=== PATIENT | male | born 1950 | race Caucasian/White ===

== ENCOUNTER → 2016-07-20 | Outpatient (CLI) | payer MEDICARE, BC ==
[2016-07-20 09:26] LABS: Basophils # (A) 0.1 k/uL (0-0.2); Basophils % (A) 1 %; CH 30.3; CHCM 31.7; Eosinophils # (A) 0.5 k/uL (0-0.7); Eosinophils % (A) 4 %; HCT 44.1 % (39.0-53.0); HDW 2.58; HGB 13.9 gm/dL (13.0-17.5); Luc # (Auto) 0.24; Luc % (Auto) 2; Lymphocytes # (A) 2.7 k/uL (1.0-4.8); Lymphocytes % (A) 24 %; MCH 30.2 pg (25.0-35.0); MCHC 31.5 g/dL (31.0-37.0); MCV 95.9 fL (80.0-100.0); Mean Platelet Volume 6.6; Monocytes # (A) 0.7 k/uL (0-1.0); Monocytes % (A) 6 %; Neutrophils % (A) 63 %; RDW 13.7 % (11.5-15.5); WBC 11.2 k/uL (3.8-10.6); WBC (Perox) 11.83
[2016-07-20 09:31] LABS: ALT 40 U/L (21-72); AST 19 U/L (17-59); Alkaline Phosphatase 96 U/L (38-126); Anion Gap 13 mmol/L; Bilirubin, Delta 0.4 mg/dL (0.0-0.2); Blood Urea Nitrogen 17 mg/dL (9-20); Calcium 9.6 mg/dL (8.4-10.2); Carbon Dioxide 26 mmol/L (22-30); Chloride 103 mmol/L (98-107); Glucose 128 mg/dL (74-99); Non-African American GFR(MDRD) >60 (>60 ml/min/1.73 sqM); Sodium 142 mmol/L (137-145); Total Bilirubin 0.8 mg/dL (0.2-1.3); Total Protein 7.3 g/dL (6.3-8.2)
== END | disposition home or self-care (01) ==
LOC: LABWHC1 08:34
PROVIDERS: ATTEND Internal Medicine Gastroenterology
DX: Z48.23 Encounter for aftercare following liver transplant (principal); Z79.899 Other long term (current) drug therapy
CPT/HCPCS: 36415; 80048; 80076; 85025

== ENCOUNTER → 2017-08-08 | Outpatient (CLI) | payer MEDICARE, BC ==
[2017-08-08 08:23] LABS: Blood Urea Nitrogen 24 mg/dL (9-20)
--- NOTE | 2017-08-08 09:32 | CT ---
EXAMINATION TYPE: CT chest w con DATE OF EXAM: 08/08/2017 COMPARISON: 08/04/2009 HISTORY: SOB CT DLP: 530.9 mGycm Automated exposure control for dose reduction was used. CONTRAST: CT scan of the chest is performed with IV Contrast, patient injected with 100 mL of Omnipaque 300. FINDINGS: LUNGS: Subsegmental changes are seen with lungs. No pneumothorax. No pleural effusion. Chronic appear ing bulla or emphysematous changes along the lateral margin of the left lower lobe is stable from the previous exam basilar and central bronchiectasis noted. Pleural thickening and calcification on the left. MEDIASTINUM: There are no greater than 1 cm hilar or mediastinal lymph nodes. No pericardial effusi on is seen. Sternotomy wires seen. Atherosclerotic change aorta. Coronary artery calcification and c ardiomegaly noted. OTHER: Chronic appearing wedge deformity in the midthoracic spine.. IMPRESSION: 1. Correlate for COPD and bronchiectasis. 2. Subsegmental consolidation noted bilaterally most typical of atelectasis or scar.
== END | disposition home or self-care (01) ==
LOC: RADCTMAIN 07:37
PROVIDERS: ATTEND Internal Medicine Critical Care Medicine
DX: J18.1 Lobar pneumonia, unspecified organism (principal)
CPT/HCPCS: 82565; 84520; 82103; 71260; 36415; Q9967

== ENCOUNTER → 2017-08-14 | Outpatient (CLI) | payer MEDICARE, BC ==
--- NOTE | 2017-08-15 10:28 | ECHOF ---
Referral Reason:LVS I50.1 Left heart failure MEASUREMENTS -------- HEIGHT: 177.8 cm WEIGHT: 95.3 kg BP: 181/90 RVIDd: 3.1 cm (< 3.3) IVSd: 1.2 cm (0.6 - 1.1) LVIDd: 4.6 cm (3.9 - 5.3) LVPWd: 1.3 cm (0.6 - 1.1) IVSs: 1.4 cm LVIDs: 2.7 cm LVPWs: 1.4 cm LAESV Index (A-L): 26.40 ml/m Ao Diam: 3.3 cm (2.0 - 3.7) AV Cusp: 1.6 cm (1.5 - 2.6) LA Diam: 4.2 cm (2.7 - 3.8) EPSS: 0.3 cm MV E Noah: 0.74 m/s MV DecT: 272 ms MV A Noah: 0.61 m/s MV E/A Ratio: 1.20 RAP: 5.00 mmHg RVSP: 14.93 mmHg MV EF SLOPE: 67.01 mm/s (70 - 150) MV EXCURSION: 1.85 cm (> 18.000) FINDINGS -------- Sinus rhythm. This was a technically adequate study. The left ventricular size is normal. There is mild concentric left ventricular hypertrophy. Overa ll left ventricular systolic function is normal with, an EF between 55 - 60 %. The right ventricle is normal in size and function. Normal LA size by volume 22+/-6 ml/m2. The right atrium is normal in size. 3ml of Lumason was utilized for enhancement of images. Aortic valve is trileaflet and is mildly thickened. There is no evidence of aortic regurgitation. The mitral valve leaflets are mildly thickened. Mild mitral regurgitation is present. Mild tricuspid regurgitation present. Right ventricular systolic pressure is normal at < 35 mmHg. There is no evidence of pulmonary hypertension. Trace/mild (physiologic) pulmonic regurgitation. The aortic root size is normal. Normal inferior vena cava with normal inspiratory collapse consistent with estimated right atrial pre ssure of 5 mmHg. There is no pericardial effusion. CONCLUSIONS -------- 1. Sinus rhythm. 2. This was a technically adequate study. 3. The left ventricular size is normal. 4. There is mild concentric left ventricular hypertrophy. 5. Overall left ventricular systolic function is normal with, an EF between 55 - 60 %. 6. Normal LA size by volume 22+/-6 ml/m2. 7. 3ml of Lumason was utilized for enhancement of images. 8. Aortic valve is trileaflet and is mildly thickened. 9. The mitral valve leaflets are mildly thickened. 10. Mild mitral regurgitation is present. 11. Mild tricuspid regurgitation present. 12. Right ventricular systolic pressure is normal at < 35 mmHg. 13. Trace/mild (physiologic) pulmonic regurgitation. 14. The aortic root size is normal. 15. There is no pericardial effusion. OIL PAINTER: Malvin Lee RDCS
== END | disposition home or self-care (01) ==
LOC: RADECHMAIN 12:45
PROVIDERS: ATTEND Internal Medicine Cardiovascular Disease
DX: I08.1 Rheumatic disorders of both mitral and tricuspid valves (principal)
CPT/HCPCS: C8929; Q9950; 93306

== ENCOUNTER 2018-04-05 17:21 | Inpatient (IN) | payer MEDICARE, BC ==
[2018-04-05] MEDS ORDERED: DILTIAZEM DRIP BOLUS FROM BAG 1 MG SOLN IV ONE (18:10)
--- NOTE | 2018-04-05 18:18 | ED ---
Arrhythmia/Palpitations HPI - General Chief Complaint: Arrhythmia/Palpitations Stated Complaint: Sob/ chest pain Time Seen by Provider: 04/05/18 17:32 Source: patient, RN notes reviewed, old records reviewed Mode of arrival: wheelchair Limitations: no limitations - History of Present Illness Initial Comments: This is a 68-year-old male the ER for evaluation patient coming in for evaluation of shortness of breath or palpitations. 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 Patient also again does have significant heart history. No recent change in history no recent change in medications. Patient has been severed from shortness of breath for quite some time, denies recent drugs or alcohol use. Patient has been stable pulmonology cardiology regarding causes of shortness of breath. He thinks palpitations started this week but mainly really noticed some today MD Complaint: rapid heart beat, "heart racing", "skipped beats", irregular heart beat -: days(s), unknown Context: occurred during rest Arrhythmia History: other (none) Associated Symptoms: shortness of breath - Related Data Home Medications Medication Instructions Recorded Confirmed Aspirin 325 mg PO DAILY 08/30/16 04/05/18 Atorvastatin [Lipitor] 10 mg PO HS 08/30/16 04/05/18 Clopidogrel [Plavix] 75 mg PO HS 08/30/16 04/05/18 Isosorbide Mononitrate [Imdur] 120 mg PO BID 08/30/16 04/05/18 Metoprolol Tartrate [Lopressor] 100 mg PO BID 08/30/16 04/05/18 Omeprazole [PriLOSEC] 20 mg PO AC-BID 08/30/16 04/05/18 Cyanocobalamin [Vitamin B-12] 500 mcg PO DAILY 04/05/18 04/05/18 Ferrous Sulfate [Feosol] 325 mg PO DAILY 04/05/18 04/05/18 Nitroglycerin 0.4MG/Hr Patch 1 patch TRANSDERM Q24H 04/05/18 04/05/18 [Nitro-Dur 0.4MG/Hr Patch] Nitroglycerin Sl Tabs [Nitrostat] 0.4 mg SUBLINGUAL Q5M PRN 04/05/18 04/05/18 Tacrolimus [Prograf] 10 mg PO QAM 04/05/18 04/05/18 Tacrolimus [Prograf] 15 mg PO HS 04/05/18 04/05/18 Allergies Allergy/AdvReac Type Severity Reaction Status Date / Time No Known Allergies Allergy Verified 04/05/18 17:56 Review of Systems ROS Statement: Those systems with pertinent positive or pertinent negative responses have been documented in the HPI. ROS Other: All systems not noted in ROS Statement are negative. Past Medical History Past Medical History: Coronary Artery Disease (CAD), GERD/Reflux, Hyperlipidemia , Liver Disease Additional Past Medical History / Comment(s): alpha 1 antitripsen deficiency History of Any Multi-Drug Resistant Organisms: None Reported Past Surgical History: Cholecystectomy, Coronary Bypass/CABG, Heart Catheterization With Stent Additional Past Surgical History / Comment(s): liver transplant, CABG 4 vessels , CABG - 2 vessels, heart stents x4 Past Anesthesia/Blood Transfusion Reactions: No Reported Reaction Date of Last Stent Placement:: 2013 Past Psychological History: No Psychological Hx Reported Smoking Status: Never smoker Past Alcohol Use History: None Reported Past Drug Use History: None Reported - Past Family History Mother Family Medical History: Coronary Artery Disease (CAD) Sister(s) Family Medical History: Cancer Additional Family Medical History / Comment(s): ovarian cancer General Exam Limitations: no limitations General appearance: alert, in no apparent distress Head exam: Present: atraumatic, normocephalic, normal inspection Eye exam: Present: normal appearance, PERRL, EOMI. Absent: scleral icterus, conjunctival injection, periorbital swelling ENT exam: Present: normal exam, mucous membranes moist Neck exam: Present: normal inspection. Absent: tenderness, meningismus, lymphadenopathy Respiratory exam: Present: normal lung sounds bilaterally. Absent: respiratory distress, wheezes, rales, rhonchi, stridor Cardiovascular Exam: Present: tachycardia, irregular rhythm, normal heart sounds. Absent: systolic murmur, diastolic murmur, rubs, gallop, clicks GI/Abdominal exam: Present: soft, normal bowel sounds. Absent: distended, tenderness, guarding, rebound, rigid Extremities exam: Present: normal inspection, full ROM, normal capillary refill. Absent: tenderness, pedal edema, joint swelling, calf tenderness Back exam: Present: normal inspection Neurological exam: Present: alert, oriented X3, CN II-XII intact Psychiatric exam: Present: normal affect, normal mood Skin exam: Present: warm, dry, intact, normal color. Absent: rash Course Vital Signs 04/05/18 04/05/18 04/05/18 17:27 18:42 19:06 Temperature 98.5 F Pulse Rate 63 97 78 Respiratory 18 16 18 Rate Blood Pressure 144/96 141/97 133/81 O2 Sat by Pulse 95 95 96 Oximetry - Reevaluation(s) Reevaluation #1: 04/05/18 18:17 Patient's medical record is reviewed here in the emergency room Reevaluation #2: 04/05/18 18:18 Good success with rate control Cardizem Medical Decision Making - Medical Decision Making 68 male the ER for evaluation presents for evaluation of COPD exacerbation, A. fib with RVR palpitations. Patient be admitted for anticoagulation and rate control. - Lab Data Result diagrams: 04/05/18 18:12 04/05/18 18:12 Lab Results 04/05/18 04/05/18 04/05/18 Range/Units 18:12 18:12 18:12 WBC 11.7 H (3.8-10.6) k/uL RBC 3.78 L (4.30-5.90) m/uL Hgb 11.5 L (13.0-17.5) gm/dL Hct 36.4 L (39.0-53.0) % MCV 96.2 (80.0-100.0) fL MCH 30.4 (25.0-35.0) pg MCHC 31.6 (31.0-37.0) g/dL RDW 14.4 (11.5-15.5) % Plt Count 230 (150-450) k/uL Neutrophils % 71 % Lymphocytes % 17 % Monocytes % 6 % Eosinophils % 3 % Basophils % 1 % Neutrophils # 8.3 H (1.3-7.7) k/uL Lymphocytes # 2.0 (1.0-4.8) k/uL Monocytes # 0.7 (0-1.0) k/uL Eosinophils # 0.3 (0-0.7) k/uL Basophils # 0.1 (0-0.2) k/uL Hypochromasia Slight PT (9.0-12.0) sec INR (<1.2) APTT (22.0-30.0) sec Sodium 143 (137-145) mmol/L Potassium 4.3 (3.5-5.1) mmol/L Chloride 109 H (98-107) mmol/L Carbon Dioxide 23 (22-30) mmol/L Anion Gap 11 mmol/L BUN 26 H (9-20) mg/dL Creatinine 1.01 (0.66-1.25) mg/dL Est GFR (CKD-EPI)AfAm 88 (>60 ml/min/1.73 sqM) Est GFR (CKD-EPI)NonAf 76 (>60 ml/min/1.73 sqM) Glucose 153 H (74-99) mg/dL Calcium 9.5 (8.4-10.2) mg/dL Phosphorus 3.9 (2.5-4.5) mg/dL Magnesium 1.7 (1.6-2.3) mg/dL Total Bilirubin 0.6 (0.2-1.3) mg/dL AST 23 (17-59) U/L ALT 23 (21-72) U/L Alkaline Phosphatase 84 (38-126) U/L Total Creatine Kinase 53 L (55-170) U/L CK-MB (CK-2) 0.2 (0.0-2.4) ng/mL CK-MB (CK-2) Rel Index 0.4 Troponin I 0.035 H* (0.000-0.034) ng/mL Total Protein 6.4 (6.3-8.2) g/dL Albumin 3.8 (3.5-5.0) g/dL TSH 2.380 (0.465-4.680) mIU/L 04/05/18 Range/Units 18:12 WBC (3.8-10.6) k/uL RBC (4.30-5.90) m/uL Hgb (13.0-17.5) gm/dL Hct (39.0-53.0) % MCV (80.0-100.0) fL MCH (25.0-35.0) pg MCHC (31.0-37.0) g/dL RDW (11.5-15.5) % Plt Count (150-450) k/uL Neutrophils % % Lymphocytes % % Monocytes % % Eosinophils % % Basophils % % Neutrophils # (1.3-7.7) k/uL Lymphocytes # (1.0-4.8) k/uL Monocytes # (0-1.0) k/uL Eosinophils # (0-0.7) k/uL Basophils # (0-0.2) k/uL Hypochromasia PT 10.6 (9.0-12.0) sec INR 1.1 (<1.2) APTT 21.6 L (22.0-30.0) sec Sodium (137-145) mmol/L Potassium (3.5-5.1) mmol/L Chloride (98-107) mmol/L Carbon Dioxide (22-30) mmol/L Anion Gap mmol/L BUN (9-20) mg/dL Creatinine (0.66-1.25) mg/dL Est GFR (CKD-EPI)AfAm (>60 ml/min/1.73 sqM) Est GFR (CKD-EPI)NonAf (>60 ml/min/1.73 sqM) Glucose (74-99) mg/dL Calcium (8.4-10.2) mg/dL Phosphorus (2.5-4.5) mg/dL Magnesium (1.6-2.3) mg/dL Total Bilirubin (0.2-1.3) mg/dL AST (17-59) U/L ALT (21-72) U/L Alkaline Phosphatase (38-126) U/L Total Creatine Kinase (55-170) U/L CK-MB (CK-2) (0.0-2.4) ng/mL CK-MB (CK-2) Rel Index Troponin I (0.000-0.034) ng/mL Total Protein (6.3-8.2) g/dL Albumin (3.5-5.0) g/dL TSH (0.465-4.680) mIU/L - Radiology Data Radiology results: report reviewed (Chest x-rays negative for acute disease), image reviewed Critical Care Time Critical Care Time: Yes Total Critical Care Time: 31 Disposition Clinical Impression: Atrial fibrillation, Tachycardia, Atrial fibrillation with RVR, COPD exacerbation Disposition: ADMITTED IP TO THIS [facility] Condition: Fair Is patient prescribed a controlled substance at d/c from ED?: No Referrals: Richi Le DO [Primary Care Provider] - 1-2 days
[2018-04-05 18:28] LABS: Basophils # (A) 0.1 k/uL (0-0.2); Basophils % (A) 1 %; Eosinophils # (A) 0.3 k/uL (0-0.7); Eosinophils % (A) 3 %; HCT 36.4 % (39.0-53.0); HGB 11.5 gm/dL (13.0-17.5); Hypochromasia Slight; Lymphocytes % (A) 17 %; MCH 30.4 pg (25.0-35.0); MCHC 31.6 g/dL (31.0-37.0); MCV 96.2 fL (80.0-100.0); Mean Platelet Volume 6.8; Monocytes # (A) 0.7 k/uL (0-1.0); Monocytes % (A) 6 %; Neutrophils # (A) 8.3 k/uL (1.3-7.7); Neutrophils % (A) 71 %; Platelet Count 230 k/uL (150-450); RBC 3.78 m/uL (4.30-5.90); RDW 14.4 % (11.5-15.5); WBC 11.7 k/uL (3.8-10.6)
[2018-04-05 18:34] LABS: Albumin 3.8 g/dL (3.5-5.0); Calcium 9.5 mg/dL (8.4-10.2); Magnesium 1.7 mg/dL (1.6-2.3); Phosphorus 3.9 mg/dL (2.5-4.5); Potassium 4.3 mmol/L (3.5-5.1); Total Bilirubin 0.6 mg/dL (0.2-1.3); Total Protein 6.4 g/dL (6.3-8.2)
--- NOTE | 2018-04-05 18:39 | XR ---
EXAMINATION TYPE: XR chest 2V DATE OF EXAM: 04/05/2018 COMPARISON: 08/02/2017 HISTORY: Chest pain TECHNIQUE: Frontal and lateral views of the chest are obtained. FINDINGS: There is blunting of left costophrenic angle. There is reticular infiltrate in the left lo wer lobe. There is no gross heart failure. Heart appears enlarged. There are sternal wires. Thoracic aorta is atheromatous. IMPRESSION: Pleural and pulmonary scarring in the left lower lobe unchanged compared to old exam. No acute lung disease. No heart failure.
[2018-04-05] MEDS: DILTIAZEM 50 MG in SODIUM CHLORIDE 0.9% 40 ML IV SCH (18:41)
[2018-04-05 18:46] LABS: INR 1.1 (<1.2); Prothrombin Time 10.6 sec (9.0-12.0)
[2018-04-05 18:47] LABS: Partial Thromboplastin Time 21.6 sec (22.0-30.0)
[2018-04-05 18:49] LABS: Creatine Kinase MB 0.2 ng/mL (0.0-2.4)
[2018-04-05 19:14] LABS: Troponin I 0.035 ng/mL (0.000-0.034)
[2018-04-05] MEDS ORDERED: NITROGLYCERIN SL TABS 0.4 MG TAB SUBLINGUAL PRN ×2 (19:26→20:29)
[2018-04-05] MEDS ORDERED: HEPARIN SODIUM,PORCINE 5,000 UNIT/ML 1 ML VIAL IV PRN (19:26)
[2018-04-05] MEDS ORDERED: HEPARIN SODIUM,PORCINE 5,000 UNIT/ML 1 ML VIAL IV ONE (19:26)
[2018-04-05] MEDS ORDERED: ASPIRIN 81 MG PO STA (19:26)
[2018-04-05] MEDS ORDERED: IPRATROPIUM-ALBUTEROL 3 ML NEB INHALATION STA (19:29)
[2018-04-05] MEDS ORDERED: IPRATROPIUM-ALBUTEROL 3 ML NEB INHALATION PRN (19:29)
[2018-04-05] MEDS ORDERED: HEPARIN SOD,PORK IN 0.45% NACL 25,000 UNIT in 0.45% NACL 1 500ML.BAG IV SCH (19:30)
[2018-04-05 20:04] LABS: Appearance,Urine Clear (Clear); Bilirubin,Urine Negative (Negative); Blood,Urine Moderate (Negative); Color,Urine Yellow; Glucose,Urine (UA) Negative (Negative); Ketones,Urine Negative (Negative); Leukocyte Esterase,Urine Negative (Negative); Mucus,Urine Occasional /hpf; Nitrite,Urine Negative (Negative); PH, Urine 5.5 (5.0-8.0); Protein,Urine 1+ (Negative); RBC,Urine 2 /hpf (0-5); Specific Gravity,Urine 1.022 (1.001-1.035); Urobilinogen,Urine <2.0 mg/dL (<2.0); WBC,Urine 2 /hpf (0-5)
[2018-04-05 20:58] VITALS: BMI 31.4
[2018-04-05] MEDS ORDERED: NITROGLYCERIN 0.4MG/HR PATCH TRANSDERM SCH (21:00)
[2018-04-05] MEDS ORDERED: TACROLIMUS 1 MG CAP PO SCH ×2 (21:00→22:30)
[2018-04-05] MEDS: ATORVASTATIN 10 MG TAB PO SCH (21:56)
[2018-04-05] MEDS: ISOSORBIDE MONONITRATE ER 60 MG TAB.ER.24H PO SCH (21:56)
[2018-04-05] MEDS: METOPROLOL TARTRATE 50 MG TAB PO SCH (21:56)
[2018-04-05] MEDS: CLOPIDOGREL 75 MG TAB PO SCH (21:56)
[2018-04-05] MEDS: SODIUM CHLORIDE 0.9% 1,000 ML IV SCH (21:58)
[2018-04-06 02:08] LABS: Creatine Kinase MB 0.4 ng/mL (0.0-2.4)
[2018-04-06 02:10] LABS: Troponin I 0.049 ng/mL (0.000-0.034)
[2018-04-06] MEDS: DILTIAZEM 50 MG in SODIUM CHLORIDE 0.9% 40 ML IV SCH (05:23)
[2018-04-06] MEDS: PANTOPRAZOLE 40 MG TABLET PO SCH ×2 (06:26→17:35)
[2018-04-06] MEDS: SODIUM CHLORIDE 0.9% 1,000 ML IV SCH (06:26)
[2018-04-06 08:12] LABS: Mean Platelet Volume 6.8; Platelet Count 226 k/uL (150-450)
[2018-04-06 08:13] LABS: Cholesterol 103 mg/dL (<200); HDL Cholesterol 35 mg/dL (40-60); LDL Cholesterol,Calculated 40 mg/dL (0-99); Triglycerides 139 mg/dL (<150)
[2018-04-06 08:38] LABS: Creatine Kinase MB 0.4 ng/mL (0.0-2.4)
[2018-04-06 08:50] LABS: Troponin I 0.049 ng/mL (0.000-0.034)
[2018-04-06] MEDS ORDERED: ASPIRIN 325 MG TAB PO SCH (09:00)
[2018-04-06] MEDS: ISOSORBIDE MONONITRATE ER 60 MG TAB.ER.24H PO SCH ×2 (09:26→21:58)
[2018-04-06] MEDS: CYANOCOBALAMIN 500 MCG TAB PO SCH (09:26)
[2018-04-06] MEDS: TACROLIMUS 1 MG CAP PO SCH ×3 (09:26→21:53)
[2018-04-06] MEDS: METOPROLOL TARTRATE 50 MG TAB PO SCH ×2 (09:27→21:57)
[2018-04-06] MEDS: FERROUS SULFATE 325 MG TAB PO SCH (09:27)
--- NOTE | 2018-04-06 09:53 | CONS ---
CONSULTATION CHIEF COMPLAINT: Chest pain and shortness of breath. Darren is a 68-year-old gentleman with history of coronary artery disease, status post CABG x2, status post prior revascularization who follows with Dr. Saunders for his cardiac needs. He comes into hospital complaining of shortness of breath, palpitations, fatigue and tiredness and chest discomfort. He states that for the last 1-2 months he has been having intermittent palpitations, which he thinks are related to atrial fibrillation, but over the last 2 weeks he is becoming progressively fatigued, tired and has had chest tightness. His forced him to come to the ER where he was found to be in atrial fibrillation with rapid ventricular rate for which she is admitted and Cardiology had been consulted. At the time of my evaluation this morning, he is in atrial fibrillation with controlled ventricular rate. Chest pain has resolved. He has had 3 sets of troponins that were mildly elevated at 0.03, 0.04 and 0.04. His EKG shows atrial fibrillation with right bundle branch block and nonspecific ST-T wave changes. I reviewed his EKGs, labs, clinical presentation, and prior history and advised him to undergo cardiac catheterization for the non ST-segment elevation VT. Patient tells me that he had a cath in June with Dr. Saunders and does not want to have a cardiac cath done at this time. 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 He does not want to be transferred at this time: Patient has new onset atrial fibrillation. I am going to start him on an anticoagulant. If he is covered for Eliquis, he will go on to 5 mg b.i.d. of Eliquis and after adequate anticoagulation, patient will benefit from DEYA and cardioversion. PAST MEDICAL HISTORY: Significant for coronary artery disease, status post CABG, hypertension, dyslipidemia. CURRENT MEDICATIONS: Include Imdur 120 b.i.d., aspirin, Prilosec, Lopressor 100 b.i.d., Prograf, vitamin B12, iron, nitro patch, Lipitor and Plavix. ALLERGIES: No known drug allergies. FAMILY HISTORY: Negative for premature coronary artery disease. SOCIAL HISTORY: Negative for current smoking, EtOH abuse, or drug abuse. REVIEW OF SYSTEMS: HEENT is unremarkable. CARDIAC: As described above. RESPIRATORY: Negative. GI: Negative. GENITOURINARY Negative. RESPIRATORY: As described above. ALLERGY/IMMUNOLOGY: Negative. MUSCULOSKELETAL: Negative. ENDOCRINE: Negative. DERM: Negative. CONSTITUTIONAL: Negative. ONCOLOGICAL: Negative SENIOR DIRECTOR [employer]: Negative. Rest of the system review is not relevant. PHYSICAL EXAM: Patient is afebrile. Heart rate is 90 beats per minute, blood pressure is 140/90, respiratory rate is 18, O2 sat is 97% on 2 L. There is no jugular venous distention. Carotid upstroke is normal. There is no bruit. Chest exam reveals good air entry bilaterally. Heart exam reveals first and second heart sounds. No gallop. No murmur. No rub. Abdomen is soft, nontender. Exam of extremities did not reveal edema. Peripheral pulses are felt. LABS: Show potassium of 4.3, creatinine is 1, hemoglobin is 11.5. Troponins are mildly elevated. LDL cholesterol is 40. EKG shows atrial fibrillation with poorly controlled ventricular rate. ASSESSMENT: 1. Persistent atrial fibrillation with poorly controlled ventricular rate. 2. Non ST-segment elevation myocardial infarction. 3. Known coronary artery disease, status post coronary artery bypass grafting. 4. Hypertension. 5. Dyslipidemia. PLAN: I will continue the patient on optimal medical therapy for his coronary artery evaluation. 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 Will control the heart rate with beta blockers and if necessary add oral Cardizem. Start him on Eliquis if he is covered for it. Outpatient follow up with his own assembl[employer]. MMODL / RADHAN: [id number] /
[2018-04-06 12:21] VITALS: RESP 16
[2018-04-06] MEDS: APIXABAN 5 MG TAB PO SCH ×2 (12:32→21:57)
[2018-04-06] MEDS: DILTIAZEM ORAL 30 MG TAB PO SCH ×3 (12:32→22:52)
--- NOTE | 2018-04-06 13:15 | ECHOF ---
Referral Reason:chest pain/palpitations MEASUREMENTS -------- HEIGHT: 182.9 cm WEIGHT: 99.3 kg BP: RVIDd: 2.6 cm (< 3.3) IVSd: 1.5 cm (0.6 - 1.1) LVIDd: 5.4 cm (3.9 - 5.3) LVPWd: 1.5 cm (0.6 - 1.1) IVSs: 1.6 cm LVIDs: 2.9 cm LVPWs: 2.1 cm LAESV Index (A-L): 25.06 ml/m Ao Diam: 3.1 cm (2.0 - 3.7) AV Cusp: 1.9 cm (1.5 - 2.6) LA Diam: 4.1 cm (2.7 - 3.8) MV EXCURSION: 11.800 mm (> 18.000) MV EF SLOPE: 135 mm/s (70 - 150) EPSS: 0.3 cm RAP: 5.00 mmHg RVSP: 41.94 mmHg FINDINGS -------- Atrial fibrillation. This was a technically difficult study with suboptimal views. The left ventricular size is normal. There is moderate concentric left ventricular hypertrophy. T here is mild global hypokinesis of LV . Overall left ventricular systolic function is mildly impair ed with, an EF between 45 - 50 %. There is paradoxical/dysynergic septal motion consistent with pos t-operative status. The right ventricle is normal in size and function. Normal LA size by volume 22+/-6 ml/m2. The right atrium is normal in size. Lumason used There is mild aortic valve sclerosis. Mild mitral annular calcification present. Mild mitral regurgitation is present. Moderate tricuspid regurgitation present. There is mild pulmonary hypertension. The right ventric ular systolic pressure, as measured by Doppler, is 41.94mmHg. The pulmonic valve was not well visualized. Trace/mild (physiologic) pulmonic regurgitation. The aortic root size is normal. There is a trivial pericardial effusion present. CONCLUSIONS -------- 1. Atrial fibrillation. 2. This was a technically difficult study with suboptimal views. 3. The left ventricular size is normal. 4. There is moderate concentric left ventricular hypertrophy. 5. There is mild global hypokinesis of LV . 6. Overall left ventricular systolic function is mildly impaired with, an EF between 45 - 50 %. 7. There is paradoxical/dysynergic septal motion consistent with post-operative status. 8. Normal LA size by volume 22+/-6 ml/m2. 9. Lumason used 10. There is mild aortic valve sclerosis. 11. Mild mitral annular calcification present. 12. Mild mitral regurgitation is present. 13. Moderate tricuspid regurgitation present. 14. There is mild pulmonary hypertension. 15. Trace/mild (physiologic) pulmonic regurgitation. 16. The aortic root size is normal. 17. There is a trivial pericardial effusion present. CIVIL TRANSPORTATION ENGINEER: Elisha Palmer RDCS
--- NOTE | 2018-04-06 14:23 | P.HPIM ---
History of Present Illness H&P Date: 04/06/18 This is a 68-year-old male patient of Dr. Le with a past medical history of COPD/ emphysema secondary to alpha-1 antitrypsin deficiency coronary artery disease status post CABG 4 vessel and stents follows with Dr. Saunders, obstructive sleep apnea with CPAP, hypertension, hyperlipidemia, gastroesophageal reflux disease, liver transplant in 2005. Patient came in with shortness of breath and palpitations. He states he's had this for a long period of time but for the past month it has been worsening. He states his breathing is okay and at this time he is back to his normal baseline. He denies any dizziness or lightheadedness. No abdominal pain. No nausea, vomiting, diarrhea. No dysuria. Noted weakness or visual changes. Patient was admitted to the selective care unit for new onset of atrial fibrillation and has been seen by Dr. aHnnah. Patient is started on eliquis implantable be monitored overnight with discharge home tomorrow. Troponins have been 0.035, 0.049 and 0.049. Triglycerides 139, cholesterol 103, LDL 40 and HDL 35. TSH was 2.380. Echocardiogram reveals moderate concentric left hypertrophy, mild global hypokinesia of the LV, EF 45-50%, mild mitral regurgitation, moderate tricuspid regurgitation, mild pulmonary hypertension. Review of Systems All systems: negative Constitutional: Denies chills, Denies fatigue, Denies fever, Denies poor appetite, Denies sweats Eyes: denies blurred vision, denies pain Ears, nose, mouth and throat: Denies headache, Denies sore throat Cardiovascular: Reports palpitations, Denies chest pain, Denies leg edema, Denies lightheadedness, Denies shortness of breath, Denies syncope Respiratory: Denies cough, Denies cough with sputum, Denies dyspnea, Denies excessive sputum, Denies hemoptysis, Denies home oxygen, Denies wheezing Gastrointestinal: Denies abdominal pain, Denies diarrhea, Denies nausea, Denies vomiting Musculoskeletal: Denies myalgias Integumentary: Denies pruritus, Denies rash Neurological: Denies numbness, Denies weakness Psychiatric: Denies anxiety, Denies depression Endocrine: Denies fatigue, Denies weight change Past Medical History Past Medical History: Coronary Artery Disease (CAD), GERD/Reflux, Hyperlipidemia , Hypertension, Liver Disease, Myocardial Infarction ([place]), Sleep Apnea/CPAP/ BIPAP Additional Past Medical History / Comment(s): alpha 1 antitripsen deficiency, pt wears cpap at night Last Myocardial Infarction Date:: 2013 History of Any Multi-Drug Resistant Organisms: None Reported Past Surgical History: Cholecystectomy, Coronary Bypass/CABG, Heart Catheterization With Stent Additional Past Surgical History / Comment(s): liver transplant 2005, CABG 4 vessels , CABG - 2 vessels, heart stents x4 Past Anesthesia/Blood Transfusion Reactions: No Reported Reaction Date of Last Stent Placement:: 2013 Past Psychological History: No Psychological Hx Reported Smoking Status: Never smoker Past Alcohol Use History: None Reported Past Drug Use History: None Reported - Past Family History Mother Family Medical History: Coronary Artery Disease (CAD) Sister(s) Family Medical History: Cancer Additional Family Medical History / Comment(s): ovarian cancer Medications and Allergies Home Medications Medication Instructions Recorded Confirmed Type Aspirin 325 mg PO DAILY 08/30/16 04/05/18 History Atorvastatin [Lipitor] 10 mg PO HS 08/30/16 04/05/18 History Clopidogrel [Plavix] 75 mg PO HS 08/30/16 04/05/18 History Isosorbide Mononitrate [Imdur] 120 mg PO BID 08/30/16 04/05/18 History Metoprolol Tartrate [Lopressor] 100 mg PO BID 08/30/16 04/05/18 History Omeprazole [PriLOSEC] 20 mg PO AC-BID 08/30/16 04/05/18 History Cyanocobalamin [Vitamin B-12] 500 mcg PO DAILY 04/05/18 04/05/18 History Ferrous Sulfate [Feosol] 325 mg PO DAILY 04/05/18 04/05/18 History Nitroglycerin 0.4MG/Hr Patch 1 patch TRANSDERM Q24H 04/05/18 04/05/18 History [Nitro-Dur 0.4MG/Hr Patch] Nitroglycerin Sl Tabs [Nitrostat] 0.4 mg SUBLINGUAL Q5M PRN 04/05/18 04/05/18 History Tacrolimus [Prograf] 1 mg PO HS 04/06/18 04/06/18 History Tacrolimus [Prograf] 1.5 mg PO DAILY 04/06/18 04/06/18 History Allergies Allergy/AdvReac Type Severity Reaction Status Date / Time No Known Allergies Allergy Verified 04/05/18 17:56 Physical Exam Vitals: Vital Signs Temp Pulse Pulse Resp BP BP Pulse Ox 04/06/18 07:25 97 04/06/18 04:00 97.6 F 91 18 144/91 97 04/06/18 03:36 18 04/06/18 00:00 97.3 F L 86 18 133/73 98 04/05/18 21:00 18 04/05/18 20:10 76 18 148/86 96 04/05/18 20:00 97.1 F L 86 18 122/75 93 L 04/05/18 19:51 82 18 155/80 96 04/05/18 19:06 78 18 133/81 96 04/05/18 18:42 97 16 141/97 95 04/05/18 17:27 98.5 F 63 18 144/96 95 Intake and Output 04/05/18 04/06/18 04/06/18 22:59 06:59 14:59 Intake Total 418.274 0 Balance 418.274 0 Intake: Intake, IV Titration 418.274 Amount Heparin Sod,Pork in 0.45% 118.274 NaCl 25,000 unit In 0.45 % NaCl 1 500ml.bag @ 10. 25 UNITS/KG/HR 19.99 mls/ hr IV .Q24H [facility] Rx#: [id number] Sodium Chloride 0.9% 1, 300 000 ml @ 100 mls/hr IV . Q10H [facility] Rx#:[id number] Oral 0 Other: Weight 99.2 kg 99.4 kg Gen: This is a 68-year-old male. He is sitting on the edge of the bed and appears to be comfortable and in no acute distress. HEENT: Head is atraumatic, normocephalic. Pupils equal, round. Sclerae is anicteric. NECK: Supple. No JVD. No lymphadenopathy. No thyromegaly. LUNGS: Clear to auscultation. No wheezes or rhonchi. No intercostal retractions. HEART: Regular rate and rhythm. No murmur. ABDOMEN: Soft. Bowel sounds are present. No masses. No tenderness. EXTREMITIES: No pedal edema. No calf tenderness. NEUROLOGICAL: Patient is awake, alert and oriented x3. Cranial nerves 2 through 12 are grossly intact. Results CBC & Chem 7: 04/06/18 07:08 04/05/18 18:12 Labs: Abnormal Lab Results - Last 24 Hours (Table) 04/05/18 04/05/18 04/05/18 Range/Units 18:12 18:12 18:12 WBC 11.7 H (3.8-10.6) k/uL RBC 3.78 L (4.30-5.90) m/uL Hgb 11.5 L (13.0-17.5) gm/dL Hct 36.4 L (39.0-53.0) % Neutrophils # 8.3 H (1.3-7.7) k/uL APTT (22.0-30.0) sec Chloride 109 H (98-107) mmol/L BUN 26 H (9-20) mg/dL Glucose 153 H (74-99) mg/dL Total Creatine Kinase 53 L (55-170) U/L Troponin I 0.035 H* (0.000-0.034) ng/mL HDL Cholesterol (40-60) mg/dL Urine Protein (Negative) Urine Blood (Negative) Urine Mucus (None) /hpf 04/05/18 04/05/18 04/06/18 Range/Units 18:12 19:55 01:20 WBC (3.8-10.6) k/uL RBC (4.30-5.90) m/uL Hgb (13.0-17.5) gm/dL Hct (39.0-53.0) % Neutrophils # (1.3-7.7) k/uL APTT 21.6 L (22.0-30.0) sec Chloride (98-107) mmol/L BUN (9-20) mg/dL Glucose (74-99) mg/dL Total Creatine Kinase 40 L (55-170) U/L Troponin I 0.049 H* (0.000-0.034) ng/mL HDL Cholesterol (40-60) mg/dL Urine Protein 1+ H (Negative) Urine Blood Moderate H (Negative) Urine Mucus Occasional H (None) /hpf 04/06/18 04/06/18 04/06/18 Range/Units 01:20 07:08 07:08 WBC (3.8-10.6) k/uL RBC (4.30-5.90) m/uL Hgb (13.0-17.5) gm/dL Hct (39.0-53.0) % Neutrophils # (1.3-7.7) k/uL APTT 42.7 H (22.0-30.0) sec Chloride (98-107) mmol/L BUN (9-20) mg/dL Glucose (74-99) mg/dL Total Creatine Kinase 41 L (55-170) U/L Troponin I 0.049 H* (0.000-0.034) ng/mL HDL Cholesterol 35 L (40-60) mg/dL Urine Protein (Negative) Urine Blood (Negative) Urine Mucus (None) /hpf 04/06/18 Range/Units 07:08 WBC (3.8-10.6) k/uL RBC (4.30-5.90) m/uL Hgb (13.0-17.5) gm/dL Hct (39.0-53.0) % Neutrophils # (1.3-7.7) k/uL APTT 49.2 H (22.0-30.0) sec Chloride (98-107) mmol/L BUN (9-20) mg/dL Glucose (74-99) mg/dL Total Creatine Kinase (55-170) U/L Troponin I (0.000-0.034) ng/mL HDL Cholesterol (40-60) mg/dL Urine Protein (Negative) Urine Blood (Negative) Urine Mucus (None) /hpf Thrombosis Risk Factor Assmnt - DVT/VTE Prophylaxis DVT/VTE Prophylaxis: Pharmacologic Prophylaxis ordered - Choose All That Apply Any of the Below Risk Factors Present?: Yes Each Factor Represents 1 point: Acute CA, Obesity (BMI >25) Other Risk Factors: Yes Each Risk Factor Represents 2 Points: Age 61-74 years Thrombosis Risk Factor Assessment Total Risk Factor Score: 4 Thrombosis Risk Factor Assessment Level: Moderate Risk Assessment and Plan Plan: 1. New onset persistent atrial fibrillation, rate controlled. Heparin drip to be discontinued and patient started eliquis. Cardizem 30 mg 3 times daily started. Continue Lopressor 100 mg twice daily. Patient will be monitored overnight and plan for discharge tomorrow. Cardiology consult is appreciated. 2. Non-ST elevated myocardial infarction. Aspirin discontinued and patient to continue Plavix 75 mg daily, eliquis 5 mg twice daily, Imdur 120 mg twice daily , Lipitor and Lopressor. Cardiology consult appreciated. 3. History of coronary artery disease status post bypass and stenting. Continue Plavix, aspirin discontinued. Continue Imdur 120 mg twice daily, Lopressor 100 mg twice daily 4. Hypertension. Continue Cardizem, Imdur, Lopressor. 5. Hyperlipidemia. Continue Lipitor. 6. COPD and alpha-1 antitrypsin deficiency, stable. 7. Obstructive sleep apnea on CPAP. 8. Liver transplant in 2005, stable. Continue Prograf 1.5 mg daily and 1 mg at bedtime 9. VT prophylaxis. Eliquis. 10. GI prophylaxis. Protonix. Patient will be admitted to the hospital for a minimum of 2 night stay. Discharge plan: Return home on Monday Impression and plan of care have been directed as dictated by the signing physician. Isa Morgan nurse practitioner acting as scribe for signing physician.
--- NOTE | 2018-04-06 15:19 | P.CNPUL ---
History of Present Illness Consult date: 04/06/18 Reason for consult: dyspnea History of present illness: This is a 68-year-old male patient who is coming into the hospital because of shortness of breath and palpitations. Apparently his condition is been progressively getting worse over this past month. The patient has been complaining of shortness of breath, palpitations, fatigue and exertional dyspnea. No angina. No fever. No chills. No pleurisy. He came into the hospital by the patient was found to be in A. fib RVR and he was admitted to telemetry unit. Currently the patient is on Cardizem drip and the rate is controlled. The patient was also started on long-term and to coagulation with Eliquis. Troponins were 0.03 0.04 at 0.04 respectively. Echocardiogram showed an LV function of 40-45% with mild global hypokinesis and mild MR, moderate TR, mild pulmonary hypertension. There was evidence of moderate degree of concentric left ventricular hypertrophy his chest x-ray shows pleural and pulmonary scarring in the left lower lobe unchanged from an old examination. Otherwise no acute abnormalities noted. This patient is also known to me. I have evaluated this patient for shortness of breath in my office in August 2017. As mentioned earlier, the patient has a long and a complicated history of coronary artery disease for which she has undergone initial bypass surgery in the year 1999 and subsequent redo bypass surgery few months after for occlusion of the bypassed veins. Subsequently, the patient was diagnosed having end-stage liver disease/liver cirrhosis and he was referred to [facility] and further investigation yielded the patient had an alpha-1 antitrypsin deficiency. His serum alpha-1 antitrypsin level checked recently was 159 mg/dL. His genotype was established to be ZZ . The patient received a liver transplantation and the results were quite satisfactory and the patient was released home and he has been doing very well since 2006 maintained on tacrolimus. No septic complications following liver transplantation. No specific pulmonary complications still 5-6 years ago when he started progressively experiencing exertional dyspnea. He did not have any pulmonary evaluation he was seen by Dr. Saunders, a pattern checker, around 4 years ago and he was found to have further coronary occlusions for which she underwent percutaneous revascularization and stenting. He can recall at least 4- 6 coronary inserted inserted in the coronary artery, including the left main coronary artery. He underwent a recent stress test and May 2017. His pulmonary function test done today showed an FEV1 of 60% of predicted with minimal reversibility post-bronchodilation. His total lung capacities at 73% and his diffusion capacity is at 42%. His chest x-ray shows cardiomegaly, post thoracotomy changes and a small left-sided pleural effusion. I started this patient on Spiriva on outpatient basis, and the response to that medication was suboptimal. Review of Systems Comprehensive General Adult ROS Reported by Patient Constitutional Constitutional: no fever, no night sweats, no significant weight gain, no significant weight loss, no exercise intolerance Eyes Eyes: no dry eyes, no vision change, no irritation ENMT Ears: no difficulty hearing, no ear pain Nose: no frequent nosebleeds, no nose problems, no sinus problems Mouth/Throat: no sore throat, no bleeding gums, no snoring, no dry mouth, no mouth ulcers, no oral abnormalities, no teeth problems Cardiovascular Cardiovascular: no chest pain, no arm pain on exertion, palpitations, no known heart murmur, shortness of breath when walking, shortness of breath when lying down, palpitations and irregular heart beats Respiratory Respiratory: no cough, no wheezing, no coughing up blood, no sleep apnea, shortness of breath Gastrointestinal Gastrointestinal: no abdominal pain, no nausea, no vomiting, no constipation, normal appetite, no diarrhea, not vomiting blood, no dyspepsia, no GERD (liver transplant) Genitourinary Genitourinary: no incontinence, no difficulty urinating, no hematuria, no increased frequency Musculoskeletal Musculoskeletal: no muscle aches, no muscle weakness, no arthralgias/joint pain , no back pain, no swelling in the extremities Integumentary Skin: no abnormal mole, no jaundice, no rashes, no laceration Neurologic Neurologic: no loss of consciousness, no weakness, no numbness, no seizures, dizziness, no migraines, no headaches, no tremor Psychiatric Psych: no depression, no sleep disturbances, feeling safe in a relationship, no alcohol abuse, no anxiety, no hallucinations, no suicidal thoughts Endocrine Endocrine: no fatigue Hematologic/Lymphatic Hematologic/Lymphatic no swollen glands, no bruising, no excessive bleeding Allergic/Immunologic Allergy/Immunologic: no runny nose, no sinus pressure, no itching, no hives, no frequent sneezing Past Medical History Past Medical History: Coronary Artery Disease (CAD), GERD/Reflux, Hyperlipidemia , Hypertension, Liver Disease, Myocardial Infarction ([place]), Sleep Apnea/CPAP/ BIPAP Additional Past Medical History / Comment(s): COPD, alpha-1 antitrypsin deficiency, previous history of liver transplantation, coronary artery disease with previous bypass surgery 2, hypertension, hyperlipidemia, chronic edema suppression and the patient is maintained on tacrolimus. Obstructive sleep apnea maintained on CPAP therapy. Last Myocardial Infarction Date:: 2013 History of Any Multi-Drug Resistant Organisms: None Reported Past Surgical History: Cholecystectomy, Coronary Bypass/CABG, Heart Catheterization With Stent Additional Past Surgical History / Comment(s): liver transplant 2005, CABG 4 vessels , CABG - 2 vessels, heart stents x4 Past Anesthesia/Blood Transfusion Reactions: No Reported Reaction Date of Last Stent Placement:: 2013 Past Psychological History: No Psychological Hx Reported Smoking Status: Never smoker Past Alcohol Use History: None Reported Past Drug Use History: None Reported - Past Family History Mother Family Medical History: Coronary Artery Disease (CAD) Sister(s) Family Medical History: Cancer Additional Family Medical History / Comment(s): ovarian cancer Medications and Allergies Home Medications Medication Instructions Recorded Confirmed Type Aspirin 325 mg PO DAILY 08/30/16 04/05/18 History Atorvastatin [Lipitor] 10 mg PO HS 08/30/16 04/05/18 History Clopidogrel [Plavix] 75 mg PO HS 08/30/16 04/05/18 History Isosorbide Mononitrate [Imdur] 120 mg PO BID 08/30/16 04/05/18 History Metoprolol Tartrate [Lopressor] 100 mg PO BID 08/30/16 04/05/18 History Omeprazole [PriLOSEC] 20 mg PO AC-BID 08/30/16 04/05/18 History Cyanocobalamin [Vitamin B-12] 500 mcg PO DAILY 04/05/18 04/05/18 History Ferrous Sulfate [Feosol] 325 mg PO DAILY 04/05/18 04/05/18 History Nitroglycerin 0.4MG/Hr Patch 1 patch TRANSDERM Q24H 04/05/18 04/05/18 History [Nitro-Dur 0.4MG/Hr Patch] Nitroglycerin Sl Tabs [Nitrostat] 0.4 mg SUBLINGUAL Q5M PRN 04/05/18 04/05/18 History Tacrolimus [Prograf] 1 mg PO HS 04/06/18 04/06/18 History Tacrolimus [Prograf] 1.5 mg PO DAILY 04/06/18 04/06/18 History Allergies Allergy/AdvReac Type Severity Reaction Status Date / Time No Known Allergies Allergy Verified 04/05/18 17:56 Physical Exam Vitals: Vital Signs Temp Pulse Pulse Resp BP BP Pulse Ox 04/06/18 12:10 96 04/06/18 12:05 96 16 128/80 95 04/06/18 08:30 96.9 F L 70 18 117/61 92 L 04/06/18 07:25 97 04/06/18 04:00 97.6 F 91 18 144/91 97 04/06/18 03:36 18 04/06/18 00:00 97.3 F L 86 18 133/73 98 04/05/18 21:00 18 04/05/18 20:10 76 18 148/86 96 04/05/18 20:00 97.1 F L 86 18 122/75 93 L 04/05/18 19:51 82 18 155/80 96 04/05/18 19:06 78 18 133/81 96 04/05/18 18:42 97 16 141/97 95 04/05/18 17:27 98.5 F 63 18 144/96 95 Intake and Output 04/06/18 04/06/18 04/06/18 06:59 14:59 22:59 Intake Total 418.274 220 Balance 418.274 220 Intake: Intake, IV Titration 418.274 Amount Heparin Sod,Pork in 0.45% 118.274 NaCl 25,000 unit In 0.45 % NaCl 1 500ml.bag @ 10. 25 UNITS/KG/HR 19.99 mls/ hr IV .Q24H [facility] Rx#: [id number] Sodium Chloride 0.9% 1, 300 000 ml @ 100 mls/hr IV . Q10H [facility] Rx#:[id number] Oral 220 Other: # Voids 2 Weight 99.4 kg General Appearance no diaphoresis, no respiratory distress, speech not interrupted by breaths, no dyspnea, no pallor, not cachectic, well nourished, appears well, obesity HEENT no pursed lip breathing, no jugular venous distention, no mucous membrane cyanosis, no perioral cyanosis, mallampati classification: class 1 Chest no barrel chest, no retractions, no sternocleidomastoid muscle contractions, no supraclavicular retractions, no intercostal retractions, no prolonged expiratory wheezing, no decreased air movement, no rhonchi, no hyperinflation, (normal) adventitious sounds: rales / crackles: bilaterally: midlung jean, decreased air movement (diminished in the right lung base) Heart the patient has an irregular S1-S2 consistent with atrial fibrillation at the rate is controlled, no right ventricular heave, no distant heart sounds, no s3 gallop, (normal) jugular vein: jugular venous distention: by 0cm, (normal) jugular vein (scar of previous thoracotomy and bypass surgery) GI bowel sounds: hyperactive (borborygmi), bowel sounds: diminished or absent ( scar from a previous liver chest palpitation, umbilical hernia) Extremities no cyanosis, no clubbing, no edema Neurologic no decreased mental status, no somnolence, no confusion Assisstive Devices: ambulates with no assitive devices Gait and Mobility: gait WNL, full weight bearing Examination of the skin revealed no evidence of significant rashes, suspicious appearing nevi or other concerning lesions. Results - Laboratory Findings CBC and BMP: 04/06/18 07:08 04/05/18 18:12 PT/INR, D-dimer PT 10.6 sec (9.0-12.0) 04/05/18 18:12 INR 1.1 (<1.2) 04/05/18 18:12 Abnormal lab findings: Abnormal Labs 04/05/18 04/05/18 04/05/18 18:12 18:12 18:12 WBC 11.7 H RBC 3.78 L Hgb 11.5 L Hct 36.4 L Neutrophils # 8.3 H APTT Chloride 109 H BUN 26 H Glucose 153 H Total Creatine Kinase 53 L Troponin I 0.035 H* HDL Cholesterol Urine Protein Urine Blood Urine Mucus 04/05/18 04/05/18 04/06/18 18:12 19:55 01:20 WBC RBC Hgb Hct Neutrophils # APTT 21.6 L Chloride BUN Glucose Total Creatine Kinase 40 L Troponin I 0.049 H* HDL Cholesterol Urine Protein 1+ H Urine Blood Moderate H Urine Mucus Occasional H 04/06/18 04/06/18 04/06/18 01:20 07:08 07:08 WBC RBC Hgb Hct Neutrophils # APTT 42.7 H Chloride BUN Glucose Total Creatine Kinase 41 L Troponin I 0.049 H* HDL Cholesterol 35 L Urine Protein Urine Blood Urine Mucus 04/06/18 07:08 WBC RBC Hgb Hct Neutrophils # APTT 49.2 H Chloride BUN Glucose Total Creatine Kinase Troponin I HDL Cholesterol Urine Protein Urine Blood Urine Mucus - Diagnostic Findings Chest x-ray: image reviewed Assessment and Plan Plan: Assessment 1 atrial fibrillation of a new onset with rapid ventricular response, well controlled currently on oral Cardizem and anticoagulation with Eliquis has been started. 2 coronary artery disease with previous coronary artery bypass surgery 2 3 possible troponin rule out underlying minimal component of non-ST segment elevation myocardial infarction 4 hypertension 5 hyperlipidemia 6 history of liver transplant currently on Prograf 7 alpha-1 antitrypsin deficiency and the patient has a ZZ genotype and the patient has undergone liver transplantation at [facility]. No septic complications from being on immunosuppressive agents. 8 COPD maintained on Spiriva. The patient is a mild to moderate obstructive airway limitation with an FEV1 of 60% of predicted. 9 obstructive sleep apnea Plan Management of atrial fibrillation per cardiology. COPD is currently inactive and stable. The patient has alpha-1 antitrypsin deficiency at the patient has undergone liver transplantation. The levels of alpha-1 antitrypsin are within normal limits based on the most recent office evaluation. The patient carries the ZZ genotype. Echocardiogram was noted. The patient has this patient oral Cardizem. The coagulation with Eliquis. We'll continue to follow.
[2018-04-06] MEDS: NITROGLYCERIN 0.4MG/HR PATCH TRANSDERM SCH (17:35)
[2018-04-06] MEDS ORDERED: TACROLIMUS 1 MG CAP PO SCH (21:00)
[2018-04-06] MEDS: ATORVASTATIN 10 MG TAB PO SCH (21:57)
[2018-04-06] MEDS: CLOPIDOGREL 75 MG TAB PO SCH (21:58)
[2018-04-07] MEDS: PANTOPRAZOLE 40 MG TABLET PO SCH (06:33)
[2018-04-07 07:47] LABS: Platelet Count 217 k/uL (150-450)
[2018-04-07 08:20] VITALS: BP 135/76; PULSE 76; TEMP 98
[2018-04-07] MEDS: TACROLIMUS 1 MG CAP PO SCH (10:25)
[2018-04-07] MEDS: NITROGLYCERIN 0.4MG/HR PATCH TRANSDERM SCH (10:25)
[2018-04-07] MEDS: ISOSORBIDE MONONITRATE ER 60 MG TAB.ER.24H PO SCH (10:25)
[2018-04-07] MEDS: DILTIAZEM ORAL 30 MG TAB PO SCH (10:25)
[2018-04-07] MEDS: METOPROLOL TARTRATE 50 MG TAB PO SCH (10:25)
[2018-04-07] MEDS: APIXABAN 5 MG TAB PO SCH (10:25)
[2018-04-07] MEDS: FERROUS SULFATE 325 MG TAB PO SCH (10:25)
[2018-04-07] MEDS: CYANOCOBALAMIN 500 MCG TAB PO SCH (10:25)
--- NOTE | 2018-04-07 12:05 | P.DS ---
Providers Date of admission: 04/05/18 19:28 Attending physician: Mandy Wilde Consults: 04/05/18 19:26 Consult Physician Routine Consulting Provider: Pepito Mac Consult Reason/Comments: known Do you want consulting provider notified?: Yes Consult Physician Urgent Consulting Provider: Carl Mcdonald Consult Reason/Comments: afib Do you want consulting provider notified?: Yes Primary care physician: [facility] Course: This is a 68-year-old male patient of Dr. Le with a past medical history of COPD/ emphysema secondary to alpha-1 antitrypsin deficiency coronary artery disease status post CABG 4 vessel and stents follows with Dr. Saunders, obstructive sleep apnea with CPAP, hypertension, hyperlipidemia, gastroesophageal reflux disease, liver transplant in 2005. Patient came in with shortness of breath and palpitations. He states he's had this for a long period of time but for the past month it has been worsening. He states his breathing is okay and at this time he is back to his normal baseline. He denies any dizziness or lightheadedness. No abdominal pain. No nausea, vomiting, diarrhea. No dysuria. Noted weakness or visual changes. Patient was admitted to the selective care unit for new onset of atrial fibrillation and has been seen by Dr. Hannah. Patient is started on eliquis implantable be monitored overnight with discharge home tomorrow. Troponins have been 0.035, 0.049 and 0.049. Triglycerides 139, cholesterol 103, LDL 40 and HDL 35. TSH was 2.380. Echocardiogram reveals moderate concentric left hypertrophy, mild global hypokinesia of the LV, EF 45-50%, mild mitral regurgitation, moderate tricuspid regurgitation, mild pulmonary hypertension. 04/07: Patient is resting comfortably in bed today. Patient denies any new complaints at this time. He was started on a eliquis and oral Cardizem. Telemetry is showing A. fib with a rate of 70. Patient will continue his current medication regime with the addition of eliquis and Cardizem. He is instructed to follow up with his director of housing within the week. Plan: 1. New onset persistent atrial fibrillation, rate controlled. Heparin drip to be discontinued and patient started eliquis. Cardizem 30 mg 3 times daily started. Continue Lopressor 100 mg twice daily. Eliquis 5 mg twice a day 2. Non-ST elevated myocardial infarction. Aspirin discontinued and patient to continue Plavix 75 mg daily, eliquis 5 mg twice daily, Imdur 120 mg twice daily , Lipitor and Lopressor. Cardiology consult appreciated. 3. History of coronary artery disease status post bypass and stenting. Continue Plavix, continue aspirin. Continue Imdur 120 mg twice daily, Lopressor 100 mg twice daily 4. Hypertension. Continue Cardizem, Imdur, Lopressor. 5. Hyperlipidemia. Continue Lipitor. 6. COPD and alpha-1 antitrypsin deficiency, stable. 7. Obstructive sleep apnea on CPAP. 8. Liver transplant in 2005, stable. Continue Prograf 1.5 mg daily and 1 mg at bedtime Disposition: Home with self-care Impression and plan of care have been directed as dictated by the signing physician. Xiao Whittaker nurse practitioner acting as scribe for signing physician. Patient Condition at Discharge: Fair Plan - Discharge Summary Discharge Rx Participant: No New Discharge Prescriptions: New Apixaban [Eliquis] 5 mg PO BID #60 tab Diltiazem Oral [Cardizem*] 30 mg PO TID #90 tab Continue Metoprolol Tartrate [Lopressor] 100 mg PO BID Clopidogrel [Plavix] 75 mg PO HS Atorvastatin [Lipitor] 10 mg PO HS Aspirin 325 mg PO DAILY Omeprazole [PriLOSEC] 20 mg PO AC-BID Isosorbide Mononitrate [Imdur] 120 mg PO BID Nitroglycerin Sl Tabs [Nitrostat] 0.4 mg SUBLINGUAL Q5M PRN PRN Reason: Chest Pain Nitroglycerin 0.4MG/Hr Patch [Nitro-Dur 0.4MG/Hr Patch] 1 patch TRANSDERM Q24H Ferrous Sulfate [Iron (65 MG Elemental)] 325 mg PO DAILY Cyanocobalamin [Vitamin B-12] 500 mcg PO DAILY Tacrolimus [Prograf] 1.5 mg PO DAILY Tacrolimus [Prograf] 1 mg PO HS Discharge Medication List Aspirin 325 mg PO DAILY 08/30/16 [History] Atorvastatin [Lipitor] 10 mg PO HS 08/30/16 [History] Clopidogrel [Plavix] 75 mg PO HS 08/30/16 [History] Isosorbide Mononitrate [Imdur] 120 mg PO BID 08/30/16 [History] Metoprolol Tartrate [Lopressor] 100 mg PO BID 08/30/16 [History] Omeprazole [PriLOSEC] 20 mg PO AC-BID 08/30/16 [History] Cyanocobalamin [Vitamin B-12] 500 mcg PO DAILY 04/05/18 [History] Ferrous Sulfate [Iron (65 MG Elemental)] 325 mg PO DAILY 04/05/18 [History] Nitroglycerin 0.4MG/Hr Patch [Nitro-Dur 0.4MG/Hr Patch] 1 patch TRANSDERM Q24H 04/05/18 [History] Nitroglycerin Sl Tabs [Nitrostat] 0.4 mg SUBLINGUAL Q5M PRN 04/05/18 [History] Tacrolimus [Prograf] 1 mg PO HS 04/06/18 [History] Tacrolimus [Prograf] 1.5 mg PO DAILY 04/06/18 [History] Apixaban [Eliquis] 5 mg PO BID #60 tab 04/07/18 [Rx] Diltiazem Oral [Cardizem*] 30 mg PO TID #90 tab 04/07/18 [Rx] Follow up Appointment(s)/Referral(s): Richi Le DO [Primary Care Provider] - 1-2 days (offices are closed, please call monday to make a follow up appointment) Zia Saunders MD [REFERRING] - 04/13/18 3:45 pm Patient Instructions/Handouts: A-fib (Atrial Fibrillation) (DC) Discharge Disposition: HOME SELF-CARE
== END 2018-04-07 13:15 | disposition home or self-care (01) | DRG 281 ==
LOC: EC 17:21 → 6SEL 19:28
PROVIDERS: ADMIT Internal Medicine; ATTEND Internal Medicine
DX: I21.4 Non-ST elevation (NSTEMI) myocardial infarction (principal); I48.1 Persistent atrial fibrillation; J44.1 Chronic obstructive pulmonary disease with (acute) exacerbation; J90 Pleural effusion, not elsewhere classified; Z94.4 Liver transplant status; E88.01 Alpha-1-antitrypsin deficiency; G47.33 Obstructive sleep apnea (adult) (pediatric); I08.1 Rheumatic disorders of both mitral and tricuspid valves; I10 Essential (primary) hypertension; I25.10 Atherosclerotic heart disease of native coronary artery without angina pectoris; I25.2 Old myocardial infarction; I27.20 Pulmonary hypertension, unspecified; I45.10 Unspecified right bundle-branch block; K21.9 Gastro-esophageal reflux disease without esophagitis; K72.90 Hepatic failure, unspecified without coma; K74.60 Unspecified cirrhosis of liver; Z79.01 Long term (current) use of anticoagulants; Z79.02 Long term (current) use of antithrombotics/antiplatelets; Z79.82 Long term (current) use of aspirin; Z82.49 Family history of ischemic heart disease and other diseases of the circulatory system; Z95.1 Presence of aortocoronary bypass graft; Z95.5 Presence of coronary angioplasty implant and graft; Z79.899 Other long term (current) drug therapy; Z90.49 Acquired absence of other specified parts of digestive tract
CPT/HCPCS: 36415; 71046; 80053; 80061; 81001; 82550; 82553; 83735; 84100; 84443; 84484; 85025; 85049; 85610; 85730; 93005; 93306; 94760; 96365; 96366; 96375; 96376; 99291

== ENCOUNTER → 2018-04-30 | Outpatient (CLI) | payer MEDICARE, BC ==
[2018-04-30 11:13] LABS: Basophils # (A) 0.1 k/uL (0-0.2); Basophils % (A) 1 %; Eosinophils # (A) 0.4 k/uL (0-0.7); Eosinophils % (A) 4 %; HCT 29.9 % (39.0-53.0); Hypochromasia Slight; Lymphocytes % (A) 17 %; MCH 31.6 pg (25.0-35.0); MCV 98.8 fL (80.0-100.0); Macrocytosis Slight; Mean Platelet Volume 6.6; Monocytes # (A) 0.8 k/uL (0-1.0); Monocytes % (A) 7 %; Neutrophils # (A) 8.2 k/uL (1.3-7.7); Neutrophils % (A) 70 %; Platelet Count 254 k/uL (150-450); RBC 3.03 m/uL (4.30-5.90); RDW 15.7 % (11.5-15.5); WBC 11.8 k/uL (3.8-10.6)
[2018-04-30 11:21] LABS: HGB 9.6 gm/dL (13.0-17.5)
[2018-04-30 11:23] LABS: Appearance,Urine Clear (Clear); Bilirubin,Urine Negative (Negative); Blood,Urine Small (Negative); Color,Urine Yellow; Glucose,Urine (UA) Negative (Negative); Ketones,Urine Negative (Negative); Leukocyte Esterase,Urine Negative (Negative); Mucus,Urine Rare /hpf; Nitrite,Urine Negative (Negative); Protein,Urine 1+ (Negative); RBC,Urine 23 /hpf (0-5); Specific Gravity,Urine 1.021 (1.001-1.035); Urobilinogen,Urine <2.0 mg/dL (<2.0); WBC,Urine 2 /hpf (0-5)
[2018-04-30 12:11] LABS: INR 1.1 (<1.2); Prothrombin Time 10.7 sec (9.0-12.0)
[2018-04-30 17:33] LABS: Albumin 4.2 g/dL (3.80-4.90); Albumin/Globulin Ratio 2.63 (1.20-2.10); Anion Gap 6.8 mmol/L (4.00-12.00); Bilirubin, Conjugated 0.2 mg/dL (0.20-0.40); Bilirubin,Unconjugated 0.3 mg/dL; Calcium 9.1 mg/dL (8.7-10.3); Carbon Dioxide 23.2 mmol/L (21.6-31.8); Globulin 1.6 g/dL (2.1-3.7); LDL Cholesterol,Calculated 53.8 mg/dL (0.0-131.0); Potassium 4.3 mmol/L (3.5-5.5); Total Bilirubin 0.5 mg/dL (0.3-1.2); Total Protein 5.8 g/dL (6.2-8.2); VLDL Calculation 25.2 mg/dL (5.00-40.00)
== END | disposition home or self-care (01) ==
LOC: LABWHC1 10:28
PROVIDERS: ATTEND Internal Medicine Cardiovascular Disease
DX: I25.10 Atherosclerotic heart disease of native coronary artery without angina pectoris (principal); Z79.899 Other long term (current) drug therapy; Z94.4 Liver transplant status
CPT/HCPCS: 36415; 80053; 80061; 81001; 82248; 85025; 85610

== ENCOUNTER 2018-05-26 02:58 | Inpatient (IN) | payer MEDICARE, BC ==
[2018-05-26] MEDS ORDERED: SODIUM CHLORIDE 0.9% 1,000 ML IV ONE (03:57)
--- NOTE | 2018-05-26 04:10 | ED ---
GI Bleed HPI - General Chief complaint: GI Bleed Stated complaint: Rectal bleeding Time Seen by Provider: 05/26/18 03:38 Source: patient, family Mode of arrival: wheelchair Limitations: no limitations - History of Present Illness Initial comments: This is a 68-year-old male with a history of H of fibrillation and eloquent who presents emergency department for rectal bleeding. The patient reportedly was having a little bit of diarrhea over the last couple of days and had some bleeding from his hemorrhoids however tonight he was in the shower and he had a gross the bloody bowel movement while in the shower. The describe it as "pouring out of him". She states that the bathroom is quite a mess because of all the blood. The patient was feeling a little bit lightheaded and queasy at home so she decided to bring him to the emergency department. He currently denies any lightheadedness. No chest pain or shortness of breath. No abdominal pain however does admit some cramping. He denies any fevers or chills. No vomiting. States that he had a colonoscopy one year ago which was unremarkable. No other acute complaints. - Related Data Home Medications Medication Instructions Recorded Confirmed Aspirin 325 mg PO DAILY 08/30/16 04/05/18 Atorvastatin [Lipitor] 10 mg PO HS 08/30/16 04/05/18 Clopidogrel [Plavix] 75 mg PO HS 08/30/16 04/05/18 Isosorbide Mononitrate [Imdur] 120 mg PO BID 08/30/16 04/05/18 Metoprolol Tartrate [Lopressor] 100 mg PO BID 08/30/16 04/05/18 Omeprazole [PriLOSEC] 20 mg PO AC-BID 08/30/16 04/05/18 Cyanocobalamin [Vitamin B-12] 500 mcg PO DAILY 04/05/18 04/05/18 Ferrous Sulfate [Iron (65 MG 325 mg PO DAILY 04/05/18 04/05/18 Elemental)] Nitroglycerin 0.4MG/Hr Patch 1 patch TRANSDERM Q24H 04/05/18 04/05/18 [Nitro-Dur 0.4MG/Hr Patch] Nitroglycerin Sl Tabs [Nitrostat] 0.4 mg SUBLINGUAL Q5M PRN 04/05/18 04/05/18 Tacrolimus [Prograf] 1 mg PO HS 04/06/18 04/06/18 Tacrolimus [Prograf] 1.5 mg PO DAILY 04/06/18 04/06/18 Previous Rx's Medication Instructions Recorded Apixaban [Eliquis] 5 mg PO BID #60 tab 04/07/18 Diltiazem Oral [Cardizem*] 30 mg PO TID #90 tab 04/07/18 Allergies Allergy/AdvReac Type Severity Reaction Status Date / Time No Known Allergies Allergy Verified 05/26/18 03:35 Review of Systems ROS Statement: Those systems with pertinent positive or pertinent negative responses have been documented in the HPI. ROS Other: All systems not noted in ROS Statement are negative. Past Medical History Past Medical History: Coronary Artery Disease (CAD), GERD/Reflux, Hyperlipidemia , Hypertension, Liver Disease, Myocardial Infarction (AR), Sleep Apnea/CPAP/ BIPAP Additional Past Medical History / Comment(s): COPD, alpha-1 antitrypsin deficiency, previous history of liver transplantation, coronary artery disease with previous bypass surgery 2, hypertension, hyperlipidemia, chronic edema suppression and the patient is maintained on tacrolimus. Obstructive sleep apnea maintained on CPAP therapy. Last Myocardial Infarction Date:: 2013 History of Any Multi-Drug Resistant Organisms: None Reported Past Surgical History: Cholecystectomy, Coronary Bypass/CABG, Heart Catheterization With Stent Additional Past Surgical History / Comment(s): liver transplant 2005, CABG 4 vessels , CABG - 2 vessels, heart stents x4. cardioversion. Past Anesthesia/Blood Transfusion Reactions: No Reported Reaction Date of Last Stent Placement:: 2013 Past Psychological History: No Psychological Hx Reported Smoking Status: Never smoker Past Alcohol Use History: None Reported Past Drug Use History: None Reported - Past Family History Mother Family Medical History: Coronary Artery Disease (CAD) Sister(s) Family Medical History: Cancer Additional Family Medical History / Comment(s): ovarian cancer General Exam - General Exam Comments Initial Comments: Constitutional: Awake alert Appears comfortable Head: Normocephalic atraumatic Eyes: no conjunctival injection No scleral icterus EOMI, there is some conjunctival pallor Neck: No JVD Supple Heart: Regular rate rhythm normal S1-S2 no murmurs Lungs: Clear to auscultation bilaterally No wheezing No rales Abdomen: Soft nondistended nontender Extremities: Non edematous DP pulses intact Radial pulses intact Neuro: A&Ox3 No focal neurologic deficits Psych: Appropriate mood and affect Limitations: no limitations Course Vital Signs 05/26/18 05/26/18 05/26/18 03:31 04:00 04:30 Temperature 98.2 F Pulse Rate 84 69 68 Respiratory 16 16 16 Rate Blood Pressure 111/72 119/68 114/76 O2 Sat by Pulse 96 98 99 Oximetry 05/26/18 05/26/18 05:00 05:30 Temperature Pulse Rate 71 88 Respiratory 18 22 Rate Blood Pressure 117/65 135/71 O2 Sat by Pulse 98 98 Oximetry - Reevaluation(s) Reevaluation #1: 05/26/18 05:41 EKG is showing what appears to be a junctional rhythm at a rate of 66. There is right bundle-branch block. There doesn't appear to be any abnormal ST segment changes or T-wave inversions. QTC was 463. No ectopy. Medical Decision Making - Medical Decision Making This is a 68-year-old who came in for rectal bleeding. The patient was found to be anemic at 8.5 which is lower than his baseline. Patient otherwise was hemodynamically stable. The patient gross blood on rectal examination. At this time feel that he requires a blood transfusion however he needs close monitoring of the hospital because of his request. The last dose that he took was yesterday morning. Dr. Lindquist accepts the admission and would like GI consulted. - Lab Data Result diagrams: 05/26/18 04:05 05/26/18 04:05 Lab Results 05/26/18 05/26/18 05/26/18 Range/Units 04:05 04:05 04:05 WBC 13.5 H (3.8-10.6) k/uL RBC 2.76 L (4.30-5.90) m/uL Hgb 8.5 L (13.0-17.5) gm/dL Hct 27.1 L (39.0-53.0) % MCV 98.2 (80.0-100.0) fL MCH 30.9 (25.0-35.0) pg MCHC 31.5 (31.0-37.0) g/dL RDW 15.1 (11.5-15.5) % Plt Count 291 (150-450) k/uL Neutrophils % 81 % Lymphocytes % 10 % Monocytes % 4 % Eosinophils % 4 % Basophils % 1 % Neutrophils # 10.9 H (1.3-7.7) k/uL Lymphocytes # 1.3 (1.0-4.8) k/uL Monocytes # 0.5 (0-1.0) k/uL Eosinophils # 0.5 (0-0.7) k/uL Basophils # 0.1 (0-0.2) k/uL Hypochromasia Slight PT (9.0-12.0) sec INR (<1.2) APTT (22.0-30.0) sec Sodium 143 (137-145) mmol/L Potassium 4.3 (3.5-5.1) mmol/L Chloride 110 H (98-107) mmol/L Carbon Dioxide 22 (22-30) mmol/L Anion Gap 11 mmol/L BUN 30 H (9-20) mg/dL Creatinine 1.26 H (0.66-1.25) mg/dL Est GFR (CKD-EPI)AfAm 67 (>60 ml/min/1.73 sqM) Est GFR (CKD-EPI)NonAf 58 (>60 ml/min/1.73 sqM) Glucose 117 H (74-99) mg/dL Calcium 9.6 (8.4-10.2) mg/dL Total Bilirubin 0.4 (0.2-1.3) mg/dL AST 22 (17-59) U/L ALT 24 (21-72) U/L Alkaline Phosphatase 75 (38-126) U/L Total Protein 6.5 (6.3-8.2) g/dL Albumin 3.7 (3.5-5.0) g/dL Stool Occult Blood (Negative) Blood Type O Positive Blood Type Recheck No Antibody Screen NEGATIVE Spec Expiration Date 05/29/2018 - 230405/26/18 05/26/18 Range/Units 04:05 05:14 WBC (3.8-10.6) k/uL RBC (4.30-5.90) m/uL Hgb (13.0-17.5) gm/dL Hct (39.0-53.0) % MCV (80.0-100.0) fL MCH (25.0-35.0) pg MCHC (31.0-37.0) g/dL RDW (11.5-15.5) % Plt Count (150-450) k/uL Neutrophils % % Lymphocytes % % Monocytes % % Eosinophils % % Basophils % % Neutrophils # (1.3-7.7) k/uL Lymphocytes # (1.0-4.8) k/uL Monocytes # (0-1.0) k/uL Eosinophils # (0-0.7) k/uL Basophils # (0-0.2) k/uL Hypochromasia PT 10.4 (9.0-12.0) sec INR 1.1 (<1.2) APTT 20.2 L (22.0-30.0) sec Sodium (137-145) mmol/L Potassium (3.5-5.1) mmol/L Chloride (98-107) mmol/L Carbon Dioxide (22-30) mmol/L Anion Gap mmol/L BUN (9-20) mg/dL Creatinine (0.66-1.25) mg/dL Est GFR (CKD-EPI)AfAm (>60 ml/min/1.73 sqM) Est GFR (CKD-EPI)NonAf (>60 ml/min/1.73 sqM) Glucose (74-99) mg/dL Calcium (8.4-10.2) mg/dL Total Bilirubin (0.2-1.3) mg/dL AST (17-59) U/L ALT (21-72) U/L Alkaline Phosphatase (38-126) U/L Total Protein (6.3-8.2) g/dL Albumin (3.5-5.0) g/dL Stool Occult Blood Positive (Negative) Blood Type Blood Type Recheck Antibody Screen Spec Expiration Date Disposition Clinical Impression: GI bleed Disposition: ADMITTED IP TO THIS [facility] Condition: Stable Referrals: Richi Le DO [Primary Care Provider] - 1-2 days
[2018-05-26 04:28] LABS: Basophils # (A) 0.1 k/uL (0-0.2); Basophils % (A) 1 %; Eosinophils # (A) 0.5 k/uL (0-0.7); Eosinophils % (A) 4 %; HCT 27.1 % (39.0-53.0); HGB 8.5 gm/dL (13.0-17.5); Hypochromasia Slight; Lymphocytes # (A) 1.3 k/uL (1.0-4.8); Lymphocytes % (A) 10 %; MCH 30.9 pg (25.0-35.0); MCHC 31.5 g/dL (31.0-37.0); MCV 98.2 fL (80.0-100.0); Mean Platelet Volume 6.5; Monocytes # (A) 0.5 k/uL (0-1.0); Monocytes % (A) 4 %; Neutrophils # (A) 10.9 k/uL (1.3-7.7); Neutrophils % (A) 81 %; Platelet Count 291 k/uL (150-450); RBC 2.76 m/uL (4.30-5.90); RDW 15.1 % (11.5-15.5); WBC 13.5 k/uL (3.8-10.6)
[2018-05-26 04:39] LABS: Albumin 3.7 g/dL (3.5-5.0); Calcium 9.6 mg/dL (8.4-10.2); Potassium 4.3 mmol/L (3.5-5.1); Total Bilirubin 0.4 mg/dL (0.2-1.3); Total Protein 6.5 g/dL (6.3-8.2)
[2018-05-26 04:46] LABS: INR 1.1 (<1.2); Prothrombin Time 10.4 sec (9.0-12.0)
[2018-05-26 04:49] LABS: Partial Thromboplastin Time 20.2 sec (22.0-30.0)
[2018-05-26] MEDS ORDERED: NALOXONE 0.4 MG/ML 1 ML VIAL IV PRN (05:32)
[2018-05-26] MEDS ORDERED: NITROGLYCERIN SL TABS 0.4 MG TAB SUBLINGUAL PRN (06:07)
[2018-05-26] MEDS: SODIUM CHLORIDE 0.9% 1,000 ML IV SCH ×2 (06:56→21:04)
[2018-05-26] MEDS: PANTOPRAZOLE 40 MG/10 ML VIAL IVP SCH ×2 (06:56→21:08)
[2018-05-26] MEDS ORDERED: FERROUS SULFATE 325 MG TAB PO SCH (09:00)
[2018-05-26] MEDS ORDERED: DILTIAZEM ORAL 30 MG TAB PO SCH (09:00)
[2018-05-26] MEDS ORDERED: CYANOCOBALAMIN 500 MCG TAB PO SCH (09:00)
[2018-05-26] MEDS ORDERED: METOPROLOL TARTRATE 50 MG TAB PO SCH (09:00)
[2018-05-26] MEDS ORDERED: ISOSORBIDE MONONITRATE ER 60 MG TAB.ER.24H PO SCH (09:00)
[2018-05-26] MEDS ORDERED: TACROLIMUS 0.5 MG CAP PO SCH ×2 (09:00→21:00)
[2018-05-26] MEDS: BISOPROLOL 5 MG TAB PO SCH (11:35)
[2018-05-26] MEDS: NITROGLYCERIN 0.4MG/HR PATCH TRANSDERM SCH (11:35)
--- NOTE | 2018-05-26 16:56 | P.HPIM ---
History of Present Illness H&P Date: 05/26/18 Chief Complaint: GI bleed 68 years old male patient of Dr. 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 Saunders at [facility] had recent cardioversion for atrial fibrillation 3 weeks ago and was placed on elliquis , history of hypertension, hyperlipidemia, history of liver transplantation in 2005, obstructive sleep apnea on CPAP comes in with hematuria for the past 2 weeks and GI bleed for the past 1 week. 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 He has just started to follow a urologist at [place] who ordered ultrasound pelvic which is still pending. He started to notice fresh blood with clots for the past week associated with bloating off his stomach. His put him on bland diet with improvement in symptoms but he did have a bake Thanksgiving dinner and had uncontrolled bleeding while he was having a bath. notices that patient's hemoglobin has down trended from 13-11 to 8.5. She brought her at 3 AM in the morning since he was bleeding profusely through his rectum. Fecal occult was positive in the ER patient had an episode of vomiting this morning but denies any hematemesis or coffee-ground emesis. He had colonoscopy one year ago which was clear from diverticulitis. As obtained in the ER suggestive temp of 99.1, pulse 84, respiratory rate 16, blood pressure 106/64 saturating well on room air. Labs suggested a hemoglobin of 8.5, leukocytosis 13.5, chloride 110, creatinine 1.26. Gastroenterology consult placed. Protonix was started 40 mg IV twice a day. Patient is started on clear liquid diet today and will be nothing by mouth after midnight for possible endoscopy tomorrow. cardiology was consulted for management of anticoagulation while patient is having GI bleed Review of Systems Constitutional: Denies chills, Denies fever, Denies lethargy, Denies malaise, Denies poor appetite, Denies weakness, Denies weight loss Eyes: denies decreased vision, denies diplopia, denies discharge, denies pain Ears: deny: decreased hearing Ears, nose, mouth and throat: Denies dental pain, Denies headache, Denies nasal discharge, Denies nose pain Cardiovascular: Denies chest pain, Denies decreased exercise tolerance, Denies edema, Denies high blood pressure, Denies irregular heart beat, Denies palpitations, Denies paroxysmal nocturnal dyspnea, Denies rapid heart beat, Denies shortness of breath Respiratory: Denies congestion, Denies cough, Denies cough with sputum, Denies dyspnea, Denies home oxygen, Denies wheezing Gastrointestinal: Denies abdominal pain, Denies change in bowel habits, Denies coffee ground emesis, Denies early satiety, Denies excessive gas, Denies heartburn, Denies hematemesis, Denies hematochezia, Denies loss of appetite, Denies nausea, Denies vomiting. endorses bloating, melena, BRBPR Genitourinary: Denies dysuria, Denies flank pain, Denies kidney stones, Denies menorrhagia, Denies urgency, Denies urinary frequency Musculoskeletal: Denies gait dysfunction, Denies limitation of motion, Denies morning stiffness, Denies muscle cramps Integumentary: Denies rash, Denies wounds, Denies brittle nails, Denies change in hair/nails, Denies darkening of skin Neurological: Denies balance difficulties, Denies change in speech, Denies double vision, Denies gait dysfunction, Denies loss of vision, Denies motor disturbance, Denies numbness, Denies paralysis, Denies paresthesias, Denies seizures Psychiatric: Denies anxiety, Denies depression Endocrine: Denies excessive sweating, Denies excessive thirst, Denies high blood sugars, Denies palpitations Hematologic/Lymphatic: Denies easy bruising, Denies lymphadenopathy Past Medical History Past Medical History: Coronary Artery Disease (CAD), GERD/Reflux, Hyperlipidemia , Hypertension, Liver Disease, Sleep Apnea/CPAP/BIPAP Additional Past Medical History / Comment(s): COPD, alpha-1 antitrypsin deficiency, previous history of liver transplantation, coronary artery disease with previous bypass surgery 2, hypertension, hyperlipidemia, chronic edema suppression and the patient is maintained on tacrolimus. Obstructive sleep apnea maintained on CPAP therapy. Last Myocardial Infarction Date:: 2013 History of Any Multi-Drug Resistant Organisms: None Reported Past Surgical History: Cholecystectomy, Coronary Bypass/CABG, Heart Catheterization With Stent Additional Past Surgical History / Comment(s): liver transplant 2005, CABG 4 vessels , CABG - 2 vessels, heart stents x4. cardioversion. Past Anesthesia/Blood Transfusion Reactions: No Reported Reaction Date of Last Stent Placement:: 2013 Past Psychological History: No Psychological Hx Reported Smoking Status: Never smoker Past Alcohol Use History: None Reported Past Drug Use History: None Reported - Past Family History Mother Family Medical History: Coronary Artery Disease (CAD) Sister(s) Family Medical History: Cancer Additional Family Medical History / Comment(s): ovarian cancer Medications and Allergies Home Medications Medication Instructions Recorded Confirmed Type Aspirin 325 mg PO HS 08/30/16 05/26/18 History Atorvastatin [Lipitor] 10 mg PO HS 08/30/16 05/26/18 History Clopidogrel [Plavix] 75 mg PO HS 08/30/16 05/26/18 History Isosorbide Mononitrate [Imdur] 120 mg PO BID 08/30/16 05/26/18 History Omeprazole [PriLOSEC] 20 mg PO AC-BID 08/30/16 05/26/18 History Cyanocobalamin [Vitamin B-12] 500 mcg PO DAILY 04/05/18 05/26/18 History Ferrous Sulfate [Iron (65 MG 325 mg PO DAILY 04/05/18 05/26/18 History Elemental)] Nitroglycerin 0.4MG/Hr Patch 1 patch TRANSDERM Q24H 04/05/18 05/26/18 History [Nitro-Dur 0.4MG/Hr Patch] Nitroglycerin Sl Tabs [Nitrostat] 0.4 mg SUBLINGUAL Q5M PRN 04/05/18 05/26/18 History Tacrolimus [Prograf] 1 mg PO BID 04/06/18 05/26/18 History Apixaban [Eliquis] 5 mg PO BID #60 tab 04/07/18 05/26/18 Rx Amiodarone [Cordarone] 200 mg PO HS 05/26/18 05/26/18 History Nebivolol [Bystolic] 5 mg PO DAILY 05/26/18 05/26/18 History Allergies Allergy/AdvReac Type Severity Reaction Status Date / Time No Known Allergies Allergy Verified 05/26/18 11:08 Physical Exam Vitals: Vital Signs Temp Pulse Pulse Resp BP BP Pulse Ox 05/26/18 16:00 16 11/24/18 12:00 16 05/26/18 11:41 84 16 116/65 96 05/26/18 08:00 99.1 F 84 16 106/64 05/26/18 07:01 86 20 107/70 99 05/26/18 05:30 88 22 135/71 98 05/26/18 05:00 71 18 117/65 98 05/26/18 04:30 68 16 114/76 99 05/26/18 04:00 69 16 119/68 98 05/26/18 03:31 98.2 F 84 16 111/72 96 Intake and Output 05/26/18 05/26/18 05/26/18 06:59 14:59 22:59 Other: Weight 94.347 kg - Constitutional General appearance: cooperative, no acute distress, obese - EENT Eyes: anicteric sclerae, PERRLA, normal appearance ENT: hearing grossly normal - Neck Neck: no lymphadenopathy, normal ROM, no other, no rigidity, no stridor, no thyromegaly - Respiratory Respiratory: bilateral: CTA, negative: diminished, dullness, rales, rhonchi - Cardiovascular Rhythm: regular Heart sounds: normal: S1, S2 Abnormal Heart Sounds: no systolic murmur, no diastolic murmur, no rub, no S3 Gallop, no S4 Gallop, no click, no other - Gastrointestinal General gastrointestinal: normal bowel sounds, soft, non tender - Integumentary Integumentary: no rash - Neurologic Neurologic: CNII-XII intact - Musculoskeletal Musculoskeletal: gait normal, strength equal bilaterally - Psychiatric Psychiatric: A&O x's 3, appropriate affect Results CBC & Chem 7: 05/26/18 04:05 05/26/18 04:05 Labs: Abnormal Lab Results - Last 24 Hours (Table) 05/26/18 05/26/18 05/26/18 Range/Units 04:05 04:05 04:05 WBC 13.5 H (3.8-10.6) k/uL RBC 2.76 L (4.30-5.90) m/uL Hgb 8.5 L (13.0-17.5) gm/dL Hct 27.1 L (39.0-53.0) % Neutrophils # 10.9 H (1.3-7.7) k/uL APTT 20.2 L (22.0-30.0) sec Chloride 110 H (98-107) mmol/L BUN 30 H (9-20) mg/dL Creatinine 1.26 H (0.66-1.25) mg/dL Glucose 117 H (74-99) mg/dL Thrombosis Risk Factor Assmnt - DVT/VTE Prophylaxis DVT/VTE Prophylaxis: Mechanical Prophylaxis ordered - Choose All That Apply Each Risk Factor Represents 2 Points: Age 61-74 years Thrombosis Risk Factor Assessment Total Risk Factor Score: 2 Thrombosis Risk Factor Assessment Level: Low Risk Assessment and Plan Plan: 1. GI bleed on anticoagulation. No history of GI bleed in the past of peptic ulcer disease in the past. Continue patient on clear liquid diet with nothing by mouth after midnight. Hold aspirin, Plavix and a liquids. Cardiology on consult for management of anticoagulation while patient is having active GI bleeding. Gastroenterology will consult placed for possible endoscopy and colonoscopy. History of colonoscopy 1 year ago was negative for any diverticulitis 2. Hematuria has seen urologist at [place] Dr Ken valentin.Abdominal ultrasound and pelvic ultrasound. UA ordered 3. History of coronary artery disease status post bypassX2 and stenting x4. Hold Plavix, aspirin and elliquis Continue Imdur 120 mg twice daily and bisoprolol 5 mg by mouth daily 4. Hypertension. continue Imdur, Nebivolol 5 mg by mouth daily continue bisoprolol 5 mg by mouth daily 6. COPD and alpha-1 antitrypsin deficiency, stable. 7. Obstructive sleep apnea on CPAP. 8. Liver transplant in 2005, stable. Continue Prograf 1.5 mg daily and 1 mg at bedtime 9. VT prophylaxis. On the mechanical prophylaxis since patient having GI bleeding 10. GI prophylaxis. Protonix. 11 A. fib with RVR status post cardioversion 3 weeks ago on eliquis since cardioversion. Continue amiodarone for 200 mg daily at bedtime 12. Chronic kidney disease stage III. Concern for Prograf related nephrotoxicity. Creatinine stable compared to previous creatinine would hold on nephrology consult for now Patient will be admitted to the hospital for a minimum of 2 night stay. Discharge plan: once evaluated by consulting practice manager
[2018-05-26 17:22] LABS: Glucose,Whole Blood 170 mg/dL (75-99)
[2018-05-26 18:33] LABS: Basophils # (A) 0.1 k/uL (0-0.2); Basophils % (A) 0 %; Eosinophils # (A) 0.3 k/uL (0-0.7); Eosinophils % (A) 2 %; HCT 23.5 % (39.0-53.0); HGB 7.4 gm/dL (13.0-17.5); Hypochromasia Moderate; Lymphocytes # (A) 1.5 k/uL (1.0-4.8); Lymphocytes % (A) 9 %; MCH 31.4 pg (25.0-35.0); MCHC 31.6 g/dL (31.0-37.0); MCV 99.4 fL (80.0-100.0); Macrocytosis Slight; Mean Platelet Volume 6.5; Monocytes # (A) 0.6 k/uL (0-1.0); Monocytes % (A) 4 %; Neutrophils # (A) 13.2 k/uL (1.3-7.7); Neutrophils % (A) 84 %; Platelet Count 259 k/uL (150-450); RBC 2.37 m/uL (4.30-5.90); RDW 14.9 % (11.5-15.5); WBC 15.7 k/uL (3.8-10.6)
[2018-05-26 18:41] LABS: Appearance,Urine Turbid (Clear); Bilirubin,Urine Negative (Negative); Blood,Urine Negative (Negative); Color,Urine Yellow; Glucose,Urine (UA) Trace (Negative); Ketones,Urine Negative (Negative); Leukocyte Esterase,Urine Negative (Negative); Mucus,Urine Rare /hpf; Nitrite,Urine Negative (Negative); Protein,Urine Negative (Negative); RBC,Urine >182 /hpf (0-5); Specific Gravity,Urine 1.018 (1.001-1.035); Uric Acid Crystals,Urine Occasional /hpf; Urobilinogen,Urine <2.0 mg/dL (<2.0)
[2018-05-26] MEDS ORDERED: ATORVASTATIN 10 MG TAB PO SCH (21:00)
[2018-05-26] MEDS: ISOSORBIDE MONONITRATE ER 60 MG TAB.ER.24H PO SCH (21:05)
[2018-05-26] MEDS: AMIODARONE 200 MG TAB PO SCH (21:08)
[2018-05-26] MEDS: TACROLIMUS 1 MG CAP PO SCH (21:08)
[2018-05-27 00:45] LABS: Basophils # (A) 0.1 k/uL (0-0.2); Basophils % (A) 1 %; Eosinophils # (A) 0.4 k/uL (0-0.7); Eosinophils % (A) 3 %; HCT 23.3 % (39.0-53.0); HGB 7.2 gm/dL (13.0-17.5); Hypochromasia Moderate; Lymphocytes # (A) 1.7 k/uL (1.0-4.8); Lymphocytes % (A) 12 %; MCH 31.1 pg (25.0-35.0); MCV 100.3 fL (80.0-100.0); Macrocytosis Slight; Mean Platelet Volume 6.4; Monocytes # (A) 0.7 k/uL (0-1.0); Monocytes % (A) 5 %; Neutrophils # (A) 10.5 k/uL (1.3-7.7); Neutrophils % (A) 77 %; Platelet Count 237 k/uL (150-450); RBC 2.32 m/uL (4.30-5.90); RDW 14.9 % (11.5-15.5); WBC 13.7 k/uL (3.8-10.6)
[2018-05-27] MEDS: SODIUM CHLORIDE 0.9% 1,000 ML IV SCH ×3 (01:15→20:42)
[2018-05-27 06:56] LABS: Basophils % (A) 0 %; Eosinophils # (A) 0.5 k/uL (0-0.7); Eosinophils % (A) 4 %; HCT 21.9 % (39.0-53.0); Hypochromasia Slight; Lymphocytes # (A) 1.8 k/uL (1.0-4.8); Lymphocytes % (A) 15 %; MCH 32.1 pg (25.0-35.0); MCHC 32.1 g/dL (31.0-37.0); MCV 99.8 fL (80.0-100.0); Macrocytosis Slight; Mean Platelet Volume 6.2; Monocytes # (A) 0.7 k/uL (0-1.0); Monocytes % (A) 6 %; Neutrophils # (A) 8.8 k/uL (1.3-7.7); Neutrophils % (A) 72 %; Platelet Count 237 k/uL (150-450); RBC 2.19 m/uL (4.30-5.90); RDW 15.1 % (11.5-15.5); WBC 12.2 k/uL (3.8-10.6)
[2018-05-27 07:16] LABS: Anion Gap 6 mmol/L; Blood Urea Nitrogen 21 mg/dL (9-20); Calcium 8.5 mg/dL (8.4-10.2); Carbon Dioxide 24 mmol/L (22-30); Chloride 109 mmol/L (98-107); Glucose 105 mg/dL (74-99); Potassium 4.5 mmol/L (3.5-5.1); Sodium 139 mmol/L (137-145)
[2018-05-27] MEDS: TACROLIMUS 1 MG CAP PO SCH ×2 (08:54→20:41)
[2018-05-27] MEDS: NEBIVOLOL 5 MG TAB PO SCH (08:54)
[2018-05-27] MEDS: BISOPROLOL 5 MG TAB PO SCH (08:54)
[2018-05-27] MEDS: NITROGLYCERIN 0.4MG/HR PATCH TRANSDERM SCH (08:54)
[2018-05-27] MEDS: PANTOPRAZOLE 40 MG/10 ML VIAL IVP SCH ×2 (08:54→20:40)
[2018-05-27] MEDS: ISOSORBIDE MONONITRATE ER 60 MG TAB.ER.24H PO SCH ×2 (08:55→20:41)
--- NOTE | 2018-05-27 10:11 | US ---
EXAMINATION TYPE: US abdomen comp/pelvis limited DATE OF EXAM: 05/27/2018 COMPARISON: NONE CLINICAL HISTORY: hematuria. Hx liver transplant. EXAM MEASUREMENTS: Liver Length: 18.3 cm Gallbladder Wall: Surgically absent CBD: 0.6 cm Spleen: 9.3 cm Right Kidney: 11.5 x 4.9 x 5.3 cm Left Kidney: 11.6 x 4.9 x 5.3 cm Limited due to bowel gas and patient's ability to hold breath. Pancreas: Obscured by bowel gas Liver: wnl Gallbladder: Surgically absent CBD: wnl Spleen: parts not obscured by overlying bowel gas appear wnl Right Kidney: wnl Left Kidney: Hypoechoic area seen small cyst measuring 1 cm. Upper IVC: parts not obscured by overlying bowel gas appear wnl Abd Aorta: parts not obscured by overlying bowel gas appear wnl Bladder: Echogenic area along right bladder wall that appears avascular Bilateral Jets Seen Yes IMPRESSION: 1. No significant abnormality appreciated.
--- NOTE | 2018-05-27 10:57 | P.CRDCN ---
History of Present Illness Consult date: 05/27/18 Requesting physician: Tomi Perdomo Reason for Consult (text): GI bleed, on Eliquis post cardioversion Chief complaint: GI Bleed History of present illness: This is a pleasant 68-year-old gentleman with history of CAD, prior CABG twice in the past, stenting, GERD, hyperlipidemia, hypertension, liver disease, status post liver transplantation, sleep apnea. He follows with Dr. Saunders on a regular basis. Was admitted to the hospital April 05 of this year with new onset atrial fibrillation and was started on Eliquis 5mg BID. He subsequently followed up with Dr. Saunders and underwent cardioversion in about 3 weeks ago. He has been on Plavix 75 mg daily, aspirin 325 mg daily and Eliquis 5mg BID. Presented to the hospital on this occasion with complaints of bright red blood per rectum with clots, ongoing for about a week. According to the patient this occurred in December as well but only lasted a couple of days and he did not seek medical attention at that time. He is also been having intermittent episodes of hematuria. Hemoglobin on admission was 8.5, his baseline appears to be between 11 and 13 with a most recent prior to this admission on April 30 of 9.6. According to the patient, he's had no further rectal bleeding since admission. His vital signs are stable. He is maintaining sinus rhythm. Hemoglobin this morning is 7.0. Patient denies any complaints of chest discomfort, dizziness, lightheadedness, palpitations or difficulty breathing. He does complain of a burning sensation in his throat with activity that has been ongoing for the last 6 or 7 years. Plavix, aspirin and Eliquis are currently on hold. Patient did undergo a screening colonoscopy in August 2016 that showed normal appearing colon from rectum to cecum with no evidence of colorectal neoplasia and small internal hemorrhoids. Echocardiogram in August 2017 while in sinus rhythm showed an ejection fraction between 55-60%. Repeat echocardiogram April this year while in atrial fibrillation showed mild global hypokinesis with LV with mildly impaired LV systolic function, ejection fraction 45-50%. Past Medical History Past Medical History: Coronary Artery Disease (CAD), GERD/Reflux, Hyperlipidemia , Hypertension, Liver Disease, Sleep Apnea/CPAP/BIPAP Additional Past Medical History / Comment(s): COPD, alpha-1 antitrypsin deficiency, previous history of liver transplantation, coronary artery disease with previous bypass surgery 2, hypertension, hyperlipidemia, chronic edema suppression and the patient is maintained on tacrolimus. Obstructive sleep apnea maintained on CPAP therapy. Last Myocardial Infarction Date:: 2013 History of Any Multi-Drug Resistant Organisms: None Reported Past Surgical History: Cholecystectomy, Coronary Bypass/CABG, Heart Catheterization With Stent Additional Past Surgical History / Comment(s): liver transplant 2005, CABG 4 vessels , CABG - 2 vessels, heart stents x4. cardioversion. Past Anesthesia/Blood Transfusion Reactions: No Reported Reaction Date of Last Stent Placement:: 2013 Past Psychological History: No Psychological Hx Reported Smoking Status: Never smoker Past Alcohol Use History: None Reported Past Drug Use History: None Reported - Past Family History Mother Family Medical History: Coronary Artery Disease (CAD) Sister(s) Family Medical History: Cancer Additional Family Medical History / Comment(s): ovarian cancer Medications and Allergies Home Medications Medication Instructions Recorded Confirmed Type Aspirin 325 mg PO HS 08/30/16 05/26/18 History Atorvastatin [Lipitor] 10 mg PO HS 08/30/16 05/26/18 History Clopidogrel [Plavix] 75 mg PO HS 08/30/16 05/26/18 History Isosorbide Mononitrate [Imdur] 120 mg PO BID 08/30/16 05/26/18 History Omeprazole [PriLOSEC] 20 mg PO AC-BID 08/30/16 05/26/18 History Cyanocobalamin [Vitamin B-12] 500 mcg PO DAILY 04/05/18 05/26/18 History Ferrous Sulfate [Iron (65 MG 325 mg PO DAILY 04/05/18 05/26/18 History Elemental)] Nitroglycerin 0.4MG/Hr Patch 1 patch TRANSDERM Q24H 04/05/18 05/26/18 History [Nitro-Dur 0.4MG/Hr Patch] Nitroglycerin Sl Tabs [Nitrostat] 0.4 mg SUBLINGUAL Q5M PRN 04/05/18 05/26/18 History Tacrolimus [Prograf] 1 mg PO BID 04/06/18 05/26/18 History Apixaban [Eliquis] 5 mg PO BID #60 tab 04/07/18 05/26/18 Rx Amiodarone [Cordarone] 200 mg PO HS 11/24/18 11/24/18 History Nebivolol [Bystolic] 5 mg PO DAILY 05/26/18 05/26/18 History Allergies Allergy/AdvReac Type Severity Reaction Status Date / Time No Known Allergies Allergy Verified 05/26/18 11:08 Physical Exam Vitals: Vital Signs Temp Pulse Pulse Resp BP BP Pulse Ox 05/27/18 09:02 97.8 F 70 16 126/58 96 05/27/18 04:00 98.1 F 76 18 113/60 98 05/27/18 00:00 98.7 F 78 18 118/54 100 05/26/18 20:00 98.6 F 75 18 116/64 100 05/26/18 17:16 99.1 F 86 18 107/70 95 05/26/18 16:57 81 18 123/69 95 05/26/18 16:00 16 05/26/18 12:00 16 05/26/18 11:41 84 16 116/65 96 Intake and Output 05/26/18 05/27/18 05/27/18 22:59 06:59 14:59 Intake Total 180 250 Output Total 850 Balance 180 -850 250 Intake: Oral 180 250 Output: Urine 850 Other: Voiding Method Urinal Weight 96.5 kg PHYSICAL EXAMINATION: HEENT: Head is atraumatic, normocephalic. Pupils equal, round. Neck is supple. There is no elevated jugular venous pressure. HEART EXAMINATION: Heart sounds regular, S1 and S2 normal. No murmur or gallop heard. CHEST EXAMINATION: Lungs are clear to auscultation and precussion. No chest wall tenderness is noted on palpation or with deep breathing. ABDOMEN: Soft, nontender. Bowel sounds are heard. No organomegaly noted. EXTREMITIES: 2+ peripheral pulses with no evidence of peripheral edema and no calf tenderness noted. NEUROLOGIC patient is awake, alert and oriented x3. . Results 05/27/18 06:20 05/27/18 06:20 CBC 05/26/18 05/27/18 05/27/18 Range/Units 17:34 00:03 06:20 WBC 15.7 H 13.7 H 12.2 H (3.8-10.6) k/uL RBC 2.37 L 2.32 L 2.19 L (4.30-5.90) m/uL Hgb 7.4 L 7.2 L 7.0 L (13.0-17.5) gm/dL Hct 23.5 L 23.3 L 21.9 L (39.0-53.0) % Plt Count 259 237 237 (150-450) k/uL Comprehensive Metabolic Panel 05/27/18 Range/Units 06:20 Sodium 139 (137-145) mmol/L Potassium 4.5 (3.5-5.1) mmol/L Chloride 109 H (98-107) mmol/L Carbon Dioxide 24 (22-30) mmol/L BUN 21 H (9-20) mg/dL Creatinine 0.91 (0.66-1.25) mg/dL Glucose 105 H (74-99) mg/dL Calcium 8.5 (8.4-10.2) mg/dL Current Medications Generic Name Dose Route Start Last Admin Trade Name Freq PRN Reason Stop Dose Admin Amiodarone HCl 200 mg 05/26/18 21:00 05/26/18 21:08 Cordarone PO 200 mg HS PACHECO Administration Bisoprolol Fumarate 5 mg 05/26/18 09:00 05/27/18 08:54 Zebeta PO 5 mg DAILY PACHECO Administration Sodium Chloride 1,000 mls @ 100 mls/hr 05/26/18 05:45 05/27/18 01:15 Saline 0.9% IV Not Given .Q10H PACHECO Isosorbide Mononitrate 120 mg 05/26/18 21:00 05/27/18 08:55 Imdur PO Not Given BID PACHECO Naloxone HCl 0.2 mg 05/26/18 05:32 Narcan IV Q2M PRN Opioid Reversal Nebivolol 5 mg 05/27/18 09:00 05/27/18 08:54 Bystolic PO 5 mg DAILY PACHECO Administration Nitroglycerin 1 patch 05/26/18 09:00 05/27/18 08:54 Nitro-Dur 0.4mg/Hr Patch TRANSDERM 1 patch Q24HR PACHECO Administration Nitroglycerin 0.4 mg 05/26/18 06:07 Nitrostat SUBLINGUAL Q5M PRN Chest Pain Pantoprazole Sodium 40 mg 05/26/18 09:00 05/27/18 08:54 Protonix IVP 40 mg BID PACHECO Administration Tacrolimus 1 mg 05/26/18 21:00 05/27/18 08:54 Prograf PO 1 mg BID PACHECO Administration Intake and Output 05/26/18 05/27/18 05/27/18 22:59 06:59 14:59 Intake Total 180 250 Output Total 850 Balance 180 -850 250 Intake: Oral 180 250 Output: Urine 850 Other: Voiding Method Urinal Weight 96.5 kg 05/27/18 06:20 05/27/18 06:20 Assessment and Plan Assessment: #1 GI bleed #2 persistent atrial fibrillation, currently maintaining sinus rhythm, status post cardioversion in about 3 weeks ago #3 CAD with prior CABG and stenting #4 hypertension #5 history of liver disease, status post transplantation #6 hyperlipidemia Plan: From cardiology's perspective, continue to hold Plavix, aspirin and Eliquis. Await input from GI. Further recommendations to follow depending on clinical course and GI recommendations. FLEX O WRITER OPERATOR note has been reviewed, I agree with a documented findings and plan of care. Patient was seen and examined.
[2018-05-27 11:53] LABS: Basophils % (A) 0 %; Eosinophils # (A) 0.4 k/uL (0-0.7); Eosinophils % (A) 4 %; HCT 22.6 % (39.0-53.0); HGB 7.1 gm/dL (13.0-17.5); Hypochromasia Moderate; Lymphocytes # (A) 1.4 k/uL (1.0-4.8); Lymphocytes % (A) 13 %; MCH 30.9 pg (25.0-35.0); MCHC 31.2 g/dL (31.0-37.0); MCV 99.1 fL (80.0-100.0); Macrocytosis Slight; Mean Platelet Volume 7.1; Monocytes # (A) 0.7 k/uL (0-1.0); Monocytes % (A) 6 %; Neutrophils # (A) 8.1 k/uL (1.3-7.7); Neutrophils % (A) 75 %; Platelet Count 231 k/uL (150-450); RBC 2.28 m/uL (4.30-5.90); WBC 10.8 k/uL (3.8-10.6)
[2018-05-27 14:25] LABS: HCT 23.1 % (39.0-53.0); HGB 7.6 gm/dL (13.0-17.5); Hypochromasia Slight; MCH 31.9 pg (25.0-35.0); MCHC 32.7 g/dL (31.0-37.0); MCV 97.3 fL (80.0-100.0); Mean Platelet Volume 6.3; Platelet Count 229 k/uL (150-450); RBC 2.38 m/uL (4.30-5.90); WBC 12.6 k/uL (3.8-10.6)
--- NOTE | 2018-05-27 16:28 | P.PN ---
Subjective Progress Note Date: 05/27/18 68 years old male patient of Dr. 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 He has just started to follow a urologist at [place] who ordered ultrasound pelvic which is still pending. He started to notice fresh blood with clots for the past week associated with bloating off his stomach. His put him on bland diet with improvement in symptoms but he did have a bake Thanksgiving dinner and had uncontrolled bleeding while he was having a bath. notices that patient's hemoglobin has down trended from 13-11 to 8.5. She brought her at 3 AM in the morning since he was bleeding profusely through his rectum. Fecal occult was positive in the ER patient had an episode of vomiting this morning but denies any hematemesis or coffee-ground emesis. He had colonoscopy one year ago which was clear from diverticulitis. As obtained in the ER suggestive temp of 99.1, pulse 84, respiratory rate 16, blood pressure 106/64 saturating well on room air. Labs suggested a hemoglobin of 8.5, leukocytosis 13.5, chloride 110, creatinine 1.26. Gastroenterology consult placed. Protonix was started 40 mg IV twice a day. Patient is started on clear liquid diet today and will be nothing by mouth after midnight for possible endoscopy tomorrow. cardiology was consulted for management of anticoagulation while patient is having GI bleed 05/27: Patient has not had any dark tarry stools today. He has had 2 formed brown stools. Patient states that he is feeling better today denies any dizziness or lightheadedness. Plavix and I'll request continue to be held. Awaiting consult from GI for a upper and lower to be performed. Hemoglobin was 7.1 due to his history we will transfuse 1 unit of packed red blood cells today. and are still concerned about hematuria. Discussed with and that urology is already involved and that there is not a need to have an additional urology consult since a plane is in place for treatment. and were in agreement for this. Review Of Systems: Constitutional: No fever, no chills, no night sweats. No weight change. No weakness, fatigue or lethargy. No daytime sleepiness. EENT: No headache. No blurred vision or double vision, no loss of vision. No loss of Hearing, no ringing in the ears, no dizziness. No nasal drainage or congestion. No epistaxis. No sore throat. Lungs: No shortness of breath, cough, no sputum production. No wheezing. Cardiovascular: No chest pain, no lower extremity edema. No palpitations. No paroxysmal nocturnal dyspnea. No orthopnea. No lightheadedness or dizziness. No syncopal episodes. Abdominal: no abdominal discomfort. No nausea, vomiting. no diarrhea. No constipation. No bloody or tarry stools. improved loss of appetite. Genitourinary: No dysuria, no frequency, no urgency. No urinary retention. Positive hematuria Musculoskeletal: No myalgias. No muscle weakness, no gait dysfunction, no frequent falls. No back pain. No neck pain. Integumentary: No wounds, no lesions. No rash or pruritus. No unusual bruising. No change in hair or nails. Neurologic: No aphasia. No facial droop. No change in mentation. No head injury. No headache. No paralysis. No paresthesia. Psychiatric: No depression. No anxiety. No mood swings. Endocrine: No abnormal blood sugars. No weight change. No excessive sweating or thirst. Objective - Vital Signs Vital signs: Vital Signs Temp 98.2 F 05/27/18 15:16 Pulse 73 05/27/18 15:16 Resp 16 05/27/18 15:16 BP 118/70 05/27/18 15:16 Pulse Ox 100 05/27/18 15:16 Intake & Output 05/26/18 05/27/18 05/27/18 18:59 06:59 18:59 Intake Total 180 550 Output Total 850 Balance 180 -850 550 Weight 96.5 kg Intake: Oral 180 550 Blood Product 0 Rc As-1 Unit 0 [id number] Output: Urine 850 Other: Voiding Method Urinal - Constitutional General appearance: Present: average body habitus, cooperative, no acute distress - EENT Eyes: Present: anicteric sclerae, EOMI, PERRLA, normal appearance ENT: Present: hearing grossly normal, NA/AT, normal oropharynx - Neck Neck: Present: normal ROM. Absent: lymphadenopathy, rigidity, thyromegaly - Respiratory Respiratory: bilateral: CTA, negative: diminished, dullness, rales, rhonchi, wheezing - Cardiovascular Rhythm: regular Heart sounds: normal: S1, S2 Abnormal Heart Sounds: Absent: systolic murmur, diastolic murmur, rub, S3 Gallop , S4 Gallop, click, other - Gastrointestinal General gastrointestinal: Present: normal bowel sounds, soft. Absent: organomegaly, tenderness - Integumentary Integumentary: Present: decreased turgor. Absent: rash - Neurologic Neurologic: Present: CNII-XII intact - Musculoskeletal Musculoskeletal: Present: gait normal, generalized weakness, strength equal bilaterally - Psychiatric Psychiatric: Present: A&O x's 3, appropriate affect, intact judgment & insight - Labs CBC & Chem 7: 05/27/18 14:08 05/27/18 06:20 Labs: Abnormal Lab Results - Last 24 Hours (Table) 05/26/18 05/26/18 05/26/18 Range/Units 04:05 17:01 17:34 WBC 15.7 H (3.8-10.6) k/uL RBC 2.37 L (4.30-5.90) m/uL Hgb 7.4 L (13.0-17.5) gm/dL Hct 23.5 L (39.0-53.0) % MCV (80.0-100.0) fL Neutrophils # 13.2 H (1.3-7.7) k/uL Chloride (98-107) mmol/L BUN (9-20) mg/dL Glucose (74-99) mg/dL POC Glucose (mg/dL) 170 H (75-99) mg/dL Urine Glucose (UA) (Negative) Urine RBC (0-5) /hpf Uric Acid Crystals (None) /hpf Urine Mucus (None) /hpf Crossmatch See Detail 05/26/18 05/27/18 05/27/18 Range/Units 18:15 00:03 06:20 WBC 13.7 H 12.2 H (3.8-10.6) k/uL RBC 2.32 L 2.19 L (4.30-5.90) m/uL Hgb 7.2 L 7.0 L (13.0-17.5) gm/dL Hct 23.3 L 21.9 L (39.0-53.0) % MCV 100.3 H (80.0-100.0) fL Neutrophils # 10.5 H 8.8 H (1.3-7.7) k/uL Chloride (98-107) mmol/L BUN (9-20) mg/dL Glucose (74-99) mg/dL POC Glucose (mg/dL) (75-99) mg/dL Urine Glucose (UA) Trace H (Negative) Urine RBC >182 H (0-5) /hpf Uric Acid Crystals Occasional H (None) /hpf Urine Mucus Rare H (None) /hpf Crossmatch 05/27/18 05/27/18 05/27/18 Range/Units 06:20 11:38 14:08 WBC 10.8 H 12.6 H (3.8-10.6) k/uL RBC 2.28 L 2.38 L (4.30-5.90) m/uL Hgb 7.1 L 7.6 L (13.0-17.5) gm/dL Hct 22.6 L 23.1 L (39.0-53.0) % MCV (80.0-100.0) fL Neutrophils # 8.1 H (1.3-7.7) k/uL Chloride 109 H (98-107) mmol/L BUN 21 H (9-20) mg/dL Glucose 105 H (74-99) mg/dL POC Glucose (mg/dL) (75-99) mg/dL Urine Glucose (UA) (Negative) Urine RBC (0-5) /hpf Uric Acid Crystals (None) /hpf Urine Mucus (None) /hpf Crossmatch Assessment and Plan Plan: 1. GI bleed on anticoagulation. No history of GI bleed in the past of peptic ulcer disease in the past. Continue patient on clear liquid diet with nothing by mouth after midnight. Hold aspirin, Plavix and a liquids. Cardiology on consult for management of anticoagulation while patient is having active GI bleeding. Gastroenterology will consult placed for possible endoscopy and colonoscopy. History of colonoscopy 1 year ago was negative for any diverticulitis. Start clear liquid diet today and until seen by GI. Transfuse 1 unit of packed red blood cells. Monitor hemoglobin every 8 hours 2. 2. Hematuria has seen urologist at [place] Dr Ken valentin.Abdominal ultrasound and pelvic ultrasound. UA ordered 3. History of coronary artery disease status post bypassX2 and stenting x4. Hold Plavix, aspirin and elliquis Continue Imdur 120 mg twice daily and bisoprolol 5 mg by mouth daily 4. Hypertension. continue Imdur, Nebivolol 5 mg by mouth daily continue bisoprolol 5 mg by mouth daily 6. COPD and alpha-1 antitrypsin deficiency, stable. 7. Obstructive sleep apnea on CPAP. 8. Liver transplant in 2005, stable. Continue Prograf 1.5 mg daily and 1 mg at bedtime 9. VT prophylaxis. On the mechanical prophylaxis since patient having GI bleeding 10. GI prophylaxis. Protonix. 11 A. fib with RVR status post cardioversion 3 weeks ago on eliquis since cardioversion. Continue amiodarone for 200 mg daily at bedtime 12. Chronic kidney disease stage III. Concern for Prograf related nephrotoxicity. Creatinine stable compared to previous creatinine would hold on nephrology consult for now Patient will be admitted to the hospital for a minimum of 2 night stay. Discharge plan: once evaluated by telegraphic typewriter installer Impression and plan of care have been directed as dictated by the signing physician. Xiao Whittaker nurse practitioner acting as scribe for signing physician.
[2018-05-27] MEDS ORDERED: PEG 3350-NA SULF,BICARB,CL/KCL 4,000 ML BOTTLE PO ONE (18:00)
[2018-05-27] MEDS: AMIODARONE 200 MG TAB PO SCH (20:41)
[2018-05-27 21:34] LABS: Anisocytosis Slight; HCT 25.8 % (39.0-53.0); HGB 8.3 gm/dL (13.0-17.5); Hypochromasia Slight; MCH 30.6 pg (25.0-35.0); MCHC 32.3 g/dL (31.0-37.0); Platelet Count 267 k/uL (150-450); RBC 2.72 m/uL (4.30-5.90); WBC 12.5 k/uL (3.8-10.6)
[2018-05-28] MEDS: SODIUM CHLORIDE 0.9% 1,000 ML IV SCH ×3 (01:41→20:27)
[2018-05-28 08:47] LABS: Anisocytosis Slight; Basophils % (A) 1 %; Eosinophils # (A) 0.5 k/uL (0-0.7); Eosinophils % (A) 6 %; HCT 22.9 % (39.0-53.0); HGB 7.7 gm/dL (13.0-17.5); Hypochromasia Slight; Lymphocytes # (A) 2.4 k/uL (1.0-4.8); Lymphocytes % (A) 25 %; MCH 31.9 pg (25.0-35.0); MCHC 33.6 g/dL (31.0-37.0); Mean Platelet Volume 6.6; Monocytes # (A) 0.7 k/uL (0-1.0); Monocytes % (A) 7 %; Neutrophils # (A) 5.7 k/uL (1.3-7.7); Neutrophils % (A) 59 %; Platelet Count 252 k/uL (150-450); RBC 2.41 m/uL (4.30-5.90); RDW 16.1 % (11.5-15.5); WBC 9.7 k/uL (3.8-10.6)
[2018-05-28 09:14] LABS: Anion Gap 10 mmol/L; Blood Urea Nitrogen 16 mg/dL (9-20); Calcium 8.4 mg/dL (8.4-10.2); Carbon Dioxide 23 mmol/L (22-30); Chloride 106 mmol/L (98-107); Glucose 113 mg/dL (74-99); Sodium 139 mmol/L (137-145)
[2018-05-28] MEDS: PANTOPRAZOLE 40 MG/10 ML VIAL IVP SCH ×2 (09:49→20:22)
[2018-05-28] MEDS: NITROGLYCERIN 0.4MG/HR PATCH TRANSDERM SCH (09:49)
--- NOTE | 2018-05-28 09:55 | P.PN ---
Subjective Progress Note Date: 05/28/18 This is a pleasant 68-year-old gentleman with history of CAD, prior CABG twice in the past, stenting, GERD, hyperlipidemia, hypertension, liver disease, status post liver transplantation, sleep apnea. He follows with Dr. Saunders on a regular basis. Was admitted to the hospital April 05 of this year with new onset atrial fibrillation and was started on Eliquis 5mg BID. He subsequently followed up with Dr. Saunders and underwent cardioversion in about 3 weeks ago. He has been on Plavix 75 mg daily, aspirin 325 mg daily and Eliquis 5mg BID. Presented to the hospital on this occasion with complaints of bright red blood per rectum with clots, ongoing for about a week. According to the patient this occurred in December as well but only lasted a couple of days and he did not seek medical attention at that time. He is also been having intermittent episodes of hematuria. Hemoglobin on admission was 8.5, his baseline appears to be between 11 and 13 with a most recent prior to this admission on April 30 of 9.6. According to the patient, he's had no further rectal bleeding since admission. His vital signs are stable. He is maintaining sinus rhythm. Hemoglobin this morning is 7.3. Patient denies any complaints of chest discomfort, dizziness, lightheadedness, palpitations or difficulty breathing. He does complain of a burning sensation in his throat with activity that has been ongoing for the last 6 or 7 years. Plavix, aspirin and Eliquis are currently on hold. Patient did undergo a screening colonoscopy in August 2016 that showed normal appearing colon from rectum to cecum with no evidence of colorectal neoplasia and small internal hemorrhoids. Echocardiogram in August 2017 while in sinus rhythm showed an ejection fraction between 55-60%. Repeat echocardiogram April this year while in atrial fibrillation showed mild global hypokinesis with LV with mildly impaired LV systolic function, ejection fraction 45-50%. The patient is scheduled today to undergo EGD and colonoscopy. Objective - Vital Signs Vital signs: Vital Signs Temp 97.8 F 05/28/18 07:53 Pulse 66 05/28/18 07:53 Resp 18 05/28/18 07:53 BP 127/67 05/28/18 07:53 Pulse Ox 96 05/28/18 07:53 Intake & Output 11/25/18 11/26/18 11/26/18 18:59 06:59 18:59 Intake Total 860 Balance 860 Intake: Oral 550 Blood Product 310 Rc As-1 Unit 310 [id number] Other: Voiding Method Urinal Toilet Toilet # Voids 1 # Bowel Movements 2 - Exam PHYSICAL EXAMINATION: HEENT: Head is atraumatic, normocephalic. Pupils equal, round. Neck is supple. There is no elevated jugular venous pressure. HEART EXAMINATION: Heart sounds regular, S1 and S2 normal. No murmur or gallop heard. CHEST EXAMINATION: Lungs are clear to auscultation and precussion. No chest wall tenderness is noted on palpation or with deep breathing. ABDOMEN: Soft, nontender. Bowel sounds are heard. No organomegaly noted. EXTREMITIES: 2+ peripheral pulses with no evidence of peripheral edema and no calf tenderness noted. NEUROLOGIC patient is awake, alert and oriented x3. - Labs CBC & Chem 7: 05/28/18 07:26 05/28/18 07:26 Labs: Abnormal Lab Results - Last 24 Hours (Table) 05/26/18 05/27/18 05/27/18 Range/Units 04:05 11:38 14:08 WBC 10.8 H 12.6 H (3.8-10.6) k/uL RBC 2.28 L 2.38 L (4.30-5.90) m/uL Hgb 7.1 L 7.6 L (13.0-17.5) gm/dL Hct 22.6 L 23.1 L (39.0-53.0) % RDW (11.5-15.5) % Neutrophils # 8.1 H (1.3-7.7) k/uL Glucose (74-99) mg/dL Crossmatch See Detail 05/27/18 05/28/18 05/28/18 Range/Units 20:56 07:26 07:26 WBC 12.5 H (3.8-10.6) k/uL RBC 2.72 L 2.41 L (4.30-5.90) m/uL Hgb 8.3 L 7.7 L (13.0-17.5) gm/dL Hct 25.8 L 22.9 L (39.0-53.0) % RDW 16.0 H 16.1 H (11.5-15.5) % Neutrophils # (1.3-7.7) k/uL Glucose 113 H (74-99) mg/dL Crossmatch Assessment and Plan Plan: Assessment and plan: #1 GI bleed #2 persistent atrial fibrillation, currently maintaining sinus rhythm, status post cardioversion in about 3 weeks ago #3 CAD with prior CABG and stenting #4 hypertension #5 history of liver disease, status post transplantation #6 hyperlipidemia Plan Patient is scheduled today to undergo EGD and colonoscopy, Eliquis antiplatelet and aspirin continued to be on hold. We will continue to follow. DNP note has been reviewed, I agree with a documented findings and plan of care. Patient was seen and examined.
--- NOTE | 2018-05-28 11:56 | P.CONS ---
History of Present Illness - Reason for Consult Consult date: 05/28/18 GI Bleed Requesting physician: Tomi Perdomo - Chief Complaint Blood per rectum - History of Present Illness Pleasant 68-year-old male with multiple medical comorbidities including alpha-1 antitrypsin disease with liver transplant in 2005 at the [facility] , coronary artery disease status post coronary artery bypass graft, atrial fibrillation, hypertension and dyslipidemia who presented to the hospital with complaints of blood per rectum. Per the patient's he is had intermittent blood per rectum for the past 4-5 years occurring one to 2 times per month with painless bright red blood in the toilet. He underwent colonoscopic evaluation in August 2016 with a normal-appearing colon and mild internal hemorrhoids noted. He denies any prior EGD but does have a history of reflux disease for which he takes Prilosec 2 times daily. The patient reports that he had worsening of rectal bleeding approximately 6 weeks ago after being started on Eliquis for atrial fibrillation for which he subsequently underwent cardioversion. He reports 7 days of daily blood per rectum, described as bright red in appearance with clots and occurring 4-5 times per day. He came to the hospital after noticing an increase in the amount of blood. He denies any associated abdominal pain but does report discomfort with gas. He denies any previous episodes which were similar to this one. He denies any history of peptic ulcer disease. In addition to his anticoagulation the patient reports he is on full dose aspirin at home. He reports that yesterday he did not notice any bleeding, but today after doing the colon prep yesterday noticed more blood per rectum. Review of Systems REVIEW OF SYSTEMS: CONSTITUTIONAL: Denies any fevers, chills, weight change or fatigue. CARDIOVASCULAR: Denies any chest pain, palpitations high or low blood pressures RESPIRATORY: Denies any hemoptysis or cough, he does note some shortness of breath at baseline for which she has been seen by the pulmonology service in the past. GENITOURINARY: No dysuria or hematuria. MUSCULOSKELETAL: No weakness reported. SKIN: Denies any new rashes or lesions, jaundice or pallor. PSYCHIATRIC: Denies any depression or anxiety. NEUROLOGY: Denies headache, denies any new focal deficits. EARS/NOSE/THROAT: No recent hearing change, congestion, nasal discharge or sore throat. EYES: No pain in eyes, discharge or change in vision. GASTROINTESTINAL: As per HPI. Past Medical History Past Medical History: Coronary Artery Disease (CAD), GERD/Reflux, Hyperlipidemia , Hypertension, Liver Disease, Sleep Apnea/CPAP/BIPAP Additional Past Medical History / Comment(s): COPD, alpha-1 antitrypsin deficiency, previous history of liver transplantation, coronary artery disease with previous bypass surgery 2, hypertension, hyperlipidemia, chronic edema suppression and the patient is maintained on tacrolimus. Obstructive sleep apnea maintained on CPAP therapy. Last Myocardial Infarction Date:: 2013 History of Any Multi-Drug Resistant Organisms: None Reported Past Surgical History: Cholecystectomy, Coronary Bypass/CABG, Heart Catheterization With Stent Additional Past Surgical History / Comment(s): liver transplant 2005, CABG 4 vessels , CABG - 2 vessels, heart stents x4. cardioversion. Past Anesthesia/Blood Transfusion Reactions: No Reported Reaction Date of Last Stent Placement:: 2013 Past Psychological History: No Psychological Hx Reported Smoking Status: Never smoker Past Alcohol Use History: None Reported Past Drug Use History: None Reported - Past Family History Mother Family Medical History: Coronary Artery Disease (CAD) Sister(s) Family Medical History: Cancer Additional Family Medical History / Comment(s): ovarian cancer Medications and Allergies Home Medications Medication Instructions Recorded Confirmed Type Aspirin 325 mg PO HS 08/30/16 05/26/18 History Atorvastatin [Lipitor] 10 mg PO HS 08/30/16 05/26/18 History Clopidogrel [Plavix] 75 mg PO HS 08/30/16 05/26/18 History Isosorbide Mononitrate [Imdur] 120 mg PO BID 08/30/16 05/26/18 History Omeprazole [PriLOSEC] 20 mg PO AC-BID 08/30/16 05/26/18 History Cyanocobalamin [Vitamin B-12] 500 mcg PO DAILY 04/05/18 05/26/18 History Ferrous Sulfate [Iron (65 MG 325 mg PO DAILY 04/05/18 05/26/18 History Elemental)] Nitroglycerin 0.4MG/Hr Patch 1 patch TRANSDERM Q24H 04/05/18 05/26/18 History [Nitro-Dur 0.4MG/Hr Patch] Nitroglycerin Sl Tabs [Nitrostat] 0.4 mg SUBLINGUAL Q5M PRN 04/05/18 05/26/18 History Tacrolimus [Prograf] 1 mg PO BID 04/06/18 05/26/18 History Apixaban [Eliquis] 5 mg PO BID #60 tab 04/07/18 05/26/18 Rx Amiodarone [Cordarone] 200 mg PO HS 05/26/18 05/26/18 History Nebivolol [Bystolic] 5 mg PO DAILY 05/26/18 05/26/18 History Allergies Allergy/AdvReac Type Severity Reaction Status Date / Time No Known Allergies Allergy Verified 05/26/18 11:08 Physical Exam Vitals: Vital Signs Temp Pulse Pulse Resp BP BP Pulse Ox 05/28/18 11:15 67 17 117/66 97 05/28/18 07:53 97.8 F 66 18 127/67 96 05/28/18 07:33 18 05/28/18 04:00 98.2 F 61 18 111/67 100 05/28/18 00:00 97.5 F L 68 18 135/72 95 05/27/18 20:00 97.6 F 77 20 131/74 98 05/27/18 16:40 98.0 F 75 16 127/78 100 05/27/18 16:00 97.6 F 75 16 127/78 100 05/27/18 15:16 98.2 F 73 16 118/70 100 05/27/18 14:50 98.0 F 74 16 122/67 100 05/27/18 14:40 98.5 F 63 16 107/58 100 05/27/18 12:00 97.7 F 59 L 16 102/57 97 Intake and Output 05/27/18 05/28/18 05/28/18 22:59 06:59 14:59 Intake Total 310 Balance 310 Intake: Blood Product 310 Rc As-1 Unit 310 [id number] Other: Voiding Method Toilet Toilet Toilet # Voids 1 # Bowel Movements 2 On physical examination, patient appears comfortable in no apparent distress. HEAD: Normocephalic, atraumatic. EYES: No scleral icterus. No conjunctival injection. MOUTH: No lesions, tongue midline. NECK: Trachea midline, no gross abnormalities. CHEST: Clear to auscultation with no wheezing or rhonchi appreciated. HEART: Irregularly irregular. ABDOMEN: Soft, obese. Bowel sounds are positive. No organomegaly. No guarding or rigidity. EXTREMITIES: No pedal edema. SKIN: No rashes, no jaundice. NEUROLOGIC: Alert and oriented x3. No focal deficits. Results CBC & Chem 7: 05/28/18 07:26 05/28/18 07:26 Labs: Abnormal Lab Results - Last 24 Hours (Table) 05/26/18 05/27/18 05/27/18 Range/Units 04:05 11:38 14:08 WBC 10.8 H 12.6 H (3.8-10.6) k/uL RBC 2.28 L 2.38 L (4.30-5.90) m/uL Hgb 7.1 L 7.6 L (13.0-17.5) gm/dL Hct 22.6 L 23.1 L (39.0-53.0) % RDW (11.5-15.5) % Neutrophils # 8.1 H (1.3-7.7) k/uL Glucose (74-99) mg/dL Crossmatch See Detail 05/27/18 05/28/18 05/28/18 Range/Units 20:56 07:26 07:26 WBC 12.5 H (3.8-10.6) k/uL RBC 2.72 L 2.41 L (4.30-5.90) m/uL Hgb 8.3 L 7.7 L (13.0-17.5) gm/dL Hct 25.8 L 22.9 L (39.0-53.0) % RDW 16.0 H 16.1 H (11.5-15.5) % Neutrophils # (1.3-7.7) k/uL Glucose 113 H (74-99) mg/dL Crossmatch US - abdomen: report reviewed (Ultrasound of the abdomen with no significant abnormalities noted) Assessment and Plan (1) GI bleed Narrative/Plan: Pleasant 68-year-old male presenting with painless bright red blood per rectum in the setting of anticoagulation therapy and aspirin therapy. He reports 7 days of painless blood per rectum. Last colonoscopy was in 2017 and significant only for mild internal hemorrhoids. The patient was found to have a fall in his hemoglobin, currently at 7.7. Differential is broad and includes diverticular bleed, hemorrhoidal bleed, AVM, or other etiology. Current Visit: Yes Status: Acute Code(s): K92.2 - GASTROINTESTINAL HEMORRHAGE, UNSPECIFIED SNOMED Code(s): 98679466 (2) Anemia associated with acute blood loss Current Visit: Yes Status: Acute Code(s): D62 - ACUTE POSTHEMORRHAGIC ANEMIA SNOMED Code(s): 037687513 (3) Lnvvq-1-gosjioarcki deficiency Current Visit: Yes Status: Acute Code(s): E88.01 - KIFGZ-[id number] DEFICIENCY SNOMED Code(s): 66141771 (4) Hx of liver transplant Narrative/Plan: Liver transplant in 2005 at [facility], for which he currently follows up yearly and is on antirejection medication. Current Visit: Yes Status: Acute Code(s): Z94.4 - LIVER TRANSPLANT STATUS SNOMED Code(s): 541290270 (5) Atrial fibrillation Current Visit: No Status: Acute Code(s): I48.91 - UNSPECIFIED ATRIAL FIBRILLATION SNOMED Code(s): 71167472 Plan: Supportive care Nothing by mouth Fluid hydration Monitor hemoglobin and transfuse as needed Bowel prep yesterday Plan for EGD and colonoscopy today Given findings of endoscopy, a require video capsule endoscopy if no source of bleeding is found Thank you for allowing us to participate in the care of this patient we will continue to follow
[2018-05-28] MEDS ORDERED: LIDOCAINE 1% INJ 10MG/ML (20 ML MDV) ONE (12:43)
[2018-05-28] MEDS ORDERED: PROPOFOL 10 MG/ML 20 ML VIAL IV ONE (12:43)
[2018-05-28] MEDS ORDERED: IV FLUID CONTINUATION 1,000 ML IV ONE (13:03)
--- NOTE | 2018-05-28 13:03 | P.PN ---
Subjective Progress Note Date: 05/28/18 68 years old male patient of Dr. 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 Saunders at [facility] had recent cardioversion for atrial fibrillation 3 weeks ago and was placed on elliquis , history of hypertension, hyperlipidemia, history of liver transplantation in 2006, obstructive sleep apnea on CPAP comes in with hematuria for the past 2 weeks and GI bleed for the past 1 week. 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 He has just started to follow a urologist at [place] who ordered ultrasound pelvic which is still pending. He started to notice fresh blood with clots for the past week associated with bloating off his stomach. His put him on bland diet with improvement in symptoms but he did have a bake Thanksgiving dinner and had uncontrolled bleeding while he was having a bath. notices that patient's hemoglobin has down trended from 13-11 to 8.5. She brought her at 3 AM in the morning since he was bleeding profusely through his rectum. Fecal occult was positive in the ER patient had an episode of vomiting this morning but denies any hematemesis or coffee-ground emesis. He had colonoscopy one year ago which was clear from diverticulitis. As obtained in the ER suggestive temp of 99.1, pulse 84, respiratory rate 16, blood pressure 106/64 saturating well on room air. Labs suggested a hemoglobin of 8.5, leukocytosis 13.5, chloride 110, creatinine 1.26. Gastroenterology consult placed. Protonix was started 40 mg IV twice a day. Patient is started on clear liquid diet today and will be nothing by mouth after midnight for possible endoscopy tomorrow. cardiology was consulted for management of anticoagulation while patient is having GI bleed 05/27: Patient has not had any dark tarry stools today. He has had 2 formed brown stools. Patient states that he is feeling better today denies any dizziness or lightheadedness. Plavix and I'll request continue to be held. Awaiting consult from GI for a upper and lower to be performed. Hemoglobin was 7.1 due to his history we will transfuse 1 unit of packed red blood cells today. and are still concerned about hematuria. Discussed with and that urology is already involved and that there is not a need to have an additional urology consult since a plane is in place for treatment. and were in agreement for this. 05/28: Patient is scheduled for EGD and colonoscopy with GI today. He is having liquid stools from his prep but there have noted small clots. Cardiology is on consult. We will discuss case with cardiology regarding antiplatelets agent. Urology is on consult. Hemoglobin 7.7. Review Of Systems: Constitutional: No fever, no chills, no night sweats. No weight change. No weakness, fatigue or lethargy. No daytime sleepiness. EENT: No headache. No blurred vision or double vision, no loss of vision. No loss of Hearing, no ringing in the ears, no dizziness. No nasal drainage or congestion. No epistaxis. No sore throat. Lungs: No shortness of breath, cough, no sputum production. No wheezing. Cardiovascular: No chest pain, no lower extremity edema. No palpitations. No paroxysmal nocturnal dyspnea. No orthopnea. No lightheadedness or dizziness. No syncopal episodes. Abdominal: no abdominal discomfort. No nausea, vomiting. no diarrhea. No constipation. No bloody or tarry stools. improved loss of appetite. Genitourinary: No dysuria, no frequency, no urgency. No urinary retention. Positive hematuria Musculoskeletal: No myalgias. No muscle weakness, no gait dysfunction, no frequent falls. No back pain. No neck pain. Integumentary: No wounds, no lesions. No rash or pruritus. No unusual bruising. No change in hair or nails. Neurologic: No aphasia. No facial droop. No change in mentation. No head injury. No headache. No paralysis. No paresthesia. Psychiatric: No depression. No anxiety. Endocrine: No abnormal blood sugars. No weight change. No excessive sweating or thirst. Objective - Vital Signs Vital signs: Vital Signs Temp 97.8 F 05/28/18 07:53 Pulse 66 05/28/18 07:53 Resp 18 05/28/18 07:53 BP 127/67 05/28/18 07:53 Pulse Ox 96 05/28/18 07:53 Intake & Output 05/27/18 05/28/1805/28/18 18:59 06:59 18:59 Intake Total 860 Balance 860 Intake: Oral 550 Blood Product 310 Rc As-1 Unit 310 [id number] Other: Voiding Method Urinal Toilet Toilet # Voids 1 # Bowel Movements 2 - Exam General appearance: Present: average body habitus, cooperative, no acute distress. Patient is sitting up in bed - EENT Eyes: Present: anicteric sclerae, EOMI, PERRLA, normal appearance ENT: Present: hearing grossly normal, NA/AT, normal oropharynx - Neck Neck: Present: normal ROM. Absent: lymphadenopathy, rigidity, thyromegaly - Respiratory Respiratory: bilateral: CTA, negative: diminished, dullness, rales, rhonchi, wheezing - Cardiovascular Rhythm: regular Heart sounds: normal: S1, S2 Abnormal Heart Sounds: Absent: systolic murmur, diastolic murmur, rub, S3 Gallop , S4 Gallop, click, other - Gastrointestinal General gastrointestinal: Present: normal bowel sounds, soft. Absent: organomegaly, tenderness - Integumentary Integumentary: Present: decreased turgor. Absent: rash - Neurologic Neurologic: Present: CNII-XII intact - Musculoskeletal Musculoskeletal: Present: gait normal, generalized weakness, strength equal bilaterally - Psychiatric Psychiatric: Present: A&O x's 3, appropriate affect, intact judgment & insight - Labs CBC & Chem 7: 05/28/18 07:26 05/28/18 07:26 Labs: Abnormal Lab Results - Last 24 Hours (Table) 05/26/18 05/27/18 05/27/18 Range/Units 04:05 11:38 14:08 WBC 10.8 H 12.6 H (3.8-10.6) k/uL RBC 2.28 L 2.38 L (4.30-5.90) m/uL Hgb 7.1 L 7.6 L (13.0-17.5) gm/dL Hct 22.6 L 23.1 L (39.0-53.0) % RDW (11.5-15.5) % Neutrophils # 8.1 H (1.3-7.7) k/uL Glucose (74-99) mg/dL Crossmatch See Detail 05/27/18 05/28/18 05/28/18 Range/Units 20:56 07:26 07:26 WBC 12.5 H (3.8-10.6) k/uL RBC 2.72 L 2.41 L (4.30-5.90) m/uL Hgb 8.3 L 7.7 L (13.0-17.5) gm/dL Hct 25.8 L 22.9 L (39.0-53.0) % RDW 16.0 H 16.1 H (11.5-15.5) % Neutrophils # (1.3-7.7) k/uL Glucose 113 H (74-99) mg/dL Crossmatch Assessment and Plan Plan: 1. Acute blood loss anemia secondary to GI bleed on anticoagulation. No history of GI bleed in the past of peptic ulcer disease in the past. Continue patient on clear liquid diet with nothing by mouth after midnight. Hold aspirin , Plavix and Eliquis. Cardiology on consult for management of anticoagulation while patient is having active GI bleeding. Gastroenterology consult appreciated. Patient is scheduled for endoscopy and colonoscopy. History of colonoscopy 1 year ago was negative for any diverticulitis. Start clear liquid diet today and until seen by GI. That is post transfusion of one unit of packed RBCs. Monitor hemoglobin. 2. Hematuria has seen urologist at [place]. Abdominal ultrasound and pelvic ultrasound. UA ordered 3. History of coronary artery disease status post bypassX2 and stenting x4. Hold Plavix, aspirin and elliquis Continue Imdur 120 mg twice daily and bisoprolol 5 mg by mouth daily 4. Hypertension. continue Imdur, Nebivolol 5 mg by mouth daily continue bisoprolol 5 mg by mouth daily 6. COPD and alpha-1 antitrypsin deficiency, stable. 7. Obstructive sleep apnea on CPAP. 8. Liver transplant in 2005, stable. Continue Prograf 1.5 mg daily and 1 mg at bedtime 9. VT prophylaxis. On the mechanical prophylaxis since patient having GI bleeding 10. GI prophylaxis. Protonix. 11 A. fib with RVR status post cardioversion 3 weeks ago on eliquis since cardioversion. Continue amiodarone for 200 mg daily at bedtime 12. Chronic kidney disease stage III. Concern for Prograf related nephrotoxicity. Creatinine stable compared to previous creatinine would hold on nephrology consult for now Discharge plan: In the next 24 hours to home Impression and plan of care have been directed as dictated by the signing physician. Isa Morgan nurse practitioner acting as scribe for signing physician.
--- NOTE | 2018-05-28 13:45 | P.PCN ---
Date of Procedure: 05/28/18 Description of Procedure: Brief history: Patient is a pleasant 68-year-old male with a complex medical history including coronary artery disease status post CABG, atrial fibrillation Eliquis, alpha-1 antitrypsin disease status post liver transplant in 2005, hypertension and dyslipidemia who presented with 1 week of bright red blood per rectum. Patient denies any pain in relation to the bright red blood per rectum and reports that he associates these symptoms with beginning anticoagulation therapy for atrial fibrillation approximately 6 weeks ago. His last colonoscopy was in August 2016 at which time internal hemorrhoids were seen. He does have a history of GERD and is on twice daily Prilosec therapy at home. Procedure performed: Esophagogastroduodenoscopy Colonoscopy Preoperative diagnosis: Anemia of acute blood loss, bright red blood per rectum Anesthesia: MAC Procedure: After informed consent was obtained from the patient was brought into the endoscopy unit and IV sedation was administered by anesthesia under continuous monitoring. Initially upper endoscopy was done. The Olympus GF 190 video endoscope was inserted inserted into the mouth and esophagus intubated without any difficulty and was gradually advanced into the stomach and duodenum and carefully examined. The bulb and second part of the duodenum appeared normal. The scope was then withdrawn into the stomach adequately insufflated with air and upon careful examination the antrum and body, cardia and fundus appeared grossly normal. Pyloric deformity noted but easily traversed. 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 The scope was then withdrawn into the esophagus. The GE junction was located at 39 cm to the incisors. It appeared regular with no erythema erosions or ulcerations, and was somewhat tortuous. Rest of the esophagus appeared normal. Patient tolerated the procedure well. No evidence of old blood or active bleeding noted. At this time the patient continued to remain sedation. Initial digital rectal examination was normal. Olympus CF 190 video colonoscope was then inserted into the rectum and gradually advanced to the cecum without any difficulty. Careful examination was performed as the scope was gradually being withdrawn. The prep was excellent. The cecum, ascending colon, transverse colon, descending colon, sigmoid colon and rectum appeared grossly normal. Mild scattered smallmouth diverticula noted in the sigmoid colon. Retroflexion was performed in the rectum and no lesions were noted, mildly inflamed internal hemorrhoids noted. No active bleeding or evidence of old blood throughout the majority of the colon with only 1 small clot noted in the rectum. Patient tolerated the procedure well. Impression: 1. No pathology to explain GI bleed, or evidence of old or active bleeding on upper EGD. Incidental findings of tortuous esophagus and mild pyloric deformity which was easily traversed. 2. Mild inflamed internal hemorrhoids and few scattered smallmouth diverticula on colonoscopy. No evidence of active GI bleeding, with 1 diminutive clot noted in the rectum. Otherwise exam was grossly normal. Recommendations: Findings of this examination were discussed with the patient as well as as well as see nursing team. The patient will be sent to his room where he will undergo video capsule endoscopy. Continue to monitor hemoglobin and transfuse as needed. Patient is okay for liquids as per protocol and can be advanced to a heart healthy diet.
[2018-05-28] MEDS ORDERED: SIMETHICONE 40 MG/0.6 ML DROPS 2,000 MG/30 ML BOTTLE PO ONE (15:00)
[2018-05-28] MEDS: ISOSORBIDE MONONITRATE ER 60 MG TAB.ER.24H PO SCH ×2 (17:05→20:22)
[2018-05-28] MEDS: NEBIVOLOL 5 MG TAB PO SCH (17:06)
[2018-05-28] MEDS: TACROLIMUS 1 MG CAP PO SCH ×2 (17:06→20:22)
[2018-05-28] MEDS: BISOPROLOL 5 MG TAB PO SCH (17:06)
--- NOTE | 2018-05-28 17:26 | P.GSCN ---
History of Present Illness Consult date: 05/28/18 Reason for Consult: Gross Hematuria Requesting physician: Tomi Perdomo History of present illness: The patient is a 68-year-old white male with a two-month history of intermittent gross painless hematuria. He has an unremarkable urologic history. He has been seen by Dr. Domingo Leung, who ordered an ultrasound. He was admitted yesterday for evaluation of rectal bleeding. 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 He also reports hematochezia and is scheduled to undergo upper and lower endoscopy today. Review of Systems - Constitutional Denies chills, Denies fever - Gastrointestinal Reports hematochezia - Genitourinary Reports hematuria, Denies dysuria, Denies flank pain Past Medical History Past Medical History: Coronary Artery Disease (CAD), GERD/Reflux, Hyperlipidemia , Hypertension, Liver Disease, Sleep Apnea/CPAP/BIPAP Additional Past Medical History / Comment(s): COPD, alpha-1 antitrypsin deficiency, previous history of liver transplantation, coronary artery disease with previous bypass surgery 2, hypertension, hyperlipidemia, chronic edema suppression and the patient is maintained on tacrolimus. Obstructive sleep apnea maintained on CPAP therapy. Last Myocardial Infarction Date:: 2013 History of Any Multi-Drug Resistant Organisms: None Reported Past Surgical History: Cholecystectomy, Coronary Bypass/CABG, Heart Catheterization With Stent Additional Past Surgical History / Comment(s): liver transplant 2005, CABG 4 vessels , CABG - 2 vessels, heart stents x4. cardioversion. Past Anesthesia/Blood Transfusion Reactions: No Reported Reaction Date of Last Stent Placement:: 2013 Past Psychological History: No Psychological Hx Reported Smoking Status: Never smoker Past Alcohol Use History: None Reported Past Drug Use History: None Reported - Past Family History Mother Family Medical History: Coronary Artery Disease (CAD) Sister(s) Family Medical History: Cancer Additional Family Medical History / Comment(s): ovarian cancer Medications and Allergies Home Medications Medication Instructions Recorded Confirmed Type Aspirin 325 mg PO HS 08/30/16 05/26/18 History Atorvastatin [Lipitor] 10 mg PO HS 08/30/16 05/26/18 History Clopidogrel [Plavix] 75 mg PO HS 08/30/16 05/26/18 History Isosorbide Mononitrate [Imdur] 120 mg PO BID 08/30/16 05/26/18 History Omeprazole [PriLOSEC] 20 mg PO AC-BID 08/30/16 05/26/18 History Cyanocobalamin [Vitamin B-12] 500 mcg PO DAILY 04/05/18 05/26/18 History Ferrous Sulfate [Iron (65 MG 325 mg PO DAILY 04/05/18 05/26/18 History Elemental)] Nitroglycerin 0.4MG/Hr Patch 1 patch TRANSDERM Q24H 04/05/18 05/26/18 History [Nitro-Dur 0.4MG/Hr Patch] Nitroglycerin Sl Tabs [Nitrostat] 0.4 mg SUBLINGUAL Q5M PRN 04/05/18 05/26/18 History Tacrolimus [Prograf] 1 mg PO BID 04/06/18 05/26/18 History Apixaban [Eliquis] 5 mg PO BID #60 tab 04/07/18 05/26/18 Rx Amiodarone [Cordarone] 200 mg PO HS 05/26/18 05/26/18 History Nebivolol [Bystolic] 5 mg PO DAILY 05/26/18 05/26/18 History Allergies Allergy/AdvReac Type Severity Reaction Status Date / Time No Known Allergies Allergy Verified 05/26/18 11:08 Surgical - Exam Vital Signs Temp Pulse Resp BP Pulse Ox 98.2 F 84 16 111/72 96 05/26/18 03:31 05/26/18 03:31 05/26/18 03:31 05/26/18 03:31 05/26/18 03:31 - General well developed, well nourished, no distress - Respiratory normal respiratory effort - Abdomen Abdomen: soft, non tender, no guarding, no rigid, no rebound Hernia: umbilical - Genitourinary normal penis with no external lesions, testicles non-tender - Psychiatric oriented to time, oriented to person, oriented to place, speech is normal, memory intact Results - Labs 05/28/18 07:26 05/28/18 07:26 Abnormal Lab Results - Last 24 Hours (Table) 05/26/18 05/27/18 05/27/18 Range/Units 04:05 06:20 06:20 WBC 12.2 H (3.8-10.6) k/uL RBC 2.19 L (4.30-5.90) m/uL Hgb 7.0 L (13.0-17.5) gm/dL Hct 21.9 L (39.0-53.0) % RDW (11.5-15.5) % Neutrophils # 8.8 H (1.3-7.7) k/uL Chloride 109 H (98-107) mmol/L BUN 21 H (9-20) mg/dL Glucose 105 H (74-99) mg/dL Crossmatch See Detail 05/27/18 05/27/18 05/27/18 Range/Units 11:38 14:08 20:56 WBC 10.8 H 12.6 H 12.5 H (3.8-10.6) k/uL RBC 2.28 L 2.38 L 2.72 L (4.30-5.90) m/uL Hgb 7.1 L 7.6 L 8.3 L (13.0-17.5) gm/dL Hct 22.6 L 23.1 L 25.8 L (39.0-53.0) % RDW 16.0 H (11.5-15.5) % Neutrophils # 8.1 H (1.3-7.7) k/uL Chloride (98-107) mmol/L BUN (9-20) mg/dL Glucose (74-99) mg/dL Crossmatch Diabetes panel 05/27/18 Range/Units 06:20 Sodium 139 (137-145) mmol/L Potassium 4.5 (3.5-5.1) mmol/L Chloride 109 H (98-107) mmol/L Carbon Dioxide 24 (22-30) mmol/L BUN 21 H (9-20) mg/dL Creatinine 0.91 (0.66-1.25) mg/dL Glucose 105 H (74-99) mg/dL Calcium 8.5 (8.4-10.2) mg/dL Calcium panel 05/27/18 Range/Units 06:20 Calcium 8.5 (8.4-10.2) mg/dL Pituitary panel 05/27/18 Range/Units 06:20 Sodium 139 (137-145) mmol/L Potassium 4.5 (3.5-5.1) mmol/L Chloride 109 H (98-107) mmol/L Carbon Dioxide 24 (22-30) mmol/L BUN 21 H (9-20) mg/dL Creatinine 0.91 (0.66-1.25) mg/dL Glucose 105 H (74-99) mg/dL Calcium 8.5 (8.4-10.2) mg/dL Adrenal panel 05/27/18 Range/Units 06:20 Sodium 139 (137-145) mmol/L Potassium 4.5 (3.5-5.1) mmol/L Chloride 109 H (98-107) mmol/L Carbon Dioxide 24 (22-30) mmol/L BUN 21 H (9-20) mg/dL Creatinine 0.91 (0.66-1.25) mg/dL Glucose 105 H (74-99) mg/dL Calcium 8.5 (8.4-10.2) mg/dL - Imaging US - abdomen: report reviewed Assessment and Plan (1) Gross hematuria Current Visit: Yes Status: Acute Code(s): R31.0 - GROSS HEMATURIA SNOMED Code(s): 315824417 Plan: In summary, the patient is a 68-year-old male with an unremarkable urologic history who now presents with a two-month history of intermittent gross painless hematuria. A renal ultrasound showed a left renal cyst but was otherwise unremarkable. Bladder ultrasound showed an avascular echogenic mass. Cystoscopy will be required after the GI evaluation has been completed. Time with Patient: Greater than 30
[2018-05-28] MEDS: AMIODARONE 200 MG TAB PO SCH (20:22)
[2018-05-29 06:10] LABS: Basophils % (A) 0 %; Eosinophils # (A) 0.6 k/uL (0-0.7); Eosinophils % (A) 7 %; HCT 22.9 % (39.0-53.0); HGB 7.1 gm/dL (13.0-17.5); Hypochromasia Slight; Lymphocytes # (A) 1.8 k/uL (1.0-4.8); Lymphocytes % (A) 20 %; MCH 30.6 pg (25.0-35.0); MCHC 31.2 g/dL (31.0-37.0); MCV 98.2 fL (80.0-100.0); Macrocytosis Slight; Mean Platelet Volume 7.7; Monocytes # (A) 0.7 k/uL (0-1.0); Monocytes % (A) 7 %; Neutrophils # (A) 5.8 k/uL (1.3-7.7); Neutrophils % (A) 64 %; Platelet Count 249 k/uL (150-450); RBC 2.33 m/uL (4.30-5.90); RDW 15.8 % (11.5-15.5); WBC 9.1 k/uL (3.8-10.6)
[2018-05-29 06:17] LABS: Calcium 8.8 mg/dL (8.4-10.2)
[2018-05-29 06:34] LABS: Potassium 4.4 mmol/L (3.5-5.1)
[2018-05-29] MEDS: NEBIVOLOL 5 MG TAB PO SCH (08:42)
[2018-05-29] MEDS: TACROLIMUS 1 MG CAP PO SCH ×2 (08:42→20:52)
[2018-05-29] MEDS: NITROGLYCERIN 0.4MG/HR PATCH TRANSDERM SCH (08:42)
[2018-05-29] MEDS: ISOSORBIDE MONONITRATE ER 60 MG TAB.ER.24H PO SCH ×2 (08:42→20:51)
[2018-05-29] MEDS: BISOPROLOL 5 MG TAB PO SCH (08:43)
[2018-05-29] MEDS: PANTOPRAZOLE 40 MG/10 ML VIAL IVP SCH (08:43)
--- NOTE | 2018-05-29 12:32 | P.PN ---
Progress Note - Text Progress Note Date: 05/29/18 The patient underwent upper and lower endoscopy yesterday. He states that his hematuria has resolved. I have suggested he undergo office cystoscopy upon discharge. Please notify me if I can be of any further assistance during this hospitalization.
--- NOTE | 2018-05-29 13:42 | P.PN ---
Subjective Progress Note Date: 05/29/18 Principal diagnosis: GI bleed anemia 68-year-old gentleman with a history of alpha-1 antitrypsin disease status post liver transplant 2005, CAD CABG, atrial fibrillation maintained on aspirin and Eliquis Plavix admitted with acute symptomatic acute blood loss anemia. Status post EGD colonoscopy yesterday with no evidence of active bleeding or sources. Capsule endoscopy was performed last night; preliminary read this morning shows no active bleeding or bleeding sources. Presently resting comfortably. Denies hematemesis hematochezia or melena. Hemoglobin 7.1. Anticoagulation on hold. Objective - Vital Signs Vital signs: Vital Signs Temp 98.6 F 05/29/18 08:00 Pulse 65 05/29/18 10:59 Resp 17 05/29/18 10:59 BP 113/61 05/29/18 10:59 Pulse Ox 97 05/29/18 10:59 Intake & Output 05/28/18 05/29/18 05/29/18 18:59 06:59 18:59 Intake Total 500 236 Output Total 400 Balance 100 236 Weight 96.5 kg Intake: IV 500 Oral 236 Output: Urine 400 Other: Voiding Method Toilet Toilet Toilet Urinal Urinal # Voids 1 - Exam General appearance: The patient is alert, oriented, in no acute distress. HET: Head is normocephalic and atraumatic. Pupils are equal and reactive. Oropharynx is clear without lesions. Neck: Supple without lymphadenopathy. Trachea midline. Heart: S1 S2. Lungs: No crackles or wheezes are heard. Abdomen: Soft, nontender, nondistended with bowel sounds. No peritoneal signs. No palpable organomegaly or masses. Extremities: Normal skin color and turgor. No cyanosis, rash, ulceration, clubbing, or edema. Radial and pedal pulses are 2/4 bilaterally. Neurological: No focal deficits. Strength and sensation are grossly intact. - Labs CBC & Chem 7: 05/29/18 05:47 05/29/18 05:47 Labs: Abnormal Lab Results - Last 24 Hours (Table) 05/29/18 05/29/18 Range/Units 05:47 05:47 RBC 2.33 L (4.30-5.90) m/uL Hgb 7.1 L (13.0-17.5) gm/dL Hct 22.9 L (39.0-53.0) % RDW 15.8 H (11.5-15.5) % Chloride 108 H (98-107) mmol/L Glucose 118 H (74-99) mg/dL Assessment and Plan (1) GI bleed Current Visit: Yes Status: Acute Code(s): K92.2 - GASTROINTESTINAL HEMORRHAGE, UNSPECIFIED SNOMED Code(s): 62062362 (2) Acute blood loss anemia Current Visit: Yes Status: Acute Code(s): D62 - ACUTE POSTHEMORRHAGIC ANEMIA SNOMED Code(s): 578217377 (3) Dhijs-[id number] deficiency Current Visit: Yes Status: Acute Code(s): E88.01 - [id number]-[id number] DEFICIENCY SNOMED Code(s): 94385525 (4) Hx of liver transplant Current Visit: Yes Status: Acute Code(s): Z94.4 - LIVER TRANSPLANT STATUS SNOMED Code(s): 732872136 (5) Atrial fibrillation Current Visit: No Status: Acute Code(s): I48.91 - UNSPECIFIED ATRIAL FIBRILLATION SNOMED Code(s): 61188666 Plan: 1. Presently no active bleeding. EGD colonoscopy small bowel capsule endoscopy completed for workup of GIB/anemia with no findings to support obvious cause of acute blood loss anemia. Agreeable for restarting anticoagulation will lead to the discretion of cardiology and medicine. Continue to monitor CBC closely. Assessment and plan a care discussed with Dr. Veronica
--- NOTE | 2018-05-29 13:51 | P.PN ---
Subjective Progress Note Date: 05/29/18 68 years old male patient of Dr. Carpenter with past medical history of coronary artery disease status post coronary bypass grafting 4 vessels in 2019 followed by another bypass procedure in 1999 and stenting patient follows brim curler Dr. Saunders at [facility] had recent cardioversion for atrial fibrillation 3 weeks ago and was placed on elliquis , history of hypertension, hyperlipidemia, history of liver transplantation in 2006, obstructive sleep apnea on CPAP comes in with hematuria for the past 2 weeks and GI bleed for the past 1 week. 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 He has just started to follow a urologist at [place] who ordered ultrasound pelvic which is still pending. He started to notice fresh blood with clots for the past week associated with bloating off his stomach. His put him on bland diet with improvement in symptoms but he did have a bake Thanksgiving dinner and had uncontrolled bleeding while he was having a bath. notices that patient's hemoglobin has down trended from 13-11 to 8.5. She brought her at 3 AM in the morning since he was bleeding profusely through his rectum. Fecal occult was positive in the ER patient had an episode of vomiting this morning but denies any hematemesis or coffee-ground emesis. He had colonoscopy one year ago which was clear from diverticulitis. As obtained in the ER suggestive temp of 99.1, pulse 84, respiratory rate 16, blood pressure 106/64 saturating well on room air. Labs suggested a hemoglobin of 8.5, leukocytosis 13.5, chloride 110, creatinine 1.26. Gastroenterology consult placed. Protonix was started 40 mg IV twice a day. Patient is started on clear liquid diet today and will be nothing by mouth after midnight for possible endoscopy tomorrow. cardiology was consulted for management of anticoagulation while patient is having GI bleed 05/27: Patient has not had any dark tarry stools today. He has had 2 formed brown stools. Patient states that he is feeling better today denies any dizziness or lightheadedness. Plavix and I'll request continue to be held. Awaiting consult from GI for a upper and lower to be performed. Hemoglobin was 7.1 due to his history we will transfuse 1 unit of packed red blood cells today. and are still concerned about hematuria. Discussed with and that urology is already involved and that there is not a need to have an additional urology consult since a plane is in place for treatment. and were in agreement for this. 05/28: Patient is scheduled for EGD and colonoscopy with GI today. He is having liquid stools from his prep but there have noted small clots. Cardiology is on consult. We will discuss case with cardiology regarding antiplatelets agent. Urology is on consult. Hemoglobin 7.7. 05/29: Patient underwent EGD and colonoscopy yesterday with Dr. Veronica but no sign of bleeding source was identified. Patient is to have capsule endoscopy. Patient is also been seen by Dr. Stewart with plan for cystoscopy once GI workup is completed. Patient denies having a bowel movement today. He is on a heart healthy diet. Hemoglobin is 7.1 and patient will be transfused 1 unit of packed RBCs. Review Of Systems: Constitutional: No fever, no chills, no night sweats. No weight change. No weakness, fatigue or lethargy. Denies daytime sleepiness. EENT: No headache. No blurred vision or double vision, no loss of vision. No loss of Hearing, no ringing in the ears, no dizziness. No nasal drainage or congestion. No epistaxis. No sore throat. Lungs: No shortness of breath, cough, no sputum production. No wheezing. Cardiovascular: No chest pain, no lower extremity edema. No palpitations. No paroxysmal nocturnal dyspnea. No orthopnea. No lightheadedness or dizziness. No syncopal episodes. Abdominal: no abdominal discomfort. No nausea, vomiting. no diarrhea. No constipation. No bloody or tarry stools. improved loss of appetite. Genitourinary: No dysuria, no frequency, no urgency. No urinary retention. Positive hematuria Musculoskeletal: No myalgias. No muscle weakness, no gait dysfunction, no frequent falls. No back pain. No neck pain. Integumentary: No wounds, no lesions. No rash or pruritus. No unusual bruising. No change in hair or nails. Neurologic: No aphasia. No facial droop. No change in mentation. No head injury. No headache. No paralysis. No paresthesia. Psychiatric: No depression. No anxiety. Endocrine: No abnormal blood sugars. No weight change. No excessive sweating or thirst. Objective - Vital Signs Vital signs: Vital Signs Temp 98.6 F 05/29/18 08:00 Pulse 63 05/29/18 08:00 Resp 17 05/29/18 08:00 BP 108/57 05/29/18 08:00 Pulse Ox 97 05/29/18 08:00 Intake & Output 05/28/18 05/29/18 05/29/18 18:59 06:59 18:59 Intake Total 500 118 Output Total 400 Balance 100 118 Weight 96.5 kg Intake: IV 500 Oral 118 Output: Urine 400 Other: Voiding Method Toilet Toilet Toilet Urinal Urinal # Voids 1 - Exam General appearance: Present: average body habitus, cooperative, no acute distress. - EENT Eyes: Present: anicteric sclerae, EOMI, PERRLA, normal appearance ENT: Present: hearing grossly normal, NA/AT, normal oropharynx - Neck Neck: Present: normal ROM. Absent: lymphadenopathy, rigidity, thyromegaly - Respiratory Respiratory: bilateral: CTA, negative: diminished, dullness, rales, rhonchi, wheezing - Cardiovascular Rhythm: regular Heart sounds: normal: S1, S2 Abnormal Heart Sounds: Absent: systolic murmur, diastolic murmur, rub, S3 Gallop , S4 Gallop, click, other - Gastrointestinal General gastrointestinal: Present: normal bowel sounds, soft. Absent: organomegaly, tenderness - Integumentary Integumentary: Present: decreased turgor. Absent: rash - Neurologic Neurologic: Present: CNII-XII intact - Musculoskeletal Musculoskeletal: Present: gait normal, generalized weakness, strength equal bilaterally - Psychiatric Psychiatric: Present: A&O x's 3, appropriate affect, intact judgment & insight - Labs CBC & Chem 7: 05/29/18 05:47 05/29/18 05:47 Labs: Abnormal Lab Results - Last 24 Hours (Table) 05/29/18 05/29/18 Range/Units 05:47 05:47 RBC 2.33 L (4.30-5.90) m/uL Hgb 7.1 L (13.0-17.5) gm/dL Hct 22.9 L (39.0-53.0) % RDW 15.8 H (11.5-15.5) % Chloride 108 H (98-107) mmol/L Glucose 118 H (74-99) mg/dL Assessment and Plan Plan: 1. Acute blood loss anemia secondary to GI bleed on anticoagulation. No history of GI bleed in the past of peptic ulcer disease in the past. Hold aspirin, Plavix and Eliquis. Cardiology on consult for management of anticoagulation while patient is having active GI bleeding. Gastroenterology consult appreciated. Patient is status post upper endoscopy and colonoscopy. That is post transfusion of one unit of packed RBCs and repeat transfusion of one unit. Ferrous sulfate added. Monitor hemoglobin. 2. Hematuria has seen urologist at [place]. Abdominal ultrasound and pelvic ultrasound. UA ordered. Consult with Dr. Stewart appreciated. Cystoscopy planned for after GI workup is completed 3. History of coronary artery disease status post bypassX2 and stenting x4. Hold Plavix, aspirin and elliquis Continue Imdur 120 mg twice daily and bisoprolol 5 mg by mouth daily 4. Hypertension. continue Imdur, Nebivolol 5 mg by mouth daily continue bisoprolol 5 mg by mouth daily 6. COPD and alpha-1 antitrypsin deficiency, stable. 7. Obstructive sleep apnea on CPAP. 8. Liver transplant in 2005, stable. Continue Prograf 1.5 mg daily and 1 mg at bedtime 9. VT prophylaxis. On the mechanical prophylaxis since patient having GI bleeding 10. GI prophylaxis. Protonix. 11 A. fib with RVR status post cardioversion 3 weeks ago on eliquis since cardioversion. Continue amiodarone for 200 mg daily at bedtime 12. Chronic kidney disease stage III. Concern for Prograf related nephrotoxicity. Creatinine stable compared to previous creatinine would hold on nephrology consult for now Discharge plan: In the next 24 hours to home Impression and plan of care have been directed as dictated by the signing physician. Isa Morgan nurse practitioner acting as scribe for signing physician.
[2018-05-29] MEDS: FERROUS SULFATE 325 MG TAB PO SCH ×2 (14:13→17:02)
--- NOTE | 2018-05-29 14:18 | P.PN ---
Subjective Progress Note Date: 05/29/18 This is a pleasant 68-year-old gentleman with history of CAD, prior CABG twice in the past, stenting, GERD, hyperlipidemia, hypertension, liver disease, status post liver transplantation, sleep apnea. He follows with Dr. Saunders on a regular basis. Was admitted to the hospital April 05 of this year with new onset atrial fibrillation and was started on Eliquis 5mg BID. He subsequently followed up with Dr. Saunders and underwent cardioversion in about 3 weeks ago. He has been on Plavix 75 mg daily, aspirin 325 mg daily and Eliquis 5mg BID. Presented to the hospital on this occasion with complaints of bright red blood per rectum with clots, ongoing for about a week. According to the patient this occurred in December as well but only lasted a couple of days and he did not seek medical attention at that time. He is also been having intermittent episodes of hematuria. Hemoglobin on admission was 8.5, his baseline appears to be between 11 and 13 with a most recent prior to this admission on April 30 of 9.6. According to the patient, he's had no further rectal bleeding since admission. His vital signs are stable. He is maintaining sinus rhythm. Hemoglobin this morning is 7.3. Patient denies any complaints of chest discomfort, dizziness, lightheadedness, palpitations or difficulty breathing. He does complain of a burning sensation in his throat with activity that has been ongoing for the last 6 or 7 years. Plavix, aspirin and Eliquis are currently on hold. Patient did undergo a screening colonoscopy in August 2016 that showed normal appearing colon from rectum to cecum with no evidence of colorectal neoplasia and small internal hemorrhoids. Echocardiogram in August 2017 while in sinus rhythm showed an ejection fraction between 55-60%. Repeat echocardiogram April this year while in atrial fibrillation showed mild global hypokinesis with LV with mildly impaired LV systolic function, ejection fraction 45-50%. The patient is scheduled today to undergo EGD and colonoscopy. 05/29/2018 Patient was seen and examined this morning, overall he is feeling well. Hemodynamically stable. He did undergo an EGD and colonoscopy yesterday. The tests did not reveal any pathology to explain bleeder evidence of old or active bleeding on upper EGD. Incidental findings of tortuous esophagus and mild pyloric deformity which was easily traversed. Mild inflamed internal hemorrhoids and few scattered small mouth diverticula on colonoscopy. No evidence of active GI bleeding with one diminutive clot noted in the rectum. Otherwise the exam was grossly normal. Currently the patient is undergoing capsule endoscopy, he states that he has not yet had a bowel movement today. Blood pressure 114/60 with a heart rate in the 60s, 97% on room air. White blood cell count 9.1, hemoglobin 7.1, platelet count 249. Sodium 139, potassium 4.4, BUN 15, creatinine 1.07. Objective - Vital Signs Vital signs: Vital Signs Temp 98.6 F 05/29/18 08:00 Pulse 65 05/29/18 10:59 Resp 17 05/29/18 10:59 BP 113/61 05/29/18 10:59 Pulse Ox 97 05/29/18 10:59 Intake & Output 05/28/18 05/29/18 05/29/18 18:59 06:59 18:59 Intake Total 500 236 Output Total 400 Balance 100 236 Weight 96.5 kg Intake: IV 500 Oral 236 Output: Urine 400 Other: Voiding Method Toilet Toilet Toilet Urinal Urinal # Voids 1 - Exam PHYSICAL EXAMINATION: HEENT: Head is atraumatic, normocephalic. Pupils equal, round. Neck is supple. There is no elevated jugular venous pressure. HEART EXAMINATION: Heart sounds regular, S1 and S2 normal. No murmur or gallop heard. CHEST EXAMINATION: Lungs are clear to auscultation and precussion. No chest wall tenderness is noted on palpation or with deep breathing. ABDOMEN: Soft, nontender. Bowel sounds are heard. No organomegaly noted. EXTREMITIES: 2+ peripheral pulses with no evidence of peripheral edema and no calf tenderness noted. NEUROLOGIC patient is awake, alert and oriented x3. - Labs CBC & Chem 7: 05/29/18 05:47 05/29/18 05:47 Labs: Abnormal Lab Results - Last 24 Hours (Table) 05/29/18 05/29/18 Range/Units 05:47 05:47 RBC 2.33 L (4.30-5.90) m/uL Hgb 7.1 L (13.0-17.5) gm/dL Hct 22.9 L (39.0-53.0) % RDW 15.8 H (11.5-15.5) % Chloride 108 H (98-107) mmol/L Glucose 118 H (74-99) mg/dL Assessment and Plan Plan: Assessment and plan: #1 GI bleed #2 persistent atrial fibrillation, currently maintaining sinus rhythm, status post cardioversion in about 3 weeks ago #3 CAD with prior CABG and stenting #4 hypertension #5 history of liver disease, status post transplantation #6 hyperlipidemia Plan Patient is currently undergoing capsule endoscopy. Once the patient is cleared from a GI perspective, we will have to resume blood thinners, adjusting the schedule from previously. DNP note has been reviewed, I agree with a documented findings and plan of care. Patient was seen and examined.
[2018-05-29] MEDS: SODIUM CHLORIDE 0.9% 1,000 ML IV SCH ×2 (16:01→23:17)
[2018-05-29 18:05] LABS: T4, Free (Free Thyroxine) 1.55 ng/dL (0.78-2.19)
[2018-05-29 20:38] VITALS: RESP 18
[2018-05-29] MEDS: PANTOPRAZOLE 40 MG TABLET PO SCH (20:51)
[2018-05-29] MEDS: AMIODARONE 200 MG TAB PO SCH (20:51)
[2018-05-30 06:07] LABS: Basophils # (A) 0.1 k/uL (0-0.2); Basophils % (A) 1 %; Eosinophils # (A) 0.6 k/uL (0-0.7); Eosinophils % (A) 7 %; HCT 23.6 % (39.0-53.0); HGB 7.9 gm/dL (13.0-17.5); Hypochromasia Slight; Lymphocytes % (A) 24 %; MCH 31.4 pg (25.0-35.0); MCHC 33.3 g/dL (31.0-37.0); MCV 94.1 fL (80.0-100.0); Mean Platelet Volume 6.7; Monocytes # (A) 0.6 k/uL (0-1.0); Monocytes % (A) 7 %; Neutrophils # (A) 4.9 k/uL (1.3-7.7); Neutrophils % (A) 59 %; Platelet Count 236 k/uL (150-450); RBC 2.51 m/uL (4.30-5.90); RDW 15.2 % (11.5-15.5); WBC 8.4 k/uL (3.8-10.6)
[2018-05-30 06:17] LABS: Calcium 8.7 mg/dL (8.4-10.2); Potassium 3.9 mmol/L (3.5-5.1)
[2018-05-30] MEDS: FERROUS SULFATE 325 MG TAB PO SCH (06:50)
[2018-05-30] MEDS: SODIUM CHLORIDE 0.9% 1,000 ML IV SCH (07:38)
[2018-05-30] MEDS: NEBIVOLOL 5 MG TAB PO SCH (07:57)
[2018-05-30] MEDS: ISOSORBIDE MONONITRATE ER 60 MG TAB.ER.24H PO SCH (07:57)
[2018-05-30] MEDS: BISOPROLOL 5 MG TAB PO SCH (07:57)
[2018-05-30] MEDS: NITROGLYCERIN 0.4MG/HR PATCH TRANSDERM SCH (07:58)
[2018-05-30] MEDS: TACROLIMUS 1 MG CAP PO SCH (07:58)
[2018-05-30] MEDS: PANTOPRAZOLE 40 MG TABLET PO SCH (07:58)
[2018-05-30 08:06] VITALS: BP 124/70; PULSE 66; TEMP 98.3
--- NOTE | 2018-05-30 08:48 | P.DS ---
Providers Date of admission: 05/26/18 05:43 Expected date of discharge: 05/30/18 Attending physician: Tomi Perdomo MD Consults: 05/26/18 05:40 Consult Physician Routine Consulting Provider: Zion Mckeon Consult Reason/Comments: GI bleed Do you want consulting provider notified?: Yes, Notify in am 05/26/18 16:29 Consult Physician Routine Consulting Provider: Carl Mcdonald Consult Reason/Comments: GI bleed, on eliquis post cardioversaion and plavix , management of anticoag Do you want consulting provider notified?: Yes 05/27/18 20:10 Consult Physician Routine Consulting Provider: Filemon Stewart Consult Reason/Comments: hematuria Do you want consulting provider notified?: Yes Primary care physician: [facility] Course: 68 years old male patient of Dr. 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 Saunders at [facility] had recent cardioversion for atrial fibrillation 3 weeks ago and was placed on elliquis , history of hypertension, hyperlipidemia, history of liver transplantation in 2005, obstructive sleep apnea on CPAP comes in with hematuria for the past 2 weeks and GI bleed for the past 1 week. 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 He has just started to follow a urologist at [facility] who ordered ultrasound pelvic which is still pending. He started to notice fresh blood with clots for the past week associated with bloating off his stomach. His put him on bland diet with improvement in symptoms but he did have a bake Thanksgiving dinner and had uncontrolled bleeding while he was having a bath. notices that patient's hemoglobin has down trended from 13-11 to 8.5. She brought her at 3 AM in the morning since he was bleeding profusely through his rectum. Fecal occult was positive in the ER patient had an episode of vomiting this morning but denies any hematemesis or coffee-ground emesis. He had colonoscopy one year ago which was clear from diverticulitis. As obtained in the ER suggestive temp of 99.1, pulse 84, respiratory rate 16, blood pressure 106/64 saturating well on room air. Labs suggested a hemoglobin of 8.5, leukocytosis 13.5, chloride 110, creatinine 1.26. Gastroenterology consult placed. Protonix was started 40 mg IV twice a day. Patient is started on clear liquid diet today and will be nothing by mouth after midnight for possible endoscopy tomorrow. cardiology was consulted for management of anticoagulation while patient is having GI bleed 05/27: Patient has not had any dark tarry stools today. He has had 2 formed brown stools. Patient states that he is feeling better today denies any dizziness or lightheadedness. Plavix and I'll request continue to be held. Awaiting consult from GI for a upper and lower to be performed. Hemoglobin was 7.1 due to his history we will transfuse 1 unit of packed red blood cells today. and are still concerned about hematuria. Discussed with and that urology is already involved and that there is not a need to have an additional urology consult since a plane is in place for treatment. and were in agreement for this. 05/28: Patient is scheduled for EGD and colonoscopy with GI today. He is having liquid stools from his prep but there have noted small clots. Cardiology is on consult. We will discuss case with cardiology regarding antiplatelets agent. Urology is on consult. Hemoglobin 7.7. 05/29: Patient underwent EGD and colonoscopy yesterday with Dr. Veronica but no sign of bleeding source was identified. Patient is to have capsule endoscopy. Patient is also been seen by Dr. Stewart with plan for cystoscopy once GI workup is completed. Patient denies having a bowel movement today. He is on a heart healthy diet. Hemoglobin is 7.1 and patient will be transfused 1 unit of packed RBCs. 05/30: Discharge diagnoses: 1. Acute blood loss anemia secondary to GI bleed on anticoagulation 2. Hematuria has seen urologist at [place]. 3. History of coronary artery disease status post bypassX2 and stenting x4. Hold Plavix, aspirin and elliquis Continue Imdur 120 mg twice daily and bisoprolol 5 mg by mouth daily 4. Hypertension. continue Imdur, Nebivolol 5 mg by mouth daily continue bisoprolol 5 mg by mouth daily 6. COPD and alpha-1 antitrypsin deficiency, stable. 7. Obstructive sleep apnea on CPAP. 8. Liver transplant in 2005, stable. Continue Prograf 1.5 mg daily and 1 mg at bedtime 9. VT prophylaxis. On the mechanical prophylaxis since patient having GI bleeding 10. GI prophylaxis. Protonix. 11 A. fib with RVR status post cardioversion 3 weeks ago on eliquis since cardioversion. Continue amiodarone for 200 mg daily at bedtime 12. Chronic kidney disease stage III. Concern for Prograf related nephrotoxicity. Creatinine stable compared to previous creatinine would hold on nephrology consult for now Discharge plan: In the next 24 hours to home Impression and plan of care have been directed as dictated by the signing physician. Isa Morgan nurse practitioner acting as scribe for signing physician. Patient Condition at Discharge: Good Plan - Discharge Summary Discharge Rx Participant: No New Discharge Prescriptions: New Levothyroxine Sodium [Synthroid] 12.5 mcg PO DAILY@0630 #30 tab Rivaroxaban [Xarelto] 15 mg PO DAILY #30 tab Continue Clopidogrel [Plavix] 75 mg PO HS Atorvastatin [Lipitor] 10 mg PO HS Omeprazole [PriLOSEC] 20 mg PO AC-BID Isosorbide Mononitrate [Imdur] 120 mg PO BID Nitroglycerin Sl Tabs [Nitrostat] 0.4 mg SUBLINGUAL Q5M PRN PRN Reason: Chest Pain Nitroglycerin 0.4MG/Hr Patch [Nitro-Dur 0.4MG/Hr Patch] 1 patch TRANSDERM Q24H Ferrous Sulfate [Iron (65 MG Elemental)] 325 mg PO DAILY Cyanocobalamin [Vitamin B-12] 500 mcg PO DAILY Tacrolimus [Prograf] 1 mg PO BID Amiodarone [Cordarone] 200 mg PO HS Nebivolol [Bystolic] 5 mg PO DAILY Discontinued Aspirin 325 mg PO HS Apixaban [Eliquis] 5 mg PO BID #60 tab Discharge Medication List Atorvastatin [Lipitor] 10 mg PO HS 08/30/16 [History] Clopidogrel [Plavix] 75 mg PO HS 08/30/16 [History] Isosorbide Mononitrate [Imdur] 120 mg PO BID 08/30/16 [History] Omeprazole [PriLOSEC] 20 mg PO AC-BID 08/30/16 [History] Cyanocobalamin [Vitamin B-12] 500 mcg PO DAILY 04/05/18 [History] Ferrous Sulfate [Iron (65 MG Elemental)] 325 mg PO DAILY 04/05/18 [History] Nitroglycerin 0.4MG/Hr Patch [Nitro-Dur 0.4MG/Hr Patch] 1 patch TRANSDERM Q24H 04/05/18 [History] Nitroglycerin Sl Tabs [Nitrostat] 0.4 mg SUBLINGUAL Q5M PRN 04/05/18 [History] Tacrolimus [Prograf] 1 mg PO BID 04/06/18 [History] Amiodarone [Cordarone] 200 mg PO HS 05/26/18 [History] Nebivolol [Bystolic] 5 mg PO DAILY 05/26/18 [History] Levothyroxine Sodium [Synthroid] 12.5 mcg PO DAILY@0630 #30 tab 05/30/18 [Rx] Rivaroxaban [Xarelto] 15 mg PO DAILY #30 tab 05/30/18 [Rx] Follow up Appointment(s)/Referral(s): Filemon Stewart MD [STAFF PHYSICIAN] - 1 Week Richi Le DO [Primary Care Provider] - 1 Week (Office will call with follow up appointment.) Zia Saunders MD [REFERRING] - 1 Week Stone Veronica MD [STAFF PHYSICIAN] - 06/19/18 12:45 pm (Monday) Ambulatory/Diagnostic Orders: Complete Blood Count w/diff [LAB.AMB] Location: None Selected Patient Instructions/Handouts: Gastrointestinal Bleeding (DC), Iron Rich Diet ( DC) Activity/Diet/Wound Care/Special Instructions: Patient needs appointment to follow-up with Dr. Stewart for office cystoscopy within one week. Discharge Disposition: HOME SELF-CARE
--- NOTE | 2018-05-30 15:49 | P.PN ---
Subjective Progress Note Date: 05/30/18 This is a pleasant 68-year-old gentleman with history of CAD, prior CABG twice in the past, stenting, GERD, hyperlipidemia, hypertension, liver disease, status post liver transplantation, sleep apnea. He follows with Dr. Saunders on a regular basis. Was admitted to the hospital April 05 of this year with new onset atrial fibrillation and was started on Eliquis 5mg BID. He subsequently followed up with Dr. Saunders and underwent cardioversion in about 3 weeks ago. He has been on Plavix 75 mg daily, aspirin 325 mg daily and Eliquis 5mg BID. Presented to the hospital on this occasion with complaints of bright red blood per rectum with clots, ongoing for about a week. According to the patient this occurred in December as well but only lasted a couple of days and he did not seek medical attention at that time. He is also been having intermittent episodes of hematuria. Hemoglobin on admission was 8.5, his baseline appears to be between 11 and 13 with a most recent prior to this admission on April 30 of 9.6. According to the patient, he's had no further rectal bleeding since admission. His vital signs are stable. He is maintaining sinus rhythm. Hemoglobin this morning is 7.3. Patient denies any complaints of chest discomfort, dizziness, lightheadedness, palpitations or difficulty breathing. He does complain of a burning sensation in his throat with activity that has been ongoing for the last 6 or 7 years. Plavix, aspirin and Eliquis are currently on hold. Patient did undergo a screening colonoscopy in August 2016 that showed normal appearing colon from rectum to cecum with no evidence of colorectal neoplasia and small internal hemorrhoids. Echocardiogram in August 2017 while in sinus rhythm showed an ejection fraction between 55-60%. Repeat echocardiogram April of this year while in atrial fibrillation showed mild global hypokinesis with LV with mildly impaired LV systolic function, ejection fraction 45-50%. The patient is scheduled today to undergo EGD and colonoscopy. 05/29/2018 Patient was seen and examined this morning, overall he is feeling well. Hemodynamically stable. He did undergo an EGD and colonoscopy yesterday. The tests did not reveal any pathology to explain bleeder evidence of old or active bleeding on upper EGD. Incidental findings of tortuous esophagus and mild pyloric deformity which was easily traversed. Mild inflamed internal hemorrhoids and few scattered small mouth diverticula on colonoscopy. No evidence of active GI bleeding with one diminutive clot noted in the rectum. Otherwise the exam was grossly normal. Currently the patient is undergoing capsule endoscopy, he states that he has not yet had a bowel movement today. Blood pressure 114/60 with a heart rate in the 60s, 97% on room air. White blood cell count 9.1, hemoglobin 7.1, platelet count 249. Sodium 139, potassium 4.4, BUN 15, creatinine 1.07. 05/30/2018 Patient was seen and examined this morning, overall doing well. Capsule endoscopy did not reveal any source of active bleeding. Patient was cleared by GI service to be reinitiated on anticoagulation. We will put the patient on xarelto 15 mg daily along with Plavix 75 mg daily. Discontinue the aspirin. Objective - Vital Signs Vital signs: Vital Signs Temp 98.3 F 05/30/18 08:02 Pulse 66 05/30/18 08:02 Resp 18 05/30/18 08:02 BP 124/70 05/30/18 08:02 Pulse Ox 98 05/30/18 08:02 Intake & Output 05/29/18 05/30/18 05/30/18 18:59 06:59 18:59 Intake Total 536 310 230 Balance 536 310 230 Weight 98.2 kg Intake: Oral 536 230 Blood Product 0 310 Rc Pheresis 2 As3 Unit 0 310 [id number] Other: Voiding Method Toilet Toilet Toilet Urinal Urinal Urinal # Voids 1 - Exam PHYSICAL EXAMINATION: HEENT: Head is atraumatic, normocephalic. Pupils equal, round. Neck is supple. There is no elevated jugular venous pressure. HEART EXAMINATION: Heart sounds regular, S1 and S2 normal. No murmur or gallop heard. CHEST EXAMINATION: Lungs are clear to auscultation and precussion. No chest wall tenderness is noted on palpation or with deep breathing. ABDOMEN: Soft, nontender. Bowel sounds are heard. No organomegaly noted. EXTREMITIES: 2+ peripheral pulses with no evidence of peripheral edema and no calf tenderness noted. NEUROLOGIC patient is awake, alert and oriented x3. - Labs CBC & Chem 7: 05/30/18 05:45 05/30/18 05:45 Labs: Abnormal Lab Results - Last 24 Hours (Table) 05/29/18 05/29/1818 Range/Units 05:47 14:17 05:45 RBC 2.51 L (4.30-5.90) m/uL Hgb 7.9 L (13.0-17.5) gm/dL Hct 23.6 L (39.0-53.0) % Chloride (98-107) mmol/L Glucose (74-99) mg/dL TSH 5.880 H (0.465-4.680) mIU/L Crossmatch See Detail 05/30/18 Range/Units 05:45 RBC (4.30-5.90) m/uL Hgb (13.0-17.5) gm/dL Hct (39.0-53.0) % Chloride 108 H (98-107) mmol/L Glucose 101 H (74-99) mg/dL TSH (0.465-4.680) mIU/L Crossmatch Assessment and Plan Plan: Assessment and plan: #1 GI bleed #2 persistent atrial fibrillation, currently maintaining sinus rhythm, status post cardioversion in about 3 weeks ago #3 CAD with prior CABG and stenting #4 hypertension #5 history of liver disease, status post transplantation #6 hyperlipidemia Plan Capsule Endoscopy Performed Today Did Not Reveal Any Source of Active Bleeding. Patient Will Be Started on Xarelto 15 Mg Daily along with 75 Mg Daily. He Will Be Discharged Home Today, He'll Follow-Up with Dr. 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 DNP note has been reviewed, I agree with a documented findings and plan of care. Patient was seen and examined.
[2018-05-31] MEDS ORDERED: LEVOTHYROXINE 25 MCG TAB PO SCH (06:30)
== END 2018-05-30 10:52 | disposition home or self-care (01) | DRG 813 ==
LOC: EC 02:58 → 3SCARD 05:43
PROVIDERS: ADMIT Internal Medicine; ATTEND Internal Medicine
PROC: 30233N1 Transfusion of Nonautologous Red Blood Cells into Peripheral Vein, Percutaneous Approach (ICD-10-PCS; principal; 2018-05-27)
PROC: 0DJD8ZZ Inspection of Lower Intestinal Tract, Via Natural or Artificial Opening Endoscopic (ICD-10-PCS; 2018-05-28 08:20)
PROC: 0DJ08ZZ Inspection of Upper Intestinal Tract, Via Natural or Artificial Opening Endoscopic (ICD-10-PCS; 2018-05-28 08:20)
DX: D68.32 Hemorrhagic disorder due to extrinsic circulating anticoagulants (principal); K57.31 Diverticulosis of large intestine without perforation or abscess with bleeding; D62 Acute posthemorrhagic anemia; I48.1 Persistent atrial fibrillation; Z94.4 Liver transplant status; T45.525A Adverse effect of antithrombotic drugs, initial encounter; E78.5 Hyperlipidemia, unspecified; E88.01 Alpha-1-antitrypsin deficiency; G47.33 Obstructive sleep apnea (adult) (pediatric); I12.9 Hypertensive chronic kidney disease with stage 1 through stage 4 chronic kidney disease, or unspecified chronic kidney disease; I25.10 Atherosclerotic heart disease of native coronary artery without angina pectoris; I25.2 Old myocardial infarction; J44.9 Chronic obstructive pulmonary disease, unspecified; K21.9 Gastro-esophageal reflux disease without esophagitis; K64.8 Other hemorrhoids; N18.3 Chronic kidney disease, stage 3 (moderate); N28.1 Cyst of kidney, acquired; Z79.01 Long term (current) use of anticoagulants; Z79.02 Long term (current) use of antithrombotics/antiplatelets; Z79.82 Long term (current) use of aspirin; Z79.899 Other long term (current) drug therapy; Z82.49 Family history of ischemic heart disease and other diseases of the circulatory system; Z95.1 Presence of aortocoronary bypass graft; Z95.5 Presence of coronary angioplasty implant and graft; Z99.89 Dependence on other enabling machines and devices; Z90.49 Acquired absence of other specified parts of digestive tract; R31.0 Gross hematuria
CPT/HCPCS: 36415; 43235; 45378; 76700; 76857; 80048; 80053; 81001; 82272; 84439; 84443; 84484; 85025; 85027; 85610; 85730; 86850; 86900; 86901; 86920; 91110; 93005; 96361; 96374; 99284

== ENCOUNTER → 2018-06-04 | Outpatient (CLI) | payer MEDICARE, BC ==
[2018-06-04 16:42] LABS: HCT 31.2 % (39.0-53.0); Hypochromasia Moderate; MCH 29.9 pg (25.0-35.0); MCHC 31.7 g/dL (31.0-37.0); MCV 94.3 fL (80.0-100.0); Mean Platelet Volume 6.2; Platelet Count 344 k/uL (150-450); RBC 3.31 m/uL (4.30-5.90); RDW 14.7 % (11.5-15.5)
[2018-06-04 16:51] LABS: HGB 9.9 gm/dL (13.0-17.5)
== END | disposition home or self-care (01) ==
LOC: LABWHC1 16:01
PROVIDERS: ATTEND Nurse Practitioner Family
DX: D62 Acute posthemorrhagic anemia (principal); K57.31 Diverticulosis of large intestine without perforation or abscess with bleeding
CPT/HCPCS: 36415; 85027

== ENCOUNTER → 2018-06-11 | Outpatient (CLI) | payer MEDICARE, BC ==
[2018-06-11 15:46] LABS: Basophils % (A) 0 %; Eosinophils # (A) 0.5 k/uL (0-0.7); Eosinophils % (A) 4 %; HCT 32.5 % (39.0-53.0); HGB 10.1 gm/dL (13.0-17.5); Hypochromasia Marked; Lymphocytes # (A) 1.9 k/uL (1.0-4.8); Lymphocytes % (A) 15 %; MCH 30.1 pg (25.0-35.0); MCV 97.2 fL (80.0-100.0); Mean Platelet Volume 6.2; Monocytes # (A) 0.7 k/uL (0-1.0); Monocytes % (A) 6 %; Neutrophils # (A) 9.6 k/uL (1.3-7.7); Neutrophils % (A) 74 %; Platelet Count 312 k/uL (150-450); RBC 3.34 m/uL (4.30-5.90); RDW 15.1 % (11.5-15.5)
[2018-06-11 15:58] LABS: Calcium 9.4 mg/dL (8.4-10.2); Potassium 4.5 mmol/L (3.5-5.1)
== END | disposition home or self-care (01) ==
LOC: LABPAT 14:59
PROVIDERS: ATTEND Urology
DX: Z01.812 Encounter for preprocedural laboratory examination (principal); E11.9 Type 2 diabetes mellitus without complications; D49.4 Neoplasm of unspecified behavior of bladder
CPT/HCPCS: 36415; 80048; 85025

== ENCOUNTER 2018-06-14 13:12 | Day surgery (SDC) | payer MEDICARE, BC ==
[2018-06-07 16:11] VITALS: BMI 30.1
--- NOTE | 2018-06-10 21:59 | P.GSHP ---
History of Present Illness H&P Date: 06/10/18 Chief Complaint: Gross hematuria The patient is a 68-year-old white male who presents with a two-month history of intermittent gross painless hematuria. A renal ultrasound showed a left renal cyst but was otherwise unremarkable. 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 He has been cleared by cardiology and comes for transurethral resection of the bladder tumor. Past Medical History Past Medical History: Coronary Artery Disease (CAD), COPD, Diabetes Mellitus, GERD/Reflux, GI Bleed, Hyperlipidemia, Hypertension, Liver Disease, Sleep Apnea/ CPAP/BIPAP, Thyroid Disorder Additional Past Medical History / Comment(s): COPD, alpha-1 antitrypsin deficiency, HX Liver Transplant, Chronic edema suppression, maintained on Tacrolimus. USES CPAP. O2 2L NC OTC. RECENT ADMIT FOR GI BLEED, SCOPES NL, TRANSFUSED X2; FOUND TUMOR IN BLADDER. BLEEDING EASILY, DECREASING DOSE OF XARELTO, INCREASING IRON. SEEN BY CV DR AND APPROVED FOR SURGERY, PER . WILL REPEAT LABS ON 06/11/18 IN PM. Last Myocardial Infarction Date:: 2013 History of Any Multi-Drug Resistant Organisms: None Reported Past Surgical History: Cholecystectomy, Coronary Bypass/CABG, Heart Catheterization, Heart Catheterization With Stent Additional Past Surgical History / Comment(s): liver transplant 2005, CABG 4 vessels , CABG - 2 vessels, heart stents x4. Cardioversion. LAST HEART CATH FEW WKS AGO. EGD, COLONOSCOPY 05/28/18. Past Anesthesia/Blood Transfusion Reactions: No Reported Reaction Date of Last Stent Placement:: 2013 Smoking Status: Never smoker - Past Family History Mother Family Medical History: Coronary Artery Disease (CAD) Sister(s) Family Medical History: Cancer Additional Family Medical History / Comment(s): ovarian cancer Father Family Medical History: Cancer Additional Family Medical History / Comment(s): BLADDER CA Medications and Allergies Home Medications Medication Instructions Recorded Confirmed Type Atorvastatin [Lipitor] 10 mg PO HS 08/30/16 06/07/18 History Clopidogrel [Plavix] 75 mg PO HS 08/30/16 06/07/18 History Isosorbide Mononitrate [Imdur] 120 mg PO BID 08/30/16 06/07/18 History Omeprazole [PriLOSEC] 20 mg PO AC-BID 08/30/16 06/07/18 History Cyanocobalamin [Vitamin B-12] 500 mcg PO DAILY 04/05/18 06/07/18 History Ferrous Sulfate [Iron (65 MG 325 mg PO BID 04/05/18 06/07/18 History Elemental)] Nitroglycerin 0.4MG/Hr Patch 1 patch TRANSDERM Q24H 04/05/18 06/07/18 History [Nitro-Dur 0.4MG/Hr Patch] Nitroglycerin Sl Tabs [Nitrostat] 0.4 mg SUBLINGUAL Q5M PRN 04/05/18 06/07/18 History Tacrolimus [Prograf] 1 mg PO BID 04/06/18 06/07/18 History Amiodarone [Cordarone] 200 mg PO HS 05/26/18 06/07/18 History Nebivolol [Bystolic] 10 mg PO DAILY 05/26/18 06/07/18 History Levothyroxine Sodium [Synthroid] 12.5 mcg PO DAILY@0630 #30 tab 05/30/18 Rx Rivaroxaban [Xarelto] 7.5 mg PO DAILY 06/07/18 06/07/18 History metFORMIN HCL 500 mg PO AC-SUPPER 06/07/18 06/07/18 History Allergies Allergy/AdvReac Type Severity Reaction Status Date / Time No Known Allergies Allergy Verified 06/07/18 15:34 Surgical - Exam - General well developed, well nourished, no distress - Respiratory normal respiratory effort, clear to auscultation - Cardiovascular Rhythm: regular Abnormal Heart Sounds: no systolic murmur, no diastolic murmur, no rub, no S3 Gallop, no S4 Gallop, no click, no other - Abdomen Abdomen: soft, non tender, no guarding, no rigid, no rebound - Genitourinary normal penis with no external lesions, testicles non-tender - Neurologic no disoriented, no combative - Psychiatric oriented to time, oriented to person, oriented to place, speech is normal, memory intact Assessment and Plan (1) Neoplasm of unspecified behavior of bladder Status: Acute Code(s): D49.4 - NEOPLASM OF UNSPECIFIED BEHAVIOR OF BLADDER SNOMED Code(s): 946221274 Plan: Cystoscopy, transurethral resection of bladder tumor (TUR-BT). The procedure has been reviewed in detail with the patient. Potential risks were reviewed, which include anesthesia, bleeding, infection, and bladder perforation. He is aware of the possible need for a Matthew catheter postoperatively.
[~2018-06-14 13:12] MED LIST: DEXAMETHASONE SOD PHOSPHATE 10 MG/ML 1 ML VIAL IV ONE; HYDROmorphone 1 MG/ML 1 ML SYRINGE IVP PRN; LACTATED RINGERS 1,000 ML IV SCH; LIDOCAINE 1% 20 ML VIAL (10MG/ML) FOR IV START INTRADERMA PRN; MIDAZOLAM 2 MG/2 ML VIAL IV PRN; ONDANSETRON 4 MG/2 ML VIAL IVP ONE; SCOPOLAMINE 1.5MG/72HR PATCH TRANSDERM ONE; ceFAZolin 1,000 MG in DEXTROSE/WATER 1 50ML.BAG IV ONE
[2018-06-14 13:58] LABS: Glucose,Whole Blood 110 mg/dL (75-99)
[2018-06-14] MEDS ORDERED: fentaNYL (PF) 50 MCG/ML 2 ML AMP ONE (14:51)
[2018-06-14] MEDS ORDERED: MIDAZOLAM 2 MG/2 ML VIAL ONE (14:51)
[2018-06-14] MEDS ORDERED: SODIUM CHLORIDE 0.9% 50 ML with ceFAZolin 2 GM IV ONE ×2 (15:10)
--- NOTE | 2018-06-14 16:16 | P.OP ---
Date of Procedure: 06/14/18 Preoperative Diagnosis: Bladder tumor Postoperative Diagnosis: Same Procedure(s) Performed: Cystoscopy, transurethral resection of bladder tumor (Medium) Anesthesia: spinal Surgeon: Filemon Stewart Estimated Blood Loss (ml): 10 IV fluids (ml): 600 Condition: stable Disposition: PACU Indications for Procedure: The patient is a 68-year-old white male who presents with a two-month history of intermittent gross painless hematuria. A renal ultrasound showed a left renal cyst but was otherwise unremarkable. 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 He has been cleared by cardiology and comes for transurethral resection of the bladder tumor. Operative Findings: Multiple, confluent papillary bladder tumors on right lateral bladder wall. Description of Procedure: The patient was taken in the operating room and placed in the dorsal lithotomy position, with his legs supported in Mike stirrups. The external genitalia was prepped and draped sterilely. The 24-Turkmen Storz resectoscope sheath was introduced into the bladder. The bladder was inspected. Both ureteral orifices were of normal anatomic location and configuration, and clear urine effluxed from both. The entire bladder was examined, revealing multiple confluent tumors on the right lateral bladder wall. These had a low-grade, noninvasive appearance. The prostate was partially obstructed, with a bilobar configuration. No urothelial changes were seen within the prostatic urethra. Using the cutting loop, the tumors were resected down to the muscle. The resection bed was fulgurated, as well as the adjacent urothelium. Excellent hemostasis was attained. The resected tissue was saved and sent for pathologic examination. A biopsy of the right posterior prostatic urethra was obtained using the resectoscope. This was also fulgurated, and an 18-Turkmen Matthew catheter was inserted. The return was clear. The patient tolerated the procedure well. He was taken to the recovery room in stable condition.
[2018-06-14 16:30] VITALS: TEMP 97.5
[2018-06-14] MEDS ORDERED: ISOSORBIDE MONONITRATE ER 60 MG TAB.ER.24H PO STA (18:58)
[2018-06-14 19:47] VITALS: BP 158/88; PULSE 62; RESP 18
== END 2018-06-14 20:07 | disposition home or self-care (01) ==
LOC: OR 13:12
PROVIDERS: ATTEND Urology
DX: C67.2 Malignant neoplasm of lateral wall of bladder (principal); N36.8 Other specified disorders of urethra; N28.1 Cyst of kidney, acquired; N40.0 Benign prostatic hyperplasia without lower urinary tract symptoms; E11.9 Type 2 diabetes mellitus without complications; J44.9 Chronic obstructive pulmonary disease, unspecified; I25.10 Atherosclerotic heart disease of native coronary artery without angina pectoris; G47.30 Sleep apnea, unspecified; E07.9 Disorder of thyroid, unspecified; K21.9 Gastro-esophageal reflux disease without esophagitis; I10 Essential (primary) hypertension; E78.5 Hyperlipidemia, unspecified; E88.01 Alpha-1-antitrypsin deficiency; K76.9 Liver disease, unspecified; Z99.81 Dependence on supplemental oxygen; Z94.4 Liver transplant status; I25.2 Old myocardial infarction; I48.91 Unspecified atrial fibrillation; Z95.1 Presence of aortocoronary bypass graft; Z95.5 Presence of coronary angioplasty implant and graft; Z80.41 Family history of malignant neoplasm of ovary; Z80.52 Family history of malignant neoplasm of bladder; Z79.84 Long term (current) use of oral hypoglycemic drugs; Z79.01 Long term (current) use of anticoagulants; Z79.02 Long term (current) use of antithrombotics/antiplatelets; Z79.890 Hormone replacement therapy; Z79.899 Other long term (current) drug therapy
CPT/HCPCS: 52235; 52214; 88305; 88307; J2250; J1100; J2405; J3010; J0690

== ENCOUNTER → 2019-01-17 | Outpatient (CLI) | payer MEDICARE, BC | END | disposition home or self-care (01) | LOC: LABWHC1 10:01 | PROVIDERS: ATTEND Family Medicine | DX: Z53.9 Procedure and treatment not carried out, unspecified reason (principal) ==

== ENCOUNTER → 2019-03-29 | Outpatient (CLI) | payer MEDICARE, BC ==
--- NOTE | 2019-03-29 12:54 | XR ---
EXAMINATION TYPE: XR chest 2V DATE OF EXAM: 03/29/2019 COMPARISON: 04/05/2018 INDICATION: CHF, J 44.0 TECHNIQUE: Frontal and lateral views of the chest are obtained. FINDINGS: The heart size is normal. The pulmonary vasculature is normal. Minimal infiltrate is at the left base. Small left pleural effusion or scarring may be present.. IMPRESSION: 1. Mild left lower lobe infiltrate. 2. Small left pleural effusion versus scarring
== END | disposition home or self-care (01) ==
LOC: RADXRMAIN 12:19
PROVIDERS: ATTEND Internal Medicine Cardiovascular Disease
DX: R91.8 Other nonspecific abnormal finding of lung field (principal); J44.0 Chronic obstructive pulmonary disease with (acute) lower respiratory infection; I50.9 Heart failure, unspecified
CPT/HCPCS: 71046

== ENCOUNTER 2020-03-31 20:38 | Observation (INO) | payer MEDICARE, BC ==
--- NOTE | 2020-03-31 21:13 | ED ---
Back Pain HPI - General Chief Complaint: Back Pain/Injury Stated Complaint: Fall Time Seen by Provider: 03/31/20 20:46 Source: patient Limitations: no limitations - History of Present Illness Initial Comments: Patient is a 70-year-old male, with history of A. fib, diabetes, COPD, presenting to the emergency Department with complaints of pain in the left side of his ribs after falling. Patient states about 4 hours [place] he tripped on a dog bone and landed on some wood furniture mostly on his left side. He states he is painful to take in a deep breath. He states he did take 2 [place] prior to arrival. Patient's pain is on his lateral left ribs extending towards the back. He denies hitting his head, he denies neck pain, shoulder pain, leg pain. He states his only pain is in his ribs. Patient has no further complaints. Upon arrival to the ER, his vitals are stable. - Related Data Home Medications Medication Instructions Recorded Confirmed Atorvastatin [Lipitor] 10 mg PO HS@219908/30/16 03/31/20 Clopidogrel [Plavix] 75 mg PO HS@219908/30/16 03/31/20 Isosorbide Mononitrate [Imdur] 120 mg PO BID@1000,219908/30/16 03/31/20 Omeprazole [PriLOSEC] 20 mg PO BID@1000,219908/30/16 03/31/20 Nitroglycerin 0.4MG/Hr Patch 1 patch TRANSDERM DAILY@1700 04/05/18 03/31/20 [Nitro-Dur 0.4MG/Hr Patch] Amiodarone [Cordarone] 100 mg PO HS@2200 05/26/18 03/31/20 Rivaroxaban [Xarelto] 7.5 mg PO DAILY@1000 06/07/18 03/31/20 metFORMIN HCL 500 mg PO AC-SUPPER 06/07/18 03/31/20 Carvedilol [Coreg] 25 mg PO BID@1000,0 01/02/19 03/31/20 Levothyroxine Sodium [Synthroid] 25 mcg PO DAILY@0903/31/20 03/31/20 Tacrolimus [Envarsus Xr] 1.5 mg PO DAILY@1000 03/31/20 03/31/20 Allergies Allergy/AdvReac Type Severity Reaction Status Date / Time ferumoxytol [From Feraheme] Allergy Anaphylaxis Verified 03/31/20 22:11 Review of Systems ROS Statement: Those systems with pertinent positive or pertinent negative responses have been documented in the HPI. ROS Other: All systems not noted in ROS Statement are negative. Past Medical History Past Medical History: Atrial Fibrillation, Coronary Artery Disease (CAD), COPD, Diabetes Mellitus, GERD/Reflux, GI Bleed, Hyperlipidemia, Hypertension, Liver Disease, Sleep Apnea/CPAP/BIPAP, Thyroid Disorder Additional Past Medical History / Comment(s): COPD, alpha-1 antitrypsin deficiency, HX Liver Transplant, Chronic edema suppression, maintained on Tacrolimus. USES CPAP. O2 2L NC OTC. RECENT ADMIT FOR GI BLEED, SCOPES NL, TRANSFUSED X2; FOUND TUMOR IN BLADDER. Bleeds easily. Last Myocardial Infarction Date:: 2013 History of Any Multi-Drug Resistant Organisms: None Reported Past Surgical History: Cholecystectomy, Coronary Bypass/CABG, Heart Catheterization, Heart Catheterization With Stent Additional Past Surgical History / Comment(s): liver transplant 2005, CABG 4 v essels , CABG - 2 vessels, heart stents x4. Cardioversion. EGD, COLONOSCOPY 05/28/18. Bladder Cancer surgery 06-11-18 Past Anesthesia/Blood Transfusion Reactions: No Reported Reaction Date of Last Stent Placement:: 2013 Past Psychological History: No Psychological Hx Reported Past Alcohol Use History: None Reported Past Drug Use History: None Reported - Past Family History Mother Family Medical History: Coronary Artery Disease (CAD) Sister(s) Family Medical History: Cancer Additional Family Medical History / Comment(s): ovarian cancer Father Family Medical History: Cancer Additional Family Medical History / Comment(s): BLADDER CA General Exam - General Exam Comments Initial Comments: GENERAL: Patient is well-developed and well-nourished. Patient is nontoxic and in no acute distress. HEAD: Atraumatic, normocephalic. EYES: Pupils equal round and reactive to light, extraocular movements intact, sclera anicteric, conjunctiva are normal. Eyelids were unremarkable. ENT: TMs normal, nares patent, oropharynx clear without exudates. Moist mucous membranes. NECK: Normal range of motion, supple without lymphadenopathy or JVD. LUNGS: Unlabored respirations. Breath sounds clear to auscultation bilaterally and equal. No wheezes rales or rhonchi. HEART: Regular rate and rhythm without murmurs, rubs or gallops. ABDOMEN: Soft, nontender, normoactive bowel sounds. No guarding, no rebound. No masses appreciated. : Deferred MUSCULOSKELETAL: Normal extremities with adequate strength and normal range of motion, no pitting or edema. No clubbing or cyanosis. NEUROLOGICAL: Patient is alert and oriented x 3. Motor and sensory are also intact. Cranial nerves II through XII grossly intact. Symmetrical smile. Normal speech, normal gait. PSYCH: Normal mood, normal affect. SKIN: Warm, Dry, normal turgor, no rashes or lesions noted. Limitations: no limitations Course Vital Signs 03/31/20 20:40 Temperature 97.4 F L Pulse Rate 65 Respiratory 20 Rate Blood Pressure 173/71 O2 Sat by Pulse 94 L Oximetry Medical Decision Making - Medical Decision Making Patient is a 70-year-old male here for left rib pain after falling into a wood furniture about 4 hours prior to arrival. He denies hitting his head, no neck pain, no other pain other than the left lateral rib pain. Left rib and chest x- rays reveal left lower lateral rib fractures of 8th, 9th, 10th rib fractures. There is no pneumothorax. I did do a CT of the chest as well which shows no other acute processes. CT of the brain is normal as well. Given patient's tra umatic fall and multiple rib fractures, I did recommend admission. Patient is in agreement with this plan of care. Patient was accepted by Dr. Turner. Case discussed with Dr. Frias. - Lab Data Result diagrams: 03/31/20 22:29 03/31/20 22:29 Lab Results 03/31/20 03/31/20 Range/Units 22:29 22:29 WBC 10.9 H (3.8-10.6) k/uL RBC 3.13 L (4.30-5.90) m/uL Hgb 9.3 L (13.0-17.5) gm/dL Hct 30.3 L (39.0-53.0) % MCV 96.7 (80.0-100.0) fL MCH 29.7 (25.0-35.0) pg MCHC 30.7 L (31.0-37.0) g/dL RDW 16.5 H (11.5-15.5) % Plt Count 313 (150-450) k/uL Neutrophils % 75 % Lymphocytes % 14 % Monocytes % 6 % Eosinophils % 3 % Basophils % 0 % Neutrophils # 8.2 H (1.3-7.7) k/uL Lymphocytes # 1.6 (1.0-4.8) k/uL Monocytes # 0.7 (0-1.0) k/uL Eosinophils # 0.3 (0-0.7) k/uL Basophils # 0.1 (0-0.2) k/uL Hypochromasia Moderate Anisocytosis Slight Macrocytosis Slight Sodium 141 (137-145) mmol/L Potassium 4.8 (3.5-5.1) mmol/L Chloride 108 H (98-107) mmol/L Carbon Dioxide 23 (22-30) mmol/L Anion Gap 10 mmol/L BUN 29 H (9-20) mg/dL Creatinine 1.30 H (0.66-1.25) mg/dL Est GFR (CKD-EPI)AfAm 64 (>60 ml/min/1.73 sqM) Est GFR (CKD-EPI)NonAf 55 (>60 ml/min/1.73 sqM) Glucose 130 H (74-99) mg/dL Calcium 9.4 (8.4-10.2) mg/dL Disposition Clinical Impression: Fall, Multiple fractures of ribs of left side Disposition: ADMITTED IP TO THIS [facility] Condition: Stable Decision Date: 03/31/20 Decision Time: 22:43
--- NOTE | 2020-03-31 21:43 | XR ---
EXAMINATION TYPE: XR ribs LT w pa chest xray DATE OF EXAM: 03/31/2020 COMPARISON: 03/29/2019 HISTORY: Fall. Chest pain TECHNIQUE: 5 views FINDINGS: Heart is enlarged. There is some pulmonary vascular congestion. There is slight blunting of the costophrenic angles. There are sternal wires. There is fracture of the anterior left ninth and 10th ribs with minimal displacement. There is probab ly a nondisplaced fracture anterior tip of the left eighth rib. There is no pneumothorax. IMPRESSION: Left lower lateral rib fractures. There is probably mild congestive heart failure slightl y worse than recent exam. No pneumothorax.
--- NOTE | 2020-03-31 22:22 | CT ---
EXAMINATION TYPE: CT brain wo con DATE OF EXAM: 03/31/2020 COMPARISON: None HISTORY: fall CT DLP: 1182 mGycm Automated exposure control for dose reduction was used. There is cerebral atrophy. There is no mass effect nor midline shift. There is no sign of intracrania l hemorrhage. The calvarium is intact. There is no evidence of cerebral edema. IMPRESSION: Mild cerebral atrophy. No acute intracranial abnormality.
--- NOTE | 2020-03-31 22:32 | CT ---
EXAMINATION TYPE: CT chest wo con DATE OF EXAM: 03/31/2020 COMPARISON: 08/08/2017 HISTORY: chest pain following fall CT DLP: 573.2 mGycm Automated exposure control for dose reduction was used. Exam performed with no contrast. There is some patchy atelectasis and reticular infiltrate at the lung bases. Heart appears enlarged. There is no pericardial effusion. There is no pleural effusion. There is some pleural lipomatosis. Th ere is coronary artery calcification. There are no hilar masses. There is no mediastinal adenopathy. Thoracic aorta shows some atheromatous change. There is no evidence of aneurysm. There is 20% wedging of T8 vertebral body. IMPRESSION: Mild interstitial infiltrate and atelectasis at the lung bases not significantly different than old e xam. T8 compression fracture unchanged.
[2020-03-31] MEDS ORDERED: NALOXONE 0.4 MG/ML 1 ML VIAL IV PRN ×2 (22:36→22:44)
[2020-03-31 22:39] LABS: Anisocytosis Slight; Basophils # (A) 0.1 k/uL (0-0.2); Basophils % (A) 0 %; Eosinophils # (A) 0.3 k/uL (0-0.7); Eosinophils % (A) 3 %; HCT 30.3 % (39.0-53.0); HGB 9.3 gm/dL (13.0-17.5); Hypochromasia Moderate; Lymphocytes # (A) 1.6 k/uL (1.0-4.8); Lymphocytes % (A) 14 %; MCH 29.7 pg (25.0-35.0); MCHC 30.7 g/dL (31.0-37.0); MCV 96.7 fL (80.0-100.0); Macrocytosis Slight; Mean Platelet Volume 7.9; Monocytes # (A) 0.7 k/uL (0-1.0); Monocytes % (A) 6 %; Neutrophils # (A) 8.2 k/uL (1.3-7.7); Neutrophils % (A) 75 %; Platelet Count 313 k/uL (150-450); RBC 3.13 m/uL (4.30-5.90); RDW 16.5 % (11.5-15.5); WBC 10.9 k/uL (3.8-10.6)
[2020-03-31 22:47] LABS: Calcium 9.4 mg/dL (8.4-10.2); Potassium 4.8 mmol/L (3.5-5.1)
[2020-04-01] MEDS: HYDROcodone/APAP 5-325MG 1 EACH TAB PO PRN ×4 (00:36→20:38)
[2020-04-01 08:04] LABS: Glucose,Whole Blood 100 mg/dL (75-99)
[2020-04-01] MEDS: INSULIN ASPART (NovoLOG) 100 UNIT/ML VIAL SQ SCH ×4 (08:15→20:22)
[2020-04-01 08:39] LABS: INR 1.1 (<1.2); Partial Thromboplastin Time 23.2 sec (22.0-30.0); Prothrombin Time 11.1 sec (9.0-12.0)
--- NOTE | 2020-04-01 10:06 | P.PAINCN ---
History of Present Illness - Reason for Consult Consult date: 04/01/20 - History of Present Illness This is 70 years old male who was admitted to [facility] through the emergency department with a chief complaint left-sided chest wall pain after he fell , diagnostic study showed the patient had multiple rib fractures and patient complaining of severe, localized pain in the left side of the chest (lateral aspect of the lower part of the chest wall ) pain increases with any movement, or with deep breaths, patient had a history of A. fib and his currently on Plavix and Xarelto Past Medical History Past Medical History: Atrial Fibrillation, Coronary Artery Disease (CAD), COPD, Diabetes Mellitus, GERD/Reflux, GI Bleed, Hyperlipidemia, Hypertension, Liver Disease, Sleep Apnea/CPAP/BIPAP, Thyroid Disorder Additional Past Medical History / Comment(s): COPD, alpha-1 antitrypsin deficiency, HX Liver Transplant, Chronic edema suppression, maintained on Tacrolimus. USES CPAP. O2 2L NC OTC. RECENT ADMIT FOR GI BLEED, SCOPES NL, TRANSFUSED X2; FOUND TUMOR IN BLADDER. Bleeds easily.tremors related to amiodorone per patient Last Myocardial Infarction Date:: 2013 History of Any Multi-Drug Resistant Organisms: None Reported Past Surgical History: Cholecystectomy, Coronary Bypass/CABG, Heart Catheterization, Heart Catheterization With Stent Additional Past Surgical History / Comment(s): liver transplant 2005, CABG 4 vessels , CABG - 2 vessels, heart stents x4. Cardioversion. EGD, COLONOSCOPY 05/28/18. Bladder Cancer surgery 06-11-18 Past Anesthesia/Blood Transfusion Reactions: No Reported Reaction Date of Last Stent Placement:: 2013 Past Psychological History: No Psychological Hx Reported Smoking Status: Never smoker Past Alcohol Use History: None Reported Past Drug Use History: None Reported - Past Family History Mother Family Medical History: Coronary Artery Disease (CAD) Sister(s) Family Medical History: Cancer Additional Family Medical History / Comment(s): ovarian cancer Father Family Medical History: Cancer Additional Family Medical History / Comment(s): BLADDER CA Medications and Allergies Home Medications Medication Instructions Recorded Confirmed Type Atorvastatin [Lipitor] 10 mg PO HS@0 08/30/16 03/31/20 History Clopidogrel [Plavix] 75 mg PO HS@219908/30/16 03/31/20 History Isosorbide Mononitrate [Imdur] 120 mg PO BID@1000,2200 08/30/16 03/31/20 History Omeprazole [PriLOSEC] 20 mg PO BID@1000,0 08/30/16 03/31/20 History Nitroglycerin 0.4MG/Hr Patch 1 patch TRANSDERM DAILY@1700 PRN 04/05/18 03/31/20 History [Nitro-Dur 0.4MG/Hr Patch] Amiodarone [Cordarone] 100 mg PO HS@2200 05/26/18 03/31/20 History Rivaroxaban [Xarelto] 7.5 mg PO DAILY@1000 06/07/18 03/31/20 History metFORMIN HCL 500 mg PO AC-SUPPER 06/07/18 03/31/20 History Carvedilol [Coreg] 25 mg PO BID@1000,219901/02/19 03/31/20 History Levothyroxine Sodium [Synthroid] 25 mcg PO DAILY@0903/31/20 03/31/20 History Tacrolimus [Envarsus Xr] 1.5 mg PO DAILY@1000 03/31/20 03/31/20 History Allergies Allergy/AdvReac Type Severity Reaction Status Date / Time ferumoxytol [From Feraheme] Allergy Anaphylaxis Verified 03/31/20 22:11 Physical Exam Vitals: Vital Signs Temp Pulse Pulse Resp BP BP Pulse Ox 04/01/20 05:05 97.4 F L 53 L 18 156/72 100 04/01/20 00:32 93 L 04/01/20 00:01 97.5 F L 68 20 155/75 91 L 03/31/20 20:40 97.4 F L 65 20 173/71 94 L Intake and Output 03/31/20 04/01/20 04/01/20 22:59 06:59 14:59 Other: Voiding Method Toilet # Voids 1 Weight 95.254 kg 95.254 kg Physical Examinations : -Constitutiona : Cooperative , not in acute distress . -HEENT : nech : supple , no Lymphadenopathy , normal thyroid size . : eyes : no ptosis , no icterus, no photophobia . : ENT : normal of hearing , normal oropharynx , no Thrush . - Respiratory : Chest clear to auscultations Bilaterally , no wheezing , no Rhonchi , tenderness over the lateral aspect of the left side of the chest. - Cardiovascula : irregular rate and rhythem , S1 , S2 , no S3 , no S4. - Gastrointestina : abdomen soft no tenderness , bowel sounds , no organomegally . - Genitourinary : Defferred . - neurologic : Cranial nerve II to XII intact , no focal neurological deffecit . -psychatric : alert , oriented X 3 , appropriate affect , intact judgment and insight . -Lymphatic : no Lymphadenopathy . - musculoskeltal : . Lumber spine moter stegnth lower extremities ,thigh and legs 5/5 Right side , 5/5 Left side Results CBC & Chem 7: 03/31/20 22:29 03/31/20 22:29 Labs: Abnormal Lab Results - Last 24 Hours (Table) 03/31/20 03/31/20 04/01/20 Range/Units 22:29 22:29 08:03 WBC 10.9 H (3.8-10.6) k/uL RBC 3.13 L (4.30-5.90) m/uL Hgb 9.3 L (13.0-17.5) gm/dL Hct 30.3 L (39.0-53.0) % MCHC 30.7 L (31.0-37.0) g/dL RDW 16.5 H (11.5-15.5) % Neutrophils # 8.2 H (1.3-7.7) k/uL Chloride 108 H (98-107) mmol/L BUN 29 H (9-20) mg/dL Creatinine 1.30 H (0.66-1.25) mg/dL Glucose 130 H (74-99) mg/dL POC Glucose (mg/dL) 100 H (75-99) mg/dL Assessment and Plan Plan: Assessment and plan=1-acute chest wall pain secondary to multiple rib fracture. he is currently on [place] 5/25 when necessary every 6 hours. Recommend start patient on Lidoderm patch 5% to be applied to the left side of the lateral chest wall 12 h on ,12 h off. Patient is not a candidate for pain management interventions ( thoracic epidural ) equals he is receiving Plavix and Xarelto PQRS Measure Charge Sheet PQRS Narrative: Smoking Status Never smoker Blood Pressure [Left Arm] 156/72 Blood Pressure 173/71 Pain Intensity [Left Chest] 4 Pain Intensity 0 Pain Scale Used Non Verbal Pain Indicator Scale Used Numeric (1 - 10) Home Medications: Ambulatory Orders Atorvastatin [Lipitor] 10 mg PO HS@219908/30/16 Clopidogrel [Plavix] 75 mg PO HS@219908/30/16 Isosorbide Mononitrate [Imdur] 120 mg PO BID@1000,219908/30/16 Omeprazole [PriLOSEC] 20 mg PO BID@999,219908/30/16 Nitroglycerin 0.4MG/Hr Patch [Nitro-Dur 0.4MG/Hr Patch] 1 patch TRANSDERM DAILY@1700 PRN 04/05/18 Amiodarone [Cordarone] 100 mg PO HS@219905/26/18 Rivaroxaban [Xarelto] 7.5 mg PO DAILY@99906/07/18 metFORMIN HCL 500 mg PO AC-SUPPER 06/07/18 Carvedilol [Coreg] 25 mg PO BID@999,219901/02/19 Levothyroxine Sodium [Synthroid] 25 mcg PO DAILY@0903/31/20 Tacrolimus [Envarsus Xr] 1.5 mg PO DAILY@99903/31/20
--- NOTE | 2020-04-01 11:20 | P.CONS ---
History of Present Illness - Reason for Consult Consult date: 04/01/20 - History of Present Illness This is a 70-year-old male patient of Dr. Carpenter with medical history significant for atrial fibrillation, COPD, diabetes mellitus, GERD, GI bleed, hyperlipidemia, hypertension, liver disease with liver transplant in 2005, sleep apnea, thyroid disorder, and alpha 1 antitrypsin deficiency. Significant coronary artery disease history of CABG 2 with multiple stenting and remains on Plavix. Yesterday patient was out planning on going hunting reports tripped and fell on a dog toy and landed on his left side. Had significant pain and called his to bring him to the emergency department. Chest x-ray refilled lower left lateral rib fractures mild CHF, no pneumothorax and was admitted to trauma service of Dr. Turner. CT of the head showed no acute intracranial abnormality. CT of the chest showed mild interstitial infiltrate and atelectasis at the lung bases not significantly different than old exam and T8 compression fracture unchanged. White blood cells were 10.9, hemoglobin 9.3, BUN 29 creatinine 1.3. Patient is doing fairly well today, Vital signs are stable, afebrile, pulse rate 53, blood pressure 156/72, pulse ox 100% on 2 L nasal cannula. We'll continue to follow with medical management. Review of Systems Constitutional: Denies chills, Denies chronic headaches, Denies malaise, Denies weakness, Denies weight gain, Denies weight loss Eyes: denies blurred vision, denies bulging eye, denies decreased vision, denies diplopia Ears, nose, mouth and throat: Denies dysphagia, Denies neck lump, Denies sore throat Cardiovascular: Denies chest pain, dyspnea on exertion, mild shortness of breath, Denies decreased exercise tolerance, Denies leg edema, Denies lightheadedness, Denies rapid heart beat, Denies syncope Respiratory: Mild dyspnea, Denies congestion, Denies cough, Denies cough with sputum, Denies home oxygen, Denies pain, Denies sleep apnea, Denies snoring, Denies wheezing. Pain with inspiration Gastrointestinal: Denies abdominal pain, Denies bloating, Denies excessive gas, Denies melena, Denies nausea, Denies vomiting Genitourinary: Denies dysuria, Denies nocturia Musculoskeletal: absent: ankle pain, ankle stiffness, ankle swelling, elbow pain, elbow stiffness, elbow swelling, foot pain, foot stiffness, foot swelling, hand pain, hand stiffness, hand swelling, hip pain, hip stiffness, hip swelling, knee pain, knee stiffness, knee swelling, shoulder pain, shoulder stiffness, shoulder swelling, wrist pain, wrist stiffness, wrist swelling. Left-sided rib pain Integumentary: Denies pruritus, Denies rash Neurological: Denies numbness, Denies weakness Psychiatric: Denies anxiety, Denies depression Endocrine: Denies fatigue, Denies weight change Constitutional: Denies chills, Denies fever Past Medical History Past Medical History: Atrial Fibrillation, Coronary Artery Disease (CAD), COPD, Diabetes Mellitus, GERD/Reflux, GI Bleed, Hyperlipidemia, Hypertension, Liver Disease, Sleep Apnea/CPAP/BIPAP, Thyroid Disorder Additional Past Medical History / Comment(s): COPD, alpha-1 antitrypsin deficiency, HX Liver Transplant, Chronic edema suppression, maintained on Tacrolimus. USES CPAP. O2 2L [place] OTC. RECENT ADMIT FOR GI BLEED, SCOPES NL, TRANSFUSED X2; FOUND TUMOR IN BLADDER. Bleeds easily.tremors related to amiodorone per patient Last Myocardial Infarction Date:: 2013 History of Any Multi-Drug Resistant Organisms: None Reported Past Surgical History: Cholecystectomy, Coronary Bypass/CABG, Heart Catheterization, Heart Catheterization With Stent Additional Past Surgical History / Comment(s): liver transplant 2005, CABG 4 vessels , CABG - 2 vessels, heart stents x4. Cardioversion. EGD, COLON OSCOPY 05/28/18. Bladder Cancer surgery 06-11-18 Past Anesthesia/Blood Transfusion Reactions: No Reported Reaction Date of Last Stent Placement:: 2013 Past Psychological History: No Psychological Hx Reported Smoking Status: Never smoker Past Alcohol Use History: None Reported Past Drug Use History: None Reported - Past Family History Mother Family Medical History: Coronary Artery Disease (CAD) (passed at age 51) Sister(s) Family Medical History: Cancer Additional Family Medical History / Comment(s): ovarian cancer Father Family Medical History: Cancer Additional Family Medical History / Comment(s): BLADDER CA Medications and Allergies Home Medications Medication Instructions Recorded Confirmed Type Atorvastatin [Lipitor] 10 mg PO HS@2200 08/30/16 03/31/20 History Clopidogrel [Plavix] 75 mg PO HS@0 08/30/16 03/31/20 History Isosorbide Mononitrate [Imdur] 120 mg PO BID@1000,2200 08/30/16 03/31/20 History Omeprazole [PriLOSEC] 20 mg PO BID@1000,219908/30/16 03/31/20 History Nitroglycerin 0.4MG/Hr Patch 1 patch TRANSDERM DAILY@1700 PRN 04/05/18 03/31/20 History [Nitro-Dur 0.4MG/Hr Patch] Amiodarone [Cordarone] 100 mg PO HS@2200 05/26/18 03/31/20 History Rivaroxaban [Xarelto] 7.5 mg PO DAILY@1000 06/07/18 03/31/20 History metFORMIN HCL 500 mg PO AC-SUPPER 06/07/18 03/31/20 History Carvedilol [Coreg] 25 mg PO BID@1000,0 01/02/19 03/31/20 History Levothyroxine Sodium [Synthroid] 25 mcg PO DAILY@89903/31/20 03/31/20 History Tacrolimus [Envarsus Xr] 1.5 mg PO DAILY@1000 03/31/20 03/31/20 History Allergies Allergy/AdvReac Type Severity Reaction Status Date / Time ferumoxytol [From FerCryoTherapeuticseme] Allergy Anaphylaxis Verified 03/31/20 22:11 Physical Exam Vitals: Vital Signs Temp Pulse Pulse Resp BP BP Pulse Ox 04/01/20 05:05 97.4 F L 53 L 18 156/72 100 04/01/20 00:32 93 L 04/01/20 00:01 97.5 F L 68 20 155/75 91 L 03/31/20 20:40 97.4 F L 65 20 173/71 94 L Intake and Output 03/31/20 04/01/20 04/01/20 22:59 06:59 14:59 Other: Voiding Method Toilet # Voids 1 Weight 95.254 kg 95.254 kg General Appearance: Alert, cooperative, no distress, appears stated age. Neck HEENT: Supple, no lymphadenopathy, no thyroid enlargement, no carotid bruits. Lungs: Diminished to auscultation without crackles or wheezes no rhonchi, no deformity. Chest Wall: Chest wall decreased expansion with deep inspiration no tenderness and no deformity was found on exam, left sided rib pain. Heart: Regular rate and rhythm, S1, S2 normal, no murmur, click or rub Abdomen: Soft, nontender, nondistended, positive bowel sounds. Extremities: Extremities normal, atraumatic, no cyanosis or edema. Pulses: 2+ and symmetric. Skin: Skin color, texture, tugor normal, no rashes or lesions. Neurologic: Alert oriented x3 cranial nerves II through XII intact, no motor deficit, no abnormal balance or gait. Results CBC & Chem 7: 03/31/20 22:03/31/20: Labs: Abnormal Lab Results - Last 24 Hours (Table) 03/31/20 03/31/20 04/01/20 Range/Units :: 08:03 WBC 10.9 H (3.8-10.6) k/uL RBC 3.13 L (4.30-5.90) m/uL Hgb 9.3 L (13.0-17.5) gm/dL Hct 30.3 L (39.0-53.0) % MCHC 30.7 L (31.0-37.0) g/dL RDW 16.5 H (11.5-15.5) % Neutrophils # 8.2 H (1.3-7.7) k/uL Chloride 108 H (98-107) mmol/L BUN 29 H (9-20) mg/dL Creatinine 1.30 H (0.66-1.25) mg/dL Glucose 130 H (74-99) mg/dL POC Glucose (mg/dL) 100 H (75-99) mg/dL Assessment and Plan Assessment: 1. Traumatic fall, With left-sided rib fractures. No pneumothorax. Encourage incentive spirometry, PT and surgery on the case and will repeat chest x-ray in the morning. Consult to pulmonary in place. 2. Left-sided chest wall pain. Continue [place] as needed 3. Atrial fibrillation. Stable, on amiodarone 100 mg at at bedtime. We'll likely resume Xarelto tomorrow pending chest x-ray. 4. Coronary artery disease. stable, Continue on Plavix 75 mg daily, atorv astatin 10 mg daily, Coreg 25 mg twice a day, Imdur 120 mg twice a day 5. History of COPD. Pulmonary following 6. Hypertension. On Coreg. 7. Diabetes mellitus. On metformin 500 mg before supper and Accu-Cheks before meals and at bedtime with sliding scale. 8. On Protonix GERD 9. Hyperlipidemia. Continue atorvastatin 10. History of liver transplant. On TACROLIMUS, to bring patient's medications from home 11. Sleep apnea: On CPAP 12. Thyroid disorder. On levothyroxine 13. GI prophylaxis. On PPI. 14. DVT prophylaxis. Encourage early ambulation, on Cymbaltaon Xarelto. Thank you for the consult will continue to monitor patient along with you closely. Patient will be admitted to the hospital for minimum of 2 night stay. Impression and plan of care have been directed as dictated by the signing physician. Kay Ortega nurse practitioner acting as scribe for signing physician.
[2020-04-01 12:19] LABS: Glucose,Whole Blood 188 mg/dL (75-99)
[2020-04-01] MEDS: carvediloL 12.5 MG TAB PO SCH ×2 (12:24→22:13)
[2020-04-01] MEDS: LIDOCAINE 5% PATCH TOPICAL SCH (12:24)
[2020-04-01] MEDS: PANTOPRAZOLE 40 MG TABLET PO SCH ×2 (12:24→22:13)
[2020-04-01] MEDS: ISOSORBIDE MONONITRATE ER 60 MG TAB.ER.24H PO SCH ×2 (12:24→22:12)
[2020-04-01] MEDS: LEVOTHYROXINE 25 MCG TAB PO SCH (12:24)
[2020-04-01 13:12] LABS: Appearance,Urine Clear (Clear); Bilirubin,Urine Negative (Negative); Blood,Urine Negative (Negative); Color,Urine Yellow; Glucose,Urine (UA) 3+ (Negative); Ketones,Urine Negative (Negative); Leukocyte Esterase,Urine Negative (Negative); Nitrite,Urine Negative (Negative); PH, Urine 5.5 (5.0-8.0); Protein,Urine Trace (Negative); Specific Gravity,Urine 1.027 (1.001-1.035); Urobilinogen,Urine <2.0 mg/dL (<2.0)
--- NOTE | 2020-04-01 13:26 | P.CNPUL ---
History of Present Illness Consult date: 04/01/20 Requesting physician: Serge Turner Reason for consult: other Chief complaint: Left rib pain, fall, trauma History of present illness: 70-year-old white female patient of Dr. Le with past medical history of atrial fibrillation on Xareto, diabetes mellitus, COPD with Alpha I antitrypsin deficiency, hypertension, hyperlipidemia, sleep apnea on CPAP therapy, coronary artery disease with previous history of bypass grafting and stenting, history of liver transplantation 2005, who presented to the hospital on 03/31/2020 [place] tripped on a dog bone and landed on some wood furniture mostly on the left side. Patient was having significant discomfort in his left chest, and his breathing was painful related to the pain. Denied any other complaints, no syncope, denied hitting his head. Chest x-ray revealed a left lower lobe lateral rib fractures, some pulmonary vascular congestion, slight blunting of the costophrenic angles suggesting mild congestive heart failure, no evidence of pneumothorax. Brain CT showed mild cerebral atrophy no acute intracranial abnormality. CT of the chest showed mild interstitial infiltrate and atelectasis at the lung bases not significantly different from the old exam, T compression fracture unchanged. Admission lab work showed white blood cell count of 10.9, hemoglobin of 9.3, sodium is 141, p otassium is 4.8, chloride is 108, CO2 is 20, BUN is 29, creatinine is 1.3, INR was 1.1. Urinalysis showed 3+ glucose but negative for any sign of infection. Patient was given oral [place]'s, anesthesia services were consulted. He is awake and alert, oriented 3, his activities of oxygen a pulse ox of 99-100%, hemodynamically stable, no fever or chills, he still has pain with the deep inspiration and coughing, but no acute distress. Review of Systems All systems: negative Constitutional: Denies chills, Denies fever Eyes: denies blurred vision, denies pain Ears, nose, mouth and throat: Denies headache, Denies sore throat Cardiovascular: Denies chest pain, Denies shortness of breath Respiratory: Reports dyspnea, Denies cough Gastrointestinal: Denies abdominal pain, Denies diarrhea, Denies nausea, Denies vomiting Musculoskeletal: Denies myalgias Integumentary: Denies pruritus, Denies rash Neurological: Denies numbness, Denies weakness Psychiatric: Denies anxiety, Denies depression Endocrine: Denies fatigue, Denies weight change Past Medical History Past Medical History: Atrial Fibrillation, Coronary Artery Disease (CAD), COPD, Diabetes Mellitus, GERD/Reflux, GI Bleed, Hyperlipidemia, Hypertension, Liver Disease, Sleep Apnea/CPAP/BIPAP, Thyroid Disorder Additional Past Medical History / Comment(s): COPD, alpha-1 antitrypsin deficiency, HX Liver Transplant, Chronic edema suppression, maintained on Ta crolimus. USES CPAP. O2 2L NC OTC. RECENT ADMIT FOR GI BLEED, SCOPES NL, TRANSFUSED X2; FOUND TUMOR IN BLADDER. Bleeds easily.tremors related to amiodorone per patient Last Myocardial Infarction Date:: 2013 History of Any Multi-Drug Resistant Organisms: None Reported Past Surgical History: Cholecystectomy, Coronary Bypass/CABG, Heart Catheterization, Heart Catheterization With Stent Additional Past Surgical History / Comment(s): liver transplant 2005, CABG 4 vessels , CABG - 2 vessels, heart stents x4. Cardioversion. EGD, COLONOSCOPY 05/28/18. Bladder Cancer surgery 06-11-18 Past Anesthesia/Blood Transfusion Reactions: No Reported Reaction Date of Last Stent Placement:: 2013 Past Psychological History: No Psychological Hx Reported Smoking Status: Never smoker Past Alcohol Use History: None Reported Past Drug Use History: None Reported - Past Family History Mother Family Medical History: Coronary Artery Disease (CAD) (passed at age 51) Sister(s) Family Medical History: Cancer Additional Family Medical History / Comment(s): ovarian cancer Father Family Medical History: Cancer Additional Family Medical History / Comment(s): BLADDER CA Medications and Allergies Home Medications Medication Instructions Recorded Confirmed Type Atorvastatin [Lipitor] 10 mg PO HS@219908/30/16 03/31/20 History Clopidogrel [Plavix] 75 mg PO HS@219908/30/16 03/31/20 History Isosorbide Mononitrate [Imdur] 120 mg PO BID@1000,219908/30/16 03/31/20 History Omeprazole [PriLOSEC] 20 mg PO BID@1000,219908/30/16 03/31/20 History Nitroglycerin 0.4MG/Hr Patch 1 patch TRANSDERM DAILY@1700 PRN 04/05/18 03/31/20 History [Nitro-Dur 0.4MG/Hr Patch] Amiodarone [Cordarone] 100 mg PO HS@0 05/26/18 03/31/20 History Rivaroxaban [Xarelto] 7.5 mg PO DAILY@1000 06/07/18 03/31/20 History metFORMIN HCL 500 mg PO AC-SUPPER 06/07/18 03/31/20 History Carvedilol [Coreg] 25 mg PO BID@1000,2200 01/02/19 03/31/20 History Levothyroxine Sodium [Synthroid] 25 mcg PO DAILY@89903/31/20 03/31/20 History Tacrolimus [Envarsus Xr] 1.5 mg PO DAILY@99903/31/20 03/31/20 History Allergies Allergy/AdvReac Type Severity Reaction Status Date / Time ferumoxytol [From Feraheme] Allergy Anaphylaxis Verified 03/31/20 22:11 Physical Exam Vitals: Vital Signs Temp Pulse Pulse Resp BP BP BP 04/01/20 12:41 97.6 F 51 L 16 174/74 169/77 04/01/20 05:05 97.4 F L 53 L 18 156/72 04/01/20 00:32 04/01/20 00:01 97.5 F L 68 20 155/75 03/31/20 20:40 97.4 F L 65 20 173/71 Pulse Ox 04/01/20 12:41 99 04/01/20 05:05 100 04/01/20 00:32 93 L 04/01/20 00:01 91 L 03/31/20 20:40 94 L Intake and Output 03/31/20 04/01/20 04/01/20 22:59 06:59 14:59 Other: Voiding Method Toilet # Voids 1 3 Weight 95.254 kg 95.254 kg GENERAL EXAM: Alert, very pleasant, 70-year-old white male, sitting up in the recliner, creatinine 2 L of oxygen with a pulse ox of 99-100% comfortable in no apparent distress. HEAD: Normocephalic/atraumatic. EYES: Normal reaction of pupils, equal size. Conjunctiva pink, sclera white. NOSE: Clear with pink turbinates. THROAT: No erythema or exudates. NECK: No masses, no JVD, no thyroid enlargement, no adenopathy. CHEST: No chest wall deformity. Symmetrical expansion. Left chest tenderness to deep inspiration and coughing, related to recent left chest injury related to a fall LUNGS: Equal air entry with no crackles, wheeze, rhonchi or dullness. CVS: Regular rate and rhythm, normal S1 and S2, no gallops, no murmurs, no rubs ABDOMEN: Soft, nontender. No hepatosplenomegaly, normal bowel sounds, no guarding or rigidity. EXTREMITIES: No clubbing, no edema, no cyanosis, 2+ pulses and upper and lower extremities. MUSCULOSKELETAL: Muscle strength and tone normal. SPINE: No scoliosis or deformity SKIN: No rashes CENTRAL NERVOUS SYSTEM: Alert and oriented -3. No focal deficits, tone is normal in all 4 extremities. PSYCHIATRIC: Alert and oriented -3. Appropriate affect. Intact judgment and insight. Results - Laboratory Findings CBC and BMP: 03/31/20 22:29 03/31/20 22:29 PT/INR, D-dimer PT 11.1 sec (9.0-12.0) 04/01/20 07:57 INR 1.1 (<1.2) 04/01/20 07:57 Abnormal lab findings: Abnormal Labs 03/31/20 03/31/20 04/01/20 22:29 22:29 08:03 WBC 10.9 H RBC 3.13 L Hgb 9.3 L Hct 30.3 L MCHC 30.7 L RDW 16.5 H Neutrophils # 8.2 H Chloride 108 H BUN 29 H Creatinine 1.30 H Glucose 130 H POC Glucose (mg/dL) 100 H 04/01/20 12:17 WBC RBC Hgb Hct MCHC RDW Neutrophils # Chloride BUN Creatinine Glucose POC Glucose (mg/dL) 188 H - Diagnostic Findings Chest x-ray: report reviewed, image reviewed CT scan - chest: report reviewed, image reviewed Additional studies: Brain CT is negative Assessment and Plan Plan: Assessment: #1. Left chest discomfort related to left-sided rib fractures secondary to tra umatic fall. The fall was mechanical in nature, patient tripped and fell on a dog bone. No evidence of pneumothorax on the chest x-ray or CT chest. CXR shows some patchy atelectasis and reticular infiltrate at the lung bases, CT chest shows a mild interstitial infiltrate and atelectasis at the lung bases #2. Chronic A. fib, on Xarelto #3. Acute kidney injury #4. History of COPD, with history of alpha-1 antitrypsin deficiency, not oxygen dependent at baseline #5. Diabetes mellitus type 2 #6. Hypertension #7. Hyperlipidemia #8. History of liver transplant in 2005, maintained on Prograf #9. Obstructive sleep apnea on CPAP therapy #10. Hypothyroidism #11. Coronary artery disease with history of previous bypass grafting and stenting #12. Lifetime nonsmoker Plan: Maintain pain control, anesthesia services have been consulted, patient seems to be fairly comfortable on the current pain medications, encourage deep breathing and coughing, vital signs are stable, chest x-ray and CT chest have been reviewed, no evidence of pneumothorax, atelectatic changes at the bases. We'll continue to follow. I performed a history & physical examination of the patient and discussed their management with my nurse practitioner, Cynthia Fung. I reviewed the nurse practitioner's note and agree with the documented findings and plan of care. Lung sounds are positive for diminished breath sounds at the bases. The findings and the impression was discussed with the patient. I attest to the documentation by the nurse practitioner. Time with Patient: Greater than 30
--- NOTE | 2020-04-01 14:27 | P.GSHP ---
History of Present Illness H&P Date: 04/01/20 CHIEF COMPLAINT: Left-sided rib pain HISTORY OF PRESENT ILLNESS: This is a 70-year-old male with a known history of atrial fibrillation anticoagulated with Xarelto, coronary artery disease with previous cardiac stents, CABG, diabetes mellitus, COPD, liver transplant in 2005 and letter cancer with surgery to bladder. Patient presented to the emergency room with left-sided rib pain. Appears yesterday he tripped on a dog bone and landed on a wooden table on his left side. Patient had instant pain. And had pain when he took a deep breath. Patient denies any any injury to any other area of his body. Denies hitting his head. Denies any abdominal pain. Denies any nausea or vomiting change in bowel habits. Denies any urinary symptoms. Denies any fever, chills or sweats. PAST MEDICAL HISTORY: See list. PAST SURGICAL HISTORY: See list. MEDICATIONS: See list. ALLERGIES: See list. SOCIAL HISTORY: No illicit drug use. REVIEW OF SYSTEMS: CONSTITUTIONAL: Denies fever or chills. HEENT: Denies blurred vision, vision changes, or eye pain. Denies hemoptysis CARDIOVASCULAR: Denies chest pain or pressure. RESPIRATORY: No shortness of breath. GASTROINTESTINAL: See HPI for pertinent findings HEMATOLOGIC: Denies bleeding disorders. GENITOURINARY: Denies any blood in urine or increased urinary frequency. SKIN: Denies pruitis. Denies rash. PHYSICAL EXAM: VITAL SIGNS: Reviewed GENERAL: Well-developed in no acute distress. HEENT: No sclera icterus. Extraocular movements grossly intact. Moist buccal mucosa. Head is atraumatic, normocephalic. No nasal drainage. ABDOMEN: Soft. Nondistended. Nondistended NEUROLOGIC: Alert and oriented. Cranial nerves II through XII grossly intact. LABORATORY DATA: WBC 10.9 hemoglobin 9.3 creatinine 1.30 IMAGING: X-ray of the ribs shows left lower lateral rib fractures Computed tomography scan of the brain is negative Computed tomography scan of the chest mild interstitial infiltrate and atelectasis at the lung bases not significantly different from old exam. T8 compression fracture unchanged. ASSESSMENT: 1. Left-sided rib fracture secondary to traumatic fall 2. Chronic atrial fibrillation anticoagulated with Xarelto 3. History of coronary artery disease with prior cardiac stents on Plavix and CABG 4. Acute kidney injury 6. COPD 7. Diabetes mellitus type 2 PLAN: -Consults placed for pulmonary service, medicine and pain service -Continue with pain control -We will resume Plavix and hold off on resuming Xarelto for now -Appreciate integration consultant's recommendations Physician Field Operations Coordinator note has been reviewed by physician. Signing provider agrees with the documented findings, assessment, and plan of care. Past Medical History Past Medical History: Atrial Fibrillation, Coronary Artery Disease (CAD), COPD, Diabetes Mellitus, GERD/Reflux, GI Bleed, Hyperlipidemia, Hypertension, Liver Disease, Sleep Apnea/CPAP/BIPAP, Thyroid Disorder Additional Past Medical History / Comment(s): COPD, alpha-1 antitrypsin deficiency, HX Liver Transplant, Chronic edema suppression, maintained on Tacrolimus. USES CPAP. O2 2L NC OTC. RECENT ADMIT FOR GI BLEED, SCOPES NL, TRANSFUSED X2; FOUND TUMOR IN BLADDER. Bleeds easily.tremors related to amiod orone per patient Last Myocardial Infarction Date:: 2013 History of Any Multi-Drug Resistant Organisms: None Reported Past Surgical History: Cholecystectomy, Coronary Bypass/CABG, Heart Catheterization, Heart Catheterization With Stent Additional Past Surgical History / Comment(s): liver transplant 2005, CABG 4 vessels , CABG - 2 vessels, heart stents x4. Cardioversion. EGD, COLONOSCOPY 05/28/18. Bladder Cancer surgery 06-11-18 Past Anesthesia/Blood Transfusion Reactions: No Reported Reaction Date of Last Stent Placement:: 2013 Past Psychological History: No Psychological Hx Reported Smoking Status: Never smoker Past Alcohol Use History: None Reported Past Drug Use History: None Reported - Past Family History Mother Family Medical History: Coronary Artery Disease (CAD) (passed at age 51) Sister(s) Family Medical History: Cancer Additional Family Medical History / Comment(s): ovarian cancer Father Family Medical History: Cancer Additional Family Medical History / Comment(s): BLADDER CA Medications and Allergies Home Medications Medication Instructions Recorded Confirmed Type Atorvastatin [Lipitor] 10 mg PO HS@219908/30/16 03/31/20 History Clopidogrel [Plavix] 75 mg PO HS@219908/30/16 03/31/20 History Isosorbide Mononitrate [Imdur] 120 mg PO BID@1000,0 08/30/16 03/31/20 History Omeprazole [PriLOSEC] 20 mg PO BID@1000,2199 08/30/16 03/31/20 History Nitroglycerin 0.4MG/Hr Patch 1 patch TRANSDERM DAILY@1700 PRN 04/05/18 03/31/20 History [Nitro-Dur 0.4MG/Hr Patch] Amiodarone [Cordarone] 100 mg PO HS@2200 05/26/18 03/31/20 History Rivaroxaban [Xarelto] 7.5 mg PO DAILY@1000 06/07/18 03/31/20 History metFORMIN HCL 500 mg PO AC-SUPPER 06/07/18 03/31/20 History Carvedilol [Coreg] 25 mg PO BID@1000,2200 01/02/19 03/31/20 History Levothyroxine Sodium [Synthroid] 25 mcg PO DAILY@89903/31/20 03/31/20 History Tacrolimus [Envarsus Xr] 1.5 mg PO DAILY@1000 03/31/20 03/31/20 History Allergies Allergy/AdvReac Type Severity Reaction Status Date / Time ferumoxytol [From Feraheme] Allergy Anaphylaxis Verified 03/31/20 22:11 Surgical - Exam Vital Signs Temp Pulse Resp BP Pulse Ox 97.4 F L 65 20 173/71 94 L 03/31/20 20:40 03/31/20 20:40 03/31/20 20:40 03/31/20 20:40 03/31/20 20:40 Results - Labs 03/31/20 22:29 03/31/20 22:29 Abnormal Lab Results - Last 24 Hours (Table) 03/31/20 03/31/20 04/01/20 Range/Units 22:29 22:29 08:03 WBC 10.9 H (3.8-10.6) k/uL RBC 3.13 L (4.30-5.90) m/uL Hgb 9.3 L (13.0-17.5) gm/dL Hct 30.3 L (39.0-53.0) % MCHC 30.7 L (31.0-37.0) g/dL RDW 16.5 H (11.5-15.5) % Neutrophils # 8.2 H (1.3-7.7) k/uL Chloride 108 H (98-107) mmol/L BUN 29 H (9-20) mg/dL Creatinine 1.30 H (0.66-1.25) mg/dL Glucose 130 H (74-99) mg/dL POC Glucose (mg/dL) 100 H (75-99) mg/dL Urine Protein (Negative) Urine Glucose (UA) (Negative) 04/01/20 04/01/20 Range/Units 12:17 12:50 WBC (3.8-10.6) k/uL RBC (4.30-5.90) m/uL Hgb (13.0-17.5) gm/dL Hct (39.0-53.0) % MCHC (31.0-37.0) g/dL RDW (11.5-15.5) % Neutrophils # (1.3-7.7) k/uL Chloride (98-107) mmol/L BUN (9-20) mg/dL Creatinine (0.66-1.25) mg/dL Glucose (74-99) mg/dL POC Glucose (mg/dL) 188 H (75-99) mg/dL Urine Protein Trace H (Negative) Urine Glucose (UA) 3+ H (Negative) Diabetes panel 03/31/20 Range/Units 22:29 Sodium 141 (137-145) mmol/L Potassium 4.8 (3.5-5.1) mmol/L Chloride 108 H (98-107) mmol/L Carbon Dioxide 23 (22-30) mmol/L BUN 29 H (9-20) mg/dL Creatinine 1.30 H (0.66-1.25) mg/dL Glucose 130 H (74-99) mg/dL Calcium 9.4 (8.4-10.2) mg/dL Calcium panel 03/31/20 Range/Units 22:29 Calcium 9.4 (8.4-10.2) mg/dL Pituitary panel 03/31/20 Range/Units 22:29 Sodium 141 (137-145) mmol/L Potassium 4.8 (3.5-5.1) mmol/L Chloride 108 H (98-107) mmol/L Carbon Dioxide 23 (22-30) mmol/L BUN 29 H (9-20) mg/dL Creatinine 1.30 H (0.66-1.25) mg/dL Glucose 130 H (74-99) mg/dL Calcium 9.4 (8.4-10.2) mg/dL Adrenal panel 03/31/20 Range/Units 22:29 Sodium 141 (137-145) mmol/L Potassium 4.8 (3.5-5.1) mmol/L Chloride 108 H (98-107) mmol/L Carbon Dioxide 23 (22-30) mmol/L BUN 29 H (9-20) mg/dL Creatinine 1.30 H (0.66-1.25) mg/dL Glucose 130 H (74-99) mg/dL Calcium 9.4 (8.4-10.2) mg/dL
[2020-04-01] MEDS: TACROLIMUS 0.75 MG PO SCH (14:46)
[2020-04-01] MEDS ORDERED: NITROGLYCERIN 0.4MG/HR PATCH TRANSDERM PRN (17:00)
[2020-04-01 17:11] LABS: Glucose,Whole Blood 128 mg/dL (75-99)
[2020-04-01] MEDS ORDERED: metFORMIN 500 MG TAB PO SCH (17:30)
[2020-04-01 18:59] VITALS: RESP 18
[2020-04-01 20:22] LABS: Glucose,Whole Blood 114 mg/dL (75-99)
[2020-04-01] MEDS ORDERED: CLOPIDOGREL 75 MG TAB PO SCH (22:00)
[2020-04-01] MEDS ORDERED: ATORVASTATIN 10 MG TAB PO SCH (22:00)
[2020-04-01] MEDS ORDERED: AMIODARONE 200 MG TAB PO SCH (22:00)
[2020-04-02 05:07] VITALS: BP 125/69; PULSE 86; TEMP 98
[2020-04-02 06:15] LABS: Anisocytosis Slight; Basophils % (A) 0 %; Eosinophils # (A) 0.5 k/uL (0-0.7); Eosinophils % (A) 5 %; HGB 8.7 gm/dL (13.0-17.5); Hypochromasia Marked; Lymphocytes # (A) 1.1 k/uL (1.0-4.8); Lymphocytes % (A) 12 %; MCH 29.3 pg (25.0-35.0); MCHC 30.2 g/dL (31.0-37.0); MCV 97.2 fL (80.0-100.0); Macrocytosis Slight; Mean Platelet Volume 7.1; Monocytes # (A) 0.7 k/uL (0-1.0); Monocytes % (A) 7 %; Neutrophils % (A) 74 %; Platelet Count 279 k/uL (150-450); RBC 2.98 m/uL (4.30-5.90); RDW 16.4 % (11.5-15.5); WBC 9.4 k/uL (3.8-10.6)
[2020-04-02 07:09] LABS: Glucose,Whole Blood 110 mg/dL (75-99)
--- NOTE | 2020-04-02 07:24 | XR ---
EXAMINATION TYPE: XR chest 2V DATE OF EXAM: 04/02/2020 COMPARISON: 03/31/2020 HISTORY: Shortness of breath TECHNIQUE: Frontal and lateral views of the chest are obtained. FINDINGS: Scattered senescent parenchymal changes noted. Hyperinflation compatible with COPD. No evidence for infiltrate. No evidence for atelectasis. Persistent small left-sided pleural effusion . Heart size is stable. Mediastinal structures are stable and grossly unremarkable. No evidence for hilar prominence. Degenerative changes dorsal spine. IMPRESSION: 1. Stable chest.
[2020-04-02] MEDS: ISOSORBIDE MONONITRATE ER 60 MG TAB.ER.24H PO SCH (08:17)
[2020-04-02] MEDS: INSULIN ASPART (NovoLOG) 100 UNIT/ML VIAL SQ SCH (08:17)
[2020-04-02] MEDS: LIDOCAINE 5% PATCH TOPICAL SCH (08:17)
[2020-04-02] MEDS: PANTOPRAZOLE 40 MG TABLET PO SCH (08:18)
[2020-04-02] MEDS: LEVOTHYROXINE 25 MCG TAB PO SCH (08:18)
[2020-04-02] MEDS: carvediloL 12.5 MG TAB PO SCH (08:18)
--- NOTE | 2020-04-02 09:22 | P.PN ---
Subjective Progress Note Date: 04/02/20 This is a 70-year-old male patient of Dr. Carpenter with medical history significant for atrial fibrillation, COPD, diabetes mellitus, GERD, GI bleed, hyperlipidemia, hypertension, liver disease with liver transplant in 2005, sleep apnea, thyroid disorder, and alpha 1 antitrypsin deficiency. Significant coronary artery disease history of CABG 2 with multiple stenting and remains on Plavix. Yesterday patient was out planning on going hunting reports tripped and fell on a dog toy and landed on his left side. Had significant pain and called his to bring him to the emergency department. Chest x-ray refilled lower left lateral rib fractures mild CHF, no pneumothorax and was admitted to trauma service of Dr. Turner. CT of the head showed no acute intracranial abnormality. CT of the chest showed mild interstitial infiltrate and atelectasis at the lung bases not significantly different than old exam and T8 compression fracture unchanged. White blood cells were 10.9, hemoglobin 9.3, BUN 29 creatinine 1.3. Patient is doing fairly well today, Vital signs are stable, afebrile, pulse rate 53, blood pressure 156/72, pulse ox 100% on 2 L nasal cannula. We'll continue to follow with medical management. 04/02: Patient seen sitting in bed side chair this morning, reports doing well. Vital signs remained stable, patient is afebrile, pulse rate 86, respirations 18, blood pressure 125/69, pulse ox 95% on room air. Chest x-ray today showed stable chest. Plavix has been restarted and Xarelto remains on hold. We'll continue with pain control. Plan for discharge possibly home today if okay with surgery. Discharge diagnosis 1. Traumatic fall, With left-sided rib fractures. 2. Left-sided chest wall pain. 3. Atrial fibrillation. 4. Coronary artery disease. 5. History of COPD. 6. Hypertension. 7. Diabetes mellitus. 8. On Protonix 9. Hyperlipidemia. 10. History of liver transplant. 11. Sleep apnea: 12. Thyroid disorder. Objective - Vital Signs Vital signs: Vital Signs Temp 98 F 04/02/20 05:06 Pulse 86 04/02/20 08:00 Resp 18 04/02/20 08:00 BP 125/69 04/02/20 05:06 Pulse Ox 95 04/02/20 05:06 Intake & Output 04/01/20 04/02/20 04/02/20 18:59 06:59 18:59 Intake Total 900 Balance 900 Intake: Oral 900 Other: Voiding Method Toilet Toilet # Voids 2 1 - Exam General Appearance: Alert, cooperative, no distress, appears stated age. Neck HEENT: Supple, no lymphadenopathy, no thyroid enlargement, no carotid bruits. Lungs: Diminished to auscultation without crackles or wheezes no rhonchi, no deformity. Aeration has improved Chest Wall: Chest wall decreased expansion with deep inspiration no tenderness and no deformity was found on exam, left sided rib pain. Heart: Irregular rate and rhythm, S1, S2 normal, no murmur, click or rub Abdomen: Soft, nontender, nondistended, positive bowel sounds. Extremities: Extremities normal, atraumatic, no cyanosis or edema. Pulses: 2+ and symmetric. Skin: Skin color, texture, tugor normal, no rashes or lesions. Neurologic: Alert oriented x3 cranial nerves II through XII intact, no motor deficit, no abnormal balance or gait. - Labs CBC & Chem 7: 04/02/20 05:39 03/31/20 22:29 Labs: Abnormal Lab Results - Last 24 Hours (Table) 04/01/20 04/01/20 04/01/20 Range/Units 12:17 12:50 17:10 RBC (4.30-5.90) m/uL Hgb (13.0-17.5) gm/dL Hct (39.0-53.0) % MCHC (31.0-37.0) g/dL RDW (11.5-15.5) % POC Glucose (mg/dL) 188 H 128 H (75-99) mg/dL Urine Protein Trace H (Negative) Urine Glucose (UA) 3+ H (Negative) 04/01/20 04/02/20 04/02/20 Range/Units 20:21 05:39 07:08 RBC 2.98 L (4.30-5.90) m/uL Hgb 8.7 L (13.0-17.5) gm/dL Hct 29.0 L (39.0-53.0) % MCHC 30.2 L (31.0-37.0) g/dL RDW 16.4 H (11.5-15.5) % POC Glucose (mg/dL) 114 H 110 H (75-99) mg/dL Urine Protein (Negative) Urine Glucose (UA) (Negative) Assessment and Plan Assessment: Discharge plan: Home today if okay with surgery Impression and plan of care have been directed as dictated by the signing physician. Kay Ortega nurse practitioner acting as scribe for signing physician.
[2020-04-02] MEDS: TACROLIMUS 0.75 MG PO SCH (09:33)
--- NOTE | 2020-04-02 10:06 | P.DS ---
Providers Date of admission: 03/31/20 22:43 Expected date of discharge: 04/02/20 Attending physician: Serge Turner Consults: 03/31/20 22:44 Consult to Anesthesia Routine Consulting Provider: Anesthesia,Services Consult Reason/Comments: rib fractures 04/01/20 06:05 Consult Physician Routine Consulting Provider: Erlin Jacobo Consult Reason/Comments: medical managment Do you want consulting provider notified?: Already Contacted 04/01/20 09:40 Consult Physician Routine Consulting Provider: Isaías Zavala Consult Reason/Comments: Rib fractures Do you want consulting provider notified?: Yes Primary care physician: Richi Heywood Hospital Course: Discharge diagnosis 1. Left-sided rib fracture secondary to traumatic fall 2. Chronic atrial fibrillation anticoagulated with Xarelto 3. History of coronary artery disease with prior cardiac stents on Plavix and CABG 4. Acute kidney injury 6. COPD 7. 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 Patient presented to the emergency room with left-sided rib pain. Appears yesterday he tripped on a dog bone and landed on a wooden table on his left side. He was found to have evidence of left-sided rib fractures on x-ray. He was seen by pulmonary service, medicine and pain service. Patient reports that his pain is controlled with the Roosevelt. Patient is afebrile. He has been up and ambulating. He is tolerating diet. He is stable for discharge home. Physician Construction Safety Consultant note has been reviewed by physician. Signing provider agrees with the documented findings, assessment, and plan of care. Patient Condition at Discharge: Stable Plan - Discharge Summary Discharge Rx Participant: Yes New Discharge Prescriptions: New Lidocaine 5% Patch [Lidoderm 5% Patch] 1 patch TOPICAL DAILY #3 patch HYDROcodone/APAP 7.5-325MG [[place] 7.5-325] 1 tab PO Q4H PRN 3 Days #18 tab PRN Reason: Pain Continue Clopidogrel [Plavix] 75 mg PO HS@2200 Atorvastatin [Lipitor] 10 mg PO HS@2200 Omeprazole [PriLOSEC] 20 mg PO BID@1000,2200 Isosorbide Mononitrate [Imdur] 120 mg PO BID@1000,2200 Nitroglycerin 0.4MG/Hr Patch [Nitro-Dur 0.4MG/Hr Patch] 1 patch TRANSDERM DAILY@1700 PRN PRN Reason: Chest Pain Amiodarone [Cordarone] 100 mg PO HS@2200 Rivaroxaban [Xarelto] 7.5 mg PO DAILY@1000 metFORMIN HCL 500 mg PO AC-SUPPER Carvedilol [Coreg] 25 mg PO BID@1000,220 Levothyroxine Sodium [Synthroid] 25 mcg PO DAILY@0900 Tacrolimus [Envarsus Xr] 1.5 mg PO DAILY@1000 Discharge Medication List Atorvastatin [Lipitor] 10 mg PO HS@219908/30/16 [History] Clopidogrel [Plavix] 75 mg PO HS@219908/30/16 [History] Isosorbide Mononitrate [Imdur] 120 mg PO BID@1000,219908/30/16 [History] Omeprazole [PriLOSEC] 20 mg PO BID@1000,219908/30/16 [History] Nitroglycerin 0.4MG/Hr Patch [Nitro-Dur 0.4MG/Hr Patch] 1 patch TRANSDERM DAILY@1700 PRN 04/05/18 [History] Amiodarone [Cordarone] 100 mg PO HS@219905/26/18 [History] Rivaroxaban [Xarelto] 7.5 mg PO DAILY@1000 06/07/18 [History] metFORMIN HCL 500 mg PO AC-SUPPER 06/07/18 [History] Carvedilol [Coreg] 25 mg PO BID@1000,219901/02/19 [History] Levothyroxine Sodium [Synthroid] 25 mcg PO DAILY@0900 03/31/20 [History] Tacrolimus [Envarsus Xr] 1.5 mg PO DAILY@1000 03/31/20 [History] HYDROcodone/APAP 7.5-325MG [[place] 7.5-325] 1 tab PO Q4H PRN 3 Days #18 tab 04/02/20 [Rx] Lidocaine 5% Patch [Lidoderm 5% Patch] 1 patch TOPICAL DAILY #3 patch 04/02/20 [Rx] Follow up Appointment(s)/Referral(s): Richi Le DO [Primary Care Provider] - 1-2 days Basha,Isaías, DO [Doctor of Osteopathic Medicine] - 1 Week Serge Turner MD [STAFF PHYSICIAN] - 1 Week Activity/Diet/Wound Care/Special Instructions: No driving while taking Roosevelt Very light activity until you are reevaluated at your follow up appointment with your surgeon Discharge diet regular Discharge Disposition: HOME SELF-CARE
[2020-04-02 10:19] LABS: African American GFR (CKD) 70.1 (60.0-200.0); Albumin 4.3 g/dL (3.80-4.90); Albumin/Globulin Ratio 2.05 (1.60-3.17); Anion Gap 12.3 mmol/L (4.00-12.00); BUN/Creat Ratio 25.83 Ratio (12.00-20.00); Calcium 9.2 mg/dL (8.7-10.3); Carbon Dioxide 22.7 mmol/L (21.6-31.8); Globulin 2.1 g/dL (1.6-3.3); Non-African American GFR(CKD) 60.5 (60.0-200.0); Potassium 4.4 mmol/L (3.5-5.5); Total Bilirubin 0.6 mg/dL (0.2-1.2); Total Protein 6.4 g/dL (6.2-8.2)
[2020-04-02 16:00] LABS: Hemoglobin A1C 5.9 % (4.0-6.0)
== END 2020-04-02 12:16 | disposition home or self-care (01) ==
LOC: EC 20:38 → 6NMEDSUR 22:43
PROVIDERS: ADMIT Surgery; ATTEND Surgery
DX: S22.42XA Multiple fractures of ribs, left side, initial encounter for closed fracture (principal); E03.9 Hypothyroidism, unspecified; E11.9 Type 2 diabetes mellitus without complications; E78.5 Hyperlipidemia, unspecified; G47.33 Obstructive sleep apnea (adult) (pediatric); I11.0 Hypertensive heart disease with heart failure; I25.10 Atherosclerotic heart disease of native coronary artery without angina pectoris; I25.2 Old myocardial infarction; I48.20 Chronic atrial fibrillation, unspecified; I50.9 Heart failure, unspecified; J44.9 Chronic obstructive pulmonary disease, unspecified; J98.11 Atelectasis; K21.9 Gastro-esophageal reflux disease without esophagitis; N17.9 Acute kidney failure, unspecified; W01.0XXA Fall on same level from slipping, tripping and stumbling without subsequent striking against object, initial encounter; Z79.01 Long term (current) use of anticoagulants; Z79.02 Long term (current) use of antithrombotics/antiplatelets; Z79.84 Long term (current) use of oral hypoglycemic drugs; Z79.890 Hormone replacement therapy; Z79.899 Other long term (current) drug therapy; Z80.52 Family history of malignant neoplasm of bladder; Z82.49 Family history of ischemic heart disease and other diseases of the circulatory system; Z85.51 Personal history of malignant neoplasm of bladder; Z94.4 Liver transplant status; Z95.1 Presence of aortocoronary bypass graft; Z95.5 Presence of coronary angioplasty implant and graft
CPT/HCPCS: 99284; 36415; 97161; 86900; 86901; 80053; 80048; 85025 ×2; 85610; 85730; 86850; 81003; 83036; 71101; 71046; 70450; 71250; G0378 ×3

== ENCOUNTER → 2020-05-04 | Outpatient (CLI) | payer MEDICARE, BC ==
[2020-05-04 15:09] LABS: Anisocytosis Slight; Basophils # (A) 0.1 k/uL (0-0.2); Basophils % (A) 0 %; Eosinophils # (A) 0.5 k/uL (0-0.7); Eosinophils % (A) 4 %; HCT 25.4 % (39.0-53.0); HGB 7.5 gm/dL (13.0-17.5); Hypochromasia Marked; Lymphocytes # (A) 1.4 k/uL (1.0-4.8); Lymphocytes % (A) 12 %; MCH 28.9 pg (25.0-35.0); MCHC 29.5 g/dL (31.0-37.0); MCV 97.9 fL (80.0-100.0); Macrocytosis Slight; Mean Platelet Volume 7.1; Monocytes # (A) 0.8 k/uL (0-1.0); Monocytes % (A) 7 %; Neutrophils # (A) 8.4 k/uL (1.3-7.7); Neutrophils % (A) 74 %; Platelet Count 301 k/uL (150-450); RBC 2.59 m/uL (4.30-5.90); RDW 16.5 % (11.5-15.5); WBC 11.3 k/uL (3.8-10.6)
[2020-05-04 17:09] LABS: Reticulocyte % 4.1 % (0.5-2.0)
== END | disposition home or self-care (01) ==
LOC: LABWHC1 13:26
PROVIDERS: ATTEND Family Medicine
DX: D64.9 Anemia, unspecified (principal)
CPT/HCPCS: 36415; 85025; 85045

== ENCOUNTER 2020-05-10 13:16 | Inpatient (IN) | payer MEDICARE, BC ==
[2020-05-10 14:09] LABS: Anisocytosis Slight; Basophils % (A) 0 %; Eosinophils # (A) 0.4 k/uL (0-0.7); Eosinophils % (A) 3 %; HCT 23.4 % (39.0-53.0); HGB 7.3 gm/dL (13.0-17.5); Hypochromasia Marked; Lymphocytes # (A) 1.3 k/uL (1.0-4.8); Lymphocytes % (A) 11 %; MCH 30.2 pg (25.0-35.0); MCHC 31.4 g/dL (31.0-37.0); Macrocytosis Slight; Mean Platelet Volume 7.6; Monocytes # (A) 0.8 k/uL (0-1.0); Monocytes % (A) 7 %; Neutrophils # (A) 9.2 k/uL (1.3-7.7); Neutrophils % (A) 77 %; Platelet Count 266 k/uL (150-450); RBC 2.44 m/uL (4.30-5.90); RDW 16.8 % (11.5-15.5); WBC 11.9 k/uL (3.8-10.6)
[2020-05-10 14:12] LABS: Albumin 3.9 g/dL (3.5-5.0); Calcium 9.2 mg/dL (8.4-10.2); Potassium 4.4 mmol/L (3.5-5.1); Total Bilirubin 0.5 mg/dL (0.2-1.3); Total Protein 6.4 g/dL (6.3-8.2)
--- NOTE | 2020-05-10 14:14 | ED ---
Syncope HPI - General Chief Complaint: Syncope Stated Complaint: Syncope Time Seen by Provider: 05/10/20 13:39 Source: patient, EMS Mode of arrival: EMS Limitations: no limitations - History of Present Illness Initial Comments: his is a 70-year-old male with a history of atrial fibrillation, liver transplant, alpha 1 anti-trypsin deficiencywho presents emergency department for syncopal episode. The patient states that he was in his normal state of health this morning when he suddenly felt lightheaded and then had a syncopal episode. He states that he woke up on the ground and his was there. He states that he had no preceding chest pain or palpitations. He denies any headache or any head injury at this time. The patient does state that he is scheduled to have a blood transfusion done tomorrow due to iron deficiency anemia. According to his chart he does have a history of GI bleed. He admits to chronic dark stool due to iron supplementation but denies any changes or blood in stool. The patient also states that he is chronically on nitroglycerin patchhowever will occasionally take nitro glycerin tabs in order to improve his breathing. He did take 2 doses of nitroglycerin today. He states he typically does not have any issues with lightheadedness after taking the nitroglycerin. Patient states that currently he feels back to normal. He denies any chest pain or increased shortness of breath at this time. The patient is chronically on oxygen at home. Denies any other acute complaints. - Related Data Home Medications Medication Instructions Recorded Confirmed Atorvastatin [Lipitor] 10 mg PO HS@219908/30/16 05/10/20 Clopidogrel [Plavix] 75 mg PO HS@219908/30/16 05/10/20 Isosorbide Mononitrate [Imdur] 120 mg PO BID@1000,0 08/30/16 05/10/20 Omeprazole [PriLOSEC] 20 mg PO BID@1000,219908/30/16 05/10/20 Nitroglycerin 0.4MG/Hr Patch 1 patch TRANSDERM DAILY PRN 04/05/18 05/10/20 [Nitro-Dur 0.4MG/Hr Patch] Amiodarone [Cordarone] 100 mg PO HS@219905/26/18 05/10/20 Rivaroxaban [Xarelto] 7.5 mg PO DAILY@1000 06/07/18 05/10/20 metFORMIN HCL 500 mg PO AC-SUPPER 06/07/18 05/10/20 Carvedilol [Coreg] 25 mg PO BID@1000,2200 01/02/19 05/10/20 Levothyroxine Sodium [Synthroid] 25 mcg PO DAILY@0900 03/31/20 05/10/20 Tacrolimus [Envarsus Xr] 1.5 mg PO DAILY@1000 03/31/20 05/10/20 HYDROcodone/APAP 10-325MG [[place] 0.5 - 1 tab PO DAILY PRN 05/10/20 05/10/20 10-325] Previous Rx's Medication Instructions Recorded Lidocaine 5% Patch [Lidoderm 5% 1 patch TOPICAL DAILY #3 patch 04/02/20 Patch] Allergies Allergy/AdvReac Type Severity Reaction Status Date / Time ferumoxytol [From Feraheme] Allergy Anaphylaxis Verified 05/10/20 15:31 Review of Systems ROS Statement: Those systems with pertinent positive or pertinent negative responses have been documented in the HPI. ROS Other: All systems not noted in ROS Statement are negative. Past Medical History Past Medical History: Atrial Fibrillation, Coronary Artery Disease (CAD), COPD, Diabetes Mellitus, GERD/Reflux, GI Bleed, Hyperlipidemia, Hypertension, Liver Disease, Sleep Apnea/CPAP/BIPAP, Thyroid Disorder Additional Past Medical History / Comment(s): COPD, alpha-1 antitrypsin deficiency, HX Liver Transplant, Chronic edema suppression, maintained on Tacrolimus. USES CPAP. O2 2L NC OTC. RECENT ADMIT FOR GI BLEED, SCOPES NL, TRANSFUSED X2; FOUND TUMOR IN BLADDER. Bleeds easily.tremors related to amiodorone per patient Last Myocardial Infarction Date:: 2013 History of Any Multi-Drug Resistant Organisms: None Reported Past Surgical History: Cholecystectomy, Coronary Bypass/CABG, Heart Catheterization, Heart Catheterization With Stent Additional Past Surgical History / Comment(s): liver transplant 2005, CABG 4 vessels , CABG - 2 vessels, heart stents x4. Cardioversion. EGD, COLONOSCOPY 05/28/18. Bladder Cancer surgery 06-11-18 Past Anesthesia/Blood Transfusion Reactions: No Reported Reaction Date of Last Stent Placement:: 2013 Past Psychological History: No Psychological Hx Reported Smoking Status: Never smoker Past Alcohol Use History: None Reported Past Drug Use History: None Reported - Past Family History Mother Family Medical History: Coronary Artery Disease (CAD) (passed at age 51) Sister(s) Family Medical History: Cancer Additional Family Medical History / Comment(s): ovarian cancer Father Family Medical History: Cancer Additional Family Medical History / Comment(s): BLADDER CA General Exam - General Exam Comments Initial Comments: Constitutional: [Awake alert] [Appears comfortable] Head: [Normocephalic atraumatic] Eyes: [no conjunctival injection] [No scleral icterus] [EOMI] there is some conjunctival pallor Neck: [No JVD] [Supple] Heart: [Regular rate rhythm] [normal S1-S2] [no murmurs], radial and DP pulses are present bilaterally Lungs: [Clear to auscultation bilaterally] [No wheezing] [No rales] Abdomen: [Soft] [nondistended] [nontender] Extremities: [Non edematous] [DP pulses intact] [Radial pulses intact] Neuro: [A&Ox3] [No focal neurologic deficits] Psych: [Appropriate mood and affect] Limitations: no limitations Course Vital Signs 05/10/20 05/10/20 05/10/20 13:28 13:30 14:00 Temperature 97.4 F L Pulse Rate 64 70 Respiratory 18 17 Rate Blood Pressure 156/81 144/68 156/81 O2 Sat by Pulse 100 99 99 Oximetry 05/10/20 05/10/20 14:30 15:00 Temperature Pulse Rate 65 Respiratory 18 Rate Blood Pressure 143/78 133/68 O2 Sat by Pulse 98 99 Oximetry EKG Findings - EKG Comments: EKG Findings:: EKG interpreted at 1359 shows normal sinus rhythm with a rate of 62.there are no abnormal ST 7 changes or T-wave inversions. There is a right bundle-branch block present. QTC is 479appeared other intervals normal. No ectopy. Medical Decision Making - Medical Decision Making this 70-year-old male who presents emergency department for syncope. The patient felt back to normal once in the emergency department. EKG was unremarkable. Troponin negative. The patient did have mild elevation in his creatinine. He also was found to be significantly anemic however this was not significant change from recent labs. Otherwise the patient remained hemodynamic was stable in the emergency department. Due to the patient's significant anemia and worsening symptoms with syncope and history of heart problems I do feel that he would benefit from being monitoring in the hospital. Patient was agreeable to this. Place iron and B12 and folate studies.patient will receive [address] Jacobo accepts the admission. - Lab Data Result diagrams: 05/10/20 13:46 05/10/20 13:46 Lab Results 05/10/20 05/10/20 05/10/20 Range/Units 13:46 13:46 13:46 WBC 11.9 H (3.8-10.6) k/uL RBC 2.44 L (4.30-5.90) m/uL Hgb 7.3 L (13.0-17.5) gm/dL Hct 23.4 L (39.0-53.0) % MCV 96.0 (80.0-100.0) fL MCH 30.2 (25.0-35.0) pg MCHC 31.4 (31.0-37.0) g/dL RDW 16.8 H (11.5-15.5) % Plt Count 266 (150-450) k/uL Neutrophils % 77 % Lymphocytes % 11 % Monocytes % 7 % Eosinophils % 3 % Basophils % 0 % Neutrophils # 9.2 H (1.3-7.7) k/uL Lymphocytes # 1.3 (1.0-4.8) k/uL Monocytes # 0.8 (0-1.0) k/uL Eosinophils # 0.4 (0-0.7) k/uL Basophils # 0.0 (0-0.2) k/uL Hypochromasia Marked Anisocytosis Slight Macrocytosis Slight PT (9.0-12.0) sec INR (<1.2) APTT (22.0-30.0) sec Sodium 140 (137-145) mmol/L Potassium 4.4 (3.5-5.1) mmol/L Chloride 108 H (98-107) mmol/L Carbon Dioxide 22 (22-30) mmol/L Anion Gap 10 mmol/L BUN 36 H (9-20) mg/dL Creatinine 1.48 H (0.66-1.25) mg/dL Est GFR (CKD-EPI)AfAm 54 (>60 ml/min/1.73 sqM) Est GFR (CKD-EPI)NonAf 47 (>60 ml/min/1.73 sqM) Glucose 116 H (74-99) mg/dL Calcium 9.2 (8.4-10.2) mg/dL Total Bilirubin 0.5 (0.2-1.3) mg/dL AST 17 (17-59) U/L ALT 10 (4-49) U/L Alkaline Phosphatase 89 (38-126) U/L Troponin I <0.012 (0.000-0.034) ng/mL NT-Pro-B Natriuret Pep pg/mL Total Protein 6.4 (6.3-8.2) g/dL Albumin 3.9 (3.5-5.0) g/dL Blood Type Blood Type Recheck Bld Type Recheck Status Antibody Screen Crossmatch Spec Expiration Date 05/10/20 05/10/20 05/10/20 Range/Units 13:46 13:46 13:46 WBC (3.8-10.6) k/uL RBC (4.30-5.90) m/uL Hgb (13.0-17.5) gm/dL Hct (39.0-53.0) % MCV (80.0-100.0) fL MCH (25.0-35.0) pg MCHC (31.0-37.0) g/dL RDW (11.5-15.5) % Plt Count (150-450) k/uL Neutrophils % % Lymphocytes % % Monocytes % % Eosinophils % % Basophils % % Neutrophils # (1.3-7.7) k/uL Lymphocytes # (1.0-4.8) k/uL Monocytes # (0-1.0) k/uL Eosinophils # (0-0.7) k/uL Basophils # (0-0.2) k/uL Hypochromasia Anisocytosis Macrocytosis PT 11.4 (9.0-12.0) sec INR 1.1 (<1.2) APTT 21.7 L (22.0-30.0) sec Sodium (137-145) mmol/L Potassium (3.5-5.1) mmol/L Chloride (98-107) mmol/L Carbon Dioxide (22-30) mmol/L Anion Gap mmol/L BUN (9-20) mg/dL Creatinine (0.66-1.25) mg/dL Est GFR (CKD-EPI)AfAm (>60 ml/min/1.73 sqM) Est GFR (CKD-EPI)NonAf (>60 ml/min/1.73 sqM) Glucose (74-99) mg/dL Calcium (8.4-10.2) mg/dL Total Bilirubin (0.2-1.3) mg/dL AST (17-59) U/L ALT (4-49) U/L Alkaline Phosphatase (38-126) U/L Troponin I (0.000-0.034) ng/mL NT-Pro-B Natriuret Pep 1670 pg/mL Total Protein (6.3-8.2) g/dL Albumin (3.5-5.0) g/dL Blood Type O Positive Blood Type Recheck O Pos Bld Type Recheck Status No Antibody Screen NEGATIVE Crossmatch See Detail Spec Expiration Date 05/13/2020 - 2346 Disposition Clinical Impression: Syncope, Anemia Disposition: ADMITTED IP TO THIS [facility] Condition: Stable Referrals: Richi Le DO [Primary Care Provider] - 1-2 days
[2020-05-10 14:19] LABS: INR 1.1 (<1.2); Prothrombin Time 11.4 sec (9.0-12.0)
[2020-05-10 14:20] LABS: Partial Thromboplastin Time 21.7 sec (22.0-30.0)
--- NOTE | 2020-05-10 14:22 | XR ---
EXAMINATION TYPE: XR chest 1V portable DATE OF EXAM: 05/10/2020 COMPARISON: 04/16/2020 HISTORY: Short of breath Heart is enlarged. There is blunting of the left costophrenic angle. There are sternal wires. There i s mild pulmonary vascular congestion. Bony thorax is intact. There is coarse infiltrate left lower lo be. IMPRESSION: There is chronic infiltrate and pleural thickening at the left lung base unchanged. Mild congestive heart failure is possible. Cardiomegaly probably not changed.
[2020-05-10] MEDS ORDERED: NALOXONE 0.4 MG/ML 1 ML VIAL IV PRN (15:47)
[2020-05-10] MEDS ORDERED: HYDROcodone/APAP 10-325MG 1 EACH TAB PO PRN (20:40)
[2020-05-10] MEDS: carvediloL 12.5 MG TAB PO SCH (23:05)
[2020-05-10] MEDS: ATORVASTATIN 10 MG TAB PO SCH (23:05)
[2020-05-10] MEDS: AMIODARONE 100 MG TAB PO SCH (23:05)
[2020-05-10] MEDS: CLOPIDOGREL 75 MG TAB PO SCH (23:05)
[2020-05-10] MEDS: ISOSORBIDE MONONITRATE ER 60 MG TAB.ER.24H PO SCH (23:05)
[2020-05-11 07:44] LABS: Anisocytosis Slight; Basophils # (A) 0.1 k/uL (0-0.2); Basophils % (A) 1 %; Eosinophils # (A) 0.5 k/uL (0-0.7); Eosinophils % (A) 5 %; HCT 27.7 % (39.0-53.0); HGB 8.7 gm/dL (13.0-17.5); Hypochromasia Moderate; Lymphocytes # (A) 1.3 k/uL (1.0-4.8); Lymphocytes % (A) 12 %; MCH 30.1 pg (25.0-35.0); MCHC 31.4 g/dL (31.0-37.0); MCV 95.8 fL (80.0-100.0); Mean Platelet Volume 7.9; Monocytes # (A) 0.6 k/uL (0-1.0); Monocytes % (A) 6 %; Neutrophils # (A) 7.9 k/uL (1.3-7.7); Neutrophils % (A) 75 %; Platelet Count 237 k/uL (150-450); RBC 2.89 m/uL (4.30-5.90); RDW 16.3 % (11.5-15.5); WBC 10.6 k/uL (3.8-10.6)
[2020-05-11 07:57] LABS: Albumin 3.6 g/dL (3.5-5.0); Calcium 8.9 mg/dL (8.4-10.2); Potassium 4.5 mmol/L (3.5-5.1); Total Bilirubin 0.6 mg/dL (0.2-1.3); Total Protein 6.1 g/dL (6.3-8.2)
[2020-05-11] MEDS ORDERED: FUROSEMIDE 10 MG/ML 4 ML VIAL IV STA (08:05)
[2020-05-11] MEDS ORDERED: NITROGLYCERIN 0.4MG/HR PATCH TRANSDERM PRN (08:05)
[2020-05-11] MEDS: PANTOPRAZOLE 40 MG TABLET PO SCH ×2 (08:12→17:59)
[2020-05-11] MEDS: LEVOTHYROXINE 25 MCG TAB PO SCH (08:12)
[2020-05-11] MEDS: LIDOCAINE 5% PATCH TOPICAL SCH (08:40)
[2020-05-11] MEDS: carvediloL 12.5 MG TAB PO SCH ×2 (10:08→21:48)
[2020-05-11] MEDS: ISOSORBIDE MONONITRATE ER 60 MG TAB.ER.24H PO SCH ×2 (10:09→21:48)
[2020-05-11] MEDS: TACROLIMUS 0.75 MG PO SCH (10:10)
--- NOTE | 2020-05-11 10:33 | P.CRDCN ---
History of Present Illness History of present illness: HISTORY OF PRESENTING ILLNESS This is a pleasant 70-year-old male past medical history significant for coronary artery disease status post bypass grafting, paroxysmal atrial fibrillation on long-term anticoagulation, hypertension, dyslipidemia and liver disease status post transplantation. He follows in the office with Dr. Saunders. We have been asked to see in consultation for syncope. He states yesterday he was standing for a couple of minutes when he noticed himself sta rting to feel lightheaded. The next thing he remembers he woke up on the floor. He denies feeling chest pain or shortness of breath or palpitations prior to passing out. He is currently being worked up for anemia and was scheduled to undergo an outpatient blood transfusion this morning. He was given 2 units of packed red blood cells last night. Hemoglobin on admission was 7.3 with a repeat this morning at 8.7. Other pertinent laboratory data reviewed, sodium 139, potassium 4.5, creatinine 1.23, cardiac enzymes negative 1, TSH 2.05 and NT proBNP 1670. EKG reveals sinus mechanism, right bundle branch block and left posterior fascicular block, T-wave inversions in the precordial leads. Chest x- ray reveals a chronic infiltrate and pleural thickening at the left lung base. Current daily cardiac medications include amiodarone 100 mg at bedtime, atorvastatin 10 mg at bedtime, carvedilol 25 mg twice a day, Plavix 75 mg at bedtime, Imdur 120 mg twice a day and Xarelto 7.5 mg daily. Most recent echocardiogram obtained April 2018 revealed mildly impaired LV systolic function with ejection fraction 45-50%, moderate concentric LVH, moderate TR and mild pulmonary hypertension with an RVSP of 41 mmHg. REVIEW OF SYSTEMS At the time of my exam: CONSTITUTIONAL: Denies fever or chills. CARDIOVASCULAR: Denies chest pain, shortness of breath, orthopnea, PND or palpitations. RESPIRATORY: Denies cough. GASTROINTESTINAL: Denies abdominal pain, diarrhea, constipation, nausea or vomiting. MUSCULOSKELETAL: Denies myalgias. NEUROLOGIC: Denies numbness, tingling or weakness. ENDOCRINE: Denies fatigue, weight change, polydipsia or polyurina. GENITOURINARY: Denies burning, hematuria or urgency with micturation. HEMATOLOGIC: Denies history of anemia or bleeding. PHYSICAL EXAMINATION Blood pressure 153/91 heart rate 56 afebrile and maintaining oxygen saturation on room air. CONSTITUTIONAL: No apparent distress. HEENT: Head is normocephalic. Pupils are equal, round. Sclerae anicteric. Mucous membranes of the mouth are moist. No JVD. No carotid bruit. CHEST EXAMINATION: Lungs are clear to auscultation. No chest wall tenderness is noted on palpation or with deep breathing. HEART EXAMINATION: Regular rate and rhythm. S1, S2 heard. No murmurs, gallops or rub. ABDOMEN: Soft, nontender. Positive bowel sounds. EXTREMITIES: 2+ peripheral pulses, no lower extremity edema and no calf tenderness. NEUROLOGIC EXAMINATION: Patient is awake, alert and oriented x3. ASSESSMENT Syncope Dehydration, improved Anemia Coronary artery disease status post bypass grafting Paroxysmal atrial fibrillation on long-term anticoagulation Hypertension Dyslipidemia History of liver disease status post transplantation PLAN Check second troponin to rule out an acute event. Obtain 2D echocardiogram and doppler study to assess cardiac structure and function. Ongoing telemetry monitoring. Likely syncope is secondary to volume depletion and anemia, however we will continue to monitor for an acute arrhythmia. Xarelto dose is sub-therapeutic, currently on hold for GI evaluation. Check for orthostatic changes. Thank you kindly for this consultation. Nurse Practitioner note has been reviewed, I agree with a documented findings and plan of care. Patient was seen and examined. Past Medical History Past Medical History: Atrial Fibrillation, Coronary Artery Disease (CAD), COPD, Diabetes Mellitus, GERD/Reflux, GI Bleed, Hyperlipidemia, Hypertension, Liver Disease, Sleep Apnea/CPAP/BIPAP, Thyroid Disorder Additional Past Medical History / Comment(s): COPD, alpha-1 antitrypsin deficiency, HX Liver Transplant, Chronic edema suppression, maintained on Tacrolimus. USES CPAP. O2 2L NC OTC. RECENT ADMIT FOR GI BLEED, SCOPES NL, TRANSFUSED X2; FOUND TUMOR IN BLADDER. Bleeds easily.tremors related to amiodorone per patient Last Myocardial Infarction Date:: 2013 History of Any Multi-Drug Resistant Organisms: None Reported Past Surgical History: Cholecystectomy, Coronary Bypass/CABG, Heart Catheterization, Heart Catheterization With Stent Additional Past Surgical History / Comment(s): liver transplant 2005, CABG 4 ve ssels , CABG - 2 vessels, heart stents x4. Cardioversion. EGD, COLONOSCOPY 05/28/18. Bladder Cancer surgery 12-10-18 Past Anesthesia/Blood Transfusion Reactions: No Reported Reaction Date of Last Stent Placement:: 2013 Past Psychological History: No Psychological Hx Reported Smoking Status: Never smoker Past Alcohol Use History: None Reported Past Drug Use History: None Reported - Past Family History Mother Family Medical History: Coronary Artery Disease (CAD) Sister(s) Family Medical History: Cancer Additional Family Medical History / Comment(s): ovarian cancer Father Family Medical History: Cancer Additional Family Medical History / Comment(s): BLADDER CA Medications and Allergies Home Medications Medication Instructions Recorded Confirmed Type Atorvastatin [Lipitor] 10 mg PO HS@0 08/30/16 05/10/20 History Clopidogrel [Plavix] 75 mg PO HS@219908/30/16 05/10/20 History Isosorbide Mononitrate [Imdur] 120 mg PO BID@1000,219908/30/16 05/10/20 History Omeprazole [PriLOSEC] 20 mg PO BID@1000,0 08/30/16 05/10/20 History Nitroglycerin 0.4MG/Hr Patch 1 patch TRANSDERM DAILY PRN 04/05/18 05/10/20 History [Nitro-Dur 0.4MG/Hr Patch] Amiodarone [Cordarone] 100 mg PO HS@0 05/26/18 05/10/20 History Rivaroxaban [Xarelto] 7.5 mg PO DAILY@1000 06/07/18 05/10/20 History metFORMIN HCL 500 mg PO AC-SUPPER 06/07/18 05/10/20 History Carvedilol [Coreg] 25 mg PO BID@1000,0 01/02/19 05/10/20 History Levothyroxine Sodium [Synthroid] 25 mcg PO DAILY@0900 03/31/20 05/10/20 History Tacrolimus [Envarsus Xr] 1.5 mg PO DAILY@1000 03/31/20 05/10/20 History Lidocaine 5% Patch [Lidoderm 5% 1 patch TOPICAL DAILY #3 patch 04/02/20 05/10/20 Rx Patch] HYDROcodone/APAP 10-325MG [[place] 0.5 - 1 tab PO DAILY PRN 05/10/20 05/10/20 History 10-325] Allergies Allergy/AdvReac Type Severity Reaction Status Date / Time ferumoxytol [From Feraheme] Allergy Anaphylaxis Verified 05/10/20 15:31 Physical Exam Vitals: Vital Signs Temp Pulse Pulse Pulse Pulse Pulse Resp 05/11/20 08:34 61 62 60 05/11/20 07:57 97.7 F 56 L 18 05/11/20 01:37 98.1 F 62 18 05/10/20 23:01 97.9 F 64 18 05/10/20 22:31 98.3 F 64 05/10/20 22:21 97.9 F 64 05/10/20 21:38 98.0 F 60 16 05/10/20 20:20 98.0 F 05/10/20 19:45 97.9 F 63 18 05/10/20 18:53 97.7 F 61 18 05/10/20 18:23 98 F 62 18 05/10/20 18:13 97.3 F L 61 18 05/10/20 17:00 97.3 F L 60 18 05/10/20 15:00 65 18 05/10/20 14:30 05/10/20 14:00 70 05/10/20 13:30 17 05/10/20 13:28 97.4 F L 64 18 BP BP BP BP BP Pulse Ox 05/11/20 08:34 149/76 161/78 123/64 05/11/20 07:57 153/91 95 05/11/20 01:37 156/54 98 05/10/20 23:01 177/81 96 05/10/20 22:31 156/76 94 L 05/10/20 22:21 117/63 93 L 05/10/20 21:38 149/83 94 L 05/10/20 20:20 05/10/20 19:45 160/79 95 05/10/20 18:53 146/76 94 L 05/10/20 18:23 143/71 05/10/20 18:13 134/71 05/10/20 17:00 159/81 94 L 05/10/20 15:00 133/68 99 05/10/20 14:30 143/78 98 05/10/20 14:00 156/81 99 05/10/20 13:30 144/68 99 05/10/20 13:28 156/81 100 Intake and Output 05/10/20 05/11/20 05/11/20 22:59 06:59 14:59 Intake Total 550 310 Output Total 175 125 Balance 375 185 Intake: Oral 240 Blood Product 310 310 Rc As-1 Unit 0 310 [id number] Rc As-1 Unit 310 [id number] Output: Urine 175 125 Other: Voiding Method Toilet Urinal Urinal Urinal Weight 108.046 kg Results 05/11/20 07:19 05/11/20 07:19 Cardiac Enzymes 05/10/20 05/10/20 05/11/20 Range/Units 13:46 13:46 07:19 AST 17 14 L (17-59) U/L Troponin I <0.012 (0.000-0.034) ng/mL Coagulation 05/10/20 Range/Units 13:46 PT 11.4 (9.0-12.0) sec APTT 21.7 L (22.0-30.0) sec CBC 05/10/20 05/11/20 Range/Units 13:46 07:19 WBC 11.9 H 10.6 (3.8-10.6) k/uL RBC 2.44 L 2.89 L (4.30-5.90) m/uL Hgb 7.3 L 8.7 L (13.0-17.5) gm/dL Hct 23.4 L 27.7 L (39.0-53.0) % Plt Count 266 237 (150-450) k/uL Comprehensive Metabolic Panel 05/10/20 05/11/20 Range/Units 13:46 07:19 Sodium 140 139 (137-145) mmol/L Potassium 4.4 4.5 (3.5-5.1) mmol/L Chloride 108 H 109 H (98-107) mmol/L Carbon Dioxide 22 22 (22-30) mmol/L BUN 36 H 28 H (9-20) mg/dL Creatinine 1.48 H 1.23 (0.66-1.25) mg/dL Glucose 116 H 109 H (74-99) mg/dL Calcium 9.2 8.9 (8.4-10.2) mg/dL AST 17 14 L (17-59) U/L ALT 10 9 (4-49) U/L Alkaline Phosphatase 89 83 (38-126) U/L Total Protein 6.4 6.1 L (6.3-8.2) g/dL Albumin 3.9 3.6 (3.5-5.0) g/dL Current Medications Generic Name Dose Route Start Last Admin Trade Name Freq PRN Reason Stop Dose Admin Hydrocodone Bitart/Acetaminophen 0.5 each 05/10/20 20:40 Hydrocodone/Apap 10-325mg 1 Each Tab PO DAILY PRN Pain Amiodarone HCl 100 mg 05/10/20 22:00 05/10/20 23:05 Amiodarone 100 Mg Tab PO 100 mg HS@2200 APCHECO Administration Atorvastatin Calcium 10 mg 05/10/20 22:00 05/10/20 23:05 Atorvastatin 10 Mg Tab PO 10 mg HS@2200 PACHECO Administration Carvedilol 25 mg 05/10/20 22:00 05/11/20 10:08 Carvedilol 12.5 Mg Tab PO 25 mg BID@1000,0 PACHECO Administration Clopidogrel Bisulfate 75 mg 05/10/20 22:00 05/10/20 23:05 Clopidogrel 75 Mg Tab PO 75 mg HS@2200 PACHECO Administration Insulin Aspart 0 unit 05/11/20 12:30 Insulin Aspart (Novolog) 100 Unit/Ml Vial SQ ACHS [facility] Protocol Isosorbide Mononitrate 120 mg 05/10/20 22:00 05/11/20 10:09 Isosorbide Mononitrate Er 60 Mg Tab.Er.24h PO 120 mg BID@1000,2200 [facility] Administration Levothyroxine Sodium 25 mcg 05/11/20 09:00 05/11/20 08:12 Levothyroxine 25 Mcg Tab PO 25 mcg DAILY@0900 [facility] Administration Lidocaine 1 patch 05/11/20 09:00 05/11/20 08:40 Lidocaine 5% Patch TOPICAL Not Given DAILY [facility] Naloxone HCl 0.2 mg 05/10/20 15:47 Naloxone 0.4 Mg/Ml 1 Ml Vial IV Q2M PRN Opioid Reversal Nitroglycerin 1 patch 05/11/20 08:05 Nitroglycerin 0.4mg/Hr Patch TRANSDERM DAILY PRN Chest Pain (Tacrolimus [ 1.5 mg 05/11/20 10:00 05/11/20 10:10 Envarsus Xr] 0.75 Mg PO 1.5 mg Tab.Er.24h) DAILY@1000 [facility] Administration Pantoprazole Sodium 40 mg 05/11/20 07:30 05/11/20 08:12 Pantoprazole 40 Mg Tablet PO 40 mg AC-BID PACHECO Administration Intake and Output 05/10/20 05/11/20 05/11/20 22:59 06:59 14:59 Intake Total 550 310 Output Total 175 125 Balance 375 185 Intake: Oral 240 Blood Product 310 310 Rc As-1 Unit 0 310 [id number] Rc As-1 Unit 310 [id number] Output: Urine 175 125 Other: Voiding Method Toilet Urinal Urinal Urinal Weight 108.046 kg 05/11/20 07:19 05/11/20 07:19
[2020-05-11 10:58] LABS: Glucose,Whole Blood 136 mg/dL (75-99)
--- NOTE | 2020-05-11 11:56 | P.HPIM ---
History of Present Illness H&P Date: 05/11/20 HISTORY OF PRESENT ILLNESS This is a 70-year-old male patient of Dr. Carpenter with medical history significant for persistent atrial fibrillation status post cardioversion, COPD, diabetes mellitus, GERD, GI bleed, hyperlipidemia, hypertension, liver disease with liver transplant in 2005, obstructive sleep apnea, hypothyroidism, and alpha 1 antitrypsin deficiency. Significant coronary artery disease history of CABG 2 with multiple stenting and remains on Plavix. The patient states that Dr. Carpenter had scheduled him for 2 units packed RBCs to be done on Monday as an outpatient. At home, patient states he was walking from the kitchen to the back door and that the last thing he remembered. He fainted it happened abruptly did not have any sensation prior to. He states he has had fainting-type sensation for a long period of time and this is the worst episode. His found him on the floor and called 911. Patient denies having any nausea vomiting or recent diarrhea. He states he has dark stools which she exits from iron. He denies any COVID-19 exposure. Patient was brought into [facility] emergency center for evaluation. WBC 11.9, hemoglobin 7.3 and patient was transfused 2 units packed RBCs with repeat hemoglobin of 8.7. Platelet count 266. Sodium 140, potassium 4.4, chloride 108, CO2 22, BUN 36 and creatinine 1.48. Baseline creatinine is 1.2. Repeat this morning is BUN 28 creatinine 1.23. Blood sugar 116. Liver function tests were normal. ProBNP 1670. Troponin negative. TSH 2.050. Chest x-ray reveals chronic infiltrate and pleural thickening of the left lung base unchanged. Mild congestive heart failure possible. Cardiomegaly probably not changed. EKG was a sinus rhythm with right bundle branch block and left po sterior fascicular block, T-wave inversions in the precordial leads. Patient was placed in the observation unit and cardiology consult requested, GI consult also requested. REVIEW OF SYSTEMS Constitutional: No fever, no chills, no night sweats. No weight change. No weakness, fatigue or lethargy. No daytime sleepiness. EENT: No headache. No blurred vision or double vision, no loss of vision. No loss of Hearing, no ringing in the ears, no dizziness. No nasal drainage or congestion. No epistaxis. No sore throat. Lungs: No shortness of breath, cough, no sputum production. No wheezing. Cardiovascular: No chest pain, no lower extremity edema. No palpitations. No paroxysmal nocturnal dyspnea. No orthopnea. No lightheadedness or dizziness. No syncopal episodes. Abdominal: No abdominal pain. No nausea, vomiting. No diarrhea. No constipation. No bloody or tarry stools.. No loss of appetite. Genitourinary: No dysuria, increased frequency, urgency. No urinary retention. Musculoskeletal: No myalgias. No muscle weakness, no gait dysfunction, no frequent falls. No back pain. No neck pain. Integumentary: No wounds, no lesions. No rash or pruritus. No unusual bruising. No change in hair or nails. Neurologic: No aphasia. No facial droop. No change in mentation. No head injury. No headache. No paralysis. No paresthesia. Psychiatric: No depression. No anxiety. No mood swings. Endocrine: No abnormal blood sugars. No weight change. No excessive sweating or thirst. No cold intolerance. SOCIAL HISTORY Patient is a lifelong nonsmoker, no alcohol use or illicit drug use. Patient lives at home with his . FAMILY HISTORY Father at age 86 from bladder cancer. Mother at age 51 thought to be related to alpha-1 antitrypsin disorder, occasions. Patient has 4 half-brothers and one has from [place]. Patient has 2 full sisters and one has from female cancer. Patient does not have any biological children. PHYSICAL EXAMINATION Gen: This is a 70-year-old male. His resting in bed and appears to be comfortable and in no acute distress. HEENT: Head is atraumatic, normocephalic. Pupils equal, round. Sclerae is anicteric. NECK: Supple. No JVD. No lymphadenopathy. No thyromegaly. LUNGS: Clear to auscultation. No wheezes or rhonchi. No intercostal retractions. HEART: Regular rate and rhythm. No murmur. ABDOMEN: Soft. Bowel sounds are present. No masses. No tenderness. EXTREMITIES: No pedal edema. No calf tenderness. NEUROLOGICAL: Patient is awake, alert and oriented x3. Cranial nerves 2 through 12 are grossly intact. ASSESSMENT AND PLAN 1. Syncopal episode. Cardiology consult appreciated. Repeat troponin, echocardiogram, cardiac monitoring, orthostatic vital signs. 2. Chronic anemia of unclear etiology, possible GI bleed. Consult with GI. Hold Xarelto. Patient will be resumed on Plavix only at this time.. 3. Persistent atrial fibrillation status post cardioversion. Xarelto on hold. Continue Coreg 25 mg twice daily and amiodarone 100 mg at bedtime. 4. COPD, stable without exacerbation. 5. Diabetes mellitus type 2. NovoLog scale before meals and at bedtime. Hold metformin 6. Hypertension. 7. Liver disease status post transplant. Continue Tacrolimus XL, home medication. 8. Alpha 1 antitrypsin deficiency. 9. Coronary artery disease with previous CABG and multiple stenting. Continue Plavix, Lipitor, Coreg, Imdur 120 mg twice daily. 10. Hypothyroidism. Continue levothyroxine 25 g daily. 11. Obstructive sleep apnea, CPAP. Patient will be admitted to the hospital for a minimum of 2 night stay. DISCHARGE PLAN Pulmonary 24 hours. Impression and plan of care have been directed as dictated by the signing physician. Isa Morgan nurse practitioner acting as scribe for signing physician. Past Medical History Past Medical History: Atrial Fibrillation, Coronary Artery Disease (CAD), COPD, Diabetes Mellitus, GERD/Reflux, GI Bleed, Hyperlipidemia, Hypertension, Liver Disease, Sleep Apnea/CPAP/BIPAP, Thyroid Disorder Additional Past Medical History / Comment(s): COPD, alpha-1 antitrypsin deficien cy, HX Liver Transplant, Chronic edema suppression, maintained on Tacrolimus. USES CPAP. O2 2L NC OTC. RECENT ADMIT FOR GI BLEED, SCOPES NL, TRANSFUSED X2; FOUND TUMOR IN BLADDER. Bleeds easily.tremors related to amiodorone per patient Last Myocardial Infarction Date:: 2013 History of Any Multi-Drug Resistant Organisms: None Reported Past Surgical History: Cholecystectomy, Coronary Bypass/CABG, Heart Catheterization, Heart Catheterization With Stent Additional Past Surgical History / Comment(s): liver transplant 2005, CABG 4 vessels , CABG - 2 vessels, heart stents x4. Cardioversion. EGD, COLONOSCOPY 05/28/18. Bladder Cancer surgery 06-11-18 Past Anesthesia/Blood Transfusion Reactions: No Reported Reaction Date of Last Stent Placement:: 2013 Past Psychological History: No Psychological Hx Reported Smoking Status: Never smoker Past Alcohol Use History: None Reported Past Drug Use History: None Reported - Past Family History Mother Family Medical History: Coronary Artery Disease (CAD) Sister(s) Family Medical History: Cancer Additional Family Medical History / Comment(s): ovarian cancer Father Family Medical History: Cancer Additional Family Medical History / Comment(s): BLADDER CA Medications and Allergies Home Medications Medication Instructions Recorded Confirmed Type Atorvastatin [Lipitor] 10 mg PO HS@0 08/30/16 05/10/20 History Clopidogrel [Plavix] 75 mg PO HS@219908/30/16 05/10/20 History Isosorbide Mononitrate [Imdur] 120 mg PO BID@1000,0 08/30/16 05/10/20 History Omeprazole [PriLOSEC] 20 mg PO BID@1000,0 08/30/16 05/10/20 History Nitroglycerin 0.4MG/Hr Patch 1 patch TRANSDERM DAILY PRN 04/05/18 05/10/20 History [Nitro-Dur 0.4MG/Hr Patch] Amiodarone [Cordarone] 100 mg PO HS@0 05/26/18 05/10/20 History Rivaroxaban [Xarelto] 7.5 mg PO DAILY@1000 06/07/18 05/10/20 History metFORMIN HCL 500 mg PO AC-SUPPER 06/07/18 05/10/20 History Carvedilol [Coreg] 25 mg PO BID@1000,0 01/02/19 05/10/20 History Levothyroxine Sodium [Synthroid] 25 mcg PO DAILY@0900 03/31/20 05/10/20 History Tacrolimus [Envarsus Xr] 1.5 mg PO DAILY@1000 03/31/20 05/10/20 History Lidocaine 5% Patch [Lidoderm 5% 1 patch TOPICAL DAILY #3 patch 04/02/20 05/10/20 Rx Patch] HYDROcodone/APAP 10-325MG [[place] 0.5 - 1 tab PO DAILY PRN 05/10/20 05/10/20 History 10-325] Allergies Allergy/AdvReac Type Severity Reaction Status Date / Time ferumoxytol [From Feraheme] Allergy Anaphylaxis Verified 05/10/20 15:31 Physical Exam Vitals: Vital Signs Temp Pulse Pulse Resp BP BP Pulse Ox 05/11/20 07:57 97.7 F 56 L 18 153/91 95 05/11/20 01:37 98.1 F 62 18 156/54 98 05/10/20 23:01 97.9 F 64 18 177/81 96 05/10/20 22:31 98.3 F 64 156/76 94 L 05/10/20 22:21 97.9 F 64 117/63 93 L 05/10/20 21:38 98.0 F 60 16 149/83 94 L 05/10/20 20:20 98.0 F 05/10/20 19:45 97.9 F 63 18 160/79 95 05/10/20 18:53 97.7 F 61 18 146/76 94 L 05/10/20 18:23 98 F 62 18 143/71 05/10/20 18:13 97.3 F L 61 18 134/71 05/10/20 17:00 97.3 F L 60 18 159/81 94 L 05/10/20 15:00 65 18 133/68 99 05/10/20 14:30 143/78 98 05/10/20 14:00 70 156/81 99 05/10/20 13:30 17 144/68 99 05/10/20 13:28 97.4 F L 64 18 156/81 100 Intake and Output 05/10/20 05/11/20 05/11/20 22:59 06:59 14:59 Intake Total 550 310 Output Total 175 125 Balance 375 185 Intake: Oral 240 Blood Product 310 310 Rc As-1 Unit 0 310 [id number] Rc As-1 Unit 310 [id number] Output: Urine 175 125 Other: Voiding Method Toilet Urinal Urinal Urinal Weight 108.046 kg Results CBC & Chem 7: 05/11/20 07:19 05/11/20 07:19 Labs: Abnormal Lab Results - Last 24 Hours (Table) 05/10/20 05/10/20 05/10/20 Range/Units 13:46 13:46 13:46 WBC 11.9 H (3.8-10.6) k/uL RBC 2.44 L (4.30-5.90) m/uL Hgb 7.3 L (13.0-17.5) gm/dL Hct 23.4 L (39.0-53.0) % RDW 16.8 H (11.5-15.5) % Neutrophils # 9.2 H (1.3-7.7) k/uL APTT (22.0-30.0) sec Chloride 108 H (98-107) mmol/L BUN 36 H (9-20) mg/dL Creatinine 1.48 H (0.66-1.25) mg/dL Glucose 116 H (74-99) mg/dL AST (17-59) U/L Total Protein (6.3-8.2) g/dL Crossmatch See Detail 05/10/20 05/11/20 05/11/20 Range/Units 13:46 07:19 07:19 WBC (3.8-10.6) k/uL RBC 2.89 L (4.30-5.90) m/uL Hgb 8.7 L (13.0-17.5) gm/dL Hct 27.7 L (39.0-53.0) % RDW 16.3 H (11.5-15.5) % Neutrophils # 7.9 H (1.3-7.7) k/uL APTT 21.7 L (22.0-30.0) sec Chloride 109 H (98-107) mmol/L BUN 28 H (9-20) mg/dL Creatinine (0.66-1.25) mg/dL Glucose 109 H (74-99) mg/dL AST 14 L (17-59) U/L Total Protein 6.1 L (6.3-8.2) g/dL Crossmatch Thrombosis Risk Factor Assmnt - Choose All That Apply Other Risk Factors: Yes Each Risk Factor Represents 2 Points: Age 61-74 years Thrombosis Risk Factor Assessment Total Risk Factor Score: 2 Thrombosis Risk Factor Assessment Level: Low Risk
[2020-05-11] MEDS: INSULIN ASPART (NovoLOG) 100 UNIT/ML VIAL SQ SCH ×3 (12:18→21:17)
--- NOTE | 2020-05-11 12:36 | ECHOF ---
Referral Reason:syncope MEASUREMENTS -------- HEIGHT: 152.4 cm WEIGHT: 108.0 kg BP: IVSd: 1.2 cm (0.6 - 1.1) LVIDd: 5.4 cm (3.9 - 5.3) LVPWd: 1.4 cm (0.6 - 1.1) IVSs: 1.7 cm LVIDs: 4.6 cm LVPWs: 1.9 cm LA Diam: 4.9 cm (2.7 - 3.8) RVIDd: 3.5 cm (< 3.3) Ao Diam: 3.0 cm (2.0 - 3.7) LA Diam: 4.7 cm (2.7 - 3.8) AV Cusp: 1.7 cm (1.5 - 2.6) EPSS: 0.5 cm MV E Noah: 1.07 m/s MV DecT: 166 ms MV A Noah: 0.53 m/s MV E/A Ratio: 2.03 RAP: 5.00 mmHg RVSP: 50.57 mmHg MV EF SLOPE: 108.66 mm/s (70 - 150) MV EXCURSION: 17.70 mm (> 18.000) FINDINGS -------- Undetermined rhythm. This was a techncally difficult study with suboptimal views, , Lumason utilized for enhancement of im ages. The left ventricular size is normal. There is mild concentric left ventricular hypertrophy. Overa ll left ventricular systolic function is low-normal with, an EF between 50 - 55 %. The right ventricle is normal in size. The left atrium is markedly dilated. The right atrial size is normal. There is mild aortic valve sclerosis. There is no evidence of aortic regurgitation. Mild mitral annular calcification present. Mild mitral regurgitation is present. Moderate tricuspid regurgitation present. There is moderate pulmonary hypertension. Trace/mild (physiologic) pulmonic regurgitation. The aortic root size is normal. There is a small, generalized pericardial effusion present. CONCLUSIONS -------- 1. This was a techncally difficult study with suboptimal views, , Lumason utilized for enhancement of images. 2. The left ventricular size is normal. 3. There is mild concentric left ventricular hypertrophy. 4. Overall left ventricular systolic function is low-normal with, an EF between 50 - 55 %. 5. The right ventricle is normal in size. 6. The left atrium is markedly dilated. 7. The right atrial size is normal. 8. There is mild aortic valve sclerosis. 9. Mild mitral annular calcification present. 10. Mild mitral regurgitation is present. 11. Moderate tricuspid regurgitation present. 12. There is moderate pulmonary hypertension. 13. Trace/mild (physiologic) pulmonic regurgitation. 14. The aortic root size is normal. 15. There is a small, generalized pericardial effusion present. ACCESS ANALYST: Kathy Liu RDCS
[2020-05-11 15:57] LABS: % Iron Saturation 9.25 (15.00-50.00); Ferritin 13.4 ng/mL (22.0-322.0); Folate, Serum 17.1 ng/mL
[2020-05-11 17:26] LABS: Glucose,Whole Blood 160 mg/dL (75-99)
[2020-05-11 21:16] LABS: Glucose,Whole Blood 120 mg/dL (75-99)
[2020-05-11] MEDS: CLOPIDOGREL 75 MG TAB PO SCH (21:48)
[2020-05-11] MEDS: ATORVASTATIN 10 MG TAB PO SCH (21:48)
--- NOTE | 2020-05-11 21:51 | P.CONS ---
History of Present Illness - Reason for Consult Consult date: 05/11/20 anemia Requesting physician: Erlin Jacobo - Chief Complaint Syncopy - History of Present Illness 70-year-old male with multiple medical comorbidities includingatrial fibrilla tion, COPD, diabetes mellitus, GERD, hyperlipidemia, hypertension, alpha-1 antitrypsin deficiency status post liver transplant at the [facility] bladder cancer and prior GI bleed who presented to the hospital due to concerns over a syncopal episode. He reports walking in his kitchen when he had an episode of fainting. Patient was found to be anemic on presentation with a hemoglobin of 7.3 status post 2 units of packed red blood cells currently 8.7. BUN 28, total bilirubin 0.6, alkaline phosphatase 83, AST 14 and ALT 9. The patient denies any signs or symptoms of gross GI bleeding However, patient suffers from dark bowel movements at baseline as he is on iron supplementation at home. Previously he had been hospitalized for anemia with extensive workup performed in 05/2018 at which time EGD was performed with no bleeding noted, a tortuous esophagus and a pyloric deformity noted, colonoscopy at that time showed internal hemorrhoids and diverticulosis with no bleeding this was subsequently followed with a small bowel capsule endoscopy with no active bleeding noted. Review of Systems REVIEW OF SYSTEMS: CONSTITUTIONAL: Denies any fevers, chills, weight change or fatigue. CARDIOVASCULAR: Denies any chest pain, palpitations high or low blood pressures, but does report an episode of syncope prior to presentation. RESPIRATORY: Denies any shortness of breath, hemoptysis or cough. GENITOURINARY: No dysuria or hematuriahistory of bladder CA. MUSCULOSKELETAL: No weakness reported. SKIN: Denies any new rashes or lesions, jaundice or pallor. PSYCHIATRIC: Denies any depression or anxiety. NEUROLOGY: Denies headache, denies any new focal deficits. EARS/NOSE/THROAT: No recent hearing change, congestion, nasal discharge or sore throat. EYES: No pain in eyes, discharge or change in vision. GASTROINTESTINAL: As per HPI. Past Medical History Past Medical History: Atrial Fibrillation, Coronary Artery Disease (CAD), COPD, Diabetes Mellitus, GERD/Reflux, GI Bleed, Hyperlipidemia, Hypertension, Liver Disease, Sleep Apnea/CPAP/BIPAP, Thyroid Disorder Additional Past Medical History / Comment(s): COPD, alpha-1 antitrypsin deficiency, HX Liver Transplant, Chronic edema suppression, maintained on Tacrolimus. USES CPAP. O2 2L NC OTC. RECENT ADMIT FOR GI BLEED, SCOPES NL, TRANSFUSED X2; FOUND TUMOR IN BLADDER. Bleeds easily.tremors related to amiodorone per patient Last Myocardial Infarction Date:: 2013 History of Any Multi-Drug Resistant Organisms: None Reported Past Surgical History: Cholecystectomy, Coronary Bypass/CABG, Heart Catheterization, Heart Catheterization With Stent Additional Past Surgical History / Comment(s): liver transplant 2005, CABG 4 vessels , CABG - 2 vessels, heart stents x4. Cardioversion. EGD, CO LONOSCOPY 05/28/18. Bladder Cancer surgery 06-11-18 Past Anesthesia/Blood Transfusion Reactions: No Reported Reaction Date of Last Stent Placement:: 2013 Past Psychological History: No Psychological Hx Reported Smoking Status: Never smoker Past Alcohol Use History: None Reported Past Drug Use History: None Reported - Past Family History Mother Family Medical History: Coronary Artery Disease (CAD) Sister(s) Family Medical History: Cancer Additional Family Medical History / Comment(s): ovarian cancer Father Family Medical History: Cancer Additional Family Medical History / Comment(s): BLADDER CA Medications and Allergies Home Medications Medication Instructions Recorded Confirmed Type Atorvastatin [Lipitor] 10 mg PO HS@0 08/30/16 05/10/20 History Clopidogrel [Plavix] 75 mg PO HS@0 08/30/16 05/10/20 History Isosorbide Mononitrate [Imdur] 120 mg PO BID@1000,0 08/30/16 05/10/20 History Omeprazole [PriLOSEC] 20 mg PO BID@1000,0 08/30/16 05/10/20 History Nitroglycerin 0.4MG/Hr Patch 1 patch TRANSDERM DAILY PRN 04/05/18 05/10/20 History [Nitro-Dur 0.4MG/Hr Patch] Amiodarone [Cordarone] 100 mg PO HS@0 05/26/18 05/10/20 History Rivaroxaban [Xarelto] 7.5 mg PO DAILY@1000 06/07/18 05/10/20 History metFORMIN HCL 500 mg PO AC-SUPPER 06/07/18 05/10/20 History Carvedilol [Coreg] 25 mg PO BID@1000,2200 01/02/19 05/10/20 History Levothyroxine Sodium [Synthroid] 25 mcg PO DAILY@0900 03/31/20 05/10/20 History Tacrolimus [Envarsus Xr] 1.5 mg PO DAILY@1000 03/31/20 05/10/20 History Lidocaine 5% Patch [Lidoderm 5% 1 patch TOPICAL DAILY #3 patch 04/02/20 05/10/20 Rx Patch] HYDROcodone/APAP 10-325MG [Bandy 0.5 - 1 tab PO DAILY PRN 05/10/20 05/10/20 History 10-325] Allergies Allergy/AdvReac Type Severity Reaction Status Date / Time ferumoxytol [From Feraheme] Allergy Anaphylaxis Verified 05/10/20 15:31 Physical Exam Vitals: Vital Signs Temp Pulse Pulse Pulse Pulse Pulse Resp 05/11/20 08:34 61 62 60 05/11/20 07:57 97.7 F 56 L 18 05/11/20 01:37 98.1 F 62 18 05/10/20 23:01 97.9 F 64 18 05/10/20 22:31 98.3 F 64 05/10/20 22:21 97.9 F 64 05/10/20 21:38 98.0 F 60 16 05/10/20 20:20 98.0 F 05/10/20 19:45 97.9 F 63 18 05/10/20 18:53 97.7 F 61 18 05/10/20 18:23 98 F 62 18 05/10/20 18:13 97.3 F L 61 18 05/10/20 17:00 97.3 F L 60 18 05/10/20 15:00 65 18 05/10/20 14:30 05/10/20 14:00 70 05/10/20 13:30 17 05/10/20 13:28 97.4 F L 64 18 BP BP BP BP BP Pulse Ox 05/11/20 08:34 149/76 161/78 123/64 05/11/20 07:57 153/91 95 05/11/20 01:37 156/54 98 05/10/20 23:01 177/81 96 05/10/20 22:31 156/76 94 L 05/10/20 22:21 117/63 93 L 05/10/20 21:38 149/83 94 L 05/10/20 20:20 05/10/20 19:45 160/79 95 05/10/20 18:53 146/76 94 L 05/10/20 18:23 143/71 05/10/20 18:13 134/71 05/10/20 17:00 159/81 94 L 05/10/20 15:00 133/68 99 05/10/20 14:30 143/78 98 05/10/20 14:00 156/81 99 05/10/20 13:30 144/68 99 05/10/20 13:28 156/81 100 Intake and Output 05/10/20 05/11/20 05/11/20 22:59 06:59 14:59 Intake Total 550 310 Output Total 175 125 Balance 375 185 Intake: Oral 240 Blood Product 310 310 Rc As-1 Unit 0 310 [id number] Rc As-1 Unit 310 [id number] Output: Urine 175 125 Other: Voiding Method Toilet Urinal Urinal Urinal Weight 108.046 kg On physical examination, patient appears comfortable in no apparent distress. HEAD: Normocephalic, atraumatic. EYES: No scleral icterus. No conjunctival injection. MOUTH: No lesions, tongue midline. NECK: Trachea midline, no gross abnormalities. CHEST: Clear to auscultation with no wheezing or rhonchi appreciated. HEART: S1-S2 appreciated. ABDOMEN: Soft, obese. Bowel sounds are positive. No organomegaly. No guarding or rigidity. EXTREMITIES: No pedal edema. SKIN: No rashes, no jaundice. NEUROLOGIC: Alert and oriented x3. No focal deficits. Results CBC & Chem 7: 05/11/20 07:19 05/11/20 07:19 Labs: Abnormal Lab Results - Last 24 Hours (Table) 05/10/20 05/10/20 05/10/20 Range/Units 13:46 13:46 13:46 WBC 11.9 H (3.8-10.6) k/uL RBC 2.44 L (4.30-5.90) m/uL Hgb 7.3 L (13.0-17.5) gm/dL Hct 23.4 L (39.0-53.0) % RDW 16.8 H (11.5-15.5) % Neutrophils # 9.2 H (1.3-7.7) k/uL Retic Count (0.5-2.0) % APTT (22.0-30.0) sec Chloride 108 H (98-107) mmol/L BUN 36 H (9-20) mg/dL Creatinine 1.48 H (0.66-1.25) mg/dL Glucose 116 H (74-99) mg/dL POC Glucose (mg/dL) (75-99) mg/dL AST (17-59) U/L Total Protein (6.3-8.2) g/dL Crossmatch See Detail 05/10/20 05/11/20 05/11/20 Range/Units 13:46 07:19 07:19 WBC (3.8-10.6) k/uL RBC 2.89 L (4.30-5.90) m/uL Hgb 8.7 L (13.0-17.5) gm/dL Hct 27.7 L (39.0-53.0) % RDW 16.3 H (11.5-15.5) % Neutrophils # 7.9 H (1.3-7.7) k/uL Retic Count (0.5-2.0) % APTT 21.7 L (22.0-30.0) sec Chloride 109 H (98-107) mmol/L BUN 28 H (9-20) mg/dL Creatinine (0.66-1.25) mg/dL Glucose 109 H (74-99) mg/dL POC Glucose (mg/dL) (75-99) mg/dL AST 14 L (17-59) U/L Total Protein 6.1 L (6.3-8.2) g/dL Crossmatch 05/11/20 05/11/20 Range/Units 07:19 10:57 WBC (3.8-10.6) k/uL RBC (4.30-5.90) m/uL Hgb (13.0-17.5) gm/dL Hct (39.0-53.0) % RDW (11.5-15.5) % Neutrophils # (1.3-7.7) k/uL Retic Count 4.0 H (0.5-2.0) % APTT (22.0-30.0) sec Chloride (98-107) mmol/L BUN (9-20) mg/dL Creatinine (0.66-1.25) mg/dL Glucose (74-99) mg/dL POC Glucose (mg/dL) 136 H (75-99) mg/dL AST (17-59) U/L Total Protein (6.3-8.2) g/dL Crossmatch Chest x-ray: report reviewed Assessment and Plan (1) Iron deficiency anemia Narrative/Plan: 70-year-old male with multiple medical comorbidities including prior liver transplant due to history of alpha-1 antitrypsin deficiency, atrial fibrillation on anticoagulation therapy and prior admission for anemia who presented back to the hospital due to a syncopal episode. Patient was found to be anemic on presentation with hemoglobin of 7.3 currently 8.7 after transfusion. No signs or symptoms of GI bleeding. He does however have chronic dark bowel movements secondary todaily iron therapy for treatment of his iron deficiency anemia. Extensive workup performed in 05/2018with EGD showing tortuous esophagus and pyloric deformity, colonoscopy showing hemorrhoids and diverticulosis and small bowel capsule endoscopy, all which were negative for any signs of active bleeding. Unclear etiology, may be secondary to small bowel bleeding not prev iously visualized on evaluation, non-GI bleeding or other etiology. Current Visit: Yes Status: Acute Code(s): D50.9 - IRON DEFICIENCY ANEMIA, UNSPECIFIED SNOMED Code(s): 94012469 (2) Hx of liver transplant Current Visit: No Status: Acute Code(s): Z94.4 - LIVER TRANSPLANT STATUS SNOMED Code(s): 846789682 Plan: supportive care Continue to monitor hemoglobin and hematocrit and transfuse as needed continue Protonix therapy Nothing by mouth after midnight Plan for EGD for further evaluation tomorrow Continue to hold anticoagulation therapy for now Thank you for allowing us to participate in the care of the patient we will continue to follow
[2020-05-11] MEDS: AMIODARONE 100 MG TAB PO SCH (22:11)
[2020-05-12 06:07] LABS: Glucose,Whole Blood 117 mg/dL (75-99)
[2020-05-12] MEDS: PANTOPRAZOLE 40 MG TABLET PO SCH ×2 (06:07→18:04)
[2020-05-12] MEDS: INSULIN ASPART (NovoLOG) 100 UNIT/ML VIAL SQ SCH ×4 (06:08→20:59)
[2020-05-12] MEDS: LIDOCAINE 5% PATCH TOPICAL SCH (06:08)
[2020-05-12] MEDS: LEVOTHYROXINE 25 MCG TAB PO SCH (06:08)
[2020-05-12] MEDS: ISOSORBIDE MONONITRATE ER 60 MG TAB.ER.24H PO SCH ×2 (08:35→21:27)
[2020-05-12] MEDS: carvediloL 12.5 MG TAB PO SCH ×2 (08:35→21:27)
[2020-05-12] MEDS: TACROLIMUS 0.75 MG PO SCH (08:36)
[2020-05-12 09:56] LABS: Anisocytosis Slight; HCT 27.1 % (39.0-53.0); Hypochromasia Moderate; MCH 31.7 pg (25.0-35.0); MCHC 33.1 g/dL (31.0-37.0); MCV 95.9 fL (80.0-100.0); Mean Platelet Volume 7.1; Platelet Count 256 k/uL (150-450); RBC 2.83 m/uL (4.30-5.90); RDW 16.3 % (11.5-15.5); WBC 9.9 k/uL (3.8-10.6)
--- NOTE | 2020-05-12 12:00 | P.PN ---
Subjective Progress Note Date: 05/12/20 HISTORY OF PRESENT ILLNESS This is a 70-year-old male patient of Dr. Carpenter with medical hi story significant for persistent atrial fibrillation status post cardioversion, COPD, diabetes mellitus, GERD, GI bleed, hyperlipidemia, hypertension, liver disease with liver transplant in 2005, obstructive sleep apnea, hypothyroidism, and alpha 1 antitrypsin deficiency. Significant coronary artery disease history of CABG 2 with multiple stenting and remains on Plavix. The patient states that Dr. Carpenter had scheduled him for 2 units packed RBCs to be done on Monday as an outpatient. At home, patient states he was walking from the kitchen to the back door and that the last thing he remembered. He fainted it happened abruptly did not have any sensation prior to. He states he has had fainting-type sensation for a long period of time and this is the worst episode. His found him on the floor and called 911. Patient denies having any nausea vomiting or recent diarrhea. He states he has dark stools which she exits from iron. He denies any COVID-19 exposure. Patient was brought into [facility] emergency center for evaluation. WBC 11.9, hemoglobin 7.3 and patient was transfused 2 units packed RBCs with repeat hemoglobin of 8.7. Platelet count 266. Sodium 140, potassium 4.4, chloride 108, CO2 22, BUN 36 and creatinine 1.48. Baseline creatinine is 1.2. Repeat this morning is BUN 28 creatinine 1.23. Blood sugar 116. Liver function tests were normal. ProBNP 1670. Troponin negative. TSH 2.050. Chest x-ray reveals chronic infiltrate and pleural thickening of the left lung base unchanged. Mild congestive heart failure possible. Cardiomegaly probably not changed. EKG was a sinus rhythm with right bundle branch block and left posterior fascicular block, T-wave inversions in the precordial leads. Patient was placed in the observation unit and cardiology consult requested, GI consult also requested. 05/12: The patient has been seen by cardiology. Echocardiogram reveals EF of 50-55% with mild concentric left ventricular hypertrophy, mild aortic valve sclerosis, mild mitral regurgitation, moderate tricuspid regurgitation, moderate pulmonary hypertension. Repeat troponin was normal. Hemoglobin today of 9, stool for occult blood positive. Patient has been seen by GI and is scheduled for EGD today. If following EGD, GI approves discharge, patient will be discharged home later today. He has been afebrile, heart rate 59, blood pressure 154/74, pulse ox 97% on 2 L nasal cannula. Consult with Dr. Burrows added. REVIEW OF SYSTEMS Constitutional: No fever, no chills, no night sweats. No weight change. No weakness, fatigue or lethargy. EENT: No headache. No blurred vision or double vision, no loss of vision. No loss of Hearing, no ringing in the ears, no dizziness. No nasal drainage or congestion. No epistaxis. No sore throat. Lungs: No shortness of breath, cough, no sputum production. No wheezing. Cardiovascular: No chest pain, no lower extremity edema. No palpitations. No paroxysmal nocturnal dyspnea. No orthopnea. No lightheadedness or dizziness. No syncopal episodes. Abdominal: No abdominal pain. No nausea, vomiting. No diarrhea. No constipation. No bloody or tarry stools.. No loss of appetite. Genitourinary: No dysuria, increased frequency, urgency. No urinary retention. Musculoskeletal: No myalgias. No muscle weakness, no gait dysfunction, no frequent falls. No back pain. No neck pain. Integumentary: No wounds, no lesions. No rash or pruritus. No unusual bruising. No change in hair or nails. Neurologic: No aphasia. No facial droop. No change in mentation. No head injury. No headache. No paralysis. No paresthesia. Psychiatric: No depression. No anxiety. No mood swings. Endocrine: No abnormal blood sugars. No weight change. No excessive sweating or thirst. No cold intolerance. PHYSICAL EXAMINATION Gen: This is a 70-year-old male. His resting in bed in no acute distress. HEENT: Head is atraumatic, normocephalic. Pupils equal, round. Sclerae is anict tiara. NECK: Supple. No JVD. No lymphadenopathy. No thyromegaly. LUNGS: Clear to auscultation. No wheezes or rhonchi. No intercostal retractions. HEART: Regular rate and rhythm. No murmur. ABDOMEN: Soft. Bowel sounds are present. No masses. No tenderness. EXTREMITIES: No pedal edema. No calf tenderness. NEUROLOGICAL: Patient is awake, alert and oriented x3. Cranial nerves 2 through 12 are grossly intact. ASSESSMENT AND PLAN 1. Syncopal episode possibly due to anemia. Cardiology consult appreciated. Repeat troponin, echocardiogram, cardiac monitoring, orthostatic vital signs. 2. Chronic anemia of unclear etiology, possible GI bleed. Consult with GI. Hold Xarelto. Patient will be resumed on Plavix only at this time.. 3. Persistent atrial fibrillation status post cardioversion. Xarelto on hold. Continue Coreg 25 mg twice daily and amiodarone 100 mg at bedtime. 4. COPD, stable without exacerbation. 5. Diabetes mellitus type 2. NovoLog scale before meals and at bedtime. Hold metformin 6. Hypertension. 7. Liver disease status post transplant. Continue Tacrolimus XL, home medication. 8. Alpha 1 antitrypsin deficiency. 9. Coronary artery disease with previous CABG and multiple stenting. Continue Plavix, Lipitor, Coreg, Imdur 120 mg twice daily. 10. Hypothyroidism. Continue levothyroxine 25 g daily. 11. Obstructive sleep apnea, CPAP. DISCHARGE PLAN Home Impression and plan of care have been directed as dictated by the signing physician. Isa Morgan nurse practitioner acting as scribe for signing physician. Objective - Vital Signs Vital signs: Vital Signs Temp 97.8 F 05/12/20 02:20 Pulse 59 L 05/12/20 02:20 Resp 20 05/12/20 02:20 BP 154/74 05/12/20 02:20 Pulse Ox 97 05/12/20 02:20 Intake & Output 05/11/20 05/12/20 05/12/20 18:59 06:59 18:59 Intake Total 720 200 Output Total 300 Balance 720 -100 Intake: Oral 720 200 Output: Urine 300 Other: Voiding Method Urinal Urinal # Voids 4 0 - Labs CBC & Chem 7: 05/12/20 09:22 05/11/20 07:19 Labs: Abnormal Lab Results - Last 24 Hours (Table) 05/11/20 05/11/20 05/11/20 Range/Units 07:19 07:19 10:57 Retic Count 4.0 H (0.5-2.0) % POC Glucose (mg/dL) 136 H (75-99) mg/dL Iron 27 L (65-175) ug/dL % Saturation 9.25 L (15.00-50.00) Ferritin 13.4 L (22.0-322.0) ng/mL 05/11/20 05/11/20 05/12/20 Range/Units 17:25 21:15 06:05 Retic Count (0.5-2.0) % POC Glucose (mg/dL) 160 H 120 H 117 H (75-99) mg/dL Iron (65-175) ug/dL % Saturation (15.00-50.00) Ferritin (22.0-322.0) ng/mL
[2020-05-12 12:34] LABS: Glucose,Whole Blood 122 mg/dL (75-99)
[2020-05-12] MEDS ORDERED: PROPOFOL 10 MG/ML 20 ML VIAL IV ONE (14:57)
[2020-05-12] MEDS ORDERED: SODIUM CHLORIDE 0.9% 500 ML 500 ML IV ONE (15:01)
--- NOTE | 2020-05-12 15:37 | P.PCN ---
Date of Procedure: 05/12/20 Description of Procedure: BRIEF HISTORY: 70-year-old male with multiple medical comorbidities includingatrial fibrillation, COPD, diabetes mellitus, GERD, hyperlipidemia, hypertension, alpha-1 antitrypsin deficiency status post liver transplant at the [facility] bladder cancer and prior GI bleed who presented to the hospital due to concerns over a syncopal episode. He reports walking in his kitchen when he had an episode of fainting. Patient was found to be anemic on presentation with a hemoglobin of 7.3 status post 2 units of packed red blood cells currently 8.7. BUN 28, total bilirubin 0.6, alkaline phosphatase 83, AST 14 and ALT 9. The patient denies any signs or symptoms of gross GI bleeding However, patient suffers from dark bowel movements at baseline as he is on iron supplementation at home. Previously he had been hospitalized for anemia with extensive workup performed in 05/2018 at which time EGD was performed with no bleeding noted, a tortuous esophagus and a pyloric deformity noted, colonoscopy at that time showed internal hemorrhoids and diverticulosis with no bleeding this was subsequently followed with a small bowel capsule endoscopy with no active bleeding noted. PROCEDURE PERFORMED: Esophagogastroduodenoscopy with biopsy. PREOPERATIVE DIAGNOSIS: Anemia. ESTIMATED BLOOD LOSS: Minimal. IV sedation per anesthesia. PROCEDURE: After informed consent was obtained, the patient was brought into the endoscopy unit. IV sedation was administered by Anesthesia under continuous monitoring. Initially the Olympus GIF-190 video endoscope was inserted into the mouth. Esophagus intubated without any difficulty. It was gradually advanced into the stomach and duodenum and carefully examined. The bulb and the second part of the duodenum appeared normal, with biopsies taken. The scope at this time was withdrawn to the stomach, adequately insufflated with air, and upon careful examination, mucosa of the antrum, body, cardia and the fundus appeared normal, except a previously noted pyloric deformity which was easily traversed as well as some patchy erythema in the antrum and body suggestive of moderate gastritis with biopsies of the antrum and body taken. The scope was then withdrawn into the esophagus. The GE junction was located at 39 cm from the incisors. The esophagus appeared normal, however was somewhat tortuous. There were no erosions or ulcerations seen and the patient tolerated the procedure well. IMPRESSION: 1. No active bleeding or old blood noted. 2. Moderate gastritis. 3. Pyloric deformity. 4. Biopsies taken of the duodenum and antrum and body. RECOMMENDATIONS: The findings of this examination were discussed with the patient. Okay to resume diet. Okay to resume medications including at a coagulation therapy. Continue monitor hemoglobin and hematocrit and transfuse as needed. Avoid pathology from biopsies. Continue PPI therapy.
[2020-05-12 17:38] LABS: Glucose,Whole Blood 147 mg/dL (75-99)
[2020-05-12 20:56] LABS: Glucose,Whole Blood 124 mg/dL (75-99)
[2020-05-12] MEDS: AMIODARONE 100 MG TAB PO SCH (21:27)
[2020-05-12] MEDS: CLOPIDOGREL 75 MG TAB PO SCH (21:27)
[2020-05-12] MEDS: ATORVASTATIN 10 MG TAB PO SCH (21:27)
--- NOTE | 2020-05-12 22:11 | P.CONS ---
History of Present Illness - Reason for Consult Consult date: 05/12/20 iron def anemia - History of Present Illness The patient is 70-year-old white male with multiple medical problems. The patient has a long-standing history of iron deficiency anemia with GI workup in 05/20 negative. Patient has been on oral iron once a day for several months. He states that he has remained chronically anemic. He also had IV iron administered in 01/17 but stated that he had an anaphylactic reaction. The patient had been feeling progressively more fatigued over the last few weeks and was actually supposed to have blood transfusion as an outpatient. He states that he passed out while walking in the kitchen and found himself on the floor. He was therefore brought into the hospital and was found to have a hemoglobin of 7.3. Hemoglobin improved into the high 8 range after 1 unit PRBC. Consult was of a placed for further evaluation and recommendations. Patient states that his stools are black chronically but he is not sure if this is from the oral iron. The patient is also on anticoagulation with xarelto for atrial fibrillation, and Plavix due to history of coronary artery disease status post stenting. 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 He is status post liver transplant in 2005. He is on tacrolimus for his antirejection regimen.. Review of Systems Constitutional: Reports fatigue, Reports weakness Eyes: denies blurred vision, denies pain Ears: deny: decreased hearing, ear discharge, earache, tinnitus Ears, nose, mouth and throat: Denies headache, Denies sore throat Cardiovascular: Reports as per HPI, Reports irregular heart beat, Reports shortness of breath Respiratory: Reports dyspnea Gastrointestinal: Reports melena Genitourinary: Reports urinary frequency Musculoskeletal: Reports muscle weakness Integumentary: Denies pruritus, Denies rash Neurological: Reports syncope, Reports weakness Psychiatric: Denies anxiety, Denies depression Endocrine: Reports fatigue, Reports high blood sugars Hematologic/Lymphatic: Reports as per HPI Past Medical History Past Medical History: Atrial Fibrillation, Coronary Artery Disease (CAD), COPD, Diabetes Mellitus, GERD/Reflux, GI Bleed, Hyperlipidemia, Hypertension, Liver Disease, Sleep Apnea/CPAP/BIPAP, Thyroid Disorder Additional Past Medical History / Comment(s): COPD, alpha-1 antitrypsin def iciency, HX Liver Transplant, Chronic edema suppression, maintained on Tacrolimus. USES CPAP. O2 2L NC OTC. RECENT ADMIT FOR GI BLEED, SCOPES NL, TRANSFUSED X2; FOUND TUMOR IN BLADDER. Bleeds easily.tremors related to amiodorone per patient Last Myocardial Infarction Date:: 2013 History of Any Multi-Drug Resistant Organisms: None Reported Past Surgical History: Cholecystectomy, Coronary Bypass/CABG, Heart Catheterization, Heart Catheterization With Stent Additional Past Surgical History / Comment(s): liver transplant 2005, CABG 4 vessels , CABG - 2 vessels, heart stents x4. Cardioversion. EGD, COLONOSCOPY 05/28/18. Bladder Cancer surgery 06-11-18 Past Anesthesia/Blood Transfusion Reactions: No Reported Reaction Date of Last Stent Placement:: 2013 Past Psychological History: No Psychological Hx Reported Smoking Status: Never smoker Past Alcohol Use History: None Reported Past Drug Use History: None Reported - Past Family History Mother Family Medical History: Coronary Artery Disease (CAD) Sister(s) Family Medical History: Cancer Additional Family Medical History / Comment(s): ovarian cancer Father Family Medical History: Cancer Additional Family Medical History / Comment(s): BLADDER CA Medications and Allergies Home Medications Medication Instructions Recorded Confirmed Type Atorvastatin [Lipitor] 10 mg PO HS@0 08/30/16 05/10/20 History Clopidogrel [Plavix] 75 mg PO HS@0 08/30/16 05/10/20 History Isosorbide Mononitrate [Imdur] 120 mg PO BID@1000,0 08/30/16 05/10/20 History Omeprazole [PriLOSEC] 20 mg PO BID@1000,0 08/30/16 05/10/20 History Nitroglycerin 0.4MG/Hr Patch 1 patch TRANSDERM DAILY PRN 04/05/18 05/10/20 History [Nitro-Dur 0.4MG/Hr Patch] Amiodarone [Cordarone] 100 mg PO HS@2200 05/26/18 05/10/20 History Rivaroxaban [Xarelto] 7.5 mg PO DAILY@1000 06/07/18 05/10/20 History metFORMIN HCL 500 mg PO AC-SUPPER 06/07/18 05/10/20 History Carvedilol [Coreg] 25 mg PO BID@1000,2200 01/02/19 05/10/20 History Levothyroxine Sodium [Synthroid] 25 mcg PO DAILY@0900 03/31/20 05/10/20 History Tacrolimus [Envarsus Xr] 1.5 mg PO DAILY@1000 03/31/20 05/10/20 History Lidocaine 5% Patch [Lidoderm 5% 1 patch TOPICAL DAILY #3 patch 04/02/20 05/10/20 Rx Patch] HYDROcodone/APAP 10-325MG [[place] 0.5 - 1 tab PO DAILY PRN 05/10/20 05/10/20 History 10-325] Allergies Allergy/AdvReac Type Severity Reaction Status Date / Time ferumoxytol [From [employer]system[employer]] Allergy Anaphylaxis Verified 05/10/20 15:31 Physical Exam Vitals: Vital Signs Temp Pulse Pulse Resp BP BP Pulse Ox 05/12/20 18:05 75 117/72 05/12/20 17:16 56 L 149/81 05/12/20 17:00 61 137/75 92 L 05/12/20 16:30 58 L 176/80 91 L 05/12/20 16:15 57 L 157/82 91 L 05/12/20 16:03 56 L 150/82 91 L 05/12/20 15:41 53 L 105/64 94 L 05/12/20 08:30 98.2 F 60 18 153/77 93 L 05/12/20 02:20 97.8 F 59 L 20 154/74 97 Intake and Output 05/12/20 05/12/20 05/12/20 06:59 14:59 22:59 Intake Total 100 Output Total 0 Balance 0 100 Intake: IV 100 Output: Urine 0 Other: Voiding Method Urinal Urinal # Voids 0 1 - Constitutional General appearance: no acute distress - EENT Eyes: EOMI, PERRLA ENT: hearing grossly normal, normal oropharynx - Neck Neck: no lymphadenopathy Thyroid: bilateral: normal size - Respiratory Respiratory: bilateral: CTA - Cardiovascular Rhythm: irregularly irregular Heart sounds: normal: S1, S2 - Gastrointestinal General gastrointestinal: normal bowel sounds, soft - Integumentary Integumentary: normal - Neurologic Neurologic: CNII-XII intact, focal deficits - Musculoskeletal Musculoskeletal: generalized weakness, strength equal bilaterally - Psychiatric Psychiatric: A&O x's 3, appropriate affect Results CBC & Chem 7: 05/12/20 09:22 05/11/20 07:19 Labs: Abnormal Lab Results - Last 24 Hours (Table) 05/11/20 05/12/20 05/12/20 Range/Units 21:15 06:05 09:22 RBC 2.83 L (4.30-5.90) m/uL Hgb 9.0 L (13.0-17.5) gm/dL Hct 27.1 L (39.0-53.0) % RDW 16.3 H (11.5-15.5) % POC Glucose (mg/dL) 120 H 117 H (75-99) mg/dL 05/12/20 05/12/20 Range/Units 12:33 17:37 RBC (4.30-5.90) m/uL Hgb (13.0-17.5) gm/dL Hct (39.0-53.0) % RDW (11.5-15.5) % POC Glucose (mg/dL) 122 H 147 H (75-99) mg/dL Comments: Echo report reviewed Chest x-ray: report reviewed CT scan - chest: report reviewed CT scan - pelvis: report reviewed US - abdomen: report reviewed Assessment and Plan (1) Iron deficiency anemia Narrative/Plan: This is a chronic issue for this patient wasn't back to at least 2 years. Labs this admission confirmed severe iron deficiency with ferritin of only 13.4. The patient has been on oral iron once a day with good tolerance. He states that IV and was attempted about 2 years ago, but was not repeated because of an aphylaxis at that time. - Agree with repeat GI workup to rule out GI source which is most likely - If workup is negative then most likely source is small bowel AVMs related blood loss, exacerbated by use of anticoagulant plus antiplatelet therapy. Patient was advised that in that case management would essentially be aggressive iron replacement. He was advised that another parenteral iron supplementation can be used, with premedication. That would be very reasonable intervention as different preparations are highly unlikely to be cross-reactive. - The patient requires anticoagulation because of his history of A. fib. His last stent however was more than 6 months ago. 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 - Continue to monitor in the meantime, and transfuse as needed to keep he moglobin greater than 7 Current Visit: Yes Status: Acute Code(s): D50.9 - IRON DEFICIENCY ANEMIA, UNSPECIFIED SNOMED Code(s): 83999000 Plan: Defer to the admitting service and other consultants for management of his other medical problems
[2020-05-13 06:08] LABS: Glucose,Whole Blood 123 mg/dL (75-99)
[2020-05-13] MEDS: INSULIN ASPART (NovoLOG) 100 UNIT/ML VIAL SQ SCH (06:38)
[2020-05-13] MEDS: PANTOPRAZOLE 40 MG TABLET PO SCH (06:39)
[2020-05-13 08:21] VITALS: BP 136/64; PULSE 58; RESP 20; TEMP 96.6
--- NOTE | 2020-05-13 08:39 | P.DS ---
Providers Date of admission: 05/11/20 11:12 Expected date of discharge: 05/13/20 Attending physician: Erlin Jacobo Consults: 05/10/20 15:48 Consult Physician Routine Consulting Provider: [facility] Consult Reason/Comments: Syncope Do you want consulting provider notified?: Yes 05/11/20 08:02 Consult Physician Routine Consulting Provider: Stone Veronica Reason/Comments: GIB, chronic? Do you want consulting provider notified?: Yes Primary care physician: [facility] Course: HISTORY OF PRESENT ILLNESS This is a 70-year-old male patient of Dr. Carpenter with medical history significant for persistent atrial fibrillation status post cardioversion, COPD, diabetes mellitus, GERD, GI bleed, hyperlipidemia, hypertension, liver disease with liver transplant in 2005, obstructive sleep apnea, hypothyroidism, and alpha 1 antitrypsin deficiency. Significant coronary artery disease history of CABG 2 with multiple stenting and remains on Plavix. The patient states that Dr. Carpenter had scheduled him for 2 units packed RBCs to be done on Monday as an outpatient. At home, patient states he was walking from the kitchen to the back door and that the last thing he remembered. He fainted it happened abruptly did not have any sensation prior to. He states he has had fainting-type sensation for a long period of time and this is the worst episode. His found him on the floor and called 911. Patient denies having any nausea vomiting or recent diarrhea. He states he has dark stools which she exits from iron. He denies any COVID-19 exposure. Patient was brought into [facility] for evaluation. WBC 11.9, hemoglobin 7.3 and patient was transfused 2 units packed RBCs with repeat hemoglobin of 8.7. Platelet count 266. Sodium 140, potassium 4.4, chloride 108, CO2 22, BUN 36 and creatinine 1.48. Baseline creatinine is 1.2. Repeat this morning is BUN 28 creatinine 1.23. Blood sugar 116. Liver function tests were normal. ProBNP 1670. Troponin negative. TSH 2.050. Chest x-ray reveals chronic infiltrate and pleural thickening of the left lung base unchanged. Mild congestive heart failure possible. Cardiomegaly probably not changed. EKG was a sinus rhythm with right bundle branch block and left posterior fascicular block, T-wave inversions in the precordial leads. Patient was placed in the observation unit and cardiology consult requested, GI consult also requested. 05/12: The patient has been seen by cardiology. Echocardiogram reveals EF of 50-55% with mild concentric left ventricular hypertrophy, mild aortic valve sclerosis, mild mitral regurgitation, moderate tricuspid regurgitation, moderate pulmonary hypertension. Repeat troponin was normal. Hemoglobin today of 9, stool for occult blood positive. Patient has been seen by GI and is scheduled for EGD today. If following EGD, GI approves discharge, patient will be discharged home later today. He has been afebrile, heart rate 59, blood pressure 154/74, pulse ox 97% on 2 L nasal cannula. Consult with Dr. Burrows added. 05/13: Patient underwent EGD yesterday that showed no active bleeding. Moderate gastritis. Pyloric deformity. Biopsies taken from the duodenum and antrum and body. Patient was cleared to resume anticoagulation therapy. Xarelto was resumed and patient has been continued on Plavix. Patient has been seen by oncology with plan to review his records from 2018. 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 Patient apparently had an anaphylactic reaction to IV iron 2 years ago. Patient will be discharged home today in stable condition. ASSESSMENT AND PLAN 1. Syncopal episode. 2. Chronic anemia of unclear etiology, possible GI bleed. 3. Persistent atrial fibrillation status post cardioversion. 4. COPD, stable without exacerbation. 5. Diabetes mellitus type 2. 6. Hypertension. 7. Liver disease with liver failure/cirrhosis due to alpha-1 antitrypsin deficiency status post transplant. 8. Alpha 1 antitrypsin deficiency. 9. Coronary artery disease with previous CABG and multiple stenting. 10. Hypothyroidism. 11. Obstructive sleep apnea, CPAP. DISCHARGE PLAN Home Impression and plan of care have been directed as dictated by the signing physician. Isa Morgan nurse practitioner acting as scribe for signing physician. Patient Condition at Discharge: Good Plan - Discharge Summary New Discharge Prescriptions: New Pantoprazole [Protonix] 40 mg PO AC-BID #60 tablet. Continue Clopidogrel [Plavix] 75 mg PO HS@2200 Atorvastatin [Lipitor] 10 mg PO HS@2200 Isosorbide Mononitrate [Imdur] 120 mg PO BID@1000,2200 Nitroglycerin 0.4MG/Hr Patch [Nitro-Dur 0.4MG/Hr Patch] 1 patch TRANSDERM DAILY PRN PRN Reason: Chest Pain Amiodarone [Cordarone] 100 mg PO HS@2200 Rivaroxaban [Xarelto] 7.5 mg PO DAILY@1000 metFORMIN HCL 500 mg PO AC-SUPPER Carvedilol [Coreg] 25 mg PO BID@1000,2200 Levothyroxine Sodium [Synthroid] 25 mcg PO DAILY@0900 Tacrolimus [Envarsus Xr] 1.5 mg PO DAILY@1000 Lidocaine 5% Patch [Lidoderm 5% Patch] 1 patch TOPICAL DAILY #3 patch HYDROcodone/APAP 10-325MG [[place] 10-325] 0.5 - 1 tab PO DAILY PRN PRN Reason: Pain Discontinued Omeprazole [PriLOSEC] 20 mg PO BID@1000,2199 Discharge Medication List Atorvastatin [Lipitor] 10 mg PO HS@219908/30/16 [History] Clopidogrel [Plavix] 75 mg PO HS@219908/30/16 [History] Isosorbide Mononitrate [Imdur] 120 mg PO BID@1000,219908/30/16 [History] Nitroglycerin 0.4MG/Hr Patch [Nitro-Dur 0.4MG/Hr Patch] 1 patch TRANSDERM DAILY PRN 04/05/18 [History] Amiodarone [Cordarone] 100 mg PO HS@219905/26/18 [History] Rivaroxaban [Xarelto] 7.5 mg PO DAILY@1000 06/07/18 [History] metFORMIN HCL 500 mg PO AC-SUPPER 06/07/18 [History] Carvedilol [Coreg] 25 mg PO BID@1000,2200 01/02/19 [History] Levothyroxine Sodium [Synthroid] 25 mcg PO DAILY@0900 03/31/20 [History] Tacrolimus [Envarsus Xr] 1.5 mg PO DAILY@1000 03/31/20 [History] Lidocaine 5% Patch [Lidoderm 5% Patch] 1 patch TOPICAL DAILY #3 patch 04/02/20 [Rx] HYDROcodone/APAP 10-325MG [[place] 10-325] 0.5 - 1 tab PO DAILY PRN 05/10/20 [History] Pantoprazole [Protonix] 40 mg PO AC-BID #60 tablet. 05/13/20 [Rx] Follow up Appointment(s)/Referral(s): Richi Le DO [Primary Care Provider] - 05/18/20 9:15 am Stone Veronica MD [STAFF PHYSICIAN] - 05/20/20 8:45 am (with Davina Olivarez) Patient Instructions/Handouts: Gastritis (DC), Iron Deficiency Anemia (DC)
[2020-05-13] MEDS: carvediloL 12.5 MG TAB PO SCH (09:10)
[2020-05-13] MEDS: LIDOCAINE 5% PATCH TOPICAL SCH (09:10)
[2020-05-13] MEDS: LEVOTHYROXINE 25 MCG TAB PO SCH (09:10)
[2020-05-13] MEDS: ISOSORBIDE MONONITRATE ER 60 MG TAB.ER.24H PO SCH (09:10)
[2020-05-13] MEDS: TACROLIMUS 0.75 MG PO SCH (09:12)
== END 2020-05-13 10:51 | disposition home or self-care (01) | DRG 378 ==
LOC: EC 13:16 → 3NCARDOBS 16:07 → OBSVTOIN 05-11 11:12
PROVIDERS: ADMIT Internal Medicine Geriatric Medicine; ATTEND Internal Medicine Geriatric Medicine
PROC: 30233N1 Transfusion of Nonautologous Red Blood Cells into Peripheral Vein, Percutaneous Approach (ICD-10-PCS; 2020-05-10)
PROC: 0DB98ZX Excision of Duodenum, Via Natural or Artificial Opening Endoscopic, Diagnostic (ICD-10-PCS; principal; 2020-05-12 07:30)
PROC: 0DB78ZX Excision of Stomach, Pylorus, Via Natural or Artificial Opening Endoscopic, Diagnostic (ICD-10-PCS; principal; 2020-05-12 07:30)
PROC: 0DB68ZX Excision of Stomach, Via Natural or Artificial Opening Endoscopic, Diagnostic (ICD-10-PCS; principal; 2020-05-12 07:30)
DX: K92.1 Melena (principal); I45.2 Bifascicular block; I48.19 Other persistent atrial fibrillation; Z94.4 Liver transplant status; D50.9 Iron deficiency anemia, unspecified; E03.9 Hypothyroidism, unspecified; E11.9 Type 2 diabetes mellitus without complications; E78.5 Hyperlipidemia, unspecified; E86.0 Dehydration; E88.01 Alpha-1-antitrypsin deficiency; G47.33 Obstructive sleep apnea (adult) (pediatric); Z99.89 Dependence on other enabling machines and devices; I08.3 Combined rheumatic disorders of mitral, aortic and tricuspid valves; I11.0 Hypertensive heart disease with heart failure; I25.10 Atherosclerotic heart disease of native coronary artery without angina pectoris; I25.2 Old myocardial infarction; I27.20 Pulmonary hypertension, unspecified; I50.9 Heart failure, unspecified; J44.9 Chronic obstructive pulmonary disease, unspecified; K21.9 Gastro-esophageal reflux disease without esophagitis; K29.70 Gastritis, unspecified, without bleeding; K57.90 Diverticulosis of intestine, part unspecified, without perforation or abscess without bleeding; Z79.01 Long term (current) use of anticoagulants; Z79.02 Long term (current) use of antithrombotics/antiplatelets; Z79.84 Long term (current) use of oral hypoglycemic drugs; Z79.890 Hormone replacement therapy; Z79.899 Other long term (current) drug therapy; Z80.52 Family history of malignant neoplasm of bladder; Z82.49 Family history of ischemic heart disease and other diseases of the circulatory system; Z85.51 Personal history of malignant neoplasm of bladder; Z87.892 Personal history of anaphylaxis; Z95.1 Presence of aortocoronary bypass graft; Z95.5 Presence of coronary angioplasty implant and graft; Z80.41 Family history of malignant neoplasm of ovary; Q40.3 Congenital malformation of stomach, unspecified; Z88.8 Allergy status to other drugs, medicaments and biological substances
CPT/HCPCS: 36415; 43239; 71045; 80053; 82272; 82607; 82728; 82746; 83540; 83550; 83880; 84443; 84484; 85025; 85027; 85045; 85610; 85730; 86850; 86900; 86901; 86920; 88305; 93005; 93306; 99285

== ENCOUNTER 2020-11-04 12:59 | Day surgery (SDC) | payer MEDICARE, BC ==
[2020-10-30 15:47] VITALS: BMI 29.4
[~2020-11-04 12:59] MED LIST changes: -DEXAMETHASONE SOD PHOSPHATE 10 MG/ML 1 ML VIAL IV ONE; -HYDROmorphone 1 MG/ML 1 ML SYRINGE IVP PRN; +LIDOCAINE 1% (10MG/ML) FOR IV START INTRADERMA PRN; -LIDOCAINE 1% 20 ML VIAL (10MG/ML) FOR IV START INTRADERMA PRN; -MIDAZOLAM 2 MG/2 ML VIAL IV PRN; +MOXIFLOXACIN HCL 0.5% DROPS 3 ML BTL OP PRN; -ONDANSETRON 4 MG/2 ML VIAL IVP ONE; -SCOPOLAMINE 1.5MG/72HR PATCH TRANSDERM ONE; +TETRACAINE 0.5% OPHTH (PF) DROPS 4 ML BTL OP PRN; +TIMOLOL 0.5% OPHTH DROPS 5 ML BTL OP PRN; -ceFAZolin 1,000 MG in DEXTROSE/WATER 1 50ML.BAG IV ONE
[2020-11-04 13:37] LABS: Glucose,Whole Blood 109 mg/dL (75-99)
[2020-11-04] MEDS: CYCLOPENTOLATE 1% OPHTH SOLN 2 ML BTL OP PRN ×3 (13:38→13:50)
[2020-11-04 13:39] VITALS: TEMP 97.3
[2020-11-04] MEDS: PHENYLEPHRINE 2.5% OPHTH DRP 2ML OP PRN ×3 (13:41→13:53)
[2020-11-04] MEDS ORDERED: fentaNYL (PF) 50 MCG/ML 2 ML AMP ONE (14:26)
[2020-11-04] MEDS ORDERED: MIDAZOLAM 2 MG/2 ML VIAL ONE (14:26)
[2020-11-04] MEDS ORDERED: HYALURONATE SODIUM INTRAOCULAR 1 EACH SYRINGE (12MG/ML) INTRAOCULA ONE (14:41)
[2020-11-04] MEDS ORDERED: EPINEPHrine (PF) 0.3 ML in BALANCED SALT IRRIG SOLN COMB2 500 ML IRRIGATION ONE (14:45)
[2020-11-04] MEDS ORDERED: BALANCED SALT IRRIG SOLN COMB2 15 ML IRRIG.SOLN IRRIGATION ONE (14:49)
[2020-11-04] MEDS ORDERED: LIDOCAINE 1% (PF) 10MG/ML VIAL MISCELLANE ONE (14:50)
--- NOTE | 2020-11-04 14:53 | P.OP ---
Date of Procedure: 11/04/20 Preoperative Diagnosis: NS & CS & PSC Postoperative Diagnosis: same Procedure(s) Performed: PIOL, OS Implants: MX60E 20.00 Anesthesia: MAC Surgeon: Domingo Resendiz Pathology: none sent Condition: stable Disposition: same day Indications for Procedure: blurry vision Operative Findings: no complications
[2020-11-04 15:07] VITALS: RESP 16
[2020-11-04 15:41] VITALS: BP 132/78; PULSE 55
--- NOTE | 2020-11-04 20:25 | OP ---
OPERATIVE REPORT DATE OF SURGERY: 11/04/2020 PROCEDURE: Phacoemulsification of cataract and intraocular lens implant of the left eye. PREOPERATIVE DIAGNOSIS: Nuclear sclerosis, cortical sclerosis, posterior subcapsular cataract. POSTOPERATIVE DIAGNOSIS: Nuclear sclerosis, cortical sclerosis, posterior subcapsular cataract. ESTIMATED BLOOD LOSS: Zero. SPECIMEN TAKEN: None. NARRATIVE: After obtaining the appropriate consent, the patient was brought to the operating room. There the patient was placed under cardiac monitoring and prepped and draped in the usual sterile manner. At the 5 o'clock position a 15-degree super sharp blade was used to create a paracentesis followed by instillation of 1% Xylocaine MPF 50:50 mix with BSS into the anterior chamber. This was followed by Amvisc to stabilize the anterior chamber. At the 3 o'clock position a self-sealing corneal flap incision was created using 2.8 mm bib keratome. A cystotome was used to initiate a continuous tear capsulorrhexis which was completed with the Utrata forceps. A Binkhorst cannula was used to hydrodissect the lens nucleus followed by hydrodelineation. Phacoemulsification of the lens was performed utilizing phacochop in 10.7 seconds at 17% power. The remaining cortical material was removed using the irrigation aspiration mode followed by additional 1% Xylocaine MPF into the anterior chamber followed by viscoelastic to stabilize the capsular bag. A [employer]ch [employer] Lomb MX60E 20.0 diopters posterior chamber lens was placed into the capsular bag without difficulty. The remaining viscoelastic material was removed from the anterior chamber with the irrigation/aspiration. Balanced salt solution was used to normalize the intraocular pressure. The incision was checked for watertight integrity. The patient then received two drops of 0.5% timolol followed by two drops Vigamox, was lightly patched and shielded in the usual manner. There were no complications from the procedure. The patient tolerated the procedure well and was returned to Recovery in good condition. MMODL / IJN: [id number] /
== END 2020-11-04 15:54 | disposition home or self-care (01) ==
LOC: OR 12:59
PROVIDERS: ATTEND Ophthalmology
DX: I51.9 Heart disease, unspecified (principal); E11.36 Type 2 diabetes mellitus with diabetic cataract; H25.12 Age-related nuclear cataract, left eye; H25.012 Cortical age-related cataract, left eye; H25.042 Posterior subcapsular polar age-related cataract, left eye; H25.13 Age-related nuclear cataract, bilateral; H52.223 Regular astigmatism, bilateral; H52.4 Presbyopia; Z98.41 Cataract extraction status, right eye; Z96.1 Presence of intraocular lens; I25.10 Atherosclerotic heart disease of native coronary artery without angina pectoris; I10 Essential (primary) hypertension; Z94.4 Liver transplant status; E03.9 Hypothyroidism, unspecified; E78.5 Hyperlipidemia, unspecified; I48.91 Unspecified atrial fibrillation; J44.9 Chronic obstructive pulmonary disease, unspecified; G47.33 Obstructive sleep apnea (adult) (pediatric); Z87.19 Personal history of other diseases of the digestive system; K21.9 Gastro-esophageal reflux disease without esophagitis; D64.9 Anemia, unspecified; Z86.73 Personal history of transient ischemic attack (TIA), and cerebral infarction without residual deficits; H91.90 Unspecified hearing loss, unspecified ear; Z85.51 Personal history of malignant neoplasm of bladder; J30.2 Other seasonal allergic rhinitis; Z98.890 Other specified postprocedural states; Z95.1 Presence of aortocoronary bypass graft; Z82.49 Family history of ischemic heart disease and other diseases of the circulatory system; Z83.49 Family history of other endocrine, nutritional and metabolic diseases; Z80.9 Family history of malignant neoplasm, unspecified; Z79.01 Long term (current) use of anticoagulants; Z79.84 Long term (current) use of oral hypoglycemic drugs; Z79.02 Long term (current) use of antithrombotics/antiplatelets; Z79.891 Long term (current) use of opiate analgesic; Z79.890 Hormone replacement therapy; Z79.899 Other long term (current) drug therapy; Z88.8 Allergy status to other drugs, medicaments and biological substances
CPT/HCPCS: 66984; C1780; J2250; J0171; J3010; J2001

== ENCOUNTER → 2021-10-27 | Outpatient (CLI) | payer MEDICARE, BC ==
--- NOTE | 2021-10-27 12:15 | CA ---
Transthoracic Echo Report Name: Darren Cowan Age: 71 Gender: M : 1950 Exam Date: 10/27/2021 11:32 Exam Location: [place] [facility] Ht (in): 70 Wt (lb): 201 Ordering Physician: Pete Burrows MD Attending/Referring Phys: Technical Recruiter Venecia Marie RDCS Procedure CPT: Indications: Z01.818 CHEMO C43.9 MELANOMA Cardiac Hx: Hx of CABG, Hx of stennts Technical Quality: Good Contrast 1: Total Dose (mL): Contrast 2: Total Dose (mL): MEASUREMENTS (Male / Female) Normal Values 2D ECHO LV Diastolic Diameter PLAX 5.5 cm 4.2 - 5.9 / 3.9 - 5.3 cm LV Systolic Diameter PLAX 3.8 cm IVS Diastolic Thickness 1.2 cm 0.6 - 1.0 / 0.6 - 0.9 cm LVPW Diastolic Thickness 1.2 cm 0.6 - 1.0 / 0.6 - 0.9 cm LV Relative Wall Thickness 0.4 RV Internal Dim ED PLAX 3.5 cm LA Systolic Diameter LX 4.8 cm 3.0 - 4.0 / 2.7 - 3.8 cm LA Volume 85.6 cm 18 - 58 / 22 - 52 cm M-MODE Aortic Root Diameter MM 3.4 cm MV E Point Septal Separation 0.8 cm AV Cusp Separation MM 2.1 cm DOPPLER AV Peak Velocity 121.7 cm/s AV Peak Gradient 5.9 mmHg MV Area PHT 3.2 cm Mitral E Point Velocity 140.2 cm/s Mitral A Point Velocity 65.3 cm/s Mitral E to A Ratio 2.1 MV Deceleration Time 233.7 ms MV E' Velocity 8.7 cm/s Mitral E to MV E' Ratio 16.2 TR Peak Velocity 275.0 cm/s TR Peak Gradient 30.2 mmHg Right Ventricular Systolic Press 34.3 mmHg FINDINGS Left Ventricle Left ventricular ejection fraction is estimated at 55-60 %. Normal Left ventricular size, systolic function with no obvious regional wall motion abnormalities. Borderline left ventricular hypertrophy. Right Ventricle Mild right ventricular dilatation. Mild pulmonary hypertension. Right Atrium Normal right atrial size. Left Atrium Moderately increased left atrial diameter. Severely increased left atrial volume. Mildly increased left atrial area. Mitral Valve Mitral valve thickened. Mitral annular calcification. Mild mitral regurgitation. Aortic Valve Aortic valve sclerosis. Tricuspid Valve Mild tricuspid regurgitation. Pulmonic Valve Trace pulmonic regurgitation. Pericardium Normal pericardium. Aorta Normal size aortic root and proximal ascending aorta. CONCLUSIONS Normal LV size and systolic function. Mild mitral annular calcification and aortic sclerosis. No significant abnormality on Doppler. No pericardial effusion Previewed by: Dr. Jeffrey Peguero MD (Electronically Signed) Final Date: 27 October 2021 12:14
--- NOTE | 2021-10-27 23:26 | CT ---
EXAMINATION TYPE: CT chest wo con DATE OF EXAM: 10/27/2021 COMPARISON: CT chest 03/31/2020 HISTORY: Shortness of breath CT DLP: 573 mGycm. Automated Exposure Control for Dose Reduction was Utilized. TECHNIQUE: Multiple contiguous axial CT images of the chest were obtained without the administration of intravenous contrast. 2-D sagittal and coronal reformatted images were obtained. FINDINGS: Mild cardiomegaly. No pericardial effusion. Severe coronary artery calcifications. Moderate scattered atherosclerotic calcifications of the thoracic aorta without aneurysm. Main pulmonary artery is of n ormal caliber. Sternotomy wires and mediastinal clips are seen. No mediastinal or axillary lymphadeno will. Central airways are normal course and caliber. There is chronic interstitial changes of the bilateral lung bases appear unchanged from prior. No dense focal consolidation, pleural effusion, or pneumotho rax. No suspicious pulmonary nodules. Limited evaluation of the upper abdomen appears unremarkable. Osseous structures appear intact. Mild multilevel degenerative changes of the thoracic spine. Stable moderate compression deformity of the T 8 vertebral body. IMPRESSION: 1. No focal consolidation, pleural effusion, or pneumothorax. 2. Mild cardiomegaly.
== END | disposition home or self-care (01) ==
LOC: RADCTMAIN 11:05
PROVIDERS: ATTEND Internal Medicine Hematology & Oncology
DX: Z01.818 Encounter for other preprocedural examination (principal); C43.9 Malignant melanoma of skin, unspecified; I08.0 Rheumatic disorders of both mitral and aortic valves
CPT/HCPCS: 71250; 93306

== ENCOUNTER → 2022-09-19 | Outpatient (CLI) | payer MEDICARE, BC ==
--- NOTE | 2022-09-19 13:55 | XR ---
EXAMINATION TYPE: XR chest 2V DATE OF EXAM: 09/19/2022 COMPARISON: Chest CT October 27, 2021 HISTORY: Shortness of breath TECHNIQUE: Frontal and lateral views of the chest are obtained. FINDINGS: Overlying sternal wires and mediastinal clips are redemonstrated. There is chronic parenchy mal changes with basilar fibrosis redemonstrated. There is no suspicious new focal air space opacity, pleural effusion, or pneumothorax seen. There is cardiomegaly redemonstrated. The osseous structur es are intact. IMPRESSION: Chronic changes and cardiomegaly without acute pulmonary process.
== END | disposition home or self-care (01) ==
LOC: RADXRMAIN 13:24
PROVIDERS: ATTEND Family Medicine
DX: R06.02 Shortness of breath (principal); I51.7 Cardiomegaly
CPT/HCPCS: 71046

== ENCOUNTER → 2023-12-05 | Outpatient (CLI) | payer MEDICARE, BC ==
--- NOTE | 2023-12-05 17:40 | CA ---
Transthoracic Echo Report Name: Darren Cowan Age: 73 Gender: M : 1950 Exam Date: 12/05/2023 16:07 Exam Location: [facility] Ht (in): 70 Wt (lb): 195 Ordering Physician: Richi Le DO Attending/Referring Phys: Richi Le DO Consumer Safety Officer Mila James RDCS Procedure CPT: Indications: I48.21 AFIB Cardiac Hx: Technical Quality: Fair Contrast 1: Total Dose (mL): Contrast 2: Total Dose (mL): MEASUREMENTS (Male / Female) Normal Values 2D ECHO LV Diastolic Diameter PLAX 4.9 cm 4.2 - 5.9 / 3.9 - 5.3 cm LV Systolic Diameter PLAX 3.9 cm IVS Diastolic Thickness 1.4 cm 0.6 - 1.0 / 0.6 - 0.9 cm LVPW Diastolic Thickness 1.4 cm 0.6 - 1.0 / 0.6 - 0.9 cm LV Relative Wall Thickness 0.6 RV Internal Dim ED PLAX 3.1 cm LA Systolic Diameter LX 4.8 cm 3.0 - 4.0 / 2.7 - 3.8 cm LV Diastolic Volume MOD BP 58.2 cm??? 67 - 155 / 56 - 104 cm??? LV Systolic Volume MOD BP 36.2 cm??? 22 - 58 / 19 - 49 cm??? LV Ejection Fraction MOD BP 37.7 % >= 55 % LV Diastolic Volume MOD 4C 49.1 cm??? LV Systolic Volume MOD 4C 23.4 cm??? LV Ejection Fraction MOD 4C 52.4 % LV Diastolic Length 4C 6.1 cm LV Systolic Length 4C 5.9 cm LV Diastolic Volume MOD 2C 61.4 cm??? LV Systolic Volume MOD 2C 57.6 cm??? LV Ejection Fraction MOD 2C 6.3 % LV Diastolic Length 2C 7.0 cm LV Systolic Length 2C 6.9 cm LA Volume 96.6 cm??? 18 - 58 / 22 - 52 cm??? LA Volume Index 45.8 cm???/m??? 16 - 28 cm???/m??? M-MODE Aortic Root Diameter MM 2.9 cm LA Systolic Diameter MM 5.0 cm LA Ao Ratio MM 1.7 AV Cusp Separation MM 2.0 cm DOPPLER TR Peak Velocity 292.0 cm/s TR Peak Gradient 34.1 mmHg Right Atrial Pressure 15.0 mmHg Pulmonary Artery Systolic Pressu 49.1 mmHg Right Ventricular Systolic Press 49.1 mmHg FINDINGS Left Ventricle Left ventricular ejection fraction is estimated at 45-50 %. Moderately increased septal wall thickness. Reduced global left ventricular systolic function. Left ventricular cavity size normal. Right Ventricle Moderate right ventricular dilatation. Moderate pulmonary hypertension. Right Atrium Severe right atrial dilatation. Left Atrium Moderately increased left atrial diameter. Severely increased left atrial volume. Mildly increased left atrial area. Mitral Valve Structurally normal mitral valve. Mdfh-ss-askhrece mitral regurgitation. Aortic Valve Trileaflet aortic valve. No aortic stenosis. No aortic regurgitation. Tricuspid Valve Structurally normal tricuspid valve. Moderate tricuspid regurgitation. Pulmonic Valve Structurally normal pulmonic valve. Trace pulmonic regurgitation. Pericardium No pericardial or pleural effusion. Aorta Normal size aortic root and proximal ascending aorta. CONCLUSIONS Concentric left ventricular hypertrophy with diffuse global hypokinesis with mild to moderate LV dysfunction with an ejection fraction of 45% Moderate pulmonary hypertension Dilated left atrium Mild to moderate mitral regurgitation Moderate tricuspid regurgitation Previewed by: Dr. Mars Jiménez MD (Electronically Signed) Final Date: 05 December 2023 17:39
== END | disposition home or self-care (01) ==
LOC: RADECHMAIN 16:04
PROVIDERS: ATTEND Family Medicine
DX: I48.21 Permanent atrial fibrillation (principal); I27.20 Pulmonary hypertension, unspecified; I08.1 Rheumatic disorders of both mitral and tricuspid valves
CPT/HCPCS: 93306

== ENCOUNTER 2024-01-19 10:10 | Day surgery (SDC) | payer MEDICARE, BC ==
[~2024-01-19 10:10] MED LIST changes: +ALPRAZolam 0.25 MG TAB PO PRN; +ASPIRIN 325 MG TAB PO STA; +HEPARIN SODIUM,PORCINE (1 ML) 2,500 UNIT in SODIUM CHLORIDE 0.9% 250 ML IRRIGATION PRN; +HEPARIN SODIUM,PORCINE 10,000 UNIT in SODIUM CHLORIDE 0.9% 1,000 ML IRRIGATION PRN; -LACTATED RINGERS 1,000 ML IV SCH; -LIDOCAINE 1% (10MG/ML) FOR IV START INTRADERMA PRN; -MOXIFLOXACIN HCL 0.5% DROPS 3 ML BTL OP PRN; +NITROGLYCERIN SL TABS 0.4 MG TAB SUBLINGUAL PRN; -TETRACAINE 0.5% OPHTH (PF) DROPS 4 ML BTL OP PRN; -TIMOLOL 0.5% OPHTH DROPS 5 ML BTL OP PRN
[2024-01-19 10:43] LABS: Glucose,Whole Blood 134 mg/dL (70-110)
[2024-01-19 10:56] VITALS: RESP 16; TEMP 96.3
[2024-01-19] MEDS: ALPRAZolam 0.5 MG TAB PO PRN (11:10)
[2024-01-19] MEDS: SODIUM CHLORIDE 0.9% 1,000 ML in EMPTY BAG 1 BAG IV SCH (11:12)
[2024-01-19] MEDS: SODIUM CHLORIDE 0.9% 1,000 ML IV ONE (11:12)
[2024-01-19] MEDS ORDERED: fentaNYL (PF) 50 MCG/ML 2 ML AMP ONE (12:47)
[2024-01-19] MEDS ORDERED: LIDOCAINE 1% INJ 10MG/ML (20 ML MDV) ONE (12:48)
[2024-01-19] MEDS: fentaNYL (PF) 50 MCG/ML 2 ML AMP IVP ONE (13:02)
[2024-01-19] MEDS: MIDAZOLAM 2 MG/2 ML VIAL IVP ONE (13:02)
[2024-01-19] MEDS: LIDOCAINE 1% INJ 10MG/ML (20 ML MDV) SQ ONE (13:05)
[2024-01-19 13:31] LABS: O2 Sat Blood Gas 55.5 %
[2024-01-19 13:32] LABS: O2 Sat Blood Gas 89.8 %
[2024-01-19 13:33] LABS: O2 Sat Blood Gas 55.7 %
[2024-01-19] MEDS: IOPAMIDOL-370 200ML BTL INJ ONE (13:50)
--- NOTE | 2024-01-19 14:30 | P.CARDCATH ---
Description of Procedure: PROCEDURES PERFORMED: Left and right heart catheterization, bilateral coronary angiography, ultrasound guided arterial access, RODRIGUEZ to LAD angiography INDICATION: CAD with history of CABG CONSENT:I have discussed the risks, benefits and alternative therapies for the above-mentioned procedure and for both sedation/analgesia as well as necessary blood product administration, if indicated, as they pertain to this patient. The patient has indicated understanding and acceptance of the risks and procedures discussed. PROCEDURE: After the risks, benefits and alternatives of the above mentioned procedure explained in detail with the patient, informed consent was obtained. Patient was taken to the catheterization lab and prepped and draped in usual fashion. Ultrasound guidance was used to assess for arterial access. 1% lidocaine was used to anesthetize the right femoral artery. A 6-Trinidadian sheath was placed in the right femoral artery and vein using modified Seldinger technique and ultrasound guidance. Left coronary angiography was performed with a 6-Trinidadian JL 4.0 catheter and right coronary angiography was performed with a 6-Trinidadian FR4 catheter in various views. A 6-Trinidadian FL4 catheter was inserted into the left ventricle and pressure measurements were obtained. RODRIGUEZ to LAD angiography was performed with 6-Trinidadian catheter. A 6-Trinidadian [place] catheter was inserted in the right atrium, right ventricle, pulmonary artery and pulmonary A wedge positions with pressure measurements and oxygen saturations obtained. Thermodilution was performed. The right femoral sheath was removed and a Angioseal was placed. The venous sheath was removed and manual pressure held with hemostasis achieved.The patient tolerated the procedure well. Patient was transported back to the post catheterization holding area in stable condition. Conscious Sedation: Patient was monitored under the direct supervision of myself for conscious sedation using Versed and fentanyl for a total duration of 46 minutes HEMODYNAMICS: aorta: 113/68 LV: 93/1, LVEDP 7 PCWP: 11 PA: 38/24 RV: 46/1 RA: 10 cardiac output by Manny: 5.7 L/m Cardiac index by Manny: 3.1 L/m/m Cardiac output by thermodilution: 5.1 L/m Cardiac index by Manny: 2.8 L/m/m Right femoral oxygen saturation: 90% Pulmonary artery oxygen saturation: 56% Right atrial oxygen saturation: 56% SELECTIVE CORONARY ARTERIOGRAPHY: LEFT MAIN: The left main is a large caliber vessel which bifurcates into the LAD and circumflex. There is 30% distal left main stenosis.. LEFT ANTERIOR DESCENDING CORONARY ARTERY: LAD is a large caliber vessel which wraps around to the apex. There is 100% proximal LAD stenosis with more distal LAD stents. This does give off 1 septal central supply worker which have some collaterals to the RCA. LEFT CIRCUMFLEX CORONARY ARTERY: Left circumflex is a moderate caliber vessel with 100% stenosis. RIGHT CORONARY ARTERY: The right coronary artery is a large caliber vessel which gives off a PDA and PLV branch and is the dominant vessel. There is 100% proximal RCA stenosis. There is a marginal branch that does give some collaterals to the left system and has a 90% stenosis RODRIGUEZ to LAD: Widely patent. There is 40-50% stenosis just after the RODRIGUEZ/LAD takeoff FINAL IMPRESSION: 1. Severe CAD as described above including 100% proximal LAD, 100% circumflex, 100% RCA stenosis 2. Normal left and right sided filling pressures 3. Patent RODRIGUEZ to LAD, only remaining graft 4. Normal cardiac output, cardiac index PLAN: 1. Aggressive risk factor modification per most recent ACC/AHA guidelines. 2. no significant interventional targets other than a marginal branch or the proximal LAD leading to a small septal central supply worker and unclear potential benefit. Symptoms may be more related to atrial fibrillation after discussion with and may consider or aggressive A. fib rhythm management.
[2024-01-19 18:07] VITALS: BP 138/64; PULSE 84
== END 2024-01-19 18:25 | disposition home or self-care (01) ==
LOC: CATHCVL 10:10
PROVIDERS: ATTEND Internal Medicine
DX: I25.10 Atherosclerotic heart disease of native coronary artery without angina pectoris (principal); Z95.1 Presence of aortocoronary bypass graft
CPT/HCPCS: 93461; 85018; 82810; C1769 ×3; C1751; C1894; J2250; J2001; J3010; Q9967

== ENCOUNTER → 2024-04-16 | Outpatient (CLI) | payer MEDICARE, BC ==
[2024-04-16 13:48] LABS: African American GFR (CKD) 51 (>60 ml/min/1.73 sqM); Blood Urea Nitrogen 27 mg/dL (9-20); Non-African American GFR(CKD) 44 (>60 ml/min/1.73 sqM)
--- NOTE | 2024-04-16 15:16 | CT ---
EXAMINATION TYPE: CT abdomen pelvis w con CT DLP: 1658 mGycm, Automated exposure control for dose reduction was used. DATE OF EXAM: 04/16/2024 3:06 PM COMPARISON: None. CLINICAL INDICATION: Male, 74 years old with history of K42.9 UMBILICAL HERNIA; umbilical hernia TECHNIQUE: Axial CT abdomen pelvis w con;Sagittal and coronal reformats were created on a separate w orkstation. Contrast used:70cc mL of Isovue 300 with IV Contrast, (none if empty) Oral contrast used: with Oral Contrast (none if empty) FINDINGS: LOWER CHEST: Trace right pleural effusion ABDOMEN LIVER: Unremarkable GALLBLADDER AND BILE DUCTS: The gallbladder surgically absent. PANCREAS: Unremarkable. SPLEEN: Unremarkable. ADRENAL GLANDS: Unremarkable. KIDNEYS AND URETERS: No evidence of hydronephrosis or renal calculus. The ureters are unremarkable. Left renal cortical cyst. PELVIS BLADDER: Unremarkable REPRODUCTIVE: Unremarkable. ABDOMEN & PELVIS STOMACH AND BOWEL: No evidence of bowel obstruction. Fat-containing left inguinal hernia. Scattered c olonic diverticula. PERITONEUM/RETROPERITONEUM: No evidence of pneumoperitoneum or free fluid. VASCULATURE: No evidence of aortic aneurysm. MUSCULOSKELETAL: No acute osseous abnormalities LYMPH NODES: No gross evidence for lymphadenopathy. SOFT TISSUE/ABDOMINAL WALL: Unremarkable. Fat-containing umbilical hernia. IMPRESSION: 1. Fat-containing umbilical hernia and left inguinal hernia. No evidence for obstruction.7 2. Colonic diverticulosis. 3. Trace right pleural effusion. [facility] Nathanael Holcomb, , 04/16/2024 3:14 PM
== END ==
LOC: RADCTMAIN 12:51
PROVIDERS: ATTEND Surgery
CPT/HCPCS: 36415; 74177; 82565; 84520

== ENCOUNTER 2024-05-27 07:11 | Day surgery (SDC) | payer MEDICARE, BC ==
[~2024-05-27 07:11] MED LIST changes: -ALPRAZolam 0.25 MG TAB PO PRN; -ASPIRIN 325 MG TAB PO STA; -HEPARIN SODIUM,PORCINE (1 ML) 2,500 UNIT in SODIUM CHLORIDE 0.9% 250 ML IRRIGATION PRN; -HEPARIN SODIUM,PORCINE 10,000 UNIT in SODIUM CHLORIDE 0.9% 1,000 ML IRRIGATION PRN; +HYDROmorphone 0.5 MG/0.5 ML SYRINGE IVP PRN; +LIDOCAINE 1% (10MG/ML) FOR IV START INTRADERMA PRN; -NITROGLYCERIN SL TABS 0.4 MG TAB SUBLINGUAL PRN; +droPERidol 5 MG/2 ML VIAL IVP ONE
[2024-05-27] MEDS: IV FLUID CONTINUATION 1,000 ML IV ONE (08:03)
[2024-05-27] MEDS: LACTATED RINGERS 1,000 ML IV SCH (08:04)
[2024-05-27] MEDS: DEXAMETHASONE SOD PHOSPHATE 4 MG/ML 1 ML VIAL IV ONE (08:22)
[2024-05-27] MEDS: ONDANSETRON 4 MG/2 ML VIAL IVP ONE (08:22)
[2024-05-27] MEDS: IPRATROPIUM-ALBUTEROL 3 ML NEB INHALATION STA (08:32)
[2024-05-27 08:44] LABS: Partial Thromboplastin Time 24.7 sec (22.0-30.0); Prothrombin Time 10.7 sec (10.0-12.5)
[2024-05-27] MEDS: MIDAZOLAM 2 MG/2 ML VIAL IV ONE (08:59)
[2024-05-27] MEDS ORDERED: fentaNYL (PF) 50 MCG/ML 2 ML AMP ONE (09:14)
[2024-05-27] MEDS ORDERED: SUCCINYLCHOLINE CHLORIDE 200 MG/10 ML VIAL IV ONE (09:14)
[2024-05-27] MEDS ORDERED: PROPOFOL 10 MG/ML 20 ML VIAL IV ONE (09:14)
[2024-05-27] MEDS ORDERED: LIDOCAINE 1% INJ 10MG/ML (20 ML MDV) ONE (09:14)
[2024-05-27] MEDS ORDERED: GLYCOPYRROLATE 0.2 MG/ML 2 ML VIAL ONE (09:14)
[2024-05-27] MEDS ORDERED: DEXAMETHASONE SOD PHOSPHATE 4 MG/ML 1 ML VIAL ONE (09:14)
[2024-05-27] MEDS ORDERED: ROCURONIUM 10 MG/ML (5 ML VIAL) IV ONE (09:14)
[2024-05-27] MEDS ORDERED: NEOSTIGMINE 1 MG/ML 10 ML VIAL ONE (09:14)
[2024-05-27] MEDS ORDERED: ROPIVACAINE 5 MG/ML 30 ML VIAL ONE (09:14)
[2024-05-27] MEDS: HEPARIN SODIUM,PORCINE 5,000 UNIT/ML 1 ML VIAL SQ STA (09:16)
[2024-05-27] MEDS: LIDOCAINE 1%-EPI 1:100,000 20 ML VIAL SQ ONE (09:56)
[2024-05-27 11:28] VITALS: TEMP 97.4
--- NOTE | 2024-05-27 11:31 | P.OP ---
Date of Procedure: 05/27/24 Preoperative Diagnosis: umbilical hernia Postoperative Diagnosis: incarcerated umbilical hernia Procedure(s) Performed: robotic assisted umbilical herniorrhaphy with mesh Anesthesia: MUARY Surgeon: Parker Roger Pathology: none sent Condition: stable Disposition: PACU Indications for Procedure: abdominal pain Operative Findings: incarcerated omentum Description of Procedure: Patient was brought to the operative suite where he was cleaned and draped in sterile fashion. A timeout was performed and everyone agreed with the information recited. Next a incision was made in the left upper quadrant and a 5mm visiport was used to gain access to the abdomen. Next two more working ports were placed in the left mid/lower abdomen, the left upper quadrant incision was exchanged for an 8mm port. The robot was docked and the omentum was reduced with a combination of blunt and sharp dissection. Next, a 2-0 v-lock suture was used to closed the defect in a running fashion. A 6 inch round mesh was affixed to the peritoneum using multiple v-lock sutures. A hemostatic timeout was performed and no active bleeding was observed. The patient was transferred to pacu in stable condition.
--- NOTE | 2024-05-27 11:52 | P.ANPRN ---
Procedure Note - Anesthesia - Nerve Block Performed Bilateral Erector Spinae Single Time Out Performed: Yes Date of Procedure: 05/27/24 Procedure Start Time: 08:53 Procedure Stop Time: 08:58 Location of Patient: PreOp Indication: Acute Post-Operative Pain, Analgesia, Requested by Surgeon Sedation Type: Sedate with meaningful contact maintained Preparation: Sterile Prep Position: Prone Catheter: None Needle Types: Pajunk Needle Gauge: 21 Ultrasound used to visualize needle placement: Yes Ultrasound used to observe medication spread: Yes Injectate: 0.5% Ropivacaine (see comment for volume) ([id number]+Decadron 4mg, Needle level H13----Qnfq side.) Blood Aspirated: No Pain Paresthesia on Injection Noted: No Resistance on Injection: Normal Image Stored and Saved: Yes Events: Uneventful and Well Tolerated
[2024-05-27 13:58] VITALS: RESP 20
[2024-05-27 15:20] VITALS: BP 154/78; PULSE 65
== END 2024-05-27 15:38 | disposition home or self-care (01) ==
LOC: OR 07:11
PROVIDERS: ATTEND Surgery
DX: K42.0 Umbilical hernia with obstruction, without gangrene (principal); G89.18 Other acute postprocedural pain
CPT/HCPCS: 49592; S2900; 64999; 85610; 85730

== ENCOUNTER 2024-06-10 11:20 | Inpatient (IN) | payer MEDICARE, BC ==
[2024-06-10] MEDS ORDERED: IOPAMIDOL CONTRAST (ORAL USE) VIAL PO PRN (12:50)
[2024-06-10] MEDS: ONDANSETRON 4 MG/2 ML VIAL IVP STA (13:26)
[2024-06-10] MEDS: MORPHINE SULFATE 4 MG/ML SYRINGE IVP STA (13:28)
[2024-06-10] MEDS: SODIUM CHLORIDE 0.9% 1,000 ML IV ONE (13:33)
[2024-06-10 13:41] LABS: Basophils % (A) 0 %; Eosinophils # (A) 0.3 k/uL (0-0.7); Eosinophils % (A) 2 %; HGB 12.1 gm/dL (13.0-17.5); Hypochromasia Slight; Lymphocytes # (A) 0.8 k/uL (1.0-4.8); Lymphocytes % (A) 5 %; MCH 31.4 pg (25.0-35.0); MCHC 31.8 g/dL (31.0-37.0); MCV 98.9 fL (80.0-100.0); Mean Platelet Volume 7.1; Monocytes # (A) 0.8 k/uL (0-1.0); Monocytes % (A) 6 %; Neutrophils # (A) 12.8 k/uL (1.3-7.7); Neutrophils % (A) 86 %; Platelet Count 226 k/uL (150-450); RBC 3.84 m/uL (4.30-5.90); RDW 15.2 % (11.5-15.5); WBC 14.9 k/uL (3.8-10.6)
[2024-06-10 13:54] LABS: ALT 15 U/L (4-49); AST 16 U/L (17-59); African American GFR (CKD) 18 (>60 ml/min/1.73 sqM); Albumin 4.3 g/dL (3.5-5.0); Alkaline Phosphatase 216 U/L (38-126); Anion Gap 17 mmol/L; Blood Urea Nitrogen 88 mg/dL (9-20); Calcium 9.3 mg/dL (8.4-10.2); Carbon Dioxide 16 mmol/L (22-30); Chloride 105 mmol/L (98-107); Glucose 127 mg/dL (74-99); Lipase 19 U/L (23-300); Non-African American GFR(CKD) 15 (>60 ml/min/1.73 sqM); Potassium 5.2 mmol/L (3.5-5.1); Sodium 138 mmol/L (137-145); Total Bilirubin 1.1 mg/dL (0.2-1.3); Total Protein 7.1 g/dL (6.3-8.2)
[2024-06-10 15:02] LABS: Appearance,Urine Clear (Clear); Bacteria,Urine Rare /hpf; Bilirubin,Urine Negative (Negative); Blood,Urine Negative (Negative); Color,Urine Yellow; Glucose,Urine (UA) Negative (Negative); Hyaline Casts,Urine 1 /lpf (0-2); Ketones,Urine Trace (Negative); Leukocyte Esterase,Urine Trace (Negative); Mucus,Urine Rare /hpf; Nitrite,Urine Negative (Negative); Protein,Urine Trace (Negative); RBC,Urine 1 /hpf (0-5); Specific Gravity,Urine 1.018 (1.001-1.035); Squamous Epithelial Cell,Urine <1 /hpf (0-4); Urobilinogen,Urine <2.0 mg/dL (<2.0); WBC,Urine 7 /hpf (0-5)
--- NOTE | 2024-06-10 16:22 | ED ---
Abdominal Pain HPI - General Chief Complaint: Abdominal Pain Stated Complaint: Vomiting Time Seen by Provider: 06/10/24 11:30 Source: patient Mode of arrival: ambulatory Limitations: no limitations - History of Present Illness Initial Comments: 74-year-old male who presents to the emergency department with abdominal pain. Patient is status post hernia repair from Dr. Roger on the . States that over the past week he has had difficulty eating. As soon as he eats the patient will vomit. He states it is anywhere from 5 to 30 minutes after he eats when he throws up again. He reports to lower abdominal pain. He has had a few bowel movements. Denies dysuria, hematuria or difficulty voiding. No fevers. No hematemesis, black or bloody stools. They called Dr. Roger who recommended the patient come to the ER for evaluation. No other alleviating, precipitating or modifying factors - Related Data Home Medications Medication Instructions Recorded Confirmed Atorvastatin [Lipitor] 10 mg PO HS@2200 08/30/16 06/10/24 Isosorbide Mononitrate [Imdur] 120 mg PO BID@1000,2200 08/30/16 06/10/24 carvediloL [Coreg] 12.5 mg PO BID@1000,2200 01/02/19 06/10/24 Tacrolimus [Envarsus Xr] 0.75 mg PO DAILY@1000 03/31/20 06/10/24 Ranolazine [Ranexa] 500 mg PO BID 01/17/24 06/10/24 lisinopriL 2.5 mg PO DAILY 01/17/24 06/10/24 Diltiazem Cd [Cardizem CD] 120 mg PO DAILY 05/23/24 06/10/24 Levothyroxine Sodium [Synthroid] 50 mcg PO DAILY 06/10/24 06/10/24 Previous Rx's Medication Instructions Recorded Pantoprazole [Protonix] 40 mg PO AC-BID #60 tablet. 05/13/20 Allergies Allergy/AdvReac Type Severity Reaction Status Date / Time ferumoxytol [From Feraheme] Allergy Anaphylaxis Verified 06/10/24 15:00 Review of Systems ROS Statement: Those systems with pertinent positive or pertinent negative responses have been documented in the HPI. ROS Other: All systems not noted in ROS Statement are negative. Past Medical History Past Medical History: Atrial Fibrillation, Blood Disorder, Coronary Artery Disease (CAD), Cancer, COPD, Diabetes Mellitus, GERD/Reflux, GI Bleed, Hyperlipidemia, Hypertension, Liver Disease, Sleep Apnea/CPAP/BIPAP, Thyroid Disorder Additional Past Medical History / Comment(s): alpha-1 antitrypsin deficiency, IRON DEF ANEMIA, HX Liver Transplant, Chronic edema suppression, maintained on Tacrolimus. O2 2L NC AT NIGHT; BLADDER CA, SKIN CA. tremors Last Myocardial Infarction Date:: 2013 History of Any Multi-Drug Resistant Organisms: None Reported Past Surgical History: Bladder Surgery, Cholecystectomy, Coronary Bypass/CABG, Heart Catheterization, Heart Catheterization With Stent Additional Past Surgical History / Comment(s): liver transplant 2005, CABG 4 vessels , CABG - 2 vessels, heart stents x4. Cardioversion. EGD, COLONOSCOPY. Bladder Cancer surg 2017, TONY CATARACT SURG Past Anesthesia/Blood Transfusion Reactions: No Reported Reaction Date of Last Stent Placement:: 2013 Past Psychological History: No Psychological Hx Reported Smoking Status: Never smoker Past Alcohol Use History: None Reported Past Drug Use History: None Reported - Past Family History Mother Family Medical History: Coronary Artery Disease (CAD) Sister(s) Family Medical History: Cancer Additional Family Medical History / Comment(s): ovarian cancer Father Family Medical History: Cancer Additional Family Medical History / Comment(s): BLADDER CA General Exam Limitations: no limitations General appearance: alert, in no apparent distress Head exam: Present: atraumatic, normocephalic, normal inspection Eye exam: Present: normal appearance, PERRL, EOMI. Absent: scleral icterus, conjunctival injection, periorbital swelling ENT exam: Present: normal exam, mucous membranes moist Neck exam: Present: normal inspection. Absent: tenderness, meningismus, lymphadenopathy Respiratory exam: Present: normal lung sounds bilaterally. Absent: respiratory distress, wheezes, rales, rhonchi, stridor Cardiovascular Exam: Present: regular rate, normal rhythm, normal heart sounds. Absent: systolic murmur, diastolic murmur, rubs, gallop, clicks GI/Abdominal exam: Present: tenderness (Suprapubic), normal bowel sounds. Absent: distended, guarding, rebound, rigid Extremities exam: Present: normal inspection, full ROM, normal capillary refill. Absent: tenderness, pedal edema, joint swelling, calf tenderness Back exam: Present: normal inspection Neurological exam: Present: alert, oriented X3, CN II-XII intact Psychiatric exam: Present: normal affect, normal mood Skin exam: Present: warm, dry, intact, normal color. Absent: rash Course Vital Signs 06/10/24 06/10/24 06/10/24 11:22 16:56 19:37 Temperature 97.3 F L 97.4 F L Pulse Rate 81 66 75 Respiratory 20 17 18 Rate Blood Pressure 106/54 127/72 126/60 O2 Sat by Pulse 92 L 95 96 Oximetry Medical Decision Making - Medical Decision Making Was pt. sent in by a medical professional or institution (DrKen, PA, LOCATOR, urgent care, hospital, or senior care...) When possible be specific @ -Dr. Roger Did you speak to anyone other than the patient for history (EMS, parent, family, police, friend...)? What history was obtained from this source @ -I spoke to Dr. Roger and the for history Did you review nursing and triage notes (agree or disagree)? Why? @ -I reviewed and agree with nursing and triage notes Were old charts reviewed (outside hosp., previous admission, EMS record, old EKG, old radiological studies, urgent care reports/EKG's, senior care records)? Report findings @ -I reviewed the patient's operative report from the by Dr. Roger for his hernia repair Differential Diagnosis (chest pain, altered mental status, abdominal pain women, abdominal pain men, vaginal bleeding, weakness, fever, dyspnea, syncope, headache, dizziness, GI bleed, back pain, seizure, CVA, palpatations, mental health, musculoskeletal)? @ -Differential Abdominal Pain Men: Appendicitis, cholecystitis, diverticulosis, ischemic bowel, pancreatitis, hepatitis, UTI, gastroenteritis, AAA, incarcerated hernia, bowel obstruction, constipation, inflammatory bowel, hepatitis, peptic ulcer disease, splenic infarction, perforated viscus, testicular torsion, this is not meant to be an all-inclusive list EKG interpreted by me (3pts min.). @ -Not done X-rays interpreted by me (1pt min.). @ -None done CT interpreted by me (1pt min.). @ -Yes and demonstrates concern for small bowel obstruction U/S interpreted by me (1pt. min.). @ -None done What testing was considered but not performed or refused? (CT, X-rays, U/S, labs)? Why? @ -None What meds were considered but not given or refused? Why? @ -None Did you discuss the management of the patient with other professionals (professionals i.e. , PA, LOCATOR, lab, RT, psych nurse, social service technician, character actor, teacher, immigration officer, porter sample case)? Give summary @ -Spoke with Dr. Roger and Dr. Mireles Was smoking cessation discussed for >3mins.? @ -No Was critical care preformed (if so, how long)? @ -No Were there social determinants of health that impacted care today? How? (Homelessness, low income, unemployed, alcoholism, drug addiction, transportation, low edu. Level, literacy, decrease access to med. care, detention, rehab)? @ -No Was there de-escalation of care discussed even if they declined (Discuss DNR or withdrawal of care, Hospice)? DNR status @ -No What co-morbidities impacted this encounter? (DM, HTN, Smoking, COPD, CAD, Cancer, CVA, ARF, Chemo, Hep., AIDS, mental health diagnosis, sleep apnea, morbid obesity)? @ -None Was patient admitted / discharged? Hospital course, mention meds given and route, prescriptions, significant lab abnormalities, going to OR and other pertinent info. @ -Upon arrival patient seen and evaluated in [place] [address]. Thorough history and physical exam was performed. IV access was established. Laboratory studies w ere conducted. I did speak with Dr. Roger. He wanted a CT with oral and IV contrast. Unfortunately we are unable to perform IV contrast due to the patient's poor kidney function. Patient was given 4 mg of Zofran. He is able to tolerate the oral prep. Patient does go for CT which demonstrates a questionable early small bowel obstruction. NG tube was placed. Patient will be admitted to Dr. Mireles with Dr. Denny on consult Undiagnosed new problem with uncertain prognosis? @ -No Drug Therapy requiring intensive monitoring for toxicity (Heparin, Nitro, Insulin, Cardizem)? @ -No Were any procedures done? @ -NG tube placement Diagnosis/symptom? @ -Acute nausea vomiting, acute small bowel obstruction, status post hernia repair Acute, or Chronic, or Acute on Chronic? @ -Acute Uncomplicated (without systemic symptoms) or Complicated (systemic symptoms)? @ -Complicated Side effects of treatment? @ -No Exacerbation, Progression, or Severe Exacerbation? @ -No Poses a threat to life or bodily function? How? (Chest pain, USA, ID, pneumonia, PE, COPD, DKA, ARF, appy, cholecystitis, CVA, Diverticulitis, Homicidal, Suicidal, threat to staff... and all critical care pts) @ -No - Lab Data Result diagrams: 06/14/24 11:35 06/14/24 10:36 Lab Results 06/10/24 06/10/24 06/10/24 Range/Units 13:15 13:15 13:15 WBC 14.9 H (3.8-10.6) k/uL RBC 3.84 L (4.30-5.90) m/uL Hgb 12.1 L (13.0-17.5) gm/dL Hct 38.0 L (39.0-53.0) % MCV 98.9 (80.0-100.0) fL MCH 31.4 (25.0-35.0) pg MCHC 31.8 (31.0-37.0) g/dL RDW 15.2 (11.5-15.5) % Plt Count 226 (150-450) k/uL MPV 7.1 Neutrophils % 86 % Lymphocytes % 5 % Monocytes % 6 % Eosinophils % 2 % Basophils % 0 % Neutrophils # 12.8 H (1.3-7.7) k/uL Lymphocytes # 0.8 L (1.0-4.8) k/uL Monocytes # 0.8 (0-1.0) k/uL Eosinophils # 0.3 (0-0.7) k/uL Basophils # 0.0 (0-0.2) k/uL Hypochromasia Slight Sodium 138 (137-145) mmol/L Potassium 5.2 H (3.5-5.1) mmol/L Chloride 105 (98-107) mmol/L Carbon Dioxide 16 L (22-30) mmol/L Anion Gap 17 mmol/L BUN 88 H (9-20) mg/dL Creatinine 3.66 H (0.66-1.25) mg/dL Est GFR (CKD-EPI)AfAm 18 (>60 ml/min/1.73 sqM) Est GFR (CKD-EPI)NonAf 15 (>60 ml/min/1.73 sqM) Glucose 127 H (74-99) mg/dL Plasma Lactic Acid Gerald (0.7-2.0) mmol/L Calcium 9.3 (8.4-10.2) mg/dL Total Bilirubin 1.1 (0.2-1.3) mg/dL AST 16 L (17-59) U/L ALT 15 (4-49) U/L Alkaline Phosphatase 216 H (38-126) U/L Total Protein 7.1 (6.3-8.2) g/dL Albumin 4.3 (3.5-5.0) g/dL Lipase 19 L (23-300) U/L Urine Color Yellow Urine Appearance Clear (Clear) Urine pH 5.0 (5.0-8.0) Ur Specific [place] 1.018 (1.001-1.035) Urine Protein Trace H (Negative) Urine Glucose (UA) Negative (Negative) Urine Ketones Trace H (Negative) Urine Blood Negative (Negative) Urine Nitrite Negative (Negative) Urine Bilirubin Negative (Negative) Urine Urobilinogen <2.0 (<2.0) mg/dL Ur Leukocyte Esterase Trace H (Negative) Urine RBC 1 (0-5) /hpf Urine WBC 7 H (0-5) /hpf Ur Squamous Epith Cells <1 (0-4) /hpf Urine Bacteria Rare H (None) /hpf Hyaline Casts 1 (0-2) /lpf Urine Mucus Rare H (None) /hpf 06/10/24 Range/Units 13:15 WBC (3.8-10.6) k/uL RBC (4.30-5.90) m/uL Hgb (13.0-17.5) gm/dL Hct (39.0-53.0) % MCV (80.0-100.0) fL MCH (25.0-35.0) pg MCHC (31.0-37.0) g/dL RDW (11.5-15.5) % Plt Count (150-450) k/uL MPV Neutrophils % % Lymphocytes % % Monocytes % % Eosinophils % % Basophils % % Neutrophils # (1.3-7.7) k/uL Lymphocytes # (1.0-4.8) k/uL Monocytes # (0-1.0) k/uL Eosinophils # (0-0.7) k/uL Basophils # (0-0.2) k/uL Hypochromasia Sodium (137-145) mmol/L Potassium (3.5-5.1) mmol/L Chloride (98-107) mmol/L Carbon Dioxide (22-30) mmol/L Anion Gap mmol/L BUN (9-20) mg/dL Creatinine (0.66-1.25) mg/dL Est GFR (CKD-EPI)AfAm (>60 ml/min/1.73 sqM) Est GFR (CKD-EPI)NonAf (>60 ml/min/1.73 sqM) Glucose (74-99) mg/dL Plasma Lactic Acid Gerald 0.9 (0.7-2.0) mmol/L Calcium (8.4-10.2) mg/dL Total Bilirubin (0.2-1.3) mg/dL AST (17-59) U/L ALT (4-49) U/L Alkaline Phosphatase (38-126) U/L Total Protein (6.3-8.2) g/dL Albumin (3.5-5.0) g/dL Lipase (23-300) U/L Urine Color Urine Appearance (Clear) Urine pH (5.0-8.0) Ur Specific [place] (1.001-1.035) Urine Protein (Negative) Urine Glucose (UA) (Negative) Urine Ketones (Negative) Urine Blood (Negative) Urine Nitrite (Negative) Urine Bilirubin (Negative) Urine Urobilinogen (<2.0) mg/dL Ur Leukocyte Esterase (Negative) Urine RBC (0-5) /hpf Urine WBC (0-5) /hpf Ur Squamous Epith Cells (0-4) /hpf Urine Bacteria (None) /hpf Hyaline Casts (0-2) /lpf Urine Mucus (None) /hpf Disposition Clinical Impression: Nausea and vomiting, ANTOINETTE (acute kidney injury) Disposition: ADMITTED IP TO THIS [facility] Condition: Stable Is patient prescribed a controlled substance at d/c from ED?: No Time of Disposition: 16:22 Decision to Admit Reason: Admit from EC Decision Date: 06/10/24 Decision Time: 16:22
--- NOTE | 2024-06-10 16:38 | CT ---
EXAMINATION TYPE: CT abdomen pelvis wo con DATE OF EXAM: 06/10/2024 COMPARISON: 04/16/2024 CLINICAL INDICATION: Male, 74 years old with history of abd pain, recent hernia repair; PHH, abd pain , recent hernia repair TECHNIQUE: CT scan of the abdomen and pelvis is performed without oral or IV contrast. CT DLP: [address] CTDI: mGy Automated exposure control for dose reduction was used. FINDINGS: Within the limitations of a non-contrast study, the following observations are made. There are marked chronic changes within the lung bases with honeycombing in the subpleural parenchyma l lung and bronchiectasis. Gallbladder is normal and there is no gallstone, wall thickening, pericholecystic fluid or distention . There is no biliary ductal dilatation. There is no organomegaly of the liver, pancreas, spleen or adrenal glands. There are no renal calcifications or hydronephrosis. The caliber of the abdominal aorta is normal and there is no retroperitoneal adenopathy or hemorrhage . In the anterior midline abdomen near the umbilicus, there is thickening of the omentum and there appe ars to be some thickening of adjacent small bowel loops. In the left abdomen, there are multiple dila roxane contrast-filled small bowel loops consistent with at least a partial small bowel obstruction. The re is no contrast within the colon which is nondilated. There is no free intraperitoneal air or fluid. There is no pelvic mass or adenopathy. The osseous structures are intact. IMPRESSION: 1. Interval development of thickened omentum and thickening of the wall of adjacent small bowel resul ting in at least a partial small bowel obstruction. 2. Chronic changes in the lung bases as described above. [facility], , 06/10/2024 4:36 PM
[2024-06-10] MEDS ORDERED: NALOXONE 0.4 MG/ML 1 ML VIAL IV PRN (17:15)
[2024-06-10] MEDS ORDERED: MORPHINE SULFATE 4 MG/ML SYRINGE IV PRN (17:15)
[2024-06-10] MEDS ORDERED: ONDANSETRON 4 MG/2 ML VIAL IVP PRN (17:15)
--- NOTE | 2024-06-10 18:13 | P.HPIM ---
History of Present Illness This is a pleasant 74 years old male with past medical history of multiple medical problems, he follows up with Dr. 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 Graff where he has history of stent and CABG He was recently underwent surgical repair of his hernia on 05/27. Patient presents because of significant nausea and vomiting, he vomited twice last night with no blood. Patient is not eating He is complaining from mild lower abdominal pain since the herniorrhaphy. His pain rated as 2/10 Not peeing much but no dysuria or urgency No chest pain or dyspnea or coughing No headache dizziness weakness or numbness He denies smoking alcohol or illicit drugs.. He follow-up with Dr. Burrows for low hemoglobin Labs reviewed were unremarkable CBC and LFT. Basic metabolic panel showing worsening creatinine 3.6 with baseline about 1.4- 1.8 Hemoglobin is 10 and 12 and WBC is mildly elevated at 14. It looks it is hemoconcentrated sample. Urine analysis slightly abnormal, concentrated sample CT of the abdomen and pelvis without contrast showing thickened omentum and adjacent small bowel with at least partial small bowel obstruction but also there is honeycomb changes of the lower lung both sides and some bronchiectasis. Review of Systems Review of systems CONSTITUTIONAL: No fever, no malaise, no fatigue. HEENT: No recent visual problems or hearing problems. Denied any sore throat. CARDIOVASCULAR: No orthopnea, PND, no palpitations, no syncope. PULMONARY: No shortness of breath, no cough, no hemoptysis. GASTROINTESTINAL: No diarrhea, no nausea, no vomiting, no abdominal pain. Normoactive bowel sounds. NEUROLOGICAL: No headaches, no weakness, no numbness. HEMATOLOGICAL: Denies any bleeding or petechiae. GENITOURINARY: Denies any burning micturition, frequency, or urgency. MUSCULOSKELETAL/RHEUMATOLOGICAL: Denies any joint pain, swelling, or any muscle pain. ENDOCRINE: Denies any polyuria or polydipsia. Past Medical History Past Medical History: Atrial Fibrillation, Blood Disorder, Coronary Artery Disease (CAD), Cancer, COPD, Diabetes Mellitus, GERD/Reflux, GI Bleed, Hyperlipidemia, Hypertension, Liver Disease, Sleep Apnea/CPAP/BIPAP, Thyroid Disorder Additional Past Medical History / Comment(s): alpha-1 antitrypsin deficiency, IRON DEF ANEMIA, HX Liver Transplant, Chronic edema suppression, maintained on Tacrolimus. O2 2L NC AT NIGHT; BLADDER CA, SKIN CA. tremors Last Myocardial Infarction Date:: 2013 History of Any Multi-Drug Resistant Organisms: None Reported Past Surgical History: Bladder Surgery, Cholecystectomy, Coronary Bypass/CABG, Heart Catheterization, Heart Catheterization With Stent Additional Past Surgical History / Comment(s): liver transplant 2005, CABG 4 vessels , CABG - 2 vessels, heart stents x4. Cardioversion. EGD, COLONOSCOPY. Bladder Cancer surg 2017, TONY CATARACT SURG Past Anesthesia/Blood Transfusion Reactions: No Reported Reaction Date of Last Stent Placement:: 2013 Past Psychological History: No Psychological Hx Reported Smoking Status: Never smoker Past Alcohol Use History: None Reported Past Drug Use History: None Reported - Past Family History Mother Family Medical History: Coronary Artery Disease (CAD) Sister(s) Family Medical History: Cancer Additional Family Medical History / Comment(s): ovarian cancer Father Family Medical History: Cancer Additional Family Medical History / Comment(s): BLADDER CA Medications and Allergies Home Medications Medication Instructions Recorded Confirmed Type Atorvastatin [Lipitor] 10 mg PO HS@2200 08/30/16 06/10/24 History Isosorbide Mononitrate [Imdur] 120 mg PO BID@1000,2200 08/30/16 06/10/24 History carvediloL [Coreg] 12.5 mg PO BID@1000,2200 01/02/19 06/10/24 History Tacrolimus [Envarsus Xr] 0.75 mg PO DAILY@1000 03/31/20 06/10/24 History Pantoprazole [Protonix] 40 mg PO AC-BID #60 tablet. 05/13/20 06/10/24 Rx Ranolazine [Ranexa] 500 mg PO BID 01/17/24 06/10/24 History lisinopriL 2.5 mg PO DAILY 01/17/24 06/10/24 History Diltiazem Cd [Cardizem CD] 120 mg PO DAILY 05/23/24 06/10/24 History Levothyroxine Sodium [Synthroid] 50 mcg PO DAILY 06/10/24 06/10/24 History Allergies Allergy/AdvReac Type Severity Reaction Status Date / Time ferumoxytol [From Ensighten] Allergy Anaphylaxis Verified 06/10/24 15:00 Physical Exam Vitals: Vital Signs Temp Pulse Resp BP Pulse Ox 06/10/24 16:56 97.4 F L 66 17 127/72 95 06/10/24 11:22 97.3 F L 81 20 106/54 92 L Intake and Output 06/10/24 06/10/24 06/10/24 06:59 14:59 22:59 Other: Weight 79.379 kg GENERAL: The patient is alert and oriented x3, not in any acute distress. Well developed, well nourished. HEENT: Pupils are round and equally reacting to light. EOMI. No scleral icterus. No conjunctival pallor. Normocephalic, atraumatic. No pharyngeal erythema. No thyromegaly. CARDIOVASCULAR: S1 and S2 present. No murmurs, rubs, or gallops. PULMONARY: Chest is clear to auscultation, no wheezing , no crackles. ABDOMEN: Soft, nontender, nondistended, normoactive bowel sounds. No palpable organomegaly. MUSCULOSKELETAL: No joint swelling or deformity. EXTREMITIES: No cyanosis, clubbing, or pedal edema. NEUROLOGICAL: Gross neurological examination did not reveal any focal deficits. SKIN: No rashes. no petechiae. Results CBC & Chem 7: 06/10/24 13:15 06/10/24 13:15 Labs: Abnormal Lab Results - Last 24 Hours (Table) 06/10/24 06/10/24 06/10/24 Range/Units 13:15 13:15 13:15 WBC 14.9 H (3.8-10.6) k/uL RBC 3.84 L (4.30-5.90) m/uL Hgb 12.1 L (13.0-17.5) gm/dL Hct 38.0 L (39.0-53.0) % Neutrophils # 12.8 H (1.3-7.7) k/uL Lymphocytes # 0.8 L (1.0-4.8) k/uL Potassium 5.2 H (3.5-5.1) mmol/L Carbon Dioxide 16 L (22-30) mmol/L BUN 88 H (9-20) mg/dL Creatinine 3.66 H (0.66-1.25) mg/dL Glucose 127 H (74-99) mg/dL AST 16 L (17-59) U/L Alkaline Phosphatase 216 H (38-126) U/L Lipase 19 L (23-300) U/L Urine Protein Trace H (Negative) Urine Ketones Trace H (Negative) Ur Leukocyte Esterase Trace H (Negative) Urine WBC 7 H (0-5) /hpf Urine Bacteria Rare H (None) /hpf Urine Mucus Rare H (None) /hpf Assessment and Plan Assessment: Partial small bowel obstruction with thickened omentum and adjacent small bowel, suspicious for enteritis and intra-abdominal infection Dehydration with acute kidney injury most likely ATN on chronic kidney disease stage III Recent robotic associated umbilical herniorrhaphy with mesh on 06/26 Coronary artery disease status post PCI and CABG Lower pulmonary bronchiectasis Chronic anemia Plan: Continue with IV hydration 130 ml per hr of NS Continue with IV Protonix Start IV Zosyn for possible enteritis Hold lisinopril Surgery team consult CT of the abdomen is noted Labs and medication were reviewed.. Continue same treatment. Continue with symptomatic treatment. Resume home medication. Monitor labs and vitals. DVT and GI prophylaxis. Further recommendations as per clinical course of the patient DVT prophylaxis: Subcutaneous h Lovenox GI Prophylaxis: Protonix patient is afebrile, blood pressure is stable Prognosis is guarded
[2024-06-10] MEDS: PANTOPRAZOLE 40 MG TABLET PO SCH (19:10)
[2024-06-10] MEDS: SODIUM CHLORIDE 0.9% 1,000 ML IV SCH (19:11)
[2024-06-10] MEDS ORDERED: HEPARIN SODIUM,PORCINE 5,000 UNIT/ML 1 ML VIAL SQ SCH (21:00)
--- NOTE | 2024-06-10 21:26 | XR ---
EXAMINATION TYPE: XR chest 1V confirm line plcmt DATE OF EXAM: 06/10/2024 7:33 PM CLINICAL INDICATION:Male, 74 years old with history of ng tube placement; PHH COMPARISON: Chest radiographs from TECHNIQUE: XR chest 1V confirm line plcmt Frontal view of the chest. FINDINGS: Lungs/Pleura: No evidence of pneumothorax. Blunting of the costophrenic angles is present. Mild promi nence of the interstitial markings bilaterally. Pulmonary vascularity: Mild pulmonary vascular congestion. Heart/mediastinum: Cardiac silhouette is mildly enlarged. Musculoskeletal: No acute osseous pathology. Midline sternotomy wires. Other findings: Nasogastric tube is seen projecting below the diaphragm with the tip terminating in t he lumen of the stomach. The side port is not visualized and may be located at the gastroesophageal j unction. IMPRESSION: 1. Nasogastric tube is seen terminating within the lumen however the side port is not visualized and may be located at the gastroesophageal junction. Recommend advancement of 2 cm for more optimal posit ioning. 2. Mild cardiomegaly with trace bilateral pleural effusions and mild pulmonary edema suggested. [facility], , 06/10/2024 9:24 PM
[2024-06-10] MEDS: ATORVASTATIN 10 MG TAB PO SCH (22:22)
[2024-06-10] MEDS: carvediloL 12.5 MG TAB PO SCH (22:22)
[2024-06-10] MEDS: ISOSORBIDE MONONITRATE ER 60 MG TAB.ER.24H PO SCH (22:22)
[2024-06-10] MEDS: RANOLAZINE 500 MG TAB.ER.12H PO SCH (22:22)
[2024-06-10] MEDS: PIPERACILLIN-TAZOBACTAM 3.375 GM in SODIUM CHLORIDE 0.9% 100 ML IVPB SCH (22:22)
[2024-06-11] MEDS: HEPARIN SODIUM,PORCINE 5,000 UNIT/ML 1 ML VIAL SQ SCH (00:43)
[2024-06-11 04:28] LABS: ALT 13 U/L (4-49); AST 14 U/L (17-59); African American GFR (CKD) 20 (>60 ml/min/1.73 sqM); Albumin 3.2 g/dL (3.5-5.0); Albumin/Globulin Ratio 1.3; Alkaline Phosphatase 189 U/L (38-126); Anion Gap 9 mmol/L; Blood Urea Nitrogen 79 mg/dL (9-20); Calcium 8.4 mg/dL (8.4-10.2); Carbon Dioxide 16 mmol/L (22-30); Chloride 111 mmol/L (98-107); Globulin 2.4 g/dL; Glucose 80 mg/dL (74-99); Non-African American GFR(CKD) 17 (>60 ml/min/1.73 sqM); Potassium 4.8 mmol/L (3.5-5.1); Sodium 136 mmol/L (137-145); Total Bilirubin 1.1 mg/dL (0.2-1.3); Total Protein 5.6 g/dL (6.3-8.2)
[2024-06-11 05:13] LABS: Basophils % (A) 0 %; Eosinophils # (A) 0.5 k/uL (0-0.7); Eosinophils % (A) 4 %; HCT 31.1 % (39.0-53.0); HGB 10.2 gm/dL (13.0-17.5); Lymphocytes # (A) 0.9 k/uL (1.0-4.8); Lymphocytes % (A) 8 %; MCH 31.8 pg (25.0-35.0); MCHC 32.8 g/dL (31.0-37.0); MCV 97.1 fL (80.0-100.0); Mean Platelet Volume 7.7; Monocytes # (A) 0.7 k/uL (0-1.0); Monocytes % (A) 6 %; Neutrophils # (A) 9.6 k/uL (1.3-7.7); Neutrophils % (A) 81 %; Platelet Count 198 k/uL (150-450); RDW 15.3 % (11.5-15.5)
[2024-06-11] MEDS: LEVOTHYROXINE 50 MCG TAB PO SCH (08:13)
[2024-06-11] MEDS: DILTIAZEM CD 120 MG CAP.ER.24H PO SCH (08:13)
[2024-06-11] MEDS: TACROLIMUS 0.75 MG PO SCH (09:03)
[2024-06-11] MEDS ORDERED: TACROLIMUS 0.75 MG PO SCH (10:00)
--- NOTE | 2024-06-11 11:18 | P.PN ---
Subjective This is a pleasant 74 years old male with past medical history of multiple medical problems, he follows up with Dr. 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 Graff where he has history of stent and CABG He was recently underwent surgical repair of his hernia on 05/27. Patient presents because of significant nausea and vomiting, he vomited twice last night with no blood. Patient is not eating He is complaining from mild lower abdominal pain since the herniorrhaphy. His pain rated as 2/10 Not peeing much but no dysuria or urgency No chest pain or dyspnea or coughing No headache dizziness weakness or numbness He denies smoking alcohol or illicit drugs.. He follow-up with Dr. Burrows for low hemoglobin Labs reviewed were unremarkable CBC and LFT. Basic metabolic panel showing worsening creatinine 3.6 with baseline about 1.4- 1.8 Hemoglobin is 10 and 12 and WBC is mildly elevated at 14. It looks it is hemoconcentrated sample. Urine analysis slightly abnormal, concentrated sample CT of the abdomen and pelvis without contrast showing thickened omentum and adjacent small bowel with at least partial small bowel obstruction but also there is honeycomb changes of the lower lung both sides and some bronchiectasis. 12/10 Patient has NG tube in place, he looks very weak and fatigued with malaise. Mentation is at baseline No significant abdominal pain or tenderness, very mild pain and some indurated area below the umbilicus at the surgery site Patient reports no bowel movement. He still has leukocytosis with WBCs 12.0 today Pro- Calcitonin is elevated at 0.84 His creatinine start improving 3.6 down to 3.29. Urinalysis is reviewed. No significant proteinuria or hematuria. We will check a bladder scan Who will keep trending creatinine if no significant improvement or worsening then may consider nephrology consultation. However started to improve today Review of systems CONSTITUTIONAL: No fever, no malaise, no fatigue. HEENT: No recent visual problems or hearing problems. Denied any sore throat. CARDIOVASCULAR: No orthopnea, PND, no palpitations, no syncope. PULMONARY: No shortness of breath, no cough, no hemoptysis. HEMATOLOGICAL: Denies any bleeding or petechiae. GENITOURINARY: Denies any burning micturition, frequency, or urgency. MUSCULOSKELETAL/RHEUMATOLOGICAL: Denies any joint pain, swelling, or any muscle pain. Active Medications Generic Name Dose Route Start Last Admin Trade Name Freq PRN Reason Stop Dose Admin Atorvastatin Calcium 10 mg 06/10/24 22:00 06/10/24 22:22 Atorvastatin 10 Mg Tab PO 10 mg HS@2200 PACHECO Administration Carvedilol 12.5 mg 06/10/24 22:00 06/11/24 09:03 Carvedilol 12.5 Mg Tab PO 12.5 mg BID@1000,2200 PACHECO Administration Diltiazem HCl 120 mg 06/11/24 09:00 06/11/24 08:13 Diltiazem Cd 120 Mg Cap.Er.24h PO 120 mg DAILY PACHECO Administration Heparin Sodium (Porcine) 5,000 unit 06/11/24 00:00 06/11/24 08:13 Heparin Sodium,Porcine 5,000 Unit/Ml 1 Ml Vial SQ 5,000 unit Q8HR PACHECO Administration Sodium Chloride 1,000 mls @ 130 mls/hr 06/10/24 17:15 06/11/24 05:22 Saline 0.9% IV 130 mls/hr .[id number] PACHECO Administration Piperacillin Sod/Tazobactam 100 mls @ 25 mls/hr 06/10/24 20:00 06/11/24 04:42 Sod 3.375 gm/ Sodium Chloride IVPB 25 mls/hr Q8H PACHECO Administration Protocol Iopamidol 30 ml 06/10/24 12:50 Iopamidol Contrast (Oral Use) Vial PO 06/11/24 12:[address] Scan Isosorbide Mononitrate 120 mg 06/10/24 22:00 06/11/24 09:03 Isosorbide Mononitrate Er 60 Mg Tab.Er.24h PO 120 mg BID@1000,0 PACHECO Administration Levothyroxine Sodium 50 mcg 06/11/24 09:00 06/11/24 08:13 Levothyroxine 50 Mcg Tab PO 50 mcg DAILY@0900 PACHECO Administration Morphine Sulfate 4 mg 06/10/24 17:15 Morphine Sulfate 4 Mg/Ml Syringe IV Q4HR PRN Severe Pain (Scale 7 to 10) Naloxone HCl 0.2 mg 06/10/24 17:15 Naloxone 0.4 Mg/Ml 1 Ml Vial IV Q2M PRN Opioid Reversal Tacrolimus [Envarsus 1.5 mg 06/11/24 10:00 06/11/24 09:03 Xr] 0.75 Mg PO 1.5 mg DAILY@1000 PACHECO Administration Ondansetron HCl 4 mg 06/10/24 17:15 Ondansetron 4 Mg/2 Ml Vial IVP Q8HR PRN Nausea And Vomiting Pantoprazole Sodium 40 mg 06/10/24 17:30 06/11/24 08:13 Pantoprazole 40 Mg Tablet PO 40 mg AC-BID PACHECO Administration Ranolazine 500 mg 06/10/24 21:00 06/11/24 08:13 Ranolazine 500 Mg Tab.Er.12h PO 500 mg BID PACHECO Administration Objective - Vital Signs Vital signs: Vital Signs Temp 98.1 F 06/11/24 07:08 Pulse 73 06/11/24 07:08 Resp 20 06/11/24 07:08 BP 111/56 06/11/24 07:08 Pulse Ox 98 06/11/24 07:08 FiO2 Intake & Output 06/10/24 06/11/24 06/11/24 18:59 06:59 18:59 Output Total 300 Balance -300 Weight 79.379 kg 79.379 kg Output: Urine 300 Other: # Voids 3 - Exam -GENERAL: The patient is alert and oriented x3, not in any acute distress. Well developed, well nourished. Patient feels generally weak with malaise HEENT: Pupils are round and equally reacting to light. EOMI. No scleral icterus. No conjunctival pallor. Normocephalic, atraumatic. No pharyngeal erythema. No thyromegaly. CARDIOVASCULAR: S1 and S2 present. No murmurs, rubs, or gallops. PULMONARY: Chest is clear to auscultation, no wheezing , no crackles. -ABDOMEN: Soft, very mild tenderness below the umbilicus, nondistended, normoactive bowel sounds. No palpable organomegaly. NG tube in place MUSCULOSKELETAL: No joint swelling or deformity. EXTREMITIES: No cyanosis, clubbing, or pedal edema. NEUROLOGICAL: Gross neurological examination did not reveal any focal deficits. SKIN: No rashes. no petechiae. - Labs CBC & Chem 7: 06/11/24 03:58 06/11/24 03:58 Labs: Abnormal Lab Results - Last 24 Hours (Table) 06/10/24 06/10/24 06/10/24 Range/Units 13:15 13:15 13:15 WBC 14.9 H (3.8-10.6) k/uL RBC 3.84 L (4.30-5.90) m/uL Hgb 12.1 L (13.0-17.5) gm/dL Hct 38.0 L (39.0-53.0) % Neutrophils # 12.8 H (1.3-7.7) k/uL Lymphocytes # 0.8 L (1.0-4.8) k/uL Sodium (137-145) mmol/L Potassium 5.2 H (3.5-5.1) mmol/L Chloride (98-107) mmol/L Carbon Dioxide 16 L (22-30) mmol/L BUN 88 H (9-20) mg/dL Creatinine 3.66 H (0.66-1.25) mg/dL Glucose 127 H (74-99) mg/dL AST 16 L (17-59) U/L Alkaline Phosphatase 216 H (38-126) U/L Total Protein (6.3-8.2) g/dL Albumin (3.5-5.0) g/dL Lipase 19 L (23-300) U/L Procalcitonin (0.02-0.50) ng/mL Urine Protein Trace H (Negative) Urine Ketones Trace H (Negative) Ur Leukocyte Esterase Trace H (Negative) Urine WBC 7 H (0-5) /hpf Urine Bacteria Rare H (None) /hpf Urine Mucus Rare H (None) /hpf 06/11/24 06/11/24 06/11/24 Range/Units 03:58 03:58 03:58 WBC 12.0 H (3.8-10.6) k/uL RBC 3.20 L (4.30-5.90) m/uL Hgb 10.2 L (13.0-17.5) gm/dL Hct 31.1 L (39.0-53.0) % Neutrophils # 9.6 H (1.3-7.7) k/uL Lymphocytes # 0.9 L (1.0-4.8) k/uL Sodium 136 L (137-145) mmol/L Potassium (3.5-5.1) mmol/L Chloride 111 H (98-107) mmol/L Carbon Dioxide 16 L (22-30) mmol/L BUN 79 H (9-20) mg/dL Creatinine 3.29 H (0.66-1.25) mg/dL Glucose (74-99) mg/dL AST 14 L (17-59) U/L Alkaline Phosphatase 189 H (38-126) U/L Total Protein 5.6 L (6.3-8.2) g/dL Albumin 3.2 L (3.5-5.0) g/dL Lipase (23-300) U/L Procalcitonin 0.84 H (0.02-0.50) ng/mL Urine Protein (Negative) Urine Ketones (Negative) Ur Leukocyte Esterase (Negative) Urine WBC (0-5) /hpf Urine Bacteria (None) /hpf Urine Mucus (None) /hpf Assessment and Plan Assessment: Partial small bowel obstruction with thickened omentum and adjacent small bowel, suspicious for enteritis and intra-abdominal infection Dehydration with acute kidney injury most likely ATN on chronic kidney disease stage III Recent robotic associated umbilical herniorrhaphy with mesh on 06/26 Coronary artery disease status post PCI and CABG Lower pulmonary bronchiectasis Chronic anemia Plan: Continue with IV hydration 130 ml per hr of NS Continue with IV Protonix Continue with IV Zosyn for enteritis Hold lisinopril\ Check bladder scan and keep monitoring creatinine, call nephrology consult Surgery team consult Labs and medication were reviewed.. Continue same treatment. Continue with symptomatic treatment. Resume home medication. Monitor labs and vitals. DVT and GI prophylaxis. Further recommendations as per clinical course of the patient DVT prophylaxis: Subcutaneous heparin GI Prophylaxis: Protonix Prognosis is guarded
--- NOTE | 2024-06-11 12:29 | XR ---
EXAMINATION TYPE: XR chest 1V confirm line [id number] DATE OF EXAM: 06/11/2024 11:07 AM COMPARISON: None. CLINICAL INDICATION: Male, 74 years old with history of ngt, TECHNIQUE: XR chest 1V confirm line plcor view(s) obtained. FINDINGS: The heart size is mildly prominent. The pulmonary vasculature is normal. Scattered bibasilar infiltrates may be present. Correlate for atelectasis. Upper lung ejan is exclu ded from the field view Nasogastric tube is present with the tip in the proximal left upper quadrant of the abdomen. This cou ld be advanced at least 3 cm for better positioning. IMPRESSION: 1. Mild bibasilar infiltrates. Correlate for subsegmental atelectasis. 2. Nasogastric tube with the tip in the proximal left arm abdomen. Consider advancing at least 3 cm f or better positioning. [facility], , 06/11/2024 12:27 PM
--- NOTE | 2024-06-11 14:00 | P.GSCN ---
History of Present Illness Consult date: 06/11/24 History of present illness: CHIEF COMPLAINT: Abdominal pain HISTORY OF PRESENT ILLNESS: This is a 74-year-old male who presents the hospital with complaints of nausea vomiting and mild abdominal pain. Patient had a robotic umbilical hernia repair on May 27, [address] Roger. Patient reports that he had been feeling well at home for a few days and then started having nausea and vomiting and his continued to have nausea and vomiting for about 10 days with a decreased appetite. Patient reports he had a few bowel movements after surgery and then has had no bowel movements for about 5 days. He is no longer having any flatus. Denies any prior history of bowel obstruction. Pain is more on the right side of the umbilicus. Other surgical history on the abdomen does include a cholecystectomy, liver transplant and bladder cancer surgery. Patient had a CT scan abdomen and pelvis that reported interval development of thickened omentum and thickening of the wall of adjacent small bowel resulting in at least partial small bowel obstruction. Patient has NG tube in place with minimal output. PAST MEDICAL HISTORY: See below PAST SURGICAL HISTORY: See below MEDICATIONS: See below ALLERGIES: See below SOCIAL HISTORY: No illicit drug use. REVIEW OF SYSTEMS: CONSTITUTIONAL: Denies fever or chills. HEENT: Denies blurred vision, vision changes, or eye pain. Denies hemoptysis CARDIOVASCULAR: Denies chest pain or pressure. RESPIRATORY: No shortness of breath. GASTROINTESTINAL: See HPI for pertinent findings HEMATOLOGIC: Denies bleeding disorders. GENITOURINARY: Denies any blood in urine or increased urinary frequency. SKIN: Denies pruitis. Denies rash. PHYSICAL EXAM: VITAL SIGNS: Reviewed GENERAL: Well-developed in no acute distress. HEENT: No sclera icterus. Extraocular movements grossly intact. Moist buccal mucosa. Head is atraumatic, normocephalic. No nasal drainage. ABDOMEN: Distended. Tenderness with palpation to the right side of the umbilicus. Incision sites clean dry and intact. NEUROLOGIC: Alert and oriented. Cranial nerves II through XII grossly intact. LABORATORY DATA: WBC 14.9 down to 12 Hgb 10.2 platelets 198 Sodium 136 potassium is 4.8 creatinine 3.29 IMAGING: CT scan pelvis reports interval development of thickened omentum and thickening of the wall of adjacent small bowel resulting in at least partial small bowel obstruction Chest x-ray reports NG tube within the tip of the proximal left arm of the abdomen consider advancing NG tube 3 cm. Nursing staff has advanced NG tube 3 cm ASSESSMENT: 1. Partial small bowel obstruction 2. Recent umbilical hernia repair with mesh PLAN: -Continue NG tube for decompression -Keep patient n.p.o. -Continue IV fluids -Continue pain medication as needed -Encourage patient to increase activity level -Further recommendations forthcoming per surgeon Physician Sat Math Tutor note has been reviewed by physician. Signing provider agrees with the documented findings, assessment, and plan of care. Attestation Patient seen at bedside with . States that over the past week he has had decreased appetite and nausea and vomiting and inability to keep anything down. He states last episode of flatus was 2 days ago and has had minimal bowel moveme nts. CT of the abdomen pelvis was performed with some thickened omentum and thickening of the wall of the adjacent small bowel resulting in a partial small bowel obstruction. This was personally reviewed. This was done with oral contrast. Nasogastric tube was placed and minimal output at this time. Continue IV fluids for hydration as patient does appear dehydrated secondary to nausea and vomiting. Will obtain abdominal x-ray to evaluate progression of oral contrast. Abdomen is slightly distended, however completely nontender. Will continue to follow and make recommendations based on patient's clinical progress. Kiki Cameron, Past Medical History Past Medical History: Atrial Fibrillation, Blood Disorder, Coronary Artery Disease (CAD), Cancer, COPD, GERD/Reflux, GI Bleed, Hyperlipidemia, Hypertension, Liver Disease, Sleep Apnea/CPAP/BIPAP, Thyroid Disorder Additional Past Medical History / Comment(s): alpha-1 antitrypsin deficiency, IRON DEF ANEMIA, HX Liver Transplant, Chronic edema suppression, maintained on Tacrolimus. O2 2L NC AT NIGHT; BLADDER CA, SKIN CA. tremors Last Myocardial Infarction Date:: 2013 History of Any Multi-Drug Resistant Organisms: None Reported Past Surgical History: Bladder Surgery, Cholecystectomy, Coronary Bypass/CABG, Heart Catheterization, Heart Catheterization With Stent Additional Past Surgical History / Comment(s): liver transplant 2005, CABG 4 vessels , CABG - 2 vessels, heart stents x4. Cardioversion. EGD, COLONOSCOPY. Bladder Cancer surg 2017, TONY CATARACT SURG, hernia repair 05/27/2024 Past Anesthesia/Blood Transfusion Reactions: No Reported Reaction Date of Last Stent Placement:: 2013 Past Psychological History: No Psychological Hx Reported Smoking Status: Never smoker Past Alcohol Use History: None Reported Past Drug Use History: None Reported - Past Family History Mother Family Medical History: Coronary Artery Disease (CAD) Sister(s) Family Medical History: Cancer Additional Family Medical History / Comment(s): ovarian cancer Father Family Medical History: Cancer Additional Family Medical History / Comment(s): BLADDER CA Medications and Allergies Home Medications Medication Instructions Recorded Confirmed Type Atorvastatin [Lipitor] 10 mg PO HS@2200 08/30/16 06/10/24 History Isosorbide Mononitrate [Imdur] 120 mg PO BID@1000,2200 08/30/16 06/10/24 History carvediloL [Coreg] 12.5 mg PO BID@1000,2200 01/02/19 06/10/24 History Tacrolimus [Envarsus Xr] 0.75 mg PO DAILY@1000 03/31/20 06/10/24 History Pantoprazole [Protonix] 40 mg PO AC-BID #60 tablet. 05/13/20 06/10/24 Rx Ranolazine [Ranexa] 500 mg PO BID 01/17/24 06/10/24 History lisinopriL 2.5 mg PO DAILY 01/17/24 06/10/24 History Diltiazem Cd [Cardizem CD] 120 mg PO DAILY 05/23/24 06/10/24 History Levothyroxine Sodium [Synthroid] 50 mcg PO DAILY 06/10/24 06/10/24 History Allergies Allergy/AdvReac Type Severity Reaction Status Date / Time ferumoxytol [From FerOxlo Systemseme] Allergy Anaphylaxis Verified 06/10/24 15:00 Surgical - Exam Osteopathic Statement: *. No significant issues noted on an osteopathic structural exam other than those noted in the History and Physical/Consult. Vital Signs Temp Pulse Resp BP Pulse Ox 97.3 F L 81 20 106/54 92 L 06/10/24 11:22 06/10/24 11:22 06/10/24 11:22 06/10/24 11:22 06/10/24 11:22 Results - Labs 06/11/24 03:58 06/11/24 03:58 Abnormal Lab Results - Last 24 Hours (Table) 06/10/24 06/10/24 06/10/24 Range/Units 13:15 13:15 13:15 WBC 14.9 H (3.8-10.6) k/uL RBC 3.84 L (4.30-5.90) m/uL Hgb 12.1 L (13.0-17.5) gm/dL Hct 38.0 L (39.0-53.0) % Neutrophils # 12.8 H (1.3-7.7) k/uL Lymphocytes # 0.8 L (1.0-4.8) k/uL Sodium (137-145) mmol/L Potassium 5.2 H (3.5-5.1) mmol/L Chloride (98-107) mmol/L Carbon Dioxide 16 L (22-30) mmol/L BUN 88 H (9-20) mg/dL Creatinine 3.66 H (0.66-1.25) mg/dL Glucose 127 H (74-99) mg/dL AST 16 L (17-59) U/L Alkaline Phosphatase 216 H (38-126) U/L Total Protein (6.3-8.2) g/dL Albumin (3.5-5.0) g/dL Lipase 19 L (23-300) U/L Procalcitonin (0.02-0.50) ng/mL Urine Protein Trace H (Negative) Urine Ketones Trace H (Negative) Ur Leukocyte Esterase Trace H (Negative) Urine WBC 7 H (0-5) /hpf Urine Bacteria Rare H (None) /hpf Urine Mucus Rare H (None) /hpf 06/11/24 06/11/24 06/11/24 Range/Units 03:58 03:58 03:58 WBC 12.0 H (3.8-10.6) k/uL RBC 3.20 L (4.30-5.90) m/uL Hgb 10.2 L (13.0-17.5) gm/dL Hct 31.1 L (39.0-53.0) % Neutrophils # 9.6 H (1.3-7.7) k/uL Lymphocytes # 0.9 L (1.0-4.8) k/uL Sodium 136 L (137-145) mmol/L Potassium (3.5-5.1) mmol/L Chloride 111 H (98-107) mmol/L Carbon Dioxide 16 L (22-30) mmol/L BUN 79 H (9-20) mg/dL Creatinine 3.29 H (0.66-1.25) mg/dL Glucose (74-99) mg/dL AST 14 L (17-59) U/L Alkaline Phosphatase 189 H (38-126) U/L Total Protein 5.6 L (6.3-8.2) g/dL Albumin 3.2 L (3.5-5.0) g/dL Lipase (23-300) U/L Procalcitonin 0.84 H (0.02-0.50) ng/mL Urine Protein (Negative) Urine Ketones (Negative) Ur Leukocyte Esterase (Negative) Urine WBC (0-5) /hpf Urine Bacteria (None) /hpf Urine Mucus (None) /hpf Diabetes panel 06/10/24 06/11/24 Range/Units 13:15 03:58 Sodium 138 136 L (137-145) mmol/L Potassium 5.2 H 4.8 (3.5-5.1) mmol/L Chloride 105 111 H (98-107) mmol/L Carbon Dioxide 16 L 16 L (22-30) mmol/L BUN 88 H 79 H (9-20) mg/dL Creatinine 3.66 H 3.29 H (0.66-1.25) mg/dL Glucose 127 H 80 (74-99) mg/dL Calcium 9.3 8.4 (8.4-10.2) mg/dL AST 16 L 14 L (17-59) U/L ALT 15 13 (4-49) U/L Alkaline Phosphatase 216 H 189 H (38-126) U/L Total Protein 7.1 5.6 L (6.3-8.2) g/dL Albumin 4.3 3.2 L (3.5-5.0) g/dL Calcium panel 06/10/24 06/11/24 Range/Units 13:15 03:58 Calcium 9.3 8.4 (8.4-10.2) mg/dL Albumin 4.3 3.2 L (3.5-5.0) g/dL Pituitary panel 06/10/24 06/11/24 Range/Units 13:15 03:58 Sodium 138 136 L (137-145) mmol/L Potassium 5.2 H 4.8 (3.5-5.1) mmol/L Chloride 105 111 H (98-107) mmol/L Carbon Dioxide 16 L 16 L (22-30) mmol/L BUN 88 H 79 H (9-20) mg/dL Creatinine 3.66 H 3.29 H (0.66-1.25) mg/dL Glucose 127 H 80 (74-99) mg/dL Calcium 9.3 8.4 (8.4-10.2) mg/dL Adrenal panel 06/10/24 06/11/24 Range/Units 13:15 03:58 Sodium 138 136 L (137-145) mmol/L Potassium 5.2 H 4.8 (3.5-5.1) mmol/L Chloride 105 111 H (98-107) mmol/L Carbon Dioxide 16 L 16 L (22-30) mmol/L BUN 88 H 79 H (9-20) mg/dL Creatinine 3.66 H 3.29 H (0.66-1.25) mg/dL Glucose 127 H 80 (74-99) mg/dL Calcium 9.3 8.4 (8.4-10.2) mg/dL Total Bilirubin 1.1 1.1 (0.2-1.3) mg/dL AST 16 L 14 L (17-59) U/L ALT 15 13 (4-49) U/L Alkaline Phosphatase 216 H 189 H (38-126) U/L Total Protein 7.1 5.6 L (6.3-8.2) g/dL Albumin 4.3 3.2 L (3.5-5.0) g/dL
[2024-06-11] MEDS: traMADol 50 MG TAB PO PRN (14:56)
--- NOTE | 2024-06-11 18:23 | XR ---
EXAMINATION TYPE: XR abdomen acute w cxr DATE OF EXAM: 06/11/2024 6:08 PM COMPARISON: 06/11/2024 earlier exam CLINICAL INDICATION: Male, 74 years old with history of SBO, TECHNIQUE: XR abdomen acute w cxr view(s) obtained. FINDINGS: The heart size is normal. The pulmonary vasculature is normal. Left lower lobe infiltrate is present. Nasogastric tube is present with the tip in the left upper [place] drant of the abdomen IMPRESSION: 1. Left lower lobe infiltrate. Correlate for atelectasis and pneumonia. 2 nasogastric tube tip proxim al left upper quadrant abdomen [facility], , 06/11/2024 6:21 PM
[2024-06-12] MEDS: bisacodyL 10 MG SUPP RECTAL STA (01:14)
[2024-06-12] MEDS: bisacodyL 10 MG SUPP RECTAL ONE (05:49)
--- NOTE | 2024-06-12 10:30 | P.PN ---
Subjective This is a pleasant 74 years old male with past medical history of multiple medical problems, he follows up with Dr. 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 Graff where he has history of stent and CABG He was recently underwent surgical repair of his hernia on 05/27. Patient presents because of significant nausea and vomiting, he vomited twice last night with no blood. Patient is not eating He is complaining from mild lower abdominal pain since the herniorrhaphy. His pain rated as 2/10 Not peeing much but no dysuria or urgency No chest pain or dyspnea or coughing No headache dizziness weakness or numbness He denies smoking alcohol or illicit drugs.. He follow-up with Dr. Burrows for low hemoglobin Labs reviewed were unremarkable CBC and LFT. Basic metabolic panel showing worsening creatinine 3.6 with baseline about 1.4- 1.8 Hemoglobin is 10 and 12 and WBC is mildly elevated at 14. It looks it is hemoconcentrated sample. Urine analysis slightly abnormal, concentrated sample CT of the abdomen and pelvis without contrast showing thickened omentum and adjacent small bowel with at least partial small bowel obstruction but also there is honeycomb changes of the lower lung both sides and some bronchiectasis. 06/11 Patient has NG tube in place, he looks very weak and fatigued with malaise. Mentation is at baseline No significant abdominal pain or tenderness, very mild pain and some indurated area below the umbilicus at the surgery site Patient reports no bowel movement. He still has leukocytosis with WBCs 12.0 today Pro- Calcitonin is elevated at 0.84 His creatinine start improving 3.6 down to 3.29. Urinalysis is reviewed. No significant proteinuria or hematuria. We will check a bladder scan Who will keep trending creatinine if no significant improvement or worsening then may consider nephrology consultation. However started to improve today 06/12 he is having little bowel movement Mild abdominal pain He is up and taking a shower He looks improved NG tube is out. He still n.p.o. Afebrile Check CBC tomorrow Continue with Zosyn Objective - Vital Signs Vital signs: Vital Signs Temp 97.7 F 06/12/24 07:18 Pulse 62 06/12/24 07:18 Resp 20 06/12/24 07:18 BP 95/52 06/12/24 08:23 Pulse Ox 96 06/12/24 07:18 FiO2 Intake & Output 06/11/24 06/12/24 06/12/24 18:59 06:59 18:59 Output Total 297 275 Balance -297 -275 Output: Urine 275 275 Post Void Residual 22 - Exam -GENERAL: The patient is alert and oriented x3, not in any acute distress. Well developed, well nourished. Patient feels generally weak with malaise HEENT: Pupils are round and equally reacting to light. EOMI. No scleral icterus. No conjunctival pallor. Normocephalic, atraumatic. No pharyngeal erythema. No thyromegaly. CARDIOVASCULAR: S1 and S2 present. No murmurs, rubs, or gallops. PULMONARY: Chest is clear to auscultation, no wheezing , no crackles. -ABDOMEN: Soft, very mild tenderness below the umbilicus, nondistended, normoactive bowel sounds. No palpable organomegaly. NG tube in place MUSCULOSKELETAL: No joint swelling or deformity. EXTREMITIES: No cyanosis, clubbing, or pedal edema. NEUROLOGICAL: Gross neurological examination did not reveal any focal deficits. SKIN: No rashes. no petechiae. - Labs CBC & Chem 7: 06/11/24 03:58 06/11/24 03:58 Assessment and Plan Assessment: Partial small bowel obstruction with thickened omentum and adjacent small bowel, suspicious for enteritis and intra-abdominal infection Dehydration with acute kidney injury most likely ATN on chronic kidney disease stage III Recent robotic associated umbilical herniorrhaphy with mesh on 06/26 Coronary artery disease status post PCI and CABG Lower pulmonary bronchiectasis Chronic anemia Plan: Continue with IV hydration 130 ml per hr of NS Continue with IV Protonix Continue with IV Zosyn for enteritis Hold lisinopril\ Check bladder scan and keep monitoring creatinine, call nephrology consult Surgery team consult Labs and medication were reviewed.. Continue same treatment. Continue with symptomatic treatment. Resume home medication. Monitor labs and vitals. DVT and GI prophylaxis. Further recommendations as per clinical course of the patient DVT prophylaxis: Subcutaneous heparin GI Prophylaxis: Protonix Prognosis is guarded
--- NOTE | 2024-06-12 11:11 | P.PN ---
Subjective Progress Note Date: 06/12/24 SURGICAL PROGRESS NOTE CHIEF COMPLAINT: Partial small bowel obstruction HISTORY OF PRESENT ILLNESS: Patient reports abdominal pain is feeling better. He did have a small bowel movement this morning. Denies any nausea or vomiting. Abdominal x-ray from yesterday with evidence of contrast in the right side of the colon and transverse colon. NG tube was discontinued yesterday. Afebrile. WBC is down from 14.9-12 from yesterday's labs PHYSICAL EXAM: VITAL SIGNS: Reviewed. GENERAL: Well-developed in no acute distress. ABDOMEN: Soft. Nondistended. Mild tenderness with palpation to the right of the umbilicus NEUROLOGIC: Alert and oriented. Cranial nerves II through XII grossly intact. ASSESSMENT: 1. Partial small bowel obstruction/ileus 2. Status post recent umbilical hernia repair with mesh PLAN: -Advance diet to clear liquids -Encourage patient to ambulate -Continue to monitor Physician Hydroponics Worker note has been reviewed by physician. Signing provider agrees with the documented findings, assessment, and plan of care. Attestation Patient seen and examined at bedside. States he had flatus yesterday and this morning. Abdominal x-ray does show contrast within the right side of the colon in the transverse colon after review. We will advance to clear liquid diet. Continue to increase activity. Patient with ileus versus partial small bowel obstruction that appears to be resolving. Continue bowel regimen. Kiki Cameron DO Objective - Vital Signs Vital signs: Vital Signs Temp 97.7 F 06/12/24 07:18 Pulse 62 06/12/24 07:18 Resp 20 06/12/24 07:18 BP 95/52 06/12/24 08:23 Pulse Ox 96 06/12/24 07:18 FiO2 Intake & Output 06/11/24 06/12/24 06/12/24 18:59 06:59 18:59 Output Total 297 275 Balance -297 -275 Output: Urine 275 275 Post Void Residual 22 - Labs CBC & Chem 7: 06/11/24 03:58 06/11/24 03:58
[2024-06-12] MEDS: DEXTROSE 5% IN WATER 1,000 ML with SODIUM BICARB (1 MEQ/ML) 150 ML IV SCH (12:04)
--- NOTE | 2024-06-12 13:45 | P.NPCON ---
History of Present Illness - Reason for Consult acute renal failure - History of Present Illness patient is a 74 year-old male with history of liver transplant for alpha-1 antitrypsin deficiency in 2005. He also has underlying history of A. fib, coronary artery disease, hypertension and chronic kidney disease stage III a with baseline creatinine from 1.4-1.7 mg/dL Patient is admitted to the hospital with complaints of nausea and vomiting. Patient recently had robotic-assisted umbilicus herniorrhaphy with mesh on 05/27/2024 for incarcerated umbilicus hernia. He denies any history of kidney diseases No complaints of fever or chills Serum creatinine was 3.6 on admission and decreased to 3.29. Previous creatinine was 1.5 on 04/16/2024. Blood pressure was low with systolic in the 90s. Currently maintained on IV fluids. Maintained on low-dose BERKLEY inhibitor's Maintained on Prograf for immunosuppression for liver transplant. Past Medical History Past Medical History: Atrial Fibrillation, Blood Disorder, Coronary Artery Disease (CAD), Cancer, COPD, GERD/Reflux, GI Bleed, Hyperlipidemia, Hypertension, Liver Disease, Sleep Apnea/CPAP/BIPAP, Thyroid Disorder Additional Past Medical History / Comment(s): alpha-1 antitrypsin deficiency, IRON DEF ANEMIA, HX Liver Transplant, Chronic edema suppression, maintained on Tacrolimus. O2 2L NC AT NIGHT; BLADDER CA, SKIN CA. tremors Last Myocardial Infarction Date:: 2013 History of Any Multi-Drug Resistant Organisms: None Reported Past Surgical History: Bladder Surgery, Cholecystectomy, Coronary Bypass/CABG, H eart Catheterization, Heart Catheterization With Stent Additional Past Surgical History / Comment(s): liver transplant 2005, CABG 4 vessels , CABG - 2 vessels, heart stents x4. Cardioversion. EGD, COLONOSCOPY. Bladder Cancer surg 2017, TONY CATARACT SURG, hernia repair 05/27/2024 Past Anesthesia/Blood Transfusion Reactions: No Reported Reaction Date of Last Stent Placement:: 2013 Past Psychological History: No Psychological Hx Reported Smoking Status: Never smoker Past Alcohol Use History: None Reported Past Drug Use History: None Reported - Past Family History Mother Family Medical History: Coronary Artery Disease (CAD) Sister(s) Family Medical History: Cancer Additional Family Medical History / Comment(s): ovarian cancer Father Family Medical History: Cancer Additional Family Medical History / Comment(s): BLADDER CA Medications and Allergies Home Medications Medication Instructions Recorded Confirmed Type Atorvastatin [Lipitor] 10 mg PO HS@2200 08/30/16 06/10/24 History Isosorbide Mononitrate [Imdur] 120 mg PO BID@1000,2200 08/30/16 06/10/24 History carvediloL [Coreg] 12.5 mg PO BID@1000,2200 01/02/19 06/10/24 History Tacrolimus [Envarsus Xr] 0.75 mg PO DAILY@1000 03/31/20 06/10/24 History Pantoprazole [Protonix] 40 mg PO AC-BID #60 tablet. 05/13/20 06/10/24 Rx Ranolazine [Ranexa] 500 mg PO BID 01/17/24 06/10/24 History lisinopriL 2.5 mg PO DAILY 01/17/24 06/10/24 History Diltiazem Cd [Cardizem CD] 120 mg PO DAILY 05/23/24 06/10/24 History Levothyroxine Sodium [Synthroid] 50 mcg PO DAILY 06/10/24 06/10/24 History Allergies Allergy/AdvReac Type Severity Reaction Status Date / Time ferumoxytol [From Feraheme] Allergy Anaphylaxis Verified 06/10/24 15:00 Physical Exam Vitals: Vital Signs Temp Pulse Resp BP BP Pulse Ox 06/12/24 13:08 97.4 F L 73 18 138/56 97 06/12/24 08:23 95/52 06/12/24 07:18 97.7 F 62 20 100/44 96 06/12/24 00:38 97.9 F 73 16 115/51 97 06/11/24 18:55 97.8 F 74 16 113/79 99 Intake and Output 06/11/24 06/12/24 06/12/24 22:59 06:59 14:59 Intake Total 240 Output Total 275 275 Balance -275 -275 240 Intake: Oral 240 Output: Urine 275 275 patient is awake, comfortable, no acute distress. Examination of the heart S1 and S2 Examination of the lungs bilateral breath sounds are heard Abdomen is soft nontender Examination of lower extremities shows no significant edema FROZEN [employer]OD SELECTOR exam grossly intact Results - Lab Results Most recent lab results Calcium 8.4 mg/dL (8.4-10.2) 06/11/24 03:58 06/11/24 03:58 06/11/24 03:58 Assessment and Plan Assessment: 1. Acute kidney injury most likely ATN from hypotension, nonoliguric. BERKLEY inhi bitor's on hold. UA appears benign.CT abdomen does not show any evidence of obstruction 2. Partial small bowel obstruction 3. History of incarcerated umbilical hernia status post robotic-assisted u mbilicus hernia [place] with mesh on 05/27/2024 4. Non-gap metabolic acidosis secondary to acute kidney injury Plan: continue with IV fluids Switch to IV bicarb Repeat labs in a.m. Continue to avoid nephrotoxic agents Continue to hold BERKLEY inhibitor's Check trough Prograf level in a.m. Thank you for the consultation. We will continue to follow the patient with you during his hospitalization
[2024-06-13 08:38] LABS: Basophils # (A) 0.06 X 10*3/uL (0.00-0.10); Basophils % (A) 0.7 %; Eosinophils # (A) 0.73 X 10*3/uL (0.04-0.35); Eosinophils % (A) 8.1 %; HCT 30.6 % (39.6-50.0); HGB 9.5 g/dL (13.0-17.0); Lymphocytes # (A) 0.82 X 10*3/uL (0.90-5.00); Lymphocytes % (A) 9.1 %; MCH 30.7 pg (27.0-32.0); Mean Platelet Volume 9.4 FL (9.5-12.2); Monocytes % (A) 9.9 %; NRBC Per 100 WBC 0 X 10*3/uL (0.00-0.01); Neutrophils # (A) 6.42 X 10*3/uL (1.80-7.70); Neutrophils % (A) 70.8 %; Platelet Count 197 X 10*3/uL (140-440); RBC 3.09 X 10*6/uL (4.40-5.60); RDW 15.3 % (11.5-14.5); WBC 9.06 X 10*3/uL (4.50-10.00)
[2024-06-13] MEDS: SENNOSIDES 8.6 MG TAB PO SCH (08:53)
[2024-06-13 09:01] LABS: BUN/Creat Ratio 20.03 Ratio (12.00-20.00); Blood Urea Nitrogen 62.1 mg/dL (9.0-27.0); Calcium 8.7 mg/dL (8.7-10.3); Carbon Dioxide 19.3 mmol/L (21.6-31.8); Chloride 106 mmol/L (96-109); Glucose 168 mg/dL (70-110); Potassium 4.3 mmol/L (3.5-5.5); Sodium 141 mmol/L (135-145)
--- NOTE | 2024-06-13 11:50 | P.PN ---
Subjective Progress Note Date: 06/13/24 SURGICAL PROGRESS NOTE CHIEF COMPLAINT: Partial small bowel obstruction HISTORY OF PRESENT ILLNESS: Patient reporting that his abdominal distention and discomfort feels about the same. He did have some flatus and a small bowel movement this morning. Patient reports some improvement in his discomfort after the bowel movement. Patient reports feeling weak. He does appear short of breath with activity. But patient reports that is due to his COPD. He does complain of bloating after he just drinking broth and juice. Afebrile. WBC is down from 12-9.06 Hgb 10.2 down to 9.5 platelets 197 Cr 3.1 so PHYSICAL EXAM: VITAL SIGNS: Reviewed. GENERAL: Well-developed in no acute distress. ABDOMEN: Soft. Nondistended. Mild tenderness with palpation to the right of the umbilicus NEUROLOGIC: Alert and oriented. Cranial nerves II through XII grossly intact. Extremities: Patient has swelling in bilateral lower extremities more so in the right leg. Calves are nontender ASSESSMENT: 1. Partial small bowel obstruction/ileus 2. Status post recent umbilical hernia repair with mesh PLAN: -Continue clear liquid diet -Add Ensure for protein supplement -Consult PT to help ambulate patient -Venous Doppler bilateral lower extremities ordered to rule out DVT Physician District Manager note has been reviewed by physician. Signing provider agrees with the documented findings, assessment, and plan of care. Objective - Vital Signs Vital signs: Vital Signs Temp 98.6 F 06/13/24 07:22 Pulse 66 06/13/24 07:22 Resp 16 06/13/24 07:22 BP 133/71 06/13/24 07:22 Pulse Ox 93 L 06/13/24 07:22 FiO2 Intake & Output 06/12/24 06/13/24 06/13/24 18:59 06:59 18:59 Intake Total 240 120 Balance 240 120 Intake: Oral 240 120 Other: # Voids 2 # Bowel Movements 1 - Labs CBC & Chem 7: 06/13/24 04:09 06/13/24 04:09 Labs: Abnormal Lab Results - Last 24 Hours (Table) 06/13/24 06/13/24 Range/Units 04:09 04:09 RBC 3.09 L (4.40-5.60) X 10*6/uL Hgb 9.5 L (13.0-17.0) g/dL Hct 30.6 L (39.6-50.0) % MCV 99.0 H (80.0-97.0) FL MCHC 31.0 L (32.0-37.0) g/dL RDW 15.3 H (11.5-14.5) % MPV 9.4 L (9.5-12.2) FL Immature Gran # 0.13 H (0.00-0.04) X 10*3/uL Lymphocytes # 0.82 L (0.90-5.00) X 10*3/uL Eosinophils # 0.73 H (0.04-0.35) X 10*3/uL Carbon Dioxide 19.3 L (21.6-31.8) mmol/L Anion Gap 15.70 H (4.00-12.00) mmol/L BUN 62.1 H (9.0-27.0) mg/dL Creatinine 3.1 H (0.6-1.5) mg/dL Est GFR (CKD-EPI) 20 L (>=60) BUN/Creatinine Ratio 20.03 H (12.00-20.00) Ratio Glucose 168 H (70-110) mg/dL Assessment and Plan Assessment: abd pain and distention is improving. Multiple bowel movements. Pain decreased. advance diet to full liquid diet. b/l lower extremity swelling, follow up lower extremity duplex Time with Patient: Less than 30
--- NOTE | 2024-06-13 13:03 | P.PN ---
Subjective This is a pleasant 74 years old male with past medical history of multiple medical problems, he follows up with Dr. Lucero for his breathing problem and his speedometer inspector is Dr. Graff where he has history of stent and CABG He was recently underwent surgical repair of his hernia on 05/27. Patient presents because of significant nausea and vomiting, he vomited twice last night with no blood. Patient is not eating He is complaining from mild lower abdominal pain since the herniorrhaphy. His pain rated as 2/10 Not peeing much but no dysuria or urgency No chest pain or dyspnea or coughing No headache dizziness weakness or numbness He denies smoking alcohol or illicit drugs.. He follow-up with Dr. Burrows for low hemoglobin Labs reviewed were unremarkable CBC and LFT. Basic metabolic panel showing worsening creatinine 3.6 with baseline about 1.4- 1.8 Hemoglobin is 10 and 12 and WBC is mildly elevated at 14. It looks it is hemoconcentrated sample. Urine analysis slightly abnormal, concentrated sample CT of the abdomen and pelvis without contrast showing thickened omentum and adjacent small bowel with at least partial small bowel obstruction but also there is honeycomb changes of the lower lung both sides and some bronchiectasis. 06/11 Patient has NG tube in place, he looks very weak and fatigued with malaise. Mentation is at baseline No significant abdominal pain or tenderness, very mild pain and some indurated area below the umbilicus at the surgery site Patient reports no bowel movement. He still has leukocytosis with WBCs 12.0 today Pro- Calcitonin is elevated at 0.84 His creatinine start improving 3.6 down to 3.29. Urinalysis is reviewed. No significant proteinuria or hematuria. We will check a bladder scan Who will keep trending creatinine if no significant improvement or worsening then may consider nephrology consultation. However started to improve today 06/12 he is having little bowel movement Mild abdominal pain He is up and taking a shower He looks improved NG tube is out. He still n.p.o. Afebrile Check CBC tomorrow Continue with Zosyn 06/13 Patient feels little better, no abdominal pain, his abdomen somewhat less tense He has 2 loose bowel movement He is on clear liquid diet and tolerates that well. No vomiting. He is undergoing ultrasound to check his legs for the venous thrombosis Creatinine is slightly better than yesterday at 3.1, no significant improvement, nephrology following closely His white cell count normalized at 9 which is reference range. Hemoglobin slightly lower at 9.5. Objective - Vital Signs Vital signs: Vital Signs Temp 98.6 F 06/13/24 07:22 Pulse 66 06/13/24 07:22 Resp 16 06/13/24 07:22 BP 133/71 06/13/24 07:22 Pulse Ox 93 L 06/13/24 07:22 FiO2 Intake & Output 06/12/24 06/13/24 06/13/24 18:59 06:59 18:59 Intake Total 240 120 Balance 240 120 Intake: Oral 240 120 Other: # Voids 2 # Bowel Movements 1 - Exam -GENERAL: The patient is alert and oriented x3, not in any acute distress. Well developed, well nourished. Patient feels generally weak with malaise HEENT: Pupils are round and equally reacting to light. EOMI. No scleral icterus. No conjunctival pallor. Normocephalic, atraumatic. No pharyngeal erythema. No thyromegaly. CARDIOVASCULAR: S1 and S2 present. No murmurs, rubs, or gallops. PULMONARY: Chest is clear to auscultation, no wheezing , no crackles. -ABDOMEN: Soft, very mild tenderness below the umbilicus, nondistended, normoactive bowel sounds. No palpable organomegaly. NG tube in place MUSCULOSKELETAL: No joint swelling or deformity. EXTREMITIES: No cyanosis, clubbing, or pedal edema. NEUROLOGICAL: Gross neurological examination did not reveal any focal deficits. SKIN: No rashes. no petechiae. - Labs CBC & Chem 7: 06/13/24 04:09 06/13/24 04:09 Labs: Abnormal Lab Results - Last 24 Hours (Table) 06/13/24 06/13/24 Range/Units 04:09 04:09 RBC 3.09 L (4.40-5.60) X 10*6/uL Hgb 9.5 L (13.0-17.0) g/dL Hct 30.6 L (39.6-50.0) % MCV 99.0 H (80.0-97.0) FL MCHC 31.0 L (32.0-37.0) g/dL RDW 15.3 H (11.5-14.5) % MPV 9.4 L (9.5-12.2) FL Immature Gran # 0.13 H (0.00-0.04) X 10*3/uL Lymphocytes # 0.82 L (0.90-5.00) X 10*3/uL Eosinophils # 0.73 H (0.04-0.35) X 10*3/uL Carbon Dioxide 19.3 L (21.6-31.8) mmol/L Anion Gap 15.70 H (4.00-12.00) mmol/L BUN 62.1 H (9.0-27.0) mg/dL Creatinine 3.1 H (0.6-1.5) mg/dL Est GFR (CKD-EPI) 20 L (>=60) BUN/Creatinine Ratio 20.03 H (12.00-20.00) Ratio Glucose 168 H (70-110) mg/dL Assessment and Plan Assessment: Partial small bowel obstruction with thickened omentum and adjacent small bowel, suspicious for enteritis and intra-abdominal infection Dehydration with acute kidney injury most likely ATN on chronic kidney disease stage III Recent robotic associated umbilical herniorrhaphy with mesh on 06/26 Coronary artery disease status post PCI and CABG Lower pulmonary bronchiectasis Chronic anemia Plan: Continue with IV hydration 130 ml per hr of NS Continue with IV Protonix Continue with IV Zosyn for enteritis Hold lisinopril\ Check bladder scan and keep monitoring creatinine, call nephrology consult Surgery team consult Labs and medication were reviewed.. Continue same treatment. Continue with symptomatic treatment. Resume home medication. Monitor labs and vitals. DVT and GI prophylaxis. Further recommendations as per clinical course of the patient DVT prophylaxis: Subcutaneous heparin GI Prophylaxis: Protonix Prognosis is guarded
--- NOTE | 2024-06-13 13:09 | US ---
EXAMINATION TYPE: US venous doppler duplex LE BI DATE OF EXAM: 06/13/2024 12:54 PM COMPARISON: NONE CLINICAL INDICATION: Male, 74 years old with history of leg swelling, rule out DVT; Pt states no symp toms, TECHNIQUE: The lower extremity deep venous system is examined utilizing real time linear array sonog checo with graded compression, color doppler sonography, and spectral doppler. SIDE PERFORMED: Bilateral FINDINGS: VESSELS IMAGED: Common Femoral Vein Deep Femoral Vein Greater Saphenous Vein * Femoral Vein Popliteal Vein Small Saphenous Vein * Proximal Calf Veins (* superficial vessels) Right Leg: Negative for DVT. Rouleaux flow noted, Color Doppler imaging shows patency of the vessels . Spectral waveforms are within normal limits. Left Leg: Negative for DVT. Rouleaux flow noted, Color Doppler imaging shows patency of the vessels. Spectral waveforms are within normal limits. IMPRESSION: No ultrasound evidence for deep venous thrombosis. Rouleaux flow is present bilaterally. Patient is at risk for developing deep venous thrombosis [facility] [place], , 06/13/2024 1:07 PM
--- NOTE | 2024-06-13 13:19 | P.PN ---
Subjective patient is seen for follow-up for acute kidney injury. Currently maintained on IV fluids. Renal function has improved slightly with serum creatinine down to 3.1 from 3.6 on admission. No significant complaints today. Diarrhea is slightly better. Objective - Vital Signs Vital signs: Vital Signs Temp 98.6 F 06/13/24 07:22 Pulse 66 06/13/24 07:22 Resp 16 06/13/24 07:22 BP 133/71 06/13/24 07:22 Pulse Ox 93 L 06/13/24 07:22 FiO2 Intake & Output 06/12/24 06/13/24 06/13/24 18:59 06:59 18:59 Intake Total 240 120 Balance 240 120 Intake: Oral 240 120 Other: # Voids 2 # Bowel Movements 1 - Exam patient is awake, comfortable, no acute distress Alert oriented 3 CHEMOTHERAPIST exam grossly intact No evidence of edema lower extremities - Labs CBC & Chem 7: 06/13/24 04:09 06/13/24 04:09 Labs: Abnormal Lab Results - Last 24 Hours (Table) 06/13/24 06/13/24 Range/Units 04:09 04:09 RBC 3.09 L (4.40-5.60) X 10*6/uL Hgb 9.5 L (13.0-17.0) g/dL Hct 30.6 L (39.6-50.0) % MCV 99.0 H (80.0-97.0) FL MCHC 31.0 L (32.0-37.0) g/dL RDW 15.3 H (11.5-14.5) % MPV 9.4 L (9.5-12.2) FL Immature Gran # 0.13 H (0.00-0.04) X 10*3/uL Lymphocytes # 0.82 L (0.90-5.00) X 10*3/uL Eosinophils # 0.73 H (0.04-0.35) X 10*3/uL Carbon Dioxide 19.3 L (21.6-31.8) mmol/L Anion Gap 15.70 H (4.00-12.00) mmol/L BUN 62.1 H (9.0-27.0) mg/dL Creatinine 3.1 H (0.6-1.5) mg/dL Est GFR (CKD-EPI) 20 L (>=60) BUN/Creatinine Ratio 20.03 H (12.00-20.00) Ratio Glucose 168 H (70-110) mg/dL Assessment and Plan Assessment: 1. Acute kidney injury most likely ATN from hypotension, nonoliguric. BERKLEY inhibitor's on hold. UA appears benign. CT abdomen does not show any evidence of obstruction 2. Partial small bowel obstruction 3. History of incarcerated umbilical hernia status post robotic-assisted um bilicus hernia [place] with mesh on 05/27/2024 4. Non-gap metabolic acidosis secondary to acute kidney injury Plan: continue with IV bicarb Repeat labs in a.m. Continue to avoid nephrotoxic agents Continue to hold BERKLEY inhibitor's Check trough Prograf level in a.m.
--- NOTE | 2024-06-14 11:14 | P.PN ---
Subjective Progress Note Date: 06/14/24 SURGICAL PROGRESS NOTE CHIEF COMPLAINT: Partial small bowel obstruction HISTORY OF PRESENT ILLNESS: Patient sitting at side of bed. Reports that he is not really having any abdominal pain. He did have 2 bowel movements last night and 2 bowel movements this morning that were semisolid. Denies any nausea or vomiting. Tolerating the clear liquids. Venous Doppler of the bilateral lower extremities negative for DVT. Afebrile. PHYSICAL EXAM: VITAL SIGNS: Reviewed. GENERAL: Well-developed in no acute distress. ABDOMEN: Abdomen softer. Nontender. NEUROLOGIC: Alert and oriented. Cranial nerves II through XII grossly intact. ASSESSMENT: 1. Partial small bowel obstruction/ileus 2. Status post recent umbilical hernia repair with mesh 3. Moderate protein calorie malnutrition PLAN: -Advance diet to full liquids -Continue Ensure protein drink -Encourage patient to increase activity level Physician Director Of Academic Support note has been reviewed by physician. Signing provider agrees with the documented findings, assessment, and plan of care. Objective - Vital Signs Vital signs: Vital Signs Temp 98.4 F 06/14/24 07:36 Pulse 73 06/14/24 07:36 Resp 18 06/14/24 07:36 BP 99/58 06/14/24 07:36 Pulse Ox 93 L 06/14/24 07:36 FiO2 Intake & Output 06/13/24 06/14/24 06/14/24 18:59 06:59 18:59 Intake Total 240 Balance 240 Intake: Oral 240 Other: Voiding Method Toilet # Voids 4 4 - Labs CBC & Chem 7: 06/14/24 11:35 06/14/24 10:36 Assessment and Plan Assessment: abdominal exam benign, having bowel function. PT having conversational dyspnea, follow up chest xray. Time with Patient: Less than 30
--- NOTE | 2024-06-14 11:14 | P.PN ---
Subjective This is a pleasant 74 years old male with past medical history of multiple medical problems, he follows up with Dr. Lucero for his breathing problem and his textile artist is Dr. Graff where he has history of stent and CABG He was recently underwent surgical repair of his hernia on 05/27. Patient presents because of significant nausea and vomiting, he vomited twice last night with no blood. Patient is not eating He is complaining from mild lower abdominal pain since the herniorrhaphy. His pain rated as 2/10 Not peeing much but no dysuria or urgency No chest pain or dyspnea or coughing No headache dizziness weakness or numbness He denies smoking alcohol or illicit drugs.. He follow-up with Dr. Burrows for low hemoglobin Labs reviewed were unremarkable CBC and LFT. Basic metabolic panel showing worsening creatinine 3.6 with baseline about 1.4- 1.8 Hemoglobin is 10 and 12 and WBC is mildly elevated at 14. It looks it is hemoconcentrated sample. Urine analysis slightly abnormal, concentrated sample CT of the abdomen and pelvis without contrast showing thickened omentum and adjacent small bowel with at least partial small bowel obstruction but also there is honeycomb changes of the lower lung both sides and some bronchiectasis. 06/11 Patient has NG tube in place, he looks very weak and fatigued with malaise. Mentation is at baseline No significant abdominal pain or tenderness, very mild pain and some indurated area below the umbilicus at the surgery site Patient reports no bowel movement. He still has leukocytosis with WBCs 12.0 today Pro- Calcitonin is elevated at 0.84 His creatinine start improving 3.6 down to 3.29. Urinalysis is reviewed. No significant proteinuria or hematuria. We will check a bladder scan Who will keep trending creatinine if no significant improvement or worsening then may consider nephrology consultation. However started to improve today 06/12 he is having little bowel movement Mild abdominal pain He is up and taking a shower He looks improved NG tube is out. He still n.p.o. Afebrile Check CBC tomorrow Continue with Zosyn 06/13 Patient feels little better, no abdominal pain, his abdomen somewhat less tense He has 2 loose bowel movement He is on clear liquid diet and tolerates that well. No vomiting. He is undergoing ultrasound to check his legs for the venous thrombosis Creatinine is slightly better than yesterday at 3.1, no significant improvement, nephrology following closely His white cell count normalized at 9 which is reference range. Hemoglobin slightly lower at 9.5. 06/14 Patient with no abdominal pain no vomiting, he had 2-3 bowel movement per day He still on liquid diet. Creatinine from today is pending Lisinopril on hold He is on Zosyn and sodium bicarb at 100 mL/h Objective - Vital Signs Vital signs: Vital Signs Temp 98.4 F 06/14/24 07:36 Pulse 73 06/14/24 07:36 Resp 18 06/14/24 07:36 BP 99/58 06/14/24 07:36 Pulse Ox 93 L 06/14/24 07:36 FiO2 Intake & Output 06/13/24 06/14/24 06/14/24 18:59 06:59 18:59 Intake Total 240 Balance 240 Intake: Oral 240 Other: Voiding Method Toilet # Voids 4 4 - Exam -GENERAL: The patient is alert and oriented x3, not in any acute distress. Well developed, well nourished. Patient feels generally weak with malaise HEENT: Pupils are round and equally reacting to light. EOMI. No scleral icterus. No conjunctival pallor. Normocephalic, atraumatic. No pharyngeal erythema. No thyromegaly. CARDIOVASCULAR: S1 and S2 present. No murmurs, rubs, or gallops. PULMONARY: Chest is clear to auscultation, no wheezing , no crackles. -ABDOMEN: Soft, very mild tenderness below the umbilicus, nondistended, normoactive bowel sounds. No palpable organomegaly. NG tube in place MUSCULOSKELETAL: No joint swelling or deformity. EXTREMITIES: No cyanosis, clubbing, or pedal edema. NEUROLOGICAL: Gross neurological examination did not reveal any focal deficits. SKIN: No rashes. no petechiae. - Labs CBC & Chem 7: 06/13/24 04:09 06/13/24 04:09 Assessment and Plan Assessment: Partial small bowel obstruction with thickened omentum and adjacent small bowel, suspicious for enteritis and intra-abdominal infection Dehydration with acute kidney injury most likely ATN on chronic kidney disease stage III Recent robotic associated umbilical herniorrhaphy with mesh on 06/26 Coronary artery disease status post PCI and CABG Lower pulmonary bronchiectasis Chronic anemia Plan: Continue with IV hydration of sodium bicarb at 100 mL/h Continue with IV Protonix Continue with IV Zosyn for enteritis Hold lisinopril call nephrology consult Surgery team consult Labs and medication were reviewed.. Continue same treatment. Continue with symptomatic treatment. Resume home medication. Monitor labs and vitals. DVT and GI prophylaxis. Further recommendations as per clinical course of the patient DVT prophylaxis: Subcutaneous heparin GI Prophylaxis: Protonix Prognosis is guarded
[2024-06-14 11:26] LABS: African American GFR (CKD) 33 (>60 ml/min/1.73 sqM); Anion Gap 5 mmol/L; Blood Urea Nitrogen 40 mg/dL (9-20); Calcium 8.7 mg/dL (8.4-10.2); Carbon Dioxide 27 mmol/L (22-30); Chloride 108 mmol/L (98-107); Glucose 115 mg/dL (74-99); Non-African American GFR(CKD) 28 (>60 ml/min/1.73 sqM); Potassium 3.9 mmol/L (3.5-5.1); Sodium 140 mmol/L (137-145)
[2024-06-14 11:53] LABS: HCT 33.2 % (39.0-53.0); HGB 10.6 gm/dL (13.0-17.5); Hypochromasia Slight; MCH 31.4 pg (25.0-35.0); MCV 98.1 fL (80.0-100.0); Mean Platelet Volume 7.1; Platelet Count 218 k/uL (150-450); RBC 3.38 m/uL (4.30-5.90)
--- NOTE | 2024-06-14 18:58 | P.PN ---
Subjective patient is seen for follow-up for acute kidney injury. Currently maintained on IV fluids. Renal function has improved slightly with serum creatinine down to 2.1 from 3.6 on admission. No significant complaints today. Objective - Vital Signs Vital signs: Vital Signs Temp 97.7 F 06/14/24 14:00 Pulse 105 H 06/14/24 14:00 Resp 18 06/14/24 14:00 BP 106/64 06/14/24 14:00 Pulse Ox 91 L 06/14/24 14:00 FiO2 Intake & Output 06/13/24 06/14/24 06/14/24 18:59 06:59 18:59 Intake Total 240 Balance 240 Intake: Oral 240 Other: Voiding Method Toilet # Voids 4 4 3 - Exam patient is awake, comfortable, no acute distress Alert oriented 3 Lungs are clear CVS S1 and S2 Abdomen is soft, non tender COMMUTATOR OPERATOR exam grossly intact No evidence of edema lower extremities - Labs CBC & Chem 7: 06/14/24 11:35 06/14/24 10:36 Labs: Abnormal Lab Results - Last 24 Hours (Table) 06/14/24 06/14/24 Range/Units 10:36 11:35 RBC 3.38 L (4.30-5.90) m/uL Hgb 10.6 L (13.0-17.5) gm/dL Hct 33.2 L (39.0-53.0) % Chloride 108 H (98-107) mmol/L BUN 40 H (9-20) mg/dL Creatinine 2.19 H (0.66-1.25) mg/dL Glucose 115 H (74-99) mg/dL Assessment and Plan Assessment: 1. Acute kidney injury most likely ATN from hypotension, nonoliguric. BERKLEY inhibitor's on hold. UA appears benign. CT abdomen does not show any evidence of obstruction 2. Partial small bowel obstruction 3. History of incarcerated umbilical hernia status post robotic-assisted umbili cus hernia [place] with mesh on 05/27/2024 4. Non-gap metabolic acidosis secondary to acute kidney injury 5. S/p liver transplant for alpha 1 antitrypsin deficiency, tacro level is 5.3 which is appropriate. Plan: continue with IVF. Switch to LR Repeat labs in a.m. Continue to avoid nephrotoxic agents Continue to hold BERKLEY inhibitor's
[2024-06-15 09:27] LABS: BUN/Creat Ratio 15.33 Ratio (12.00-20.00); Blood Urea Nitrogen 32.2 mg/dL (9.0-27.0); Calcium 8.4 mg/dL (8.7-10.3); Carbon Dioxide 25.3 mmol/L (21.6-31.8); Chloride 104 mmol/L (96-109); Glucose 143 mg/dL (70-110); Potassium 4.1 mmol/L (3.5-5.5); Sodium 142 mmol/L (135-145)
[2024-06-15 09:42] LABS: HCT 32.7 % (39.6-50.0); MCH 30.6 pg (27.0-32.0); MCHC 30.6 g/dL (32.0-37.0); Mean Platelet Volume 9.7 FL (9.5-12.2); NRBC Per 100 WBC 0 X 10*3/uL (0.00-0.01); Platelet Count 197 X 10*3/uL (140-440); RBC 3.27 X 10*6/uL (4.40-5.60); WBC 8.84 X 10*3/uL (4.50-10.00)
--- NOTE | 2024-06-15 13:01 | P.DS ---
Providers Date of admission: 06/10/24 17:15 Expected date of discharge: 06/15/24 Attending physician: Jesús Mireles MD Consults: 06/10/24 17:15 Consult Physician Urgent Consulting Provider: Parker Roger Consult Reason/Comments: partial sbo Do you want consulting provider notified?: Already Contacted 06/11/24 11:17 Consult Physician Routine Consulting Provider: Jina Pedraza Consult Reason/Comments: alicia Do you want consulting provider notified?: Yes Primary care physician: Richi [facility] Course: 74 years old male with past medical history of multiple medical problems, he follows up with Dr. 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 Patient presents because of significant nausea and vomiting, he vomited twice last night with no blood. Patient is not eating He is complaining from mild lower abdominal pain since the herniorrhaphy. His pain rated as 2/10 Not peeing much but no dysuria or urgency No chest pain or dyspnea or coughing No headache dizziness weakness or numbness He denies smoking alcohol or illicit drugs.. He follow-up with Dr. Burrows for low hemoglobin Labs reviewed were unremarkable CBC and LFT. Basic metabolic panel showing worsening creatinine 3.6 with baseline about 1.4- 1.8 Hemoglobin is 10 and 12 and WBC is mildly elevated at 14. It looks it is hemoconcentrated sample. Urine analysis slightly abnormal, concentrated sample CT of the abdomen and pelvis without contrast showing thickened omentum and adjacent small bowel with at least partial small bowel obstruction but also there is honeycomb changes of the lower lung both sides and some bronchiectasis. 06/11 Patient has NG tube in place, he looks very weak and fatigued with malaise. Mentation is at baseline No significant abdominal pain or tenderness, very mild pain and some indurated area below the umbilicus at the surgery site Patient reports no bowel movement. He still has leukocytosis with WBCs 12.0 today Pro- Calcitonin is elevated at 0.84 His creatinine start improving 3.6 down to 3.29. Urinalysis is reviewed. No significant proteinuria or hematuria. We will check a bladder scan Who will keep trending creatinine if no significant improvement or worsening then may consider nephrology consultation. However started to improve today 06/12 he is having little bowel movement Mild abdominal pain He is up and taking a shower He looks improved NG tube is out. He still n.p.o. Afebrile Check CBC tomorrow Continue with Zosyn 06/13 Patient feels little better, no abdominal pain, his abdomen somewhat less tense He has 2 loose bowel movement He is on clear liquid diet and tolerates that well. No vomiting. He is undergoing ultrasound to check his legs for the venous thrombosis Creatinine is slightly better than yesterday at 3.1, no significant improvement, nephrology following closely His white cell count normalized at 9 which is reference range. Hemoglobin slightly lower at 9.5. 06/14 Patient with no abdominal pain no vomiting, he had 2-3 bowel movement per day He still on liquid diet. Creatinine from today is pending Lisinopril on hold He is on Zosyn and sodium bicarb at 100 mL/h 06/15 : patient seen and evaluated at bedside, patient was seen by surgery and nephrology and cleared for discharge patient had bowel movements, adequately treated with IV antibiotics received Zosyn for 5 days no need for discharge with antibiotics during the hospital stay lisinopril was discontinued secondary to worsening renal failure. Patient able to tolerate diet without difficulty will need outpatient follow-up with PCP EXAM GENERAL: The patient is alert and oriented x3,Well developed, well nourished. Patient feels generally weak HEENT: Pupils are round and equally reacting to light. EOMI. CARDIOVASCULAR: S1 and S2 present. No murmurs, rubs, or gallops. PULMONARY: Chest is clear to auscultation, no wheezing , no crackles. ABDOMEN: Soft, no guarding no tenderness no rigidity MUSCULOSKELETAL: No joint swelling or deformity. EXTREMITIES: No cyanosis, clubbing, or pedal edema. NEUROLOGICAL: Gross neurological examination did not reveal any focal deficits. Assessment: Assessment: * Partial small bowel obstruction with thickened omentum and adjacent small bowel, suspicious for enteritis and intra-abdominal infection resolved * acute kidney injury most likely ATN on chronic kidney disease stage III improved * History of incarcerated umbilical hernia status post robotic-assisted umbilicus hernia raphe with mesh on 05/27/2024 * Coronary artery disease status post PCI and CABG * history of liver transplant * Chronic anemia Plan: * nephrology and general surgery on consult, cleared for discharge * in regards to acute kidney injury continue patient on fluid resuscitation with sodium bicarbonate, renal function improved, close to baselin * For enteritis treated with IV Zosyn for enteritis day 11/04 * Labs and medication were reviewed. * Home medication continued * For hypertension continue Coreg, Cardizem>> lisinopril discontinued * Continue tacrolimus Patient Condition at Discharge: Fair Plan - Discharge Summary Discharge Rx Participant: Yes New Discharge Prescriptions: Continue Atorvastatin [Lipitor] 10 mg PO HS@2200 Isosorbide Mononitrate [Imdur] 120 mg PO BID@1000,2200 carvediloL [Coreg] 12.5 mg PO BID@1000,2200 Tacrolimus [Envarsus Xr] 0.75 mg PO DAILY@1000 Pantoprazole [Protonix] 40 mg PO AC-BID #60 tablet. Ranolazine [Ranexa] 500 mg PO BID Levothyroxine Sodium [Synthroid] 50 mcg PO DAILY Diltiazem Cd [Cardizem CD] 120 mg PO DAILY Discontinued lisinopriL 2.5 mg PO DAILY Discharge Medication List Atorvastatin [Lipitor] 10 mg PO HS@2200 08/30/16 [History] Isosorbide Mononitrate [Imdur] 120 mg PO BID@1000,2200 08/30/16 [History] carvediloL [Coreg] 12.5 mg PO BID@1000,2200 01/02/19 [History] Tacrolimus [Envarsus Xr] 0.75 mg PO DAILY@1000 03/31/20 [History] Pantoprazole [Protonix] 40 mg PO AC-BID #60 tablet. 05/13/20 [Rx] Ranolazine [Ranexa] 500 mg PO BID 01/17/24 [History] Diltiazem Cd [Cardizem CD] 120 mg PO DAILY 05/23/24 [History] Levothyroxine Sodium [Synthroid] 50 mcg PO DAILY 06/10/24 [History] Follow up Appointment(s)/Referral(s): Richi Le DO [Primary Care Provider] - 1-2 days Activity/Diet/Wound Care/Special Instructions: Continue cardiac diet upon discharge [id number] flu pro biotics, yogurt postdischarge Discharge Disposition: HOME SELF-CARE
[2024-06-15 14:21] VITALS: BP 129/67; PULSE 63; RESP 17; TEMP 97.9
== END 2024-06-15 14:58 | disposition home or self-care (01) | DRG 388 ==
LOC: EC 11:20 → 4SSUR 17:15
PROVIDERS: ADMIT Internal Medicine; ATTEND Internal Medicine
PROC: 0D9670Z Drainage of Stomach with Drainage Device, Via Natural or Artificial Opening (ICD-10-PCS; principal; 2024-06-10)
DX: K56.600 Partial intestinal obstruction, unspecified as to cause (principal); N17.0 Acute kidney failure with tubular necrosis; A09 Infectious gastroenteritis and colitis, unspecified; E44.0 Moderate protein-calorie malnutrition; D84.821 Immunodeficiency due to drugs; E87.20 Acidosis, unspecified; Z94.4 Liver transplant status; D63.1 Anemia in chronic kidney disease; E88.01 Alpha-1-antitrypsin deficiency; J47.9 Bronchiectasis, uncomplicated; N18.31 Chronic kidney disease, stage 3a; I12.9 Hypertensive chronic kidney disease with stage 1 through stage 4 chronic kidney disease, or unspecified chronic kidney disease; E11.22 Type 2 diabetes mellitus with diabetic chronic kidney disease; E86.0 Dehydration; E78.5 Hyperlipidemia, unspecified; I25.10 Atherosclerotic heart disease of native coronary artery without angina pectoris; I48.91 Unspecified atrial fibrillation; E07.9 Disorder of thyroid, unspecified; G47.30 Sleep apnea, unspecified; K21.9 Gastro-esophageal reflux disease without esophagitis; I95.9 Hypotension, unspecified; Z95.1 Presence of aortocoronary bypass graft; Z95.5 Presence of coronary angioplasty implant and graft; Z85.51 Personal history of malignant neoplasm of bladder; Z79.621 Long term (current) use of calcineurin inhibitor; Z79.899 Other long term (current) drug therapy; Z79.890 Hormone replacement therapy; I25.2 Old myocardial infarction; Z88.8 Allergy status to other drugs, medicaments and biological substances; Z68.25 Body mass index [BMI] 25.0-25.9, adult; Z98.890 Other specified postprocedural states; Z80.52 Family history of malignant neoplasm of bladder; Z82.49 Family history of ischemic heart disease and other diseases of the circulatory system
CPT/HCPCS: 36415; 43762; 74022; 74176; 80048; 80053; 80197; 81001; 83605; 83690; 84145; 85025; 85027; 93970; 96361; 96374; 96375; 99285

== ENCOUNTER → 2024-07-01 | Day surgery (SDC) | payer MEDICARE, BC ==
[~2024-07-01] MED LIST changes: -HYDROmorphone 0.5 MG/0.5 ML SYRINGE IVP PRN; -LIDOCAINE 1% (10MG/ML) FOR IV START INTRADERMA PRN; +PROPOFOL 10 MG/ML 20 ML VIAL IV ONE; -droPERidol 5 MG/2 ML VIAL IVP ONE
[2024-07-01] MEDS: IV FLUID CONTINUATION 500 ML IV ONE ×2 (06:29)
[2024-07-01 06:44] LABS: Glucose,Whole Blood 134 mg/dL (70-110)
[2024-07-01 06:45] VITALS: TEMP 97.5
[2024-07-01] MEDS: SODIUM CHLORIDE 0.9% 500 ML 500 ML IV SCH (06:56)
[2024-07-01] MEDS: BENZOCAINE SPRAY 1 EACH MM ONE (07:17)
--- NOTE | 2024-07-01 07:30 | P.TEE ---
Description of Procedure(s): Procedure performed: Transesophageal Echocardiogram with color flow doppler, pulsed wave doppler and continuous wave doppler, synchronized cardioversion Moderate conscious sedation: Moderate conscious sedation was supplied by anesthesia, see separate report. Complications: none Indications: Symptomatic Afib PROCEDURE: After the risks, benefits and alternatives of the above mentioned procedure was explained in detail with the patient, informed consent was obtained. Patient was brought to the lab in a fasting state. Patient was given sedation by anesthesia, see separate report. The throat was sprayed with Hurricane to anesthetize the throat. A lubricated Omni probe was then introduced into the esophagus and stomach and multiple views were obtained. 2D echo with color flow doppler, pulsed wave doppler and continuous wave doppler was utilized. The probe was then removed. There was no thrombus noted and therefore patient underwent synchronized cardioversion x 1 with 200J with resultant sinus rhythm. Patient tolerated the procedure well. Patient was transferred to the post procedure area in stable and satisfactory condition. FINDINGS: 1. The aortic valve is tricuspid and function normally. 2. The mitral valve appears be normal with mild regurgitation. 3. Tricuspid valve appears to be normal with moderate to severe TR. 4. The interatrial septum appears intact however no bubbles were performed. No evidence of PFO. 5. Left atrial appendage is free of clot. 6. Left ventricular EF 40-45%
[2024-07-01 08:59] VITALS: BP 135/72; PULSE 56; RESP 16
== END ==
LOC: OR 05:58
PROVIDERS: ATTEND Internal Medicine
DX: I25.10 Atherosclerotic heart disease of native coronary artery without angina pectoris (principal); I48.91 Unspecified atrial fibrillation; G47.33 Obstructive sleep apnea (adult) (pediatric); J44.9 Chronic obstructive pulmonary disease, unspecified; E88.01 Alpha-1-antitrypsin deficiency; E07.9 Disorder of thyroid, unspecified; K21.9 Gastro-esophageal reflux disease without esophagitis; E11.9 Type 2 diabetes mellitus without complications; I10 Essential (primary) hypertension; E78.5 Hyperlipidemia, unspecified; Z85.51 Personal history of malignant neoplasm of bladder; Z99.89 Dependence on other enabling machines and devices; Z95.1 Presence of aortocoronary bypass graft; Z82.49 Family history of ischemic heart disease and other diseases of the circulatory system; Z88.9 Allergy status to unspecified drugs, medicaments and biological substances; Z79.890 Hormone replacement therapy; Z79.02 Long term (current) use of antithrombotics/antiplatelets; Z79.899 Other long term (current) drug therapy
CPT/HCPCS: 93312; 93320; 93325; 92960; J2704

== ENCOUNTER → 2024-11-13 | Outpatient (CLI) | payer MEDICARE, BC ==
--- NOTE | 2024-11-13 16:05 | US ---
EXAMINATION TYPE: US kidneys/renal and bladder DATE OF EXAM: 11/13/2024 COMPARISON: NONE CLINICAL INDICATION: Male, 74 years old with history of N18.31 CHRONIC KIDNEY DISEASE, STAGE 3A; CKD stage 3A CKD. Hx bladder cancer with surgery 5 years ago. TECHNIQUE: Grayscale imaging of the bilateral kidneys and urinary bladder: FINDINGS: EXAM MEASUREMENTS: Right Kidney: 11.6 x 4.9 x 4.5 cm Left Kidney: 9.9 x 4.3 x 4.8 cm Right Kidney: No hydronephrosis or masses seen Left Kidney: There is an extrarenal pelvis. No calyceal dilatation to suggest hydronephrosis. A coupl e benign renal cysts are present, largest at the upper pole measuring 2.4 cm and a smaller cyst measu ring 1.4 cm at the lower pole. Bladder: No gross abnormality. Bilateral Jets seen: Yes IMPRESSION: 1. No hydronephrosis on either side. 2. A couple benign renal cortical cysts on the left measuring up to 2.4 cm. [facility], , 11/13/2024 4:03 PM
== END | disposition home or self-care (01) ==
LOC: RADUSWWP 14:21
PROVIDERS: ATTEND Internal Medicine Nephrology
DX: N18.31 Chronic kidney disease, stage 3a (principal); N28.1 Cyst of kidney, acquired; Z85.51 Personal history of malignant neoplasm of bladder
CPT/HCPCS: 76770